=== PATIENT | female | born 1965 | race Caucasian/White ===

== ENCOUNTER 2016-05-28 03:04 | Observation (INO) | payer MEDICARE, MEDICAID ==
[2016-05-28 03:26] LABS: ABSOLUTE BASOPHILS # (AUTO) 0.1 10^3/uL (0.0-0.2); ABSOLUTE EOSINOPHILS # (AUTO) 0.1 10^3/uL (0.0-0.6); ABSOLUTE LYMPHOCYTES (AUTO) 2.6 10^3/uL (0.5-4.7); ABSOLUTE MONOCYTES (AUTO) 0.5 10^3/uL (0.1-1.4); ABSOLUTE NEUT (AUTO) 3.2 10^3/uL (1.7-8.2); BASOPHILS % (AUTO) 1.1 % (0-2); HEMATOCRIT 42.3 % (36.0-47.0); HEMOGLOBIN 13.5 g/dL (12.0-15.5); HGB HCT DIFFERENCE -1.8; LYMPHOCYTES % (AUTO) 39.6 % (13-45); MEAN CORPUSCULAR HEMOGLOBIN 31.6 pg (27.0-33.4); MEAN CORPUSCULAR HGB CONC 31.9 g/dL (32.0-36.0); MEAN CORPUSCULAR VOLUME 99 fl (80-97); MONOCYTES % (AUTO) 7.8 % (3-13); RED BLOOD COUNT 4.27 10^6/uL (3.72-5.28); RED CELL DISTRIBUTION WIDTH 13.5 % (11.5-14.0); SEGMENTED NEUTROPHILS % (AUTO) 49.5 % (42-78); WHITE BLOOD COUNT 6.5 10^3/uL (4.0-10.5)
[2016-05-28 03:32] LABS: PROTHROMBIN TIME 12.2 SEC (11.4-15.4)
[2016-05-28 03:46] LABS: ALANINE AMINOTRANSFERASE 24 U/L (9-52); ALBUMIN 4.1 g/dL (3.5-5.0); ALKALINE PHOSPHATASE 79 U/L (38-126); ANION GAP 12 (5-19); ASPARTATE AMINO TRANSFERASE 26 U/L (14-36); BILIRUBIN,TOTAL 0.5 mg/dL (0.2-1.3); BLOOD UREA NITROGEN 26 mg/dL (7-20); CALCIUM 9.5 mg/dL (8.4-10.2); CARBON DIOXIDE 25 mmol/L (22-30); CHLORIDE 105 mmol/L (98-107); CREATININE RESULT 1.25 mg/dL (0.52-1.25); GLUCOSE 110 mg/dL (75-110); POTASSIUM 4.2 mmol/L (3.6-5.0); SODIUM 142.2 mmol/L (137-145)
--- NOTE | 2016-05-28 03:47 | ER Document Report ---
ED General - General Time seen by provider: 03:10 Mode of Arrival: Medic Information source: Parent, Relative, Emergency Med Personnel TRAVEL OUTSIDE OF THE [place] IN LAST 30 DAYS: No - HPI Onset: Just prior to arrival <ALVARADO CARLTON - Last Filed: 05/28/16 05:08> <CALLIECHADWICK ANN - Last Filed: 05/28/16 05:59> - General Chief Complaint: Altered Mental Status Stated Complaint: POSSIBLE STROKE Notes: Patient is a 50-year-old Down syndrome female presenting to the emergency department with a seizure. Patient was with her mother when she called her mother who saw her seizing. Mother describes patient was discharged about and then she fell and was unresponsive. Patient then continued to seize and continued to seize until she was given Versed by EMS. Patient only has a history of seizures occur when she has a CVA. 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 Patient takes aspirin 325 mg daily along with and Claritin. Patient recently had a MRI on 05/01 that showed an old right MCA stroke. Patient was admitted on 05/02. Patient had an incontinent episode during her seizure today. Patient is moving all 4 extremities with intent at time of exam and is responsive. Patient is allergic to aripiprazole. (ALVARADO CARLTON) - Related Data Allergies/Adverse Reactions: aripiprazole [From [facility]] Allergy (Verified 04/30/16 22:22) Past Medical History - General Information source: Parent, Relative, [facility] Records - Social History Smoking Status: Never Smoker Cigarette use (# per day): No Chew tobacco use (# tins/day): No Frequency of alcohol use: None Drug Abuse: None Family History: None Patient has suicidal ideation: No Patient has homicidal ideation: No - Past Medical History Cardiac Medical History: Reports: Hx Hypercholesterolemia Pulmonary Medical History: Reports: Hx Pneumonia Neurological Medical History: Reports: Hx Cerebrovascular Accident - x2, Hx Seizures - (only with CVA, not treated with Rx) Endocrine Medical History: Reports: Hx Hypothyroidism Renal/ Medical History: Reports: Hx Renal Insufficiency GI Medical History: Reports: Hx Gastroesophageal Reflux Disease Musculoskeltal Medical History: Reports Hx Arthritis Psychiatric Medical History: Reports: Hx Depression Past Surgical History: Reports: Hx Cardiac Surgery - Immunizations Hx Diphtheria, Pertussis, Tetanus Vaccination: Yes Hx Pneumococcal Vaccination: 01/07/15 <ALVARADO CARLTON - Last Filed: 05/28/16 05:08> <CHADWICK LEDESMA - Last Filed: 05/28/16 05:59> - Medical History Notes: Patient has Down's Syndrome. (ALVARADO CARLTON) Review of Systems - Review of Systems Constitutional: No symptoms reported EENT: No symptoms reported Cardiovascular: No symptoms reported Respiratory: No symptoms reported Gastrointestinal: No symptoms reported Genitourinary: No symptoms reported Female Genitourinary: No symptoms reported Musculoskeletal: No symptoms reported Skin: No symptoms reported Hematologic/Lymphatic: No symptoms reported Neurological/Psychological: See HPI, Seizure -: Yes All other systems reviewed and negative <ALVARADO CARLTON - Last Filed: 05/28/16 05:08> Physical Exam - Vital signs Interpretation: Normal - General General appearance: Alert, Other - Down's syndrome and moving all extremities, patient is reaching/moving her extremities with intention In distress: Mild - HEENT Head: Normocephalic, Atraumatic Eyes: Normal Extraocular movements intact: Yes Pupils: PERRL Mouth/Lips: Other - poor dentition Mucous membranes: Normal - Respiratory Respiratory status: No respiratory distress Chest status: Nontender Breath sounds: Normal Chest palpation: Normal - Cardiovascular Rhythm: Regular Heart sounds: Normal auscultation Murmur: No - Abdominal Inspection: Normal Distension: No distension Bowel sounds: Normal Tenderness: Nontender Organomegaly: No organomegaly - Back Back: Normal, Nontender - Extremities General upper extremity: Normal inspection, Normal ROM, Normal strength General lower extremity: Normal inspection, Normal ROM, Normal strength - Neurological Neuro grossly intact: Yes Cognition: Normal - for down's syndrome baseline Orientation: AAOx4 [place] Coma Scale Eye Opening: Spontaneous Kush Coma Scale Verbal: Confused Kush Coma Scale Motor: Localizes to Pain Kush Coma Scale Total: 13 - Psychological Associated symptoms: Normal affect, Normal mood - Skin Skin Temperature: Warm Skin Moisture: Dry <ALVARADO CARLTON - Last Filed: 05/28/16 05:08> <CHADWICK LEDESMA - Last Filed: 05/28/16 05:59> - Vital signs Vitals: Resp BP Pulse Ox 18 114/86 H 100 05/28/16 03:06 05/28/16 03:06 05/28/16 03:06 (ALVARADO CARLTON) (CHADWICK LEDESMA) - Genitourinary Notes: Patient had an incontinence episode. (ALVARADO CARLTON) Course - Laboratory Result Diagrams: 05/28/16 03:05 05/28/16 03:05 - Consults Dr. Rich Time consulted: 04:47 <ALVARADO CARLTON - Last Filed: 05/28/16 05:08> - Laboratory Result Diagrams: 05/28/16 03:05 05/28/16 03:05 <CHADWICK LEDESMA - Last Filed: 05/28/16 05:59> - Re-evaluation Re-evalutation: 05/28/16 05:57 Patient is a 50-year-old female who comes in after an apparent seizure at home. Family states that the patient does not have a seizure disorder but has CTs in the past with stroke an infection. This is verified old records. Patient has not had a cough or fever recently and her chest x-ray is likely atelectasis. No evidence for urinary tract infection. Blood work is within normal limits with the exception of an elevated TSH. CT is not showing any acute findings although it is possible the patient has a history of stroke. Patient was discussed with hospitalist service. Antibiotics will be held at this time due to atypical presentation of pneumonia. We have discussed possible antiseizure medication for this patient which would be newly initiated. Patient has been started on levothyroxin. Family agrees with this plan. (CHADWICK LEDESMA) - Vital Signs Vital signs: Temp Pulse Resp BP Pulse Ox 98.5 F 16 105/74 99 05/28/16 03:14 05/28/16 05:04 05/28/16 05:04 05/28/16 05:04 (ALVARADO CARLTON) (CHADWICK LEDESMA) - Laboratory Laboratory results interpreted by oh: 05/28/16 05/28/16 05/28/16 03:05 03:05 03:05 MCV 99 H MCHC 31.9 L BUN 26 H Est GFR ( Amer) 55 L Est GFR (Non-Af Amer) 45 L TSH 20.80 H (ALVARADO CARLTON) (CHADWICK LEDESMA) - Consults Dr. Rich Reason for consultation: 05/28/16 04:47 Consult for possible recommendations for patient, Dr. Rich is not the patient's PCP as listed in paperwork; patient's PCP is Dr. Alberts with [facility]. (ALVARADO CARLTON) Dr. Peters Reason for consultation: 05/28/16 05:[address] Peters, patient will be admitted. (ALVARADO CARLTON) Critical Care Note - Critical Care Note Total time excluding time spent on procedures (mins): 45 - evaluation and management of seizure activity, altered mental status, discussion with family coordination of admission <CHADWICK LEDESMA - Last Filed: 05/28/16 05:59> Discharge <ALVARADO CARLTON - Last Filed: 05/28/16 05:08> - Discharge Admitting Provider: Cathy Unit Admitted: Telemetry <CHADWICK LEDESMA - Last Filed: 05/28/16 05:59> - Discharge Clinical Impression: Seizure Altered mental status Qualifiers: Altered mental status type: transient alteration of awareness Qualified Code(s) : R40.4 - Transient alteration of awareness Condition: Stable Disposition: ADMITTED INPATIENT Referrals: SAIGE RICH MD [Primary Care Provider] - Follow up as needed Scribe Attestation: 05/28/16 05:59 I personally performed the services described in the documentation, reviewed and edited the documentation which was dictated to the scribe in my presence, and it accurately records my words and actions. (CHADWICK LEDESMA) Scribe Documentation - Scribe Written by Scribe:: Alvarado Carlton 05/28/16 03:55 acting as scribe for :: Callie <ALVARADO CARLTON - Last Filed: 05/28/16 05:08>
[2016-05-28] MEDS ORDERED: NORMAL SALINE 1000 ML 1,000 ML IV ONE (04:00)
[2016-05-28 04:18] LABS: APPEARANCE,URINE CLEAR; BILIRUBIN,URINE NEGATIVE (NEGATIVE); GLUCOSE, URINE NEGATIVE (NEGATIVE); KETONES,URINE NEGATIVE (NEGATIVE); LEUKOCYTE ESTERASE,URINE NEGATIVE (NEGATIVE); NITRITE,URINE NEGATIVE (NEGATIVE); PROTEIN,URINE NEGATIVE (NEGATIVE); URINE SPECIFIC GRAVITY 1.018; UROBILINOGEN,URINE NEGATIVE mg/dL (<2.0)
[2016-05-28 04:20] LABS: VENOUS BLOOD BASE EXCESS 1.2 mmol/L; VENOUS BLOOD HCO3 26.5 mmol/L (20-32); VENOUS BLOOD PCO2 44.1 mmHg (35-63); VENOUS BLOOD PH 7.4 (7.30-7.42)
[2016-05-28 04:42] LABS: CREATINE KINASE MB 0.91 ng/mL (<4.55); TROPONIN I 0.026 ng/mL
[2016-05-28] MEDS ORDERED: ACETAMINOPHEN 325 MG TABLET PO ONE (05:06)
[2016-05-28] MEDS ORDERED: LEVOTHYROXINE SODIUM INJ/PF 0.1 MG SDV IV ONE (05:08)
[2016-05-28] MEDS ORDERED: PHENYTOIN SODIUM INJ/PF 250 MG/5 ML SDV IV ONE (05:09)
[2016-05-28] MEDS ORDERED: IPRATROPIUM/ALBUTEROL 0.5-2.5 MG/3 ML AMPUL NEB PRN (05:10)
[2016-05-28 05:45] LABS: FREE T3 3.23 pg/mL (2.77-5.27)
[2016-05-28] MEDS ORDERED: ONDANSETRON HCL INJ/PF 4 MG/2 ML SDV IV PRN (06:52)
--- NOTE | 2016-05-28 07:23 | PDOC H&P ---
History of Present Illness Admission Date/PCP: 05/28/16 05:29 SAIGE RICH, Patient complains of: Seizure History of Present Illness: GLENN GARCIA is a 50 year old female with history of Down syndrome, CVA and hypothyroidism. Who had 2 witnessed tonic seizures with urinary incontinence by family members. Patient received Versed by EMS and return to baseline with out significant postictal state. Patient's mother at bedside denies recent abnormal behavior or complaints nor recent change in medications. In the emergency room she has an unremarkable workup and is interactive and smiling at baseline Past Medical History Cardiac Medical History: Reports: Hyperlipidema Pulmonary Medical History: Reports: Pneumonia Neurological Medical History: Reports: Seizures - (only with CVA, not treated with Rx), Other - Down's syndrome Endocrine Medical History: Reports: Hypothyroidism GI Medical History: Reports: Gastroesophageal Reflux Disease Musculoskeltal Medical History: Reports: Arthritis Psychiatric Medical History: Reports: Depression Social History Information Source: Parent, Relative Lives with: Family Smoking Status: Never Smoker Frequency of Alcohol Use: None Hx Recreational Drug Use: No Drugs: None Hx Prescription Drug Abuse: No - Advance Directive Resuscitation Status: Full Code Family History Family History: None Parental Family History Reviewed: Yes Children Family History Reviewed: Yes Sibling(s) Family History Reviewed.: Yes Medication/Allergy Home Medications: Levothyroxine Sodium 1 tab PO DAILY 07/08/15 Loratadine 1 tab PO DAILY 07/08/15 Omeprazole 20 mg PO DAILY 07/08/15 Ranitidine HCl 1 tab PO BID 07/08/15 Sertraline HCl 1 tab PO DAILY 07/08/15 Erythromycin Base [E-Mycin 0.5% Oph Ointment 3.5 gm] 1 applic OS BID #1 tube 04/23 Acetaminophen [Tylenol 325 mg Tablet] 650 mg PO Q6HP PRN tablet 04/20/16 Aspirin [Ecotrin 81 mg EC Tablet] 1 tab PO DAILY 04/30/16 Clopidogrel Bisulfate [Plavix 75 mg Tablet] 75 mg PO QAM 04/30/16 Docusate Sodium [Colace 100 mg Capsule] 1 tab PO BID 04/30/16 Ipratropium/Albuterol Sulfate [Duoneb 3 ml Ampul] 1 vial NEB [id number] PRN Magnesium Hydroxide [Milk of Magnesia 30 ml Udcup] 1 pkg PO HSP PRN 04/30/16 Simvastatin 1 tab PO QHS 04/30/16 Allergies/Adverse Reactions: aripiprazole [From [facility]] Allergy (Verified 04/30/16 22:22) Review of Systems Constitutional: ABSENT: chills, fever(s), headache(s), weight gain, weight loss Eyes: ABSENT: visual disturbances Ears: ABSENT: hearing changes Cardiovascular: ABSENT: chest pain, dyspnea on exertion, edema, orthropnea, palpitations Respiratory: ABSENT: cough, hemoptysis Gastrointestinal: ABSENT: abdominal pain, constipation, diarrhea, hematemesis, hematochezia, nausea, vomiting Genitourinary: ABSENT: dysuria, hematuria Musculoskeletal: ABSENT: joint swelling Integumentary: ABSENT: rash, wounds Neurological: ABSENT: abnormal gait, abnormal speech, confusion, dizziness, focal weakness, syncope Psychiatric: ABSENT: anxiety, depression, homidical ideation, suicidal ideation Endocrine: ABSENT: cold intolerance, heat intolerance, polydipsia, polyuria Hematologic/Lymphatic: ABSENT: easy bleeding, easy bruising Physical Exam Vital Signs: Temp Pulse Resp BP Pulse Ox 98.5 F 16 104/76 100 05/28/16 03:14 05/28/16 06:01 05/28/16 06:01 05/28/16 06:01 General appearance: PRESENT: no acute distress, well-developed, well-nourished Head exam: PRESENT: atraumatic, normocephalic Eye exam: PRESENT: conjunctiva pink, EOMI, PERRLA. ABSENT: scleral icterus Ear exam: PRESENT: normal external ear exam Mouth exam: PRESENT: moist, tongue midline Neck exam: ABSENT: carotid bruit, JVD, lymphadenopathy, thyromegaly Respiratory exam: PRESENT: clear to auscultation amarjit. ABSENT: rales, rhonchi, wheezes Cardiovascular exam: PRESENT: RRR. ABSENT: diastolic murmur, rubs, systolic murmur Pulses: PRESENT: normal dorsalis pedis pul Vascular exam: PRESENT: normal capillary refill GI/Abdominal exam: PRESENT: normal bowel sounds, soft. ABSENT: distended, guarding, mass, organolmegaly, rebound, tenderness Rectal exam: PRESENT: deferred Extremities exam: PRESENT: full ROM. ABSENT: calf tenderness, clubbing, pedal edema Neurological exam: PRESENT: alert, awake, oriented to person, oriented to place , oriented to time, oriented to situation, CN II-XII grossly intact. ABSENT: motor sensory deficit Psychiatric exam: PRESENT: appropriate affect, normal mood. ABSENT: homicidal ideation, suicidal ideation Skin exam: PRESENT: dry, intact, warm. ABSENT: cyanosis, rash Results Impressions: Cervical Spine CT 05/28/16 03:14 IMPRESSION: No CT evidence for acute fracture at the cervical spine. Degenerative changes. Chest X-Ray 05/28/16 03:14 IMPRESSION: Vascular congestion. Bibasilar airspace opacities, may represent atelectasis or pneumonia. Head CT 05/28/16 03:14 IMPRESSION: No acute intracranial hemorrhage or depressed calvarial fracture. Remote infarcts in the right frontal and right frontoparietal regions. Assessment & Plan - Diagnosis (1) Seizure Is this a current diagnosis for this admission?: YesPlan: Most likely secondary to age-related decline with Down syndrome, initiated Dilantin, will likely require daily anticonvulsant given lack of reversible cause. (2) Down syndrome Is this a current diagnosis for this admission?: YesPlan: Supportive measures (3) Hypothyroidism Qualifiers: Hypothyroidism type: unspecified Qualified Code(s): E03.9 - Hypothyroidism, unspecified Is this a current diagnosis for this admission?: YesPlan: Elevated TSH likely secondary to seizure free T4 and T3 within normal range unremarkable vital signs and mentation at baseline, continue outpatient thyroid replacement regiment - Time Time Spent: 50 to 70 Minutes
[2016-05-28] MEDS ORDERED: PHENYTOIN SODIUM EXTENDED 100 MG CAPSULE PO ONE (08:00)
--- NOTE | 2016-05-28 08:13 | EKG REPORT ---
SEVERITY:- ABNORMAL ECG - SINUS RHYTHM LEFT ANTERIOR FASCICULAR BLOCK CONSIDER RIGHT VENTRICULAR HYPERTROPHY PROBABLE LEFT VENTRICULAR HYPERTROPHY NONSPECIFIC T ABNORMALITIES, INFERIOR LEADS : Confirmed by: Franco Valladares MD 28-May-2016 08:12:27
[2016-05-28] MEDS: CLOPIDOGREL BISULFATE 75 MG TABLET PO SCH (08:45)
[2016-05-28] MEDS: DOCUSATE SODIUM 100 MG CAPSULE PO SCH ×2 (09:53→21:22)
[2016-05-28] MEDS: ASPIRIN 81 MG TABLET, ENT COATED PO SCH (09:54)
[2016-05-28] MEDS ORDERED: LEVOTHYROXINE SODIUM 0.088 MG TABLET PO SCH (10:00)
[2016-05-28] MEDS ORDERED: LEVETIRACETAM 500 MG TABLET PO ONE (12:30)
[2016-05-28] MEDS: HEPARIN SOD (PORCINE) 5,000 UNIT/ML 1 ML SYRINGE SUBCUT SCH ×2 (15:03→21:26)
--- NOTE | 2016-05-28 17:12 | PDOC PROGRESS REPORT ---
Subjective Progress Note for:: 05/28/16 Subjective:: Patient was a little lethargic this am , but has been awake , and had no further seizure activity Physical Exam Vital Signs: Temp Pulse Resp BP Pulse Ox 97.9 F 85 18 112/58 L 96 05/28/16 14:01 05/28/16 16:00 05/28/16 16:00 05/28/16 14:01 05/28/16 16:00 General appearance: PRESENT: no acute distress, well-developed, well-nourished Head exam: PRESENT: atraumatic, normocephalic Eye exam: PRESENT: conjunctiva pink, EOMI, PERRLA. ABSENT: scleral icterus Ear exam: PRESENT: normal external ear exam Mouth exam: PRESENT: moist, tongue midline Neck exam: ABSENT: carotid bruit, JVD, lymphadenopathy, thyromegaly Respiratory exam: PRESENT: clear to auscultation amarjit. ABSENT: rales, rhonchi, wheezes Cardiovascular exam: PRESENT: RRR. ABSENT: diastolic murmur, rubs, systolic murmur Pulses: PRESENT: normal dorsalis pedis pul Vascular exam: PRESENT: normal capillary refill GI/Abdominal exam: PRESENT: normal bowel sounds, soft. ABSENT: distended, guarding, mass, organolmegaly, rebound, tenderness Rectal exam: PRESENT: deferred Extremities exam: PRESENT: full ROM. ABSENT: calf tenderness, clubbing, pedal edema Neurological exam: PRESENT: alert, awake, oriented to person, CN II-XII grossly intact. ABSENT: motor sensory deficit Psychiatric exam: PRESENT: appropriate affect, normal mood. ABSENT: homicidal ideation, suicidal ideation Skin exam: PRESENT: dry, intact, warm. ABSENT: cyanosis, rash Results Laboratory Results: Labs- All tests 24 hr 05/28/16 05/28/16 05/28/16 03:05 03:05 03:05 WBC 6.5 RBC 4.27 Hgb 13.5 Hct 42.3 MCV 99 H MCH 31.6 MCHC 31.9 L RDW 13.5 Plt Count 187 Seg Neutrophils % 49.5 Lymphocytes % 39.6 Monocytes % 7.8 Eosinophils % 2.0 Basophils % 1.1 Absolute Neutrophils 3.2 Absolute Lymphocytes 2.6 Absolute Monocytes 0.5 Absolute Eosinophils 0.1 Absolute Basophils 0.1 PT 12.2 INR 0.88 VBG pH VBG pCO2 VBG HCO3 VBG Base Excess Sodium 142.2 Potassium 4.2 Chloride 105 Carbon Dioxide 25 Anion Gap 12 BUN 26 H Creatinine 1.25 Est GFR ( Amer) 55 L Est GFR (Non-Af Amer) 45 L Glucose 110 POC Glucose Lactic Acid Calcium 9.5 Total Bilirubin 0.5 Direct Bilirubin 0.0 AST 26 ALT 24 Alkaline Phosphatase 79 Creatine Kinase CK-MB (CK-2) Troponin I Total Protein 7.0 Albumin 4.1 TSH Free T4 Free T3 pg/mL Urine Color Urine Appearance Urine pH Ur Specific [place] Urine Protein Urine Glucose (UA) Urine Ketones Urine Blood Urine Nitrite Urine Bilirubin Urine Urobilinogen Ur Leukocyte Esterase Urine WBC (Auto) Urine RBC (Auto) Urine Mucus (Auto) Urine Ascorbic Acid 05/28/16 05/28/16 05/28/16 03:05 03:05 03:05 WBC RBC Hgb Hct MCV MCH MCHC RDW Plt Count Seg Neutrophils % Lymphocytes % Monocytes % Eosinophils % Basophils % Absolute Neutrophils Absolute Lymphocytes Absolute Monocytes Absolute Eosinophils Absolute Basophils PT INR VBG pH VBG pCO2 VBG HCO3 VBG Base Excess Sodium Potassium Chloride Carbon Dioxide Anion Gap BUN Creatinine Est GFR ( Amer) Est GFR (Non-Af Amer) Glucose POC Glucose Lactic Acid 1.5 Calcium Total Bilirubin Direct Bilirubin AST ALT Alkaline Phosphatase Creatine Kinase 37 CK-MB (CK-2) Troponin I Total Protein Albumin TSH 20.80 H Free T4 Free T3 pg/mL Urine Color Urine Appearance Urine pH Ur Specific [place] Urine Protein Urine Glucose (UA) Urine Ketones Urine Blood Urine Nitrite Urine Bilirubin Urine Urobilinogen Ur Leukocyte Esterase Urine WBC (Auto) Urine RBC (Auto) Urine Mucus (Auto) Urine Ascorbic Acid 05/28/16 05/28/16 05/28/16 03:05 03:05 03:52 WBC RBC Hgb Hct MCV MCH MCHC RDW Plt Count Seg Neutrophils % Lymphocytes % Monocytes % Eosinophils % Basophils % Absolute Neutrophils Absolute Lymphocytes Absolute Monocytes Absolute Eosinophils Absolute Basophils PT INR VBG pH VBG pCO2 VBG HCO3 VBG Base Excess Sodium Potassium Chloride Carbon Dioxide Anion Gap BUN Creatinine Est GFR ( Amer) Est GFR (Non-Af Amer) Glucose POC Glucose 93 Lactic Acid Calcium Total Bilirubin Direct Bilirubin AST ALT Alkaline Phosphatase Creatine Kinase CK-MB (CK-2) 0.91 Troponin I 0.026 Total Protein Albumin TSH Free T4 1.03 Free T3 pg/mL 3.23 Urine Color Urine Appearance Urine pH Ur Specific [place] Urine Protein Urine Glucose (UA) Urine Ketones Urine Blood Urine Nitrite Urine Bilirubin Urine Urobilinogen Ur Leukocyte Esterase Urine WBC (Auto) Urine RBC (Auto) Urine Mucus (Auto) Urine Ascorbic Acid 05/28/16 05/28/16 03:53 03:55 WBC RBC Hgb Hct MCV MCH MCHC RDW Plt Count Seg Neutrophils % Lymphocytes % Monocytes % Eosinophils % Basophils % Absolute Neutrophils Absolute Lymphocytes Absolute Monocytes Absolute Eosinophils Absolute Basophils PT INR VBG pH 7.40 VBG pCO2 44.1 VBG HCO3 26.5 VBG Base Excess 1.2 Sodium Potassium Chloride Carbon Dioxide Anion Gap BUN Creatinine Est GFR ( Amer) Est GFR (Non-Af Amer) Glucose POC Glucose Lactic Acid Calcium Total Bilirubin Direct Bilirubin AST ALT Alkaline Phosphatase Creatine Kinase CK-MB (CK-2) Troponin I Total Protein Albumin TSH Free T4 Free T3 pg/mL Urine Color YELLOW Urine Appearance CLEAR Urine pH 5.0 Ur Specific [place] 1.018 Urine Protein NEGATIVE Urine Glucose (UA) NEGATIVE Urine Ketones NEGATIVE Urine Blood NEGATIVE Urine Nitrite NEGATIVE Urine Bilirubin NEGATIVE Urine Urobilinogen NEGATIVE Ur Leukocyte Esterase NEGATIVE Urine WBC (Auto) 0 Urine RBC (Auto) 0 Urine Mucus (Auto) RARE Urine Ascorbic Acid NEGATIVE Impressions: Head MRI 05/28/16 00:00 IMPRESSION: Excessive motion lowers sensitivity. No evidence of acute infarct. Cervical Spine CT 05/28/16 03:14 IMPRESSION: No CT evidence for acute fracture at the cervical spine. Degenerative changes. Chest X-Ray 05/28/16 03:14 IMPRESSION: Vascular congestion. Bibasilar airspace opacities, may represent atelectasis or pneumonia. Head CT 05/28/16 03:14 IMPRESSION: No acute intracranial hemorrhage or depressed calvarial fracture. Remote infarcts in the right frontal and right frontoparietal regions. Carotid Doppler Study 05/28/16 10:00 IMPRESSION: NO HEMODYNAMICALLY SIGNIFICANT STENOSIS. Assessment & Plan - Diagnosis (1) Seizure disorder as sequela of cerebrovascular accident Is this a current diagnosis for this admission?: YesPlan: second episode of seizure will initiate therapy with keppra 500 mg bid (2) Down syndrome Is this a current diagnosis for this admission?: Yes (3) History of ischemic right MCA stroke Is this a current diagnosis for this admission?: YesPlan: no reccurence of ischemic stroke but evidence on MRI of microvascular ischemic changes throughout white matter Patient likely had a lacunar TIA (4) Hypothyroidism Qualifiers: Hypothyroidism type: unspecified Qualified Code(s): E03.9 - Hypothyroidism, unspecified Is this a current diagnosis for this admission?: YesPlan: TSH elevated will increase synthroid replacement (5) TIA (transient ischemic attack) Is this a current diagnosis for this admission?: YesPlan: no reccurence of ischemic stroke but evidence on MRI of microvascular ischemic changes throughout white matter Patient likely had a lacunar TIA carotid US : no stenosis to continue plavix Echo pending - Time Time Spent with patient: 35 or more minutes
--- NOTE | 2016-05-28 18:07 | XCELERA REPORT ---
[address] [address] Transthoracic Echocardiogram Report Name: GLENN GARCIA Age: 50 yrs Gender: Female : 1965 Patient Status: Inpatient Patient Location: \S\10\S\A Study Date: 05/28/2016 01:29 PM Height: 66 in Weight: 144 lb BSA: 1.7 m2 Procedure: A two-dimensional transthoracic echocardiogram with color flow and Doppler was performed. The study was technically difficult with many images being suboptimal in quality. Reason For Study: SEIZURE / LOC / HISTORY OF CVA History: SEIZURE / LOC / HISTORY OF CVA. Ordering Physician: YUKI BAHENA Performed By: Mary Vela Interpretation Summary Recommend SBE prophylaxis prior to GI, , or Dental procedures / surgries. The left ventricle is normal in size. There is normal left ventricular wall thickness. LV EF is > than 60% Left ventricular systolic function is normal. Doppler measurements suggest impaired left ventricular relaxation, which is associated with grade I/IV or mild diastolic dysfunction The left ventricular wall motion is normal. There is no thrombus. The left atrial size is normal. The interatrial septum is intact with no evidence for an atrial septal defect. Mitral valve prolapse cannot be excluded. There is no vegetation seen on the mitral valve. There is no mitral valve stenosis. There is a severe amount of mitral regurgitation There is no aortic valve stenosis There is no LVOT obstruction. There is a trace amount of aortic regurgitation There is no tricuspid stenosis. There is a trace amount of tricuspid regurgitation Right ventricular systolic pressure is normal. RVSP is 22 mm of Hg , with RA mean of 5. Recommend SBE prophylaxis prior to GI, , or Dental procedures / surgries. MMode/2D Measurements \T\ Calculations RVDd: 1.7 cm LVIDd: 4.3 cm FS: 38.5 % Ao root diam: 2.9 cm IVSd: 0.87 cm LVIDs: 2.7 cm EDV(Teich): 85.1 ml LVPWd: 0.89 cm ESV(Teich): 26.4 ml Ao root area: 6.5 cm2 EF(Teich): 69.0 % LA dimension: 3.4 cm Doppler Measurements \T\ Calculations MV E max ciarra: MV P1/2t max ciarra: Ao V2 max: LV V1 max P.1 cm/sec 71.1 cm/sec 131.5 cm/sec 6.0 mmHg MV A max ciarra: MV P1/2t: 63.3 msec Ao max PG: LV V1 max: 92.3 cm/sec 6.9 mmHg 122.9 cm/sec MV E/A: 0.77 MVA(P1/2t): 3.5 cm2 MV dec slope: 328.6 cm/sec2 MV dec time: 0.21 sec PA V2 max: TR max ciarra: 77.5 cm/sec 206.3 cm/sec PA max PG: TR max P.0 mmHg 2.4 mmHg Left Ventricle The left ventricle is normal in size. There is normal left ventricular wall thickness. LV EF is > than 60%. Left ventricular systolic function is normal. Doppler measurements suggest impaired left ventricular relaxation, which is associated with grade I/IV or mild diastolic dysfunction. The left ventricular wall motion is normal. Septal motion is consistent with post- operative state. There is no thrombus. There is no ventricular septal defect visualized. Right Ventricle The right ventricular cavity is small. Atria The right atrium is normal. The left atrial size is normal. The interatrial septum is intact with no evidence for an atrial septal defect. Mitral Valve Mitral valve prolapse cannot be excluded. There is no vegetation seen on the mitral valve. There is no mitral valve stenosis. There is a severe amount of mitral regurgitation. Aortic Valve The aortic valve is trileaflet. The aortic valve opens well. There is no aortic valvular vegetation. There is no aortic valve stenosis. There is no LVOT obstruction. There is a trace amount of aortic regurgitation. Tricuspid Valve There is no tricuspid stenosis. There is a trace amount of tricuspid regurgitation. Right ventricular systolic pressure is normal. RVSP is 22 mm of Hg , with RA mean of 5. Pulmonic Valve There is no pulmonic valvular stenosis. There is no pulmonic valvular regurgitation. Great Vessels The aortic root is normal size. Effusions There is no pericardial effusion. : YUKI BAHENA > Trisha Peterson
[2016-05-28] MEDS: ACETAMINOPHEN 325 MG TABLET PO PRN (21:21)
[2016-05-28] MEDS: LEVETIRACETAM 500 MG TABLET PO SCH (21:35)
[2016-05-29] MEDS: NORMAL SALINE 1000 ML 1,000 ML IV SCH ×2 (01:45→06:30)
[2016-05-29 05:41] LABS: ABSOLUTE BASOPHILS # (AUTO) 0.1 10^3/uL (0.0-0.2); ABSOLUTE EOSINOPHILS # (AUTO) 0.2 10^3/uL (0.0-0.6); ABSOLUTE LYMPHOCYTES (AUTO) 1.8 10^3/uL (0.5-4.7); ABSOLUTE MONOCYTES (AUTO) 0.4 10^3/uL (0.1-1.4); ABSOLUTE NEUT (AUTO) 2.2 10^3/uL (1.7-8.2); BASOPHILS % (AUTO) 1.3 % (0-2); EOSINOPHILS % (AUTO) 3.2 % (0-6); HEMATOCRIT 40.6 % (36.0-47.0); HGB HCT DIFFERENCE -1.6; LYMPHOCYTES % (AUTO) 38.7 % (13-45); MEAN CORPUSCULAR HEMOGLOBIN 31.7 pg (27.0-33.4); MEAN CORPUSCULAR HGB CONC 32.1 g/dL (32.0-36.0); MEAN CORPUSCULAR VOLUME 99 fl (80-97); MONOCYTES % (AUTO) 9.1 % (3-13); RED CELL DISTRIBUTION WIDTH 13.6 % (11.5-14.0); SEGMENTED NEUTROPHILS % (AUTO) 47.7 % (42-78); WHITE BLOOD COUNT 4.7 10^3/uL (4.0-10.5)
[2016-05-29 06:05] LABS: ANION GAP 11 (5-19); BLOOD UREA NITROGEN 24 mg/dL (7-20); CALCIUM 8.9 mg/dL (8.4-10.2); CARBON DIOXIDE 23 mmol/L (22-30); CHLORIDE 109 mmol/L (98-107); CREATININE RESULT 1.02 mg/dL (0.52-1.25); GLUCOSE 79 mg/dL (75-110)
[2016-05-29] MEDS: HEPARIN SOD (PORCINE) 5,000 UNIT/ML 1 ML SYRINGE SUBCUT SCH ×2 (06:24→14:27)
[2016-05-29] MEDS: ACETAMINOPHEN 325 MG TABLET PO PRN (06:50)
[2016-05-29] MEDS ORDERED: LEVOTHYROXINE SODIUM 0.025 MG TABLET PO SCH (08:00)
[2016-05-29] MEDS ORDERED: LEVOTHYROXINE SODIUM 0.1 MG TABLET PO SCH (08:00)
[2016-05-29] MEDS: CLOPIDOGREL BISULFATE 75 MG TABLET PO SCH (09:00)
[2016-05-29] MEDS ORDERED: NORMAL SALINE 500 ML IV ONE (10:45)
[2016-05-29] MEDS: DOCUSATE SODIUM 100 MG CAPSULE PO SCH (11:45)
[2016-05-29] MEDS: LEVETIRACETAM 500 MG TABLET PO SCH (11:46)
[2016-05-29] MEDS: ASPIRIN 81 MG TABLET, ENT COATED PO SCH (11:46)
[2016-05-29 15:24] VITALS: BP 83/49
--- NOTE | 2016-05-31 07:25 | PDOC DISCHARGE SUMMARY ---
General - Admit/Disc Date/PCP Admission Date/Primary Care Provider: 05/28/16 05:29 Mejia Alberts Discharge Date: 05/29/16 - Discharge Diagnosis (1) Seizure disorder as sequela of cerebrovascular accident Is this a current diagnosis for this admission?: YesSummary: patient had seizure prior to admission witnessed by mother Keppra was initiated CT head was negative Patient was referred at discharge to Dr Martinez 24 hour EEG monitoring may be indicated (2) Down syndrome Is this a current diagnosis for this admission?: Yes (3) History of ischemic right MCA stroke Is this a current diagnosis for this admission?: YesSummary: Patient was admitted after seizure MRI brain suggested microvascular ischemic changes Carotid US and Echocardiogram were unremarkable A TIA like episode likely was cause of seizure Patient was continued on ecotrin and plavix She was referred to Neurology at discharge (4) Hypothyroidism Is this a current diagnosis for this admission?: YesSummary: levothyroxin was increased (5) TIA (transient ischemic attack) Is this a current diagnosis for this admission?: Yes - Additional Information Resuscitation Status: Full Code Discharge Diet: As Tolerated Discharge Activity: Activity As Tolerated Home Medications: Acetaminophen [Tylenol Extra Strength 500 mg Tablet] 1 tab PO Q8HP PRN 05/28/16 Aspirin [Aspirin 81 mg Chewable Tablet] 81 mg PO DAILY 05/28/16 Clopidogrel Bisulfate [Plavix 75 mg Tablet] 75 mg PO DAILY 05/28/16 Docusate Sodium [Colace 100 mg Capsule] 100 mg PO BID 05/28/16 Erythromycin Base [Erythromycin] 3.5 gm OS BID 05/28/16 Ipratropium/Albuterol Sulfate [Duoneb 3 ml Ampul] 3 ml NEB RTQ8HP PRN 05/28/16 Loratadine [Claritin 10 mg Tablet] 10 mg PO DAILY 05/28/16 Omeprazole 20 mg PO DAILY 05/28/16 Ranitidine HCl [Zantac 150 mg Tablet] 150 mg PO BID 05/28/16 Sertraline HCl [Zoloft] 100 mg PO DAILY 05/28/16 Atorvastatin Calcium [Lipitor 20 mg Tablet] 20 mg PO QHS #30 tablet 05/29/16 Levetiracetam [Keppra 500 mg Tablet] 500 mg PO Q12 #60 tablet 05/29/16 Levothyroxine Sodium 112 mcg PO DAILY #30 tablet 05/29/16 History of Present Illness Patient complains of: seizure History of Present Illness: GLENN GARCIA is a 50 year old female with history of Down syndrome, CVA and hypothyroidism. Who had 2 witnessed tonic seizures with urinary incontinence by family members. Patient received Versed by EMS and return to baseline with out significant postictal state. Patient's mother at bedside denies recent abnormal behavior or complaints nor recent change in medications. In the emergency room she has an unremarkable workup and is interactive and smiling at baseline Physical Exam Vital Signs: Temp Pulse Resp BP Pulse Ox 97.3 F 86 18 83/49 L 96 05/29/16 15:14 05/29/16 15:14 05/29/16 15:14 05/29/16 15:14 05/29/16 15:14 Intake & Output 05/30/16 05/31/16 06/01/16 00:59 00:59 00:59 Intake Total 1200 Balance 1200 Weight 68.4 kg General appearance: PRESENT: no acute distress, well-developed, well-nourished Head exam: PRESENT: atraumatic, normocephalic Eye exam: PRESENT: conjunctiva pink, EOMI, PERRLA. ABSENT: scleral icterus Ear exam: PRESENT: normal external ear exam Mouth exam: PRESENT: moist, tongue midline Neck exam: ABSENT: carotid bruit, JVD, lymphadenopathy, thyromegaly Respiratory exam: PRESENT: clear to auscultation amarjit. ABSENT: rales, rhonchi, wheezes Cardiovascular exam: PRESENT: RRR. ABSENT: diastolic murmur, rubs, systolic murmur Pulses: PRESENT: normal dorsalis pedis pul Vascular exam: PRESENT: normal capillary refill GI/Abdominal exam: PRESENT: normal bowel sounds, soft. ABSENT: distended, guarding, mass, organolmegaly, rebound, tenderness Rectal exam: PRESENT: deferred Extremities exam: PRESENT: full ROM. ABSENT: calf tenderness, clubbing, pedal edema Neurological exam: PRESENT: alert, awake, CN II-XII grossly intact. ABSENT: motor sensory deficit Psychiatric exam: PRESENT: appropriate affect, normal mood. ABSENT: homicidal ideation, suicidal ideation Skin exam: PRESENT: dry, intact, warm. ABSENT: cyanosis, rash Results Laboratory Results: 05/29/16 04:18 05/29/16 04:18 Laboratory WBC 4.7 10^3/uL (4.0-10.5) 05/29/16 04:18 RBC 4.10 10^6/uL (3.72-5.28) 05/29/16 04:18 Hgb 13.0 g/dL (12.0-15.5) 05/29/16 04:18 Hct 40.6 % (36.0-47.0) 05/29/16 04:18 MCV 99 fl (80-97) H 05/29/16 04:18 MCH 31.7 pg (27.0-33.4) 05/29/16 04:18 MCHC 32.1 g/dL (32.0-36.0) 05/29/16 04:18 RDW 13.6 % (11.5-14.0) 05/29/16 04:18 Plt Count 154 10^3/uL (150-450) 05/29/16 04:18 Seg Neutrophils % 47.7 % (42-78) 05/29/16 04:18 Lymphocytes % 38.7 % (13-45) 05/29/16 04:18 Monocytes % 9.1 % (3-13) 05/29/16 04:18 Eosinophils % 3.2 % (0-6) 05/29/16 04:18 Basophils % 1.3 % (0-2) 05/29/16 04:18 Absolute Neutrophils 2.2 10^3/uL (1.7-8.2) 05/29/16 04:18 Absolute Lymphocytes 1.8 10^3/uL (0.5-4.7) 05/29/16 04:18 Absolute Monocytes 0.4 10^3/uL (0.1-1.4) 05/29/16 04:18 Absolute Eosinophils 0.2 10^3/uL (0.0-0.6) 05/29/16 04:18 Absolute Basophils 0.1 10^3/uL (0.0-0.2) 05/29/16 04:18 Sodium 143.0 mmol/L (137-145) 05/29/16 04:18 Potassium 4.0 mmol/L (3.6-5.0) 05/29/16 04:18 Chloride 109 mmol/L (98-107) H 05/29/16 04:18 Carbon Dioxide 23 mmol/L (22-30) 05/29/16 04:18 Anion Gap 11 (5-19) 05/29/16 04:18 BUN 24 mg/dL (7-20) H 05/29/16 04:18 Creatinine 1.02 mg/dL (0.52-1.25) 05/29/16 04:18 Est GFR ( Amer) > 60 (>60) 05/29/16 04:18 Est GFR (Non-Af Amer) 57 (>60) L 05/29/16 04:18 Glucose 79 mg/dL (75-110) 05/29/16 04:18 POC Glucose 93 mg/dL (70-110) 05/28/16 03:52 Lactic Acid 1.5 mmol/L (0.7-2.1) 05/28/16 03:05 Calcium 8.9 mg/dL (8.4-10.2) 05/29/16 04:18 Total Bilirubin 0.5 mg/dL (0.2-1.3) 05/28/16 03:05 Direct Bilirubin 0.0 mg/dL (0.0-0.3) 05/28/16 03:05 AST 26 U/L (14-36) 05/28/16 03:05 ALT 24 U/L (9-52) 05/28/16 03:05 Alkaline Phosphatase 79 U/L (38-126) 05/28/16 03:05 Creatine Kinase 37 U/L (30-135) 05/28/16 03:05 CK-MB (CK-2) 0.91 ng/mL (<4.55) 05/28/16 03:05 Troponin I 0.026 ng/mL 05/28/16 03:05 Total Protein 7.0 g/dL (6.3-8.2) 05/28/16 03:05 Albumin 4.1 g/dL (3.5-5.0) 05/28/16 03:05 TSH 20.80 uIU/mL (0.47-4.68) H 05/28/16 03:05 Free T4 1.03 ng/dL (0.78-2.19) 05/28/16 03:05 Free T3 pg/mL 3.23 pg/mL (2.77-5.27) 05/28/16 03:05 Urine Color YELLOW 05/28/16 03:55 Urine Appearance CLEAR 05/28/16 03:55 Urine pH 5.0 (5.0-9.0) 05/28/16 03:55 Ur Specific [place] 1.018 05/28/16 03:55 Urine Protein NEGATIVE mg/dL (NEGATIVE) 05/28/16 03:55 Urine Glucose (UA) NEGATIVE mg/dL (NEGATIVE) 05/28/16 03:55 Urine Ketones NEGATIVE mg/dL (NEGATIVE) 05/28/16 03:55 Urine Blood NEGATIVE (NEGATIVE) 05/28/16 03:55 Urine Nitrite NEGATIVE (NEGATIVE) 05/28/16 03:55 Urine Bilirubin NEGATIVE (NEGATIVE) 05/28/16 03:55 Urine Urobilinogen NEGATIVE mg/dL (<2.0) 05/28/16 03:55 Ur Leukocyte Esterase NEGATIVE (NEGATIVE) 05/28/16 03:55 Urine WBC (Auto) 0 /HPF 05/28/16 03:55 Urine RBC (Auto) 0 /HPF 05/28/16 03:55 Urine Mucus (Auto) RARE /LPF 05/28/16 03:55 Urine Ascorbic Acid NEGATIVE (NEGATIVE) 05/28/16 03:55 Impressions: Head MRI 05/28/16 00:00 IMPRESSION: Excessive motion lowers sensitivity. No evidence of acute infarct. Cervical Spine CT 05/28/16 03:14 IMPRESSION: No CT evidence for acute fracture at the cervical spine. Degenerative changes. Chest X-Ray 05/28/16 03:14 IMPRESSION: Vascular congestion. Bibasilar airspace opacities, may represent atelectasis or pneumonia. Head CT 05/28/16 03:14 IMPRESSION: No acute intracranial hemorrhage or depressed calvarial fracture. Remote infarcts in the right frontal and right frontoparietal regions. Carotid Doppler Study 05/28/16 10:00 IMPRESSION: NO HEMODYNAMICALLY SIGNIFICANT STENOSIS. Plan Discharge Plan: discharged home with mother follow up with Neurology and Cardiology for event monitor Time Spent: Greater than 30 Minutes
== END 2016-05-29 16:15 | disposition home health service (06) ==
LOC: ER 03:04 → EH 05:29 → INTOOBSV 05:29 → 4N 16:04
PROVIDERS: ADMIT Internal Medicine; ATTEND Internal Medicine
DX: I69.398 Other sequelae of cerebral infarction (principal); R56.9 Unspecified convulsions; Q90.9 Down syndrome, unspecified; E03.9 Hypothyroidism, unspecified; G45.9 Transient cerebral ischemic attack, unspecified; E78.5 Hyperlipidemia, unspecified; K21.9 Gastro-esophageal reflux disease without esophagitis; M19.90 Unspecified osteoarthritis, unspecified site; F32.9 Major depressive disorder, single episode, unspecified
CPT/HCPCS: 93005; 99291; 96360; 36415 ×2; 87040; 87086; 84439; 82553; 82962; 82550; 84443; 85025 ×2; 85610; 80048; 80053; 81001; 84484; 84481; 82803; 83605; 93306; 93880; 70551; 71010; 70450; 72125; 93010; G0378 ×3; A9270 ×14; J1644 ×2; J7030 ×2; J7040

== ENCOUNTER → 2016-06-15 | Outpatient (CLI) | payer MEDICARE, MEDICAID | LOC: OD 15:40 | PROVIDERS: ATTEND Internal Medicine Cardiovascular Disease | DX: I34.0 Nonrheumatic mitral (valve) insufficiency (principal); Q21.2 Atrioventricular septal defect; Q90.9 Down syndrome, unspecified; Z98.890 Other specified postprocedural states; Z87.74 Personal history of (corrected) congenital malformations of heart and circulatory system | CPT/HCPCS: 71020 ==

== ENCOUNTER 2016-12-22 14:04 | Emergency (ER) | payer MEDICARE, MEDICAID ==
--- NOTE | 2016-12-22 14:26 | ER Document Report ---
ED Medical Screen (RME) - General Chief Complaint: Low Blood Pressure Stated Complaint: BLOOD PRESSURE PROBLEMS Time Seen by Provider: 12/22/16 14:21 Mode of Arrival: Wheelchair Information source: Parent TRAVEL OUTSIDE OF THE [place] IN LAST 30 DAYS: No - HPI Patient complains to provider of: Low blood pressure, body aches, right-sided weakness Onset: Other - 3 days Onset/Duration: Gradual, Persistent Notes: 12/22/16 14:26 Patient is a 50-year-old female with a history of Down syndrome, previous CVA/ TIA, and hypothyroidism, who was brought to the emergency room by family for complaints of decreased energy with right-sided weakness, difficulty ambulating and a blood pressure measured at 80/60 by home health 12/22/16 14:27 - Related Data Allergies/Adverse Reactions: aripiprazole [From Abilify] Allergy (Verified 12/22/16 14:20) Past Medical History - Social History Chew tobacco use (# tins/day): No Frequency of alcohol use: None Drug Abuse: None - Past Medical History Cardiac Medical History: Reports: Hx Hypercholesterolemia Pulmonary Medical History: Reports: Hx Pneumonia Neurological Medical History: Reports: Hx Cerebrovascular Accident - x2, Hx Seizures - (only with CVA, not treated with Rx) Endocrine Medical History: Reports: Hx Hypothyroidism Renal/ Medical History: Reports: Hx Renal Insufficiency. Denies: Hx Peritoneal Dialysis GI Medical History: Reports: Hx Gastroesophageal Reflux Disease Musculoskeltal Medical History: Reports Hx Arthritis Psychiatric Medical History: Reports: Hx Depression Past Surgical History: Reports: Hx Cardiac Surgery - Immunizations Hx Diphtheria, Pertussis, Tetanus Vaccination: Yes Physical Exam - Vital signs Vitals: Temp Pulse Resp BP Pulse Ox 97.6 F 80 18 97/75 L 96 12/22/16 14:18 12/22/16 14:18 12/22/16 14:18 12/22/16 14:18 12/22/16 14:18 Course - Vital Signs Vital signs: Temp Pulse Resp BP Pulse Ox 97.6 F 80 18 97/75 L 96 12/22/16 14:18 12/22/16 14:18 12/22/16 14:18 12/22/16 14:18 12/22/16 14:18
[2016-12-22] MEDS: NORMAL SALINE 1000 ML 1,000 ML IV PRN ×2 (14:53→16:15)
[2016-12-22 15:09] LABS: ABSOLUTE BASOPHILS # (AUTO) 0.1 10^3/uL (0.0-0.2); ABSOLUTE EOSINOPHILS # (AUTO) 0.1 10^3/uL (0.0-0.6); ABSOLUTE LYMPHOCYTES (AUTO) 1.3 10^3/uL (0.5-4.7); ABSOLUTE MONOCYTES (AUTO) 0.5 10^3/uL (0.1-1.4); ABSOLUTE NEUT (AUTO) 5.9 10^3/uL (1.7-8.2); BASOPHILS % (AUTO) 0.8 % (0-2); EOSINOPHILS % (AUTO) 1.1 % (0-6); HEMATOCRIT 41.6 % (36.0-47.0); HEMOGLOBIN 14.2 g/dL (12.0-15.5); LYMPHOCYTES % (AUTO) 16.7 % (13-45); MEAN CORPUSCULAR HEMOGLOBIN 33.7 pg (27.0-33.4); MEAN CORPUSCULAR HGB CONC 34.1 g/dL (32.0-36.0); MEAN CORPUSCULAR VOLUME 99 fl (80-97); MONOCYTES % (AUTO) 6.2 % (3-13); RED BLOOD COUNT 4.22 10^6/uL (3.72-5.28); RED CELL DISTRIBUTION WIDTH 13.8 % (11.5-14.0); SEGMENTED NEUTROPHILS % (AUTO) 75.2 % (42-78); WHITE BLOOD COUNT 7.8 10^3/uL (4.0-10.5)
[2016-12-22 15:18] LABS: VENOUS BLOOD BASE EXCESS 0.9 mmol/L; VENOUS BLOOD HCO3 27.3 mmol/L (20-32); VENOUS BLOOD PCO2 48.9 mmHg (35-63); VENOUS BLOOD PH 7.36 (7.30-7.42)
[2016-12-22 15:37] LABS: ALANINE AMINOTRANSFERASE 60 U/L (9-52); ALKALINE PHOSPHATASE 158 U/L (38-126); ANION GAP 9 (5-19); ASPARTATE AMINO TRANSFERASE 70 U/L (14-36); BILIRUBIN,DIRECT 0.5 mg/dL (0.0-0.4); BILIRUBIN,TOTAL 0.7 mg/dL (0.2-1.3); BLOOD UREA NITROGEN 25 mg/dL (7-20); CALCIUM 9.3 mg/dL (8.4-10.2); CARBON DIOXIDE 29 mmol/L (22-30); CHLORIDE 104 mmol/L (98-107); CREATINE KINASE 501 U/L (30-135); CREATININE RESULT 1.39 mg/dL (0.52-1.25); GLUCOSE 112 mg/dL (75-110); POTASSIUM 4.5 mmol/L (3.6-5.0); SODIUM 141.5 mmol/L (137-145); TOTAL PROTEIN 7.7 g/dL (6.3-8.2)
[2016-12-22 15:45] LABS: CREATINE KINASE MB 2.63 ng/mL (<4.55); TROPONIN I 0.013 ng/mL
[2016-12-22] MEDS ORDERED: NORMAL SALINE 1000 ML 1,000 ML IV ONE (16:16)
--- NOTE | 2016-12-22 17:57 | ER Document Report ---
ED Blood Pressure Problem - General Chief Complaint: Low Blood Pressure Stated Complaint: BLOOD PRESSURE PROBLEMS Time Seen by Provider: 12/22/16 14:21 Mode of Arrival: Wheelchair Notes: The patient is a 50-year-old female, past medical history Down syndrome, prior TIAs, presents from home after she was found to have a BP 80/60. According to the sister and caregiver at bedside, patient only drinks coffee and does not drink any water. 3 days ago, she was complaining of mild right arm weakness, but this quickly resolves. Patient denies chest pain, shortness of breath, focal weakness, numbness, blurry vision, headache, dysuria, fevers, flank pain, rash or ataxia. TRAVEL OUTSIDE OF THE [place] IN LAST 30 DAYS: No - Related Data Allergies/Adverse Reactions: aripiprazole [From Apica] Allergy (Verified 12/22/16 14:20) Past Medical History - General Information source: Parent - Social History Smoking Status: Never Smoker Chew tobacco use (# tins/day): No Frequency of alcohol use: None Drug Abuse: None Family History: None - Past Medical History Cardiac Medical History: Reports: Hx Hypercholesterolemia Pulmonary Medical History: Reports: Hx Pneumonia Neurological Medical History: Reports: Hx Cerebrovascular Accident - x2, Hx Seizures - (only with CVA, not treated with Rx) Endocrine Medical History: Reports: Hx Hypothyroidism Renal/ Medical History: Reports: Hx Renal Insufficiency. Denies: Hx Peritoneal Dialysis GI Medical History: Reports: Hx Gastroesophageal Reflux Disease Musculoskeltal Medical History: Reports Hx Arthritis Psychiatric Medical History: Reports: Hx Depression Past Surgical History: Reports: Hx Cardiac Surgery - Immunizations Hx Diphtheria, Pertussis, Tetanus Vaccination: Yes Hx Pneumococcal Vaccination: 01/07/15 Review of Systems - Review of Systems Notes: REVIEW OF SYSTEMS: CONSTITUTIONAL: -fevers, -chills EENT: -eye pain, -difficulty swallowing, -nasal congestion CARDIOVASCULAR:-chest pain, -syncope. RESPIRATORY: -cough, -SOB GASTROINTESTINAL: -abdominal pain, - nausea, -vomiting, -diarrhea GENITOURINARY: -dysuria, -hematuria MUSCULOSKELETAL: -back pain, -neck pain SKIN: -rash or skin lesions. HEMATOLOGIC: -easy bruising or bleeding. LYMPHATIC: -swollen, enlarged glands. NEUROLOGICAL: -altered mental status or loss of consciousness, -headache PSYCHIATRIC: -anxiety, -depression. ALL OTHER SYSTEMS REVIEWED AND NEGATIVE. Physical Exam - Vital signs Vitals: Temp Pulse Resp BP Pulse Ox 97.6 F 80 18 97/75 L 96 12/22/16 14:18 12/22/16 14:18 12/22/16 14:18 12/22/16 14:18 12/22/16 14:18 - Notes Notes: PHYSICAL EXAMINATION: GENERAL: Well-appearing, well-nourished and in no acute distress. HEAD: Atraumatic, normocephalic. EYES: Pupils equal round and reactive to light, extraocular movements intact, sclera anicteric, conjunctiva are normal. ENT: nares patent, oropharynx clear without exudates. Moist mucous membranes. NECK: Normal range of motion, supple without lymphadenopathy LUNGS: Breath sounds clear to auscultation bilaterally and equal. No wheezes rales or rhonchi. HEART: Regular rate and rhythm without murmurs ABDOMEN: Soft, nontender, normoactive bowel sounds. No guarding, no rebound. No masses appreciated. EXTREMITIES: Normal range of motion, no pitting or edema. No cyanosis. NEUROLOGICAL: Cranial nerves grossly intact. Normal sensory and motor exams. PSYCH: Normal mood, normal affect. SKIN: Warm, Dry, normal turgor, no rashes or lesions noted. Course - Re-evaluation Re-evalutation: Looking through prior records, patient's blood pressure is frequently 90s/50s, and this is what her sister said is normal for her. Patient is eating and drinking in the emergency room. Her blood pressure improved with IV fluids. Her labs are unremarkable for signs of dehydration, including elevated BUN and creatinine. She may have a mild UTI, although it may be a contaminated sample. Will begin Macrobid. The patient experienced a brief episode of right arm weakness 3 days ago. Her head CT does not show any acute abnormalities. Her ABCD2 score is 2. No current neuro sympytoms. Offered patient admission for further IV fluids and further evaluation, but using shared decision making, the sister, caregiver and patient would like to be discharged to follow-up with Dr. Rich this week. Patient given strict return precautions and she understands. - Vital Signs Vital signs: Temp Pulse Resp BP Pulse Ox 97.6 F 80 18 122/92 H 96 12/22/16 14:18 12/22/16 14:18 12/22/16 14:18 12/22/16 19:20 12/22/16 14:18 - Laboratory Result Diagrams: 12/22/16 14:40 12/22/16 14:40 Laboratory results interpreted by me: 12/22/16 12/22/16 12/22/16 14:40 14:40 18:24 MCV 99 H MCH 33.7 H BUN 25 H Creatinine 1.39 H Est GFR ( Amer) 48 L Est GFR (Non-Af Amer) 40 L Glucose 112 H Direct Bilirubin 0.5 H AST 70 H ALT 60 H Alkaline Phosphatase 158 H Creatine Kinase 501 H Urine Ketones TRACE H Urine Blood SMALL H Ur Leukocyte Esterase LARGE H - Diagnostic Test Radiology reviewed: Image reviewed, Reports reviewed Radiology results interpreted by me: Head CT: NAD Discharge - Discharge Clinical Impression: Dehydration TIA (transient ischemic attack) Qualifiers: Transient cerebral ischemia type: unspecified Qualified Code(s): G45.9 - Transient cerebral ischemic attack, unspecified UTI (urinary tract infection) Qualifiers: Urinary tract infection type: site unspecified Hematuria presence: without hematuria Qualified Code(s): N39.0 - Urinary tract infection, site not specified Condition: Stable Disposition: HOME, SELF-CARE Additional Instructions: Dehydration Dehydration can result from vomiting or diarrhea, fever, or decreased intake of fluids. If severe, hospitalization and intravenous fluids may be required. Most cases are treated at home with fluids by mouth. For the next 24 hours, drink lots of clear fluids. In mild cases, this can be soda pop or sports drinks. For more severe dehydration, the doctor may recommend special fluids such as Pedialyte or Lytren. Try to get three liters ( 3 quarts) of fluid per day. If vomiting occurs, continue to drink the fluids frequently (every 15 to 20 minutes), but in small amounts (one or two ounces). Depending on the type of dehydration, the doctor may prescribe antinausea medicine or potassium replacements. Call the doctor or return for re-examination if you become progressively weak, vomit repeatedly, or have other new symptoms. Transient Ischemic Attack You have been diagnosed as having a transient ischemic attack (TIA). This is caused when an artery to the brain has been temporarily blocked. It can result in visual changes, difficulty with speech, and weakness or numbness -- usually limited to one side of the body. TIA symptoms usually resolve within an hour, but a TIA is serious, as it may be a warning sign of an impending stroke. To prevent further episodes, you may be placed on medication to reduce the possibility that your platelets will aggregate and form blood clots in the arteries that supply the brain. Usually, this includes aspirin and sometimes other platelet inhibitors. Further evaluation is often necessary to make an exact diagnosis as to where these blood clots are originating, and if anything else needs to be done to correct the problem. Call the physician or go to the emergency room if episodes occur with increasing frequency. If symptoms occur that don't go away within a few minutes , call 911. URINARY TRACT INFECTION: Your evaluation indicates that you have a urinary tract infection. This is due to germs growing in the bladder. This is a common problem. This infection usually responds quickly to antibiotics. Your antibiotic should be taken exactly as prescribed. Drink plenty of fluids -- three to four quarts a day. Occasionally, a bladder anesthetic will be prescribed to help stop the feeling of urgency until the antibiotic has a chance to clear the infection. This may cause your urine to be dark orange. Certain urine infections require a culture. If the doctor obtained a culture, the results will be back in two days. You should call to see if a change in treatment is needed. A repeat urinalysis after you finish treatment is often recommended. The physician will let you know if further testing is required. Call the doctor if you develop fever, chills, flank pain, inability to urinate, or blood in the urine. ANTIBIOTIC THERAPY: You have been given an antibiotic prescription. It's important that you take all the medication, unless instructed otherwise by your physician. Failure to complete the entire course can result in relapse of your condition. Common side effects of antibiotics include nausea, intestinal cramping, or diarrhea. Women may develop vaginal yeast infections, and babies can get yeast (thrush) in the mouth following the use of antibiotics. Contact your physician if you develop significant side effects from this medication. Allergy to this antibiotic can result in hives, wheezing, faintness, or itching. If symptoms of allergy occur, stop the medication and call the doctor. NITROFURANTOIN (MACRODANTIN, MACROBID): You have received a prescription for nitrofurantoin (Macrodantin). This antibiotic is used for urinary tract infections. Women who are or nursing should notify the physician before taking this medicine. If you have ever had a problem caused by this medication in the past, be sure the physician is aware of it. Common side effects of this medicine include nausea, vomiting, or decreased appetite. Notify your physician if these side effects become severe. Immediately stop this medicine and call the physician if you develop cough , shortness of breath, chest pain, weakness, jaundice (yellow color of the skin and whites of the eyes), or a skin rash. FOLLOW-UP CARE: If you have been referred to a physician for follow-up care, call the physician s office for an appointment as you were instructed or within the next two days. If you experience worsening or a significant change in your symptoms, notify the physician immediately or return to the Emergency Department at any time for re-evaluation. Prescriptions: Nitrofurantoin/Nitrofuran Mac [Macrobid 100 mg Capsule] 1 tab PO BID #10 capsule Referrals: SAIGE RICH MD [ACTIVE STAFF] - Follow up as needed (Follow up in 1-2 days)
[2016-12-22 18:47] LABS: APPEARANCE,URINE CLOUDY; BILIRUBIN,URINE NEGATIVE (NEGATIVE); GLUCOSE, URINE NEGATIVE (NEGATIVE); KETONES,URINE TRACE mg/dL (NEGATIVE); LEUKOCYTE ESTERASE,URINE LARGE (NEGATIVE); NITRITE,URINE NEGATIVE (NEGATIVE); PROTEIN,URINE NEGATIVE (NEGATIVE); URINE SPECIFIC GRAVITY 1.015; UROBILINOGEN,URINE NEGATIVE mg/dL (<2.0)
[2016-12-22] MEDS ORDERED: NITROFURANTOIN MONOHYD/M-CRYST 100 MG CAPSULE PO ONE (19:39)
[2016-12-22 20:15] VITALS: BP 92/51
--- NOTE | 2016-12-28 00:19 | RADIOLOGY REPORT (SQ) ---
EXAM DESCRIPTION: CT HEAD WITHOUT COMPLETED DATE/TIME: 12/22/2016 3:39 pm REASON FOR STUDY: Injury, pain COMPARISON: MRI brain 05/28/2016 CT brain 05/28/2016, 04/30/2016, 04/25/2015, 09/02/2009 TECHNIQUE: Non contrasted CT brain was performed, reviewed at bone and brain and subdural windows. RADIATION DOSE: 64.6 mGy LIMITATIONS: Motion artifact throughout the study FINDINGS: There is motion artifact throughout the study. No gross depressed calvarial fracture. Paranasal sinuses, mastoid air cells clear. On the brain and subdural images without motion, there is no acute intracranial hemorrhage, large ter ritory acute ischemic change, mass effect, or midline shift. Old right anterior and posterior frontal cortical and subcortical white matter infarcts. Old right p osterior cerebellar hemisphere infarct. IMPRESSION: Limited study, no acute changes. Old right frontal and right cerebellar infarcts. TECHNICAL DOCUMENTATION: Job ID: [id number]
== END 2016-12-22 20:53 | disposition home or self-care (01) ==
LOC: ER 14:04
DX: E86.0 Dehydration (principal); G45.9 Transient cerebral ischemic attack, unspecified; N39.0 Urinary tract infection, site not specified; Q90.9 Down syndrome, unspecified
CPT/HCPCS: 99285; 96360; 96361; 36415; 87086; 82553; 82550; 85025; 87088; 80053; 81001; 84484; 87186; 82803; 83605; 70450; J7030; A9270; J8499

== ENCOUNTER 2017-01-05 11:47 | Inpatient (IN) | payer MEDICARE, MEDICAID ==
[2017-01-05] MEDS ORDERED: NORMAL SALINE 1000 ML 1,000 ML IV ONE ×2 (12:29→16:08)
[2017-01-05 12:33] LABS: ABSOLUTE BASOPHILS # (AUTO) 0.1 10^3/uL (0.0-0.2); ABSOLUTE MONOCYTES (AUTO) 0.5 10^3/uL (0.1-1.4); ABSOLUTE NEUT (AUTO) 5.3 10^3/uL (1.7-8.2); BASOPHILS % (AUTO) 0.9 % (0-2); EOSINOPHILS % (AUTO) 0.5 % (0-6); HEMATOCRIT 38.6 % (36.0-47.0); HEMOGLOBIN 12.9 g/dL (12.0-15.5); HGB HCT DIFFERENCE 0.1; LYMPHOCYTES % (AUTO) 15.1 % (13-45); MEAN CORPUSCULAR HEMOGLOBIN 33.5 pg (27.0-33.4); MEAN CORPUSCULAR HGB CONC 33.5 g/dL (32.0-36.0); MEAN CORPUSCULAR VOLUME 100 fl (80-97); MONOCYTES % (AUTO) 7.5 % (3-13); RED BLOOD COUNT 3.86 10^6/uL (3.72-5.28); RED CELL DISTRIBUTION WIDTH 13.7 % (11.5-14.0); WHITE BLOOD COUNT 6.9 10^3/uL (4.0-10.5)
[2017-01-05 13:07] LABS: ALANINE AMINOTRANSFERASE 26 U/L (9-52); ALBUMIN 3.9 g/dL (3.5-5.0); ALKALINE PHOSPHATASE 85 U/L (38-126); ANION GAP 11 (5-19); ASPARTATE AMINO TRANSFERASE 36 U/L (14-36); BILIRUBIN,DIRECT 0.5 mg/dL (0.0-0.4); BILIRUBIN,TOTAL 0.7 mg/dL (0.2-1.3); BLOOD UREA NITROGEN 16 mg/dL (7-20); CALCIUM 9.3 mg/dL (8.4-10.2); CARBON DIOXIDE 26 mmol/L (22-30); CHLORIDE 103 mmol/L (98-107); CREATINE KINASE 172 U/L (30-135); CREATININE RESULT 0.95 mg/dL (0.52-1.25); GLUCOSE 106 mg/dL (75-110); POTASSIUM 4.2 mmol/L (3.6-5.0); SODIUM 139.8 mmol/L (137-145); TOTAL PROTEIN 6.9 g/dL (6.3-8.2)
[2017-01-05 13:10] LABS: CREATINE KINASE MB 2.45 ng/mL (<4.55)
[2017-01-05 13:13] LABS: FREE T3 3.59 pg/mL (2.77-5.27)
[2017-01-05 13:17] LABS: TROPONIN I < 0.012 ng/mL
--- NOTE | 2017-01-05 14:15 | RADIOLOGY REPORT (SQ) ---
EXAM DESCRIPTION: CT HEAD WITHOUT COMPLETED DATE/TIME: 01/05/2017 1:36 pm REASON FOR STUDY: ams COMPARISON: 12/22/2016 TECHNIQUE: Axial images acquired through the brain without intravenous contrast. Images reviewed wi th bone, brain and subdural windows. Images stored on PACS. All CT scanners at this facility use dose modulation, iterative reconstruction, and/or weight based d osing when appropriate to reduce radiation dose to as low as reasonably achievable (ALARA). [facility]: Dose Right [facility]: CareDose [facility]: Dose Right [facility]: Teradose 4D [facility]: [employer] RADIATION DOSE: Up-to-date CT equipment and radiation dose reduction techniques were employed. CTDIv ol: 64.6 mGy. DLP: 2068 mGy-cm. mGy. LIMITATIONS: There is some motion artifact. FINDINGS: VENTRICLES: Prominent. CEREBRUM: No masses or hemorrhage seen. There is no midline shift. Old infarcts are seen on the rig ht in the frontal and parietal area. No acute infarct is seen. CEREBELLUM: Old right cerebellar infarct. No hemorrhage or acute abnormality appreciated, but there is some motion artifact in the posterior fossa. EXTRAAXIAL SPACES: No fluid collections. No masses. ORBITS AND GLOBE: No intra- or extraconal masses. Normal contour of globe without masses. CALVARIUM: No fracture. PARANASAL SINUSES: No fluid or mucosal thickening. SOFT TISSUES: No mass or hematoma. OTHER: No other significant finding. IMPRESSION: The study is slightly limited by motion artifact. There are old right-sided infarcts as described. There is no acute intracranial pathology. COMMENT: Quality ID # [id number]: Final reports with documentation of one or more dose reduction techniques (e.g., Automated exposure control, adjustment of the mA and/or kV according to patient size, use of iterative reconstruction technique) TECHNICAL DOCUMENTATION: JOB ID: [id number] [employer]- All Rights Reserved
[2017-01-05 15:02] LABS: APPEARANCE,URINE CLEAR; BILIRUBIN,URINE NEGATIVE (NEGATIVE); GLUCOSE, URINE NEGATIVE (NEGATIVE); KETONES,URINE NEGATIVE (NEGATIVE); LEUKOCYTE ESTERASE,URINE NEGATIVE (NEGATIVE); NITRITE,URINE NEGATIVE (NEGATIVE); PROTEIN,URINE NEGATIVE (NEGATIVE); URINE SPECIFIC GRAVITY 1.003; UROBILINOGEN,URINE NEGATIVE mg/dL (<2.0)
--- NOTE | 2017-01-05 15:33 | ER Document Report ---
ED Dizziness/Weakness - General Chief Complaint: General Weakness Stated Complaint: WEAKNESS Time Seen by Provider: 01/05/17 12:24 Mode of Arrival: Medic Information source: Parent Notes: patient is a 51-year-old female with Down syndrome, history of seizure disorder who presents to the ER today via EMS for generalized weakness over the past week with jerking of her extremities that began 3 days ago.Patient usually walks with a walker at home and mother states she has been needing maximum assistance up and down and can't walk because of weakness to her legs. Mom states last night she was trying to feed herself with a spoon, but didn't actually have the spoon in her hand. Mom states that today pt has been more tired and arousable but asleep most of the day.She states pt does not usually twitch or jerk. She denies that she's had any fever, chills, cough, vomiting, diarrhea, or recent seizure. Pt takes keppra 500mg twice daily for seizures. She has actually only ever had one seizure per mom and it was in May of this year and was associated with a stroke. She sees Dr. Martinez for neurology. TRAVEL OUTSIDE OF THE [place] IN LAST 30 DAYS: No - Related Data Allergies/Adverse Reactions: aripiprazole [From [employer]] Allergy (Verified 12/22/16 14:20) Home Medications: Current Home Medications Levothyroxine Sodium 125 mcg PO DAILY 01/05/17 [History] Past Medical History - General Information source: Parent - Social History Smoking Status: Never Smoker Chew tobacco use (# tins/day): No Frequency of alcohol use: None Drug Abuse: None Family History: None - Past Medical History Cardiac Medical History: Reports: Hx Hypercholesterolemia Pulmonary Medical History: Reports: Hx Pneumonia Neurological Medical History: Reports: Hx Cerebrovascular Accident - x2, Hx Seizures - (only with CVA, not treated with Rx) Endocrine Medical History: Reports: Hx Hypothyroidism Renal/ Medical History: Reports: Hx Renal Insufficiency. Denies: Hx Peritoneal Dialysis GI Medical History: Reports: Hx Gastroesophageal Reflux Disease Musculoskeltal Medical History: Reports Hx Arthritis Psychiatric Medical History: Reports: Hx Depression Past Surgical History: Reports: Hx Cardiac Surgery - Immunizations Hx Diphtheria, Pertussis, Tetanus Vaccination: Yes Hx Pneumococcal Vaccination: 01/07/15 Review of Systems - Review of Systems Constitutional: No symptoms reported EENT: No symptoms reported Cardiovascular: No symptoms reported Respiratory: No symptoms reported Gastrointestinal: No symptoms reported Genitourinary: No symptoms reported Female Genitourinary: No symptoms reported Musculoskeletal: No symptoms reported Skin: No symptoms reported Hematologic/Lymphatic: No symptoms reported Neurological/Psychological: See HPI Physical Exam - Vital signs Vitals: Pulse Ox 94 01/05/17 11:55 - Notes Notes: PHYSICAL EXAMINATION: GENERAL: pt with Down's, generalized mild jerking of extremities, sleeping but arousable easily by voice, in no acute distress. HEAD: Atraumatic, normocephalic. EYES: Pupils equal round and reactive to light, extraocular movements intact, sclera anicteric, conjunctiva are normal. ENT: ear canals without erythema or foreign body, TMs pearly hung with good bony landmarks, nares patent, oropharynx clear without exudates. Moist mucous membranes. airway patent NECK: Normal range of motion, supple without lymphadenopathy LUNGS: CTAB and equal. No wheezes rales or rhonchi. HEART: Regular rate and rhythm without murmurs ABDOMEN: Soft, no tenderness. No guarding, no rebound BACK: no vertebral tenderness, normal ROM GI/: erythematous rash with satellite lesions to groin, no CVA tenderness EXTREMITIES: Normal range of motion, no pitting edema. No cyanosis. NEUROLOGICAL: Cranial nerves grossly intact. weakened motor function throughout , normal sensory function PSYCH: mental retardation SKIN: Warm, Dry, normal turgor, see Course - Re-evaluation Re-evalutation: 01/05/17 18:38 Lab work is unremarkable today including a normal white blood cell count, completely normal urinalysis, CT of the head, chest x-ray that are without acute pathology. Patient had a generalized seizure while she was in the emergency department, foaming at the mouth, generalized shaking, hypoxia, pt was placed on oxygen and seizure lasted aproximately 3 minutes, pt was given ativan 1mg and loaded with Keppra. Pt's heart rate did go up to 138bpm during and immediately after seizure. Herve Adame was called so that I could consult with neurology, Dr. Mcdowell, neurologist there advises admission to medicine here with IV fluids and observation. He does not advise any further workup at this time. I did actually learn that her neurologist is Dr. Martinez, here in [place] and called him who also advises admission here with IV fluids and oxygen, observation. Patient is still postictal but did open her eyes and look at me whenever I mention food. Her heart rate is come down to 115 bpm and at one time even came down to normal. Patient has a low blood pressure usually and she has been between 80/50 and 115/90 here in the emergency department. Mother states that this is normal for her. Patient admitted to [facility] hospitalist for observation. My attending, Dr. Mcclendon agrees with plan and evaluated pt with me. - Vital Signs Vital signs: Temp Pulse Resp BP Pulse Ox 100.5 F H 25 H 141/94 H 95 01/05/17 16:47 01/05/17 16:02 01/05/17 15:41 01/05/17 16:02 - Laboratory Result Diagrams: 01/05/17 12:05 01/05/17 12:05 Laboratory results interpreted by me: 01/05/17 01/05/17 12:05 12:05 MCV 100 H MCH 33.5 H Direct Bilirubin 0.5 H Creatine Kinase 172 H Discharge - Discharge Clinical Impression: Weakness, Shaking Condition: Stable Disposition: ADMITTED OBSERVATION Admitting Provider: Hospitalist Unit Admitted: Telemetry Additional Instructions: Return immediately for any new or worsening symptoms. Follow up with primary care provider, call tomorrow to make followup appointment. Referrals: SLIME DOZIER MD [Primary Care Provider] - Follow up as needed
[2017-01-05] MEDS ORDERED: LEVETIRACETAM 500 MG/NACL-ISO 500 MG/100 ML RTUPB IV ONE (15:39)
[2017-01-05] MEDS ORDERED: LORAZEPAM INJ 2 MG/1 ML VIAL IV ONE ×2 (15:48→18:25)
[2017-01-05] MEDS ORDERED: LORAZEPAM INJ 2 MG/1 ML VIAL ONE (15:53)
--- NOTE | 2017-01-05 17:33 | RADIOLOGY REPORT (SQ) ---
EXAM DESCRIPTION: CHEST SINGLE VIEW COMPLETED DATE/TIME: 01/05/2017 5:14 pm REASON FOR STUDY: ams COMPARISON: 06/15/2016 EXAM PARAMETERS: NUMBER OF VIEWS: One view. TECHNIQUE: Single frontal radiographic view of the chest acquired. RADIATION DOSE: NA LIMITATIONS: Partial expiratory lung volumes. FINDINGS: LUNGS AND PLEURA: No consolidation or pneumothorax. No pleural effusion. MEDIASTINUM AND HILAR STRUCTURES: Stable for technique. HEART AND VASCULAR STRUCTURES: Stable for technique. BONES: No acute findings. HARDWARE: Sternotomy. OTHER: No other significant finding. IMPRESSION: No consolidation or significant effusion. Partial expiratory lung volumes. TECHNICAL DOCUMENTATION: JOB ID: [id number]
--- NOTE | 2017-01-05 19:05 | PDOC H&P ---
History of Present Illness Admission Date/PCP: SLIME DOZIER MD Neurologist: Dr. Martinez Patient complains of: Weakness History of Present Illness: GLENN GARCIA is a 51 year old female with Down syndrome who presented to the emergency room with weakness and twitching spells. Her mother reports a 2 week history of worsening weakness. Usually the patient is quite independent with her ADLs and is able to fix her breakfast and lunch independently. She can dress herself and take care of all of her hygiene needs. Over the past 2 weeks she has become increasingly weak and has eventually gotten to the point where she is unable to ambulate for the past 2 days. During this time. She began to have increasing twitching spells that have been increasing in frequency and severity. She was treated for a urinary tract infection 2 weeks ago. She was initially started on Macrobid however her culture was positive for greater than 100,000 colonies of Enterobacter as well as E. coli. There was some resistance to these organisms. A call was placed in her her antibiotic therapy was then changed to Cipro for which she has completed a course of therapy. In spite of appropriate treatment of her urinary tract infection her weakness progressed and she was brought to the emergency room for further evaluation and treatment. She had unremarkable laboratory studies, urinalysis and chest x-ray. During her ER stay she suffered a seizure. She was given 1 mg of IV Ativan by the ER attending. Since that time she has been somewhat post ictal but is been having increasing twitching spells and is somewhat combative at times. Past Medical History Cardiac Medical History: Reports: Hyperlipidema Pulmonary Medical History: Reports: Pneumonia, Other - Pleural effusion requiring chest tube placement EENT Medical History: Reports: None Neurological Medical History: Reports: Ischemic CVA, Seizures - (only with CVA, not treated with Rx), Other - She is status post CVA 2 Endocrine Medical History: Reports: Hypothyroidism Renal/ Medical History: Reports: None Malignancy Medical History: Reports: None GI Medical History: Reports: Gastroesophageal Reflux Disease Musculoskeltal Medical History: Reports: Arthritis Skin Medical History: Reports: Other - She recently has had an itchy rash in her groin area Psychiatric Medical History: Reports: Depression, Other - Down syndrome Traumatic Medical History: Reports: None Hematology: Reports: None Infectious Medical History: Reports: Other Past Surgical History Past Surgical History: Reports: Other - ASD repair Social History Information Source: Relative, Legal Guardian Lives with: Parents Smoking Status: Never Smoker Frequency of Alcohol Use: None Hx Recreational Drug Use: No Drugs: None Hx Prescription Drug Abuse: No - Advance Directive Resuscitation Status: Full Code Family History Family History: DM, Hyperlipidemia Parental Family History Reviewed: Yes Children Family History Reviewed: NA Sibling(s) Family History Reviewed.: Yes Medication/Allergy Home Medications: Acetaminophen [Tylenol Extra Strength 500 mg Tablet] 2 tab PO Q12H PRN 05/28/16 Aspirin [Aspirin 81 mg Chewable Tablet] 81 mg PO DAILY 05/28/16 Clopidogrel Bisulfate [Plavix 75 mg Tablet] 75 mg PO DAILY 05/28/16 Docusate Sodium [Colace 100 mg Capsule] 100 mg PO BID 05/28/16 Erythromycin Base [Erythromycin] 3.5 gm OS BID 05/28/16 Ipratropium/Albuterol Sulfate [Duoneb 3 ml Ampul] 3 ml NEB [id number] PRN 05/28/16 Loratadine [Claritin 10 mg Tablet] 10 mg PO DAILY 05/28/16 Omeprazole 20 mg PO DAILY 05/28/16 Ranitidine HCl [Zantac 150 mg Tablet] 150 mg PO BID 05/28/16 Sertraline HCl [Zoloft] 100 mg PO DAILY 05/28/16 Atorvastatin Calcium [Lipitor 20 mg Tablet] 20 mg PO QHS #30 tablet 05/29/16 Levetiracetam [Keppra 500 mg Tablet] 500 mg PO Q12 #60 tablet 05/29/16 Nitrofurantoin/Nitrofuran Mac [Macrobid 100 mg Capsule] 1 tab PO BID #10 capsule 12/22/16 Levothyroxine Sodium 125 mcg PO DAILY 01/05/17 Allergies/Adverse Reactions: aripiprazole [From [employer]] Allergy (Verified 12/22/16 14:20) Review of Systems ROS unobtainable: Due to mental status Physical Exam Vital Signs: Temp Pulse Resp BP Pulse Ox 100.5 F H 25 H 141/94 H 95 01/05/17 16:47 01/05/17 16:02 01/05/17 15:41 01/05/17 16:02 Intake & Output 01/04/17 01/05/17 01/06/17 06:59 06:59 06:59 Weight 67.132 kg General appearance: PRESENT: disheveled, other - The patient is significantly agitated, somewhat combative and twitching Head exam: PRESENT: atraumatic, normocephalic Eye exam: PRESENT: conjunctiva pink, PERRLA Ear exam: PRESENT: normal external ear exam Mouth exam: PRESENT: laceration - The patient bit her tongue and has a small laceration which is bleeding somewhat., moist Teeth exam: PRESENT: poor dentation Neck exam: ABSENT: carotid bruit, JVD, lymphadenopathy, thyromegaly Respiratory exam: PRESENT: clear to auscultation amarjit, tachypnea, other - Exam is limited as the patient will not cooperate. ABSENT: accessory muscle use Cardiovascular exam: PRESENT: RRR, +S1, +S2, tachycardia. ABSENT: diastolic murmur, gallop, rubs, systolic murmur Pulses: PRESENT: normal dorsalis pedis pul GI/Abdominal exam: PRESENT: normal bowel sounds, soft. ABSENT: tenderness Rectal exam: PRESENT: deferred Gentrourinary exam: PRESENT: other - Patient has rash consistent with Andra in her groin folds and on mons pubis Extremities exam: ABSENT: calf tenderness, clubbing, pedal edema Neurological exam: PRESENT: altered. ABSENT: alert, oriented to person, oriented to time, oriented to situation Psychiatric exam: PRESENT: agitated Focused psych exam: PRESENT: psychomotor agitation, restlessness Results Laboratory Results: 01/05/17 12:05 01/05/17 12:05 01/05/17 01/05/17 01/05/17 12:05 12:05 12:05 WBC 6.9 RBC 3.86 Hgb 12.9 Hct 38.6 MCV 100 H MCH 33.5 H MCHC 33.5 RDW 13.7 Plt Count 201 Seg Neutrophils % 76.0 Lymphocytes % 15.1 Monocytes % 7.5 Eosinophils % 0.5 Basophils % 0.9 Absolute Neutrophils 5.3 Absolute Lymphocytes 1.0 Absolute Monocytes 0.5 Absolute Eosinophils 0.0 Absolute Basophils 0.1 Sodium 139.8 Potassium 4.2 Chloride 103 Carbon Dioxide 26 Anion Gap 11 BUN 16 Creatinine 0.95 Est GFR ( Amer) > 60 Est GFR (Non-Af Amer) > 60 Glucose 106 Calcium 9.3 Total Bilirubin 0.7 AST 36 ALT 26 Alkaline Phosphatase 85 Total Protein 6.9 Albumin 3.9 TSH Free T4 1.03 Free T3 pg/mL 3.59 Urine Color Urine Appearance Urine pH Ur Specific [place] Urine Protein Urine Glucose (UA) Urine Ketones Urine Blood Urine Nitrite Ur Leukocyte Esterase Urine WBC (Auto) 01/05/17 01/05/17 12:05 14:40 WBC RBC Hgb Hct MCV MCH MCHC RDW Plt Count Seg Neutrophils % Lymphocytes % Monocytes % Eosinophils % Basophils % Absolute Neutrophils Absolute Lymphocytes Absolute Monocytes Absolute Eosinophils Absolute Basophils Sodium Potassium Chloride Carbon Dioxide Anion Gap BUN Creatinine Est GFR ( Amer) Est GFR (Non-Af Amer) Glucose Calcium Total Bilirubin AST ALT Alkaline Phosphatase Total Protein Albumin TSH 4.67 Free T4 Free T3 pg/mL Urine Color STRAW Urine Appearance CLEAR Urine pH 6.0 Ur Specific Mil[place] 1.003 Urine Protein NEGATIVE Urine Glucose (UA) NEGATIVE Urine Ketones NEGATIVE Urine Blood NEGATIVE Urine Nitrite NEGATIVE Ur Leukocyte Esterase NEGATIVE Urine WBC (Auto) 0 01/05/17 01/05/17 12:05 12:05 Creatine Kinase 172 H CK-MB (CK-2) 2.45 Troponin I < 0.012 Impressions: Head CT 01/05/17 13:22 IMPRESSION: The study is slightly limited by motion artifact. There are old right-sided infarcts as described. There is no acute intracranial pathology. Chest X-Ray 01/05/17 16:53 IMPRESSION: No consolidation or significant effusion. Partial expiratory lung volumes. Assessment & Plan - Diagnosis (1) Seizure Is this a current diagnosis for this admission?: Yes Plan: The ER attending contacted Dr. Martinez who has agreed to come see the patient in the hospital. We certainly appreciate his assistance. At his recommendation her Keppra is going to be increased to 750 mg twice daily. I am going to give her an additional 1 mg of IV Ativan at this time. She has had seizures in the past associated with acute CVAs. I will defer to neurology since he is going to see her to drive the workup. At this point she could simply be postictal. She will be placed in observation overnight in the hospital and we will reevaluate tomorrow. (2) Post-ictal confusion Is this a current diagnosis for this admission?: Yes Plan: She will be given an additional dose of IV Ativan at this time. She will have this available overnight. We will await further recommendations from neurology. (3) SIRS (systemic inflammatory response syndrome) Is this a current diagnosis for this admission?: Yes Plan: At this point the patient has fever, tachypnea and tachycardia. She did have a recent urinary tract infection but urine obtained today looks unremarkable. We will repeat labs in the morning. At this point I believe this is all reactive to her acute seizure. I will obtain blood cultures to make sure she has a urine culture pending. (4) Down syndrome Is this a current diagnosis for this admission?: Yes Plan: The patient is usually quite independent with her ADLs. She has become so weak over the past couple of weeks that she has been unable to ambulate. According to the family she told everybody last night that she was hurting all over. She does have issues with arthritis and it is difficult to get a good idea about what is going on with her. Certainly she has been having increasing twitching spells over the past 2 weeks as well. (5) UTI (urinary tract infection) Plan: The patient was recently treated within the past 2 weeks for an Enterobacter and E. coli urinary tract infection. She completed a course of p.o. Cipro. Cipro can cause some neurologic issues and lower the seizure threshold. This could be the cause of her recent twitching spells and seizure. (6) Hypothyroidism Plan: She will be started on her usual Synthroid. I will get a TSH and free T4 on the patient. (7) Rash Plan: She has a rash on her groin that reportedly is quite itchy. This is consistent with a Andra infection due to her recent antibiotic therapy. We will place her on some nystatin cream. - Time Time Spent: 50 to 70 Minutes - Inpatient Certification Medical Necessity: Other - At this point the patient will be placed in observation in the hospital. This will be her first midnight. She could simply be postictal and once we adjust her medications she should could potentially be discharged tomorrow.
[2017-01-05] MEDS ORDERED: ACETAMINOPHEN 325 MG TABLET PO PRN (19:14)
[2017-01-05] MEDS ORDERED: ACETAMINOPHEN 650 MG SUPP.RECT PR PRN (19:14)
[2017-01-05] MEDS ORDERED: LORAZEPAM INJ 2 MG/1 ML VIAL IV PRN (19:26)
[2017-01-05] MEDS ORDERED: NYSTATIN CREAM 15 GM TP ONE (20:45)
[2017-01-05] MEDS ORDERED: LEVETIRACETAM 750 MG in NORMAL SALINE 100 ML IV ONE (21:00)
[2017-01-05] MEDS: NORMAL SALINE 1000 ML 1,000 ML IV PRN (21:09)
[2017-01-05] MEDS: ATORVASTATIN CALCIUM 20 MG TABLET PO SCH (22:59)
--- NOTE | 2017-01-05 23:52 | EKG REPORT ---
SEVERITY:- ABNORMAL ECG - SINUS RHYTHM PROBABLE LEFT ATRIAL ABNORMALITY LEFT ANTERIOR FASCICULAR BLOCK CONSIDER RIGHT VENTRICULAR HYPERTROPHY LVH WITH SECONDARY REPOLARIZATION ABNORMALITY : Confirmed by: Lonny Aguilar 05-Jan-2017 23:50:45
[2017-01-06 05:50] LABS: HEMATOCRIT 34.1 % (36.0-47.0); HEMOGLOBIN 11.7 g/dL (12.0-15.5); MEAN CORPUSCULAR HEMOGLOBIN 33.9 pg (27.0-33.4); MEAN CORPUSCULAR HGB CONC 34.3 g/dL (32.0-36.0); MEAN CORPUSCULAR VOLUME 99 fl (80-97); RED BLOOD COUNT 3.44 10^6/uL (3.72-5.28); RED CELL DISTRIBUTION WIDTH 13.8 % (11.5-14.0); WHITE BLOOD COUNT 5.1 10^3/uL (4.0-10.5)
[2017-01-06 06:05] LABS: ANION GAP 10 (5-19); BLOOD UREA NITROGEN 9 mg/dL (7-20); CALCIUM 8.5 mg/dL (8.4-10.2); CARBON DIOXIDE 21 mmol/L (22-30); CHLORIDE 112 mmol/L (98-107); CREATININE RESULT 0.85 mg/dL (0.52-1.25); GLUCOSE 80 mg/dL (75-110); MAGNESIUM 1.9 mg/dL (1.6-2.3); PHOSPHORUS 2.9 mg/dL (2.5-4.5); POTASSIUM 3.7 mmol/L (3.6-5.0); SODIUM 143.1 mmol/L (137-145)
[2017-01-06 06:30] LABS: THYROID STIMULATING HORMONE 5.63 uIU/mL (0.47-4.68)
[2017-01-06] MEDS: LEVOTHYROXINE SODIUM 0.1 MG TABLET PO SCH (08:49)
[2017-01-06] MEDS: LEVOTHYROXINE SODIUM 0.025 MG TABLET PO SCH (08:49)
[2017-01-06] MEDS: NORMAL SALINE 1000 ML 1,000 ML IV PRN ×2 (08:58→20:46)
[2017-01-06] MEDS: ENOXAPARIN SODIUM INJ 40 MG/0.4 ML DISP.SYRIN SUBCUT SCH (10:35)
[2017-01-06] MEDS: LEVETIRACETAM 750 MG in NORMAL SALINE 100 ML IV SCH ×2 (10:35→21:29)
[2017-01-06] MEDS: ASPIRIN 81 MG TABLET, CHEWABLE PO SCH (10:43)
[2017-01-06] MEDS: CLOPIDOGREL BISULFATE 75 MG TABLET PO SCH (10:44)
[2017-01-06] MEDS: SERTRALINE HCL 50 MG TABLET PO SCH (10:44)
[2017-01-06] MEDS: DOCUSATE SODIUM 100 MG CAPSULE PO SCH ×2 (10:44→17:31)
[2017-01-06] MEDS: LORATADINE 10 MG TABLET PO SCH (10:44)
[2017-01-06] MEDS: ERYTHROMYCIN 0.5% OPH OINTMENT 3.5 GM TUBE OS SCH ×2 (11:34→17:32)
--- NOTE | 2017-01-06 13:39 | PDOC PROGRESS REPORT ---
Subjective Progress Note for:: 01/06/17 - HD#1 Subjective:: GLENN GARCIA is a 51 year old female with Downs syndrome who presented to the emergency room January 05, 2017 with weakness and twitching spells. Her mother reported a 2 week history of worsening weakness. Usually the patient is quite independent with her ADLs and is able to fix her breakfast and lunch independently. She can dress herself and take care of all of her hygiene needs. Over the past 2 weeks prior to admission, she has become increasingly weak and has eventually gotten to the point where she was unable to ambulate beginning 2 days prior to admission. During this time, she began to have twitching spells that have been increasing in frequency and severity. She was treated for a urinary tract infection 2 weeks to admission. She was initially started on Macrobid. However, her culture was positive for greater than 100,000 colonies of Enterobacter as well as E. coli. There was some resistance to these organisms. Her antibiotic therapy was then changed to Cipro for which she has completed a course of therapy. In spite of appropriate treatment of her urinary tract infection her weakness progressed and she was brought to the emergency room for further evaluation and treatment. She had unremarkable laboratory studies, urinalysis and chest x-ray. During her ER stay she suffered a seizure. She was given 1 mg of IV Ativan by the ER attending. Since that time she has been somewhat post ictal but still having twitching spells. At times she was combative. Today, she is somnolent, but arousable. Physical Exam Vital Signs: Temp Pulse Resp BP Pulse Ox 98.4 F 102 H 16 99/75 L 93 01/06/17 11:57 01/06/17 11:57 01/06/17 11:57 01/06/17 11:57 01/06/17 11:57 Intake & Output 01/05/17 01/06/17 01/07/17 06:59 06:59 06:59 Intake Total 240 Balance 240 Weight 67.1 kg General appearance: PRESENT: no acute distress, cooperative, obese Head exam: PRESENT: atraumatic, normocephalic Eye exam: PRESENT: conjunctiva pink, EOMI, PERRLA. ABSENT: scleral icterus Mouth exam: PRESENT: moist Neck exam: PRESENT: full ROM Respiratory exam: PRESENT: clear to auscultation amarjit. ABSENT: rales, rhonchi, wheezes Cardiovascular exam: PRESENT: RRR. ABSENT: diastolic murmur, rubs, systolic murmur GI/Abdominal exam: PRESENT: normal bowel sounds, soft. ABSENT: distended, guarding, mass, organolmegaly, rebound, tenderness Extremities exam: PRESENT: full ROM. ABSENT: calf tenderness, clubbing, pedal edema Neurological exam: PRESENT: altered - But arousable Skin exam: PRESENT: erythema - Groin Results Laboratory Results: 01/06/17 04:31 01/06/17 04:31 01/06/17 01/06/17 01/06/17 04:31 04:31 04:31 WBC 5.1 RBC 3.44 L Hgb 11.7 L Hct 34.1 L MCV 99 H MCH 33.9 H MCHC 34.3 RDW 13.8 Plt Count 158 Sodium 143.1 Potassium 3.7 Chloride 112 H Carbon Dioxide 21 L Anion Gap 10 BUN 9 Creatinine 0.85 Est GFR ( Amer) > 60 Est GFR (Non-Af Amer) > 60 Glucose 80 Calcium 8.5 Phosphorus 2.9 Magnesium 1.9 TSH 5.63 H Free T4 1.03 Impressions: Head CT 01/05/17 13:22 IMPRESSION: The study is slightly limited by motion artifact. There are old right-sided infarcts as described. There is no acute intracranial pathology. Chest X-Ray 01/05/17 16:53 IMPRESSION: No consolidation or significant effusion. Partial expiratory lung volumes. Assessment & Plan - Diagnosis (1) Encephalopathy acute Is this a current diagnosis for this admission?: Yes Plan: This could be due to subclinical seizures versus postictal state versus effects of lorazepam that she was given yesterday. She is now on a higher dose of Keppra for seizures. We will not give more Lorazepam and allow her to "wake" up. Neurology consult pending. (2) Seizure disorder as sequela of cerebrovascular accident Is this a current diagnosis for this admission?: Yes Plan: The ER attending contacted Dr. Martinez who has agreed to come see the patient in the hospital. We certainly appreciate his assistance. At his recommendation her Keppra is going to be increased to 750 mg twice daily. (3) Down syndrome Is this a current diagnosis for this admission?: Yes Plan: The patient is usually quite independent with her ADLs. She has become so weak over the past couple of weeks that she has been unable to ambulate. According to the family she told the family that she was hurting all over. She does have issues with arthritis. Unfortunately, due to her mental status, it is difficult to get a good idea about what is going on with her, i.e. where her pain is. CPK was 172. So, I doubt the rhabdomyolysis (muscle spasms) is playing a major role. Need to reassess when she is more alert. (4) Hypothyroidism Qualifiers: Hypothyroidism type: acquired Qualified Code(s): E03.9 - Hypothyroidism, unspecified Is this a current diagnosis for this admission?: Yes Plan: TSH was within normal limits. Continue current dose of levothyroxine. (5) Rash Plan: Yeast/fungal dermatitis. Continue nystatin cream. (6) Hypothyroidism Qualifiers: Hypothyroidism type: unspecified Qualified Code(s): E03.9 - Hypothyroidism , unspecified (7) Post-ictal confusion Is this a current diagnosis for this admission?: Yes Plan: Versus subclinical seizures versus medication effects from lorazepam. Appreciate neurology input. - Time Time Spent with patient: 25-34 minutes Anticipated discharge: Home Within: within 48 hours, within 36 hours - Inpatient Certification Based on my medical assessment, after consideration of the patient's comorbidities, presenting symptoms, or acuity I expect that the services needed warrant INPATIENT care.: Yes I certify that my determination is in accordance with my understanding of Medicare's requirements for reasonable and necessary INPATIENT services [42 CFR 412.3e].: Yes Medical Necessity: Need Close Monitoring Due to Risk of Patient Decompensation, Other - Mental status is altered
--- NOTE | 2017-01-06 15:39 | EKG REPORT ---
SEVERITY:- ABNORMAL ECG - SINUS TACHYCARDIA LEFT ANTERIOR FASCICULAR BLOCK CONSIDER RIGHT VENTRICULAR HYPERTROPHY PROBABLE LVH WITH SECONDARY REPOL ABNRM : Confirmed by: Lonny Aguilar 06-Jan-2017 15:38:54
[2017-01-06] MEDS: ATORVASTATIN CALCIUM 20 MG TABLET PO SCH (21:29)
[2017-01-06] MEDS: CLOTRIMAZOLE 1% CREAM 15 GM TP SCH (21:32)
[2017-01-07] MEDS ORDERED: ACETAMINOPHEN 650 MG SUPP.RECT PR PRN (06:30)
[2017-01-07] MEDS: NORMAL SALINE 1000 ML 1,000 ML IV PRN (07:37)
[2017-01-07] MEDS: LEVOTHYROXINE SODIUM 0.1 MG TABLET PO SCH (08:06)
[2017-01-07] MEDS: LEVOTHYROXINE SODIUM 0.025 MG TABLET PO SCH (08:06)
[2017-01-07] MEDS: ENOXAPARIN SODIUM INJ 40 MG/0.4 ML DISP.SYRIN SUBCUT SCH (09:52)
[2017-01-07] MEDS: CLOPIDOGREL BISULFATE 75 MG TABLET PO SCH (09:53)
[2017-01-07] MEDS: ASPIRIN 81 MG TABLET, CHEWABLE PO SCH (09:53)
[2017-01-07] MEDS: ERYTHROMYCIN 0.5% OPH OINTMENT 3.5 GM TUBE OS SCH ×2 (09:53→18:02)
[2017-01-07] MEDS: SERTRALINE HCL 50 MG TABLET PO SCH (09:53)
[2017-01-07] MEDS: DOCUSATE SODIUM 100 MG CAPSULE PO SCH ×2 (09:53→18:02)
[2017-01-07] MEDS: CLOTRIMAZOLE 1% CREAM 15 GM TP SCH ×2 (09:53→23:38)
[2017-01-07] MEDS: LORATADINE 10 MG TABLET PO SCH (09:53)
[2017-01-07] MEDS: LEVETIRACETAM 750 MG in NORMAL SALINE 100 ML IV SCH (09:54)
--- NOTE | 2017-01-07 12:02 | PDOC PROGRESS REPORT ---
Subjective Progress Note for:: 01/07/17 Subjective:: The patient is a 51-year-old female who has a history of Down syndrome. Normally, she is independent with most activities of daily living. She can dress herself, bathe herself and make meals which are not complicated. She has had a 2 week history of increasing weakness and lethargy. She was recently treated for a urinary tract infection and did receive ciprofloxacin. In the emergency department she had a witnessed seizure. Her dose of Keppra has been increased. A neurology consult has been placed. Physical Exam Vital Signs: Temp Pulse Resp BP Pulse Ox 98.2 F 87 16 114/72 96 01/07/17 08:26 01/07/17 08:26 01/07/17 08:26 01/07/17 08:26 01/07/17 08:26 Intake & Output 01/06/17 01/07/17 01/08/17 06:59 06:59 06:59 Intake Total 240 1200 Balance 240 1200 Weight 67.1 kg 61.7 kg General appearance: PRESENT: no acute distress Eye exam: PRESENT: EOMI Mouth exam: PRESENT: moist, neck supple Respiratory exam: PRESENT: clear to auscultation amarjit Cardiovascular exam: PRESENT: RRR GI/Abdominal exam: PRESENT: normal bowel sounds, soft Musculoskeletal exam: PRESENT: full ROM Neurological exam: PRESENT: other - Patient appeared to be sleeping when I entered the room. She does wake up with tactile stimuli and verbal stimuli but immediately falls back to sleep. She will follow simple commands such as open your eyes. However, she is somnolent and lethargic. Results Laboratory Results: 01/06/17 04:31 01/06/17 04:31 Impressions: Head CT 01/05/17 13:22 IMPRESSION: The study is slightly limited by motion artifact. There are old right-sided infarcts as described. There is no acute intracranial pathology. Chest X-Ray 01/05/17 16:53 IMPRESSION: No consolidation or significant effusion. Partial expiratory lung volumes. Assessment & Plan - Diagnosis (1) Down syndrome Is this a current diagnosis for this admission?: Yes Plan: Patient has a history of Down's syndrome but is functional and independent of ADLs at home. (2) Generalized weakness Plan: This is likely related to the patient's altered sensorium. Treated for a urinary tract infection. At this time we do not have evidence of infection but we need to follow closely for infection, inflammatory and medication effects that could be contributing to this presentation. (3) Hypothyroidism Qualifiers: Hypothyroidism type: acquired Qualified Code(s): E03.9 - Hypothyroidism, unspecified Is this a current diagnosis for this admission?: Yes Plan: TSH is only minimally elevated. We will continue current dose of levothyroxine. (4) Post-ictal confusion Is this a current diagnosis for this admission?: Yes Plan: I would expect any degree of post ictal state to be resolved by now. (5) Rash Plan: Likely Andra. Continue topical therapy. (6) Encephalopathy acute Is this a current diagnosis for this admission?: Yes Plan: Again, we need to presume that there is an underlying cause to include infectious, inflammatory conditions and metabolic conditions as well as medication effect. Neurology consult is pending. Patient could also be having intermittent seizure activity. (7) Seizure Is this a current diagnosis for this admission?: Yes Plan: Dose of Keppra has recently been increased. - Time Time Spent with patient: 25-34 minutes - Inpatient Certification Based on my medical assessment, after consideration of the patient's comorbidities, presenting symptoms, or acuity I expect that the services needed warrant INPATIENT care.: Yes I certify that my determination is in accordance with my understanding of Medicare's requirements for reasonable and necessary INPATIENT services [42 CFR 412.3e].: Yes Medical Necessity: Need Close Monitoring Due to Risk of Patient Decompensation
[2017-01-07 15:20] LABS: ANION GAP 12 (5-19); BLOOD UREA NITROGEN 7 mg/dL (7-20); CALCIUM 8.4 mg/dL (8.4-10.2); CARBON DIOXIDE 20 mmol/L (22-30); CHLORIDE 111 mmol/L (98-107); GLUCOSE 126 mg/dL (75-110); POTASSIUM 3.6 mmol/L (3.6-5.0); SODIUM 142.7 mmol/L (137-145)
[2017-01-07] MEDS: ACETAMINOPHEN 325 MG TABLET PO PRN (23:34)
[2017-01-07] MEDS: ATORVASTATIN CALCIUM 20 MG TABLET PO SCH (23:38)
[2017-01-08] MEDS ORDERED: LEVETIRACETAM INJ/PF 500 MG/5 ML SDV IV ONE (00:53)
[2017-01-08] MEDS: LEVETIRACETAM 750 MG in NORMAL SALINE 100 ML IV SCH ×3 (01:26→21:57)
[2017-01-08 05:29] LABS: ANION GAP 10 (5-19); BLOOD UREA NITROGEN 9 mg/dL (7-20); CALCIUM 8.6 mg/dL (8.4-10.2); CARBON DIOXIDE 22 mmol/L (22-30); CHLORIDE 110 mmol/L (98-107); CREATININE RESULT 0.82 mg/dL (0.52-1.25); GLUCOSE 88 mg/dL (75-110); MAGNESIUM 1.7 mg/dL (1.6-2.3); POTASSIUM 3.3 mmol/L (3.6-5.0); SODIUM 142.1 mmol/L (137-145)
[2017-01-08] MEDS: LEVOTHYROXINE SODIUM 0.025 MG TABLET PO SCH (08:30)
[2017-01-08] MEDS: LEVOTHYROXINE SODIUM 0.1 MG TABLET PO SCH (08:30)
[2017-01-08] MEDS: DOCUSATE SODIUM 100 MG CAPSULE PO SCH ×2 (09:37→17:14)
[2017-01-08] MEDS: CLOPIDOGREL BISULFATE 75 MG TABLET PO SCH (09:37)
[2017-01-08] MEDS: SERTRALINE HCL 50 MG TABLET PO SCH (09:37)
[2017-01-08] MEDS: ENOXAPARIN SODIUM INJ 40 MG/0.4 ML DISP.SYRIN SUBCUT SCH (09:37)
[2017-01-08] MEDS: LORATADINE 10 MG TABLET PO SCH (09:37)
[2017-01-08] MEDS: ASPIRIN 81 MG TABLET, CHEWABLE PO SCH (09:37)
[2017-01-08] MEDS: ERYTHROMYCIN 0.5% OPH OINTMENT 3.5 GM TUBE OS SCH ×2 (09:38→17:14)
[2017-01-08] MEDS: CLOTRIMAZOLE 1% CREAM 15 GM TP SCH ×2 (09:38→21:57)
[2017-01-08] MEDS: MAGNESIUM OXIDE 400 MG TABLET PO SCH (09:44)
[2017-01-08] MEDS ORDERED: POTASSIUM CHLORIDE 10 MEQ TABLET.SA PO ONE (10:00)
--- NOTE | 2017-01-08 11:41 | PDOC PROGRESS REPORT ---
Subjective Progress Note for:: 01/08/17 Subjective:: The patient is a 51-year-old female who has a history of Down syndrome. Normally, she is independent with most activities of daily living. She can dress herself, bathe herself and make meals which are not complicated. She has had a 2 week history of increasing weakness and lethargy. She was recently treated for a urinary tract infection and did receive ciprofloxacin. In the emergency department she had a witnessed seizure. Her dose of Keppra has been increased. A neurology consult has been placed. Yesterday, we called the neurologists office. Unfortunately, the neurologist will not be able to provide consultation this hospitalization. Also yesterday I came to check on the patient at noon and she was awake but still sleepy. She was able to eat some lunch. By yesterday afternoon she was awake and answered most questions appropriately and followed commands appropriately. However, while the patient could tell us her mother's name when her mother came to have at her bedside she was very agitated and stated that that was not her mother. Therefore, she continues to be inappropriate. Today, the patient's sister was at the bedside. The patient's sister told me that Ashwini has been going downhill over the last several years. She also told me that she has difficulty walking secondary to bilateral hip pain. She was evaluated for a hip replacement but declined hip replacement. The sister called the mother while I was in the room and the mother is concerned about a sacral ulcer. Physical Exam Vital Signs: Temp Pulse Resp BP Pulse Ox 97.5 F 68 20 110/56 L 97 01/08/17 08:09 01/08/17 08:09 01/08/17 08:09 01/08/17 08:09 01/08/17 08:09 Intake & Output 01/07/17 01/08/17 01/09/17 06:59 06:59 06:59 Weight 61.7 kg Head exam: PRESENT: atraumatic Eye exam: PRESENT: EOMI Teeth exam: PRESENT: dental caries Respiratory exam: PRESENT: clear to auscultation amarjit, unlabored Cardiovascular exam: PRESENT: RRR GI/Abdominal exam: PRESENT: normal bowel sounds, soft Extremities exam: PRESENT: full ROM Neurological exam: PRESENT: alert, awake Skin exam: PRESENT: dry, intact Results Laboratory Results: 01/08/17 04:00 01/07/17 01/08/17 14:29 04:00 Sodium 142.7 142.1 Potassium 3.6 3.3 L Chloride 111 H 110 H Carbon Dioxide 20 L 22 Anion Gap 12 10 BUN 7 9 Creatinine 0.80 0.82 Est GFR ( Amer) > 60 > 60 Est GFR (Non-Af Amer) > 60 > 60 Glucose 126 H 88 Calcium 8.4 8.6 Magnesium 1.7 Impressions: Head CT 01/05/17 13:22 IMPRESSION: The study is slightly limited by motion artifact. There are old right-sided infarcts as described. There is no acute intracranial pathology. Chest X-Ray 01/05/17 16:53 IMPRESSION: No consolidation or significant effusion. Partial expiratory lung volumes. Assessment & Plan - Diagnosis (1) Down syndrome Is this a current diagnosis for this admission?: Yes Plan: Patient has a history of Down's syndrome: yesterday I was told she is functional and independent of ADLs at home. Today, her sister reports that she has been going downhill for many years. (2) Generalized weakness Plan: This is likely related to the patient's altered sensorium. Treated for a urinary tract infection. At this time we do not have evidence of infection but we need to follow closely for infection, inflammatory and medication effects that could be contributing to this presentation.Continue physical therapy.Today , I also found out that the patient has osteoarthritis of her hips and this is likely a contributing factor. (3) Hypothyroidism Qualifiers: Hypothyroidism type: acquired Qualified Code(s): E03.9 - Hypothyroidism, unspecified Is this a current diagnosis for this admission?: Yes Plan: TSH is only minimally elevated. We will continue current dose of levothyroxine. (4) Post-ictal confusion Is this a current diagnosis for this admission?: Yes Plan: I would expect any degree of post ictal state to be resolved by now. The patient is intermittently sleepy, however, when she wakes up she does follow commands. Right now her presentation does not appear to be consistent with a post ictal state. I also think that the patient has a component of sleep-wake malfunction. She did not get much sleep last night and she was sleeping later this morning. The nurses will try to keep her awake during the day to allow her to get a more normal night's sleep tonight to try to receiving her sleep- wake cycle. (5) Rash Plan: Likely Andra. Continue topical therapy. Rash is improved. (6) Encephalopathy acute Is this a current diagnosis for this admission?: Yes Plan: Again, we need to presume that there is an underlying cause to include infectious, inflammatory conditions and metabolic conditions as well as medication effect. Neurology consult will not be able to be obtained. Yesterday, the patient woke up significantly. She is following commands. She does not have a fever. She does not have an elevated white blood cell count. I do not find any evidence of acute infection. At this time I am concerned that she could have some residual effects from her recent course of ciprofloxacin. (7) Seizure Is this a current diagnosis for this admission?: Yes Plan: Dose of Keppra has recently been increased per conversation with neurology from the ED. The patient did have a witnessed seizure in the emergency department. (8) CVA (cerebral vascular accident) Qualifiers: CVA mechanism: unspecified Qualified Code(s): I63.9 - Cerebral infarction, unspecified Plan: Patient has had previous strokes and TIAs. She likely has some residual deficits. Again, perhaps her recent course of ciprofloxacin led to some of her mental status changes. In addition, the patient's sister tells me that she has been going downhill slowly over the last several years. The patient is currently on dual antiplatelet therapy as well as atorvastatin. Therefore, she is on maximal therapy for secondary prevention. Her exam does not suggest a new stroke. I do not see an indication to send her for an MRI of the brain. - Time Time Spent with patient: 25-34 minutes - Inpatient Certification Medical Necessity: Significant Comorbidiites Make Outpatient Treatment Too Risky , Need Close Monitoring Due to Risk of Patient Decompensation, Risk of Complication if Not Cared For in Hospital
[2017-01-08] MEDS: ATORVASTATIN CALCIUM 20 MG TABLET PO SCH (21:57)
[2017-01-08] MEDS: ACETAMINOPHEN 325 MG TABLET PO PRN (21:58)
[2017-01-09] MEDS: LEVOTHYROXINE SODIUM 0.025 MG TABLET PO SCH (07:50)
[2017-01-09] MEDS: LEVOTHYROXINE SODIUM 0.1 MG TABLET PO SCH (07:50)
[2017-01-09 08:47] LABS: ANION GAP 12 (5-19); BLOOD UREA NITROGEN 8 mg/dL (7-20); CARBON DIOXIDE 24 mmol/L (22-30); CHLORIDE 106 mmol/L (98-107); CREATININE RESULT 0.81 mg/dL (0.52-1.25); GLUCOSE 103 mg/dL (75-110); POTASSIUM 3.5 mmol/L (3.6-5.0); SODIUM 142.1 mmol/L (137-145)
[2017-01-09] MEDS: ENOXAPARIN SODIUM INJ 40 MG/0.4 ML DISP.SYRIN SUBCUT SCH (09:53)
[2017-01-09] MEDS: ASPIRIN 81 MG TABLET, CHEWABLE PO SCH (09:54)
[2017-01-09] MEDS: MAGNESIUM OXIDE 400 MG TABLET PO SCH (09:54)
[2017-01-09] MEDS: DOCUSATE SODIUM 100 MG CAPSULE PO SCH ×2 (09:54→17:06)
[2017-01-09] MEDS: CLOPIDOGREL BISULFATE 75 MG TABLET PO SCH (09:54)
[2017-01-09] MEDS: SERTRALINE HCL 50 MG TABLET PO SCH (09:54)
[2017-01-09] MEDS: LORATADINE 10 MG TABLET PO SCH (09:54)
[2017-01-09] MEDS: ERYTHROMYCIN 0.5% OPH OINTMENT 3.5 GM TUBE OS SCH ×2 (09:55→17:06)
[2017-01-09] MEDS: CLOTRIMAZOLE 1% CREAM 15 GM TP SCH ×2 (09:55→21:41)
[2017-01-09] MEDS: LEVETIRACETAM 750 MG in NORMAL SALINE 100 ML IV SCH ×2 (10:02→21:41)
--- NOTE | 2017-01-09 11:34 | PDOC PROGRESS REPORT ---
Subjective Progress Note for:: 01/09/17 Subjective:: The patient is a 51-year-old female who has a history of Down syndrome. Normally, she is independent with most activities of daily living. She can dress herself, bathe herself and make meals which are not complicated. She has had a 2 week history of increasing weakness and lethargy. She was recently treated for a urinary tract infection and did receive ciprofloxacin. In the emergency department she had a witnessed seizure. Her dose of Keppra has been increased. A neurology consult has been placed. Note that the neurology consult was called in the emergency department. Unfortunately, that consultation has not been completed and will not be completed over the long weekend. We did check on this on 07 January. The patient has had some unusual behavior, but, overall she is much more awake and appropriate. Please see my note from yesterday regarding her behavior over the last 2 days. Today, she was upset and asking for her mother but again she was awake and she was able to follow simple commands. Physical Exam Vital Signs: Temp Pulse Resp BP Pulse Ox 98.1 F 80 16 113/73 91 L 01/09/17 07:42 01/09/17 07:42 01/09/17 07:42 01/09/17 07:42 01/09/17 07:42 Intake & Output 01/08/17 01/09/17 01/10/17 06:59 06:59 06:59 Intake Total 650 Balance 650 Weight 61.7 kg Eye exam: PRESENT: EOMI Mouth exam: PRESENT: moist Teeth exam: PRESENT: poor dentation Neck exam: PRESENT: full ROM Respiratory exam: PRESENT: clear to auscultation amarjit, unlabored Cardiovascular exam: PRESENT: RRR GI/Abdominal exam: PRESENT: normal bowel sounds, soft Rectal exam: PRESENT: deferred Musculoskeletal exam: PRESENT: full ROM Neurological exam: PRESENT: awake Psychiatric exam: PRESENT: agitated Skin exam: PRESENT: intact Results Laboratory Results: 01/09/17 08:10 01/09/17 08:10 Sodium 142.1 Potassium 3.5 L Chloride 106 Carbon Dioxide 24 Anion Gap 12 BUN 8 Creatinine 0.81 Est GFR ( Amer) > 60 Est GFR (Non-Af Amer) > 60 Glucose 103 Calcium 9.0 Impressions: Head CT 01/05/17 13:22 IMPRESSION: The study is slightly limited by motion artifact. There are old right-sided infarcts as described. There is no acute intracranial pathology. Chest X-Ray 01/05/17 16:53 IMPRESSION: No consolidation or significant effusion. Partial expiratory lung volumes. Assessment & Plan - Diagnosis (1) Down syndrome Is this a current diagnosis for this admission?: Yes Plan: Patient has a history of Down's syndrome: yesterday I was told she is functional and independent of ADLs at home. However, her sister reports that she has been going downhill for many years. (2) Generalized weakness Plan: This is likely related to the patient's altered sensorium. Treated for a urinary tract infection. At this time we do not have evidence of infection but we need to follow closely for infection, inflammatory and medication effects that could be contributing to this presentation.Continue physical therapy.Today , I also found out that the patient has osteoarthritis of her hips and this is likely a contributing factor. (3) Hypothyroidism Qualifiers: Hypothyroidism type: acquired Qualified Code(s): E03.9 - Hypothyroidism, unspecified Is this a current diagnosis for this admission?: Yes Plan: TSH is only minimally elevated. We will continue current dose of levothyroxine. (4) Post-ictal confusion Is this a current diagnosis for this admission?: Yes Plan: I would expect any degree of post ictal state to be resolved by now. The patient is intermittently sleepy, however, when she wakes up she does follow commands. Right now her presentation does not appear to be consistent with a post ictal state. I also think that the patient has a component of sleep-wake malfunction. She did not get much sleep last night and she was sleeping later this morning. The nurses will try to keep her awake during the day to allow her to get a more normal night's sleep tonight to try to receiving her sleep- wake cycle. (5) Rash Plan: Likely Andra. Continue topical therapy. Rash is improved. Mother was concerned about a sacral decubital ulcer. Nurses report that there is no sacral decubitus. (6) Encephalopathy acute Is this a current diagnosis for this admission?: Yes Plan: Again, we need to presume that there is an underlying cause to include infectious, inflammatory conditions and metabolic conditions as well as medication effect. Neurology consult will not be able to be obtained. The patient has woken up significantly. She is following commands. She does not have a fever. She does not have an elevated white blood cell count. I do not find any evidence of acute infection. At this time I am concerned that she could have some residual effects from her recent course of ciprofloxacin. (7) Seizure Is this a current diagnosis for this admission?: Yes Plan: Dose of Keppra has recently been increased per conversation with neurology attenrezab (consultation was called from the ED). The patient did have a witnessed seizure in the emergency department. (8) CVA (cerebral vascular accident) Qualifiers: CVA mechanism: unspecified Qualified Code(s): I63.9 - Cerebral infarction, unspecified Plan: Patient has had previous strokes and TIAs. She likely has some residual deficits. Again, perhaps her recent course of ciprofloxacin led to some of her mental status changes. In addition, the patient's sister tells me that she has been going downhill slowly over the last several years. The patient is currently on dual antiplatelet therapy as well as atorvastatin. Therefore, she is on maximal therapy for secondary prevention. Her exam does not suggest a new stroke. I do not see an indication to send her for an MRI of the brain. - Time Time Spent with patient: 25-34 minutes - Inpatient Certification Medical Necessity: Need for Neurological Checks - Patient is receiving intravenous anti-seizure medication.
[2017-01-09] MEDS ORDERED: POTASSIUM CHLORIDE 10 MEQ TABLET.SA PO ONE (12:00)
[2017-01-09] MEDS: ACETAMINOPHEN 325 MG TABLET PO PRN (21:41)
[2017-01-09] MEDS: ATORVASTATIN CALCIUM 20 MG TABLET PO SCH (21:41)
[2017-01-10 04:55] LABS: ANION GAP 11 (5-19); BLOOD UREA NITROGEN 15 mg/dL (7-20); CALCIUM 8.9 mg/dL (8.4-10.2); CARBON DIOXIDE 25 mmol/L (22-30); CHLORIDE 105 mmol/L (98-107); CREATININE RESULT 0.91 mg/dL (0.52-1.25); GLUCOSE 93 mg/dL (75-110); POTASSIUM 3.7 mmol/L (3.6-5.0); SODIUM 141.1 mmol/L (137-145)
[2017-01-10] MEDS: LEVOTHYROXINE SODIUM 0.1 MG TABLET PO SCH (08:24)
[2017-01-10] MEDS: LEVOTHYROXINE SODIUM 0.025 MG TABLET PO SCH (08:25)
[2017-01-10] MEDS: CLOPIDOGREL BISULFATE 75 MG TABLET PO SCH (09:59)
[2017-01-10] MEDS: ASPIRIN 81 MG TABLET, CHEWABLE PO SCH (09:59)
[2017-01-10] MEDS: SERTRALINE HCL 50 MG TABLET PO SCH (09:59)
[2017-01-10] MEDS: ENOXAPARIN SODIUM INJ 40 MG/0.4 ML DISP.SYRIN SUBCUT SCH (09:59)
[2017-01-10] MEDS: MAGNESIUM OXIDE 400 MG TABLET PO SCH (09:59)
[2017-01-10] MEDS: LORATADINE 10 MG TABLET PO SCH (09:59)
[2017-01-10] MEDS: ERYTHROMYCIN 0.5% OPH OINTMENT 3.5 GM TUBE OS SCH ×2 (10:01→17:30)
[2017-01-10] MEDS: CLOTRIMAZOLE 1% CREAM 15 GM TP SCH ×2 (10:01→22:38)
[2017-01-10] MEDS: DOCUSATE SODIUM 100 MG CAPSULE PO SCH ×2 (10:02→17:30)
[2017-01-10] MEDS: LEVETIRACETAM 750 MG in NORMAL SALINE 100 ML IV SCH (10:02)
--- NOTE | 2017-01-10 12:07 | PDOC PROGRESS REPORT ---
Subjective Progress Note for:: 01/10/17 Subjective:: The patient is a 51-year-old female who has a history of Down syndrome. Normally, she is independent with most activities of daily living. She can dress herself, bathe herself and make meals which are not complicated. She has had a 2 week history of increasing weakness and lethargy. She was recently treated for a urinary tract infection and did receive ciprofloxacin. In the emergency department she had a witnessed seizure. Her dose of Keppra has been increased. A neurology consult has been placed. Note that the neurology consult was called in the emergency department. Unfortunately, that consultation has not been completed and will not be completed over the long weekend. We did check on this on 07 January. The patient has had some unusual behavior, but, overall she is much more awake and appropriate. At this time discharge appears to be precluded because the patient is unable to stand. Physical therapy evaluation is pending at this time. Physical Exam Vital Signs: Temp Pulse Resp BP Pulse Ox 97.6 F 77 16 105/67 98 01/10/17 07:52 01/10/17 07:52 01/10/17 07:52 01/10/17 07:52 01/10/17 07:52 Intake & Output 01/09/17 01/10/17 01/11/17 06:59 06:59 06:59 Intake Total 650 1170 Balance 650 1170 Weight 59.6 kg General appearance: PRESENT: no acute distress Head exam: PRESENT: atraumatic Eye exam: PRESENT: EOMI Mouth exam: PRESENT: neck supple Respiratory exam: PRESENT: clear to auscultation amarjit, unlabored Cardiovascular exam: PRESENT: RRR GI/Abdominal exam: PRESENT: normal bowel sounds, soft Rectal exam: PRESENT: deferred Neurological exam: PRESENT: alert, awake Skin exam: PRESENT: intact Results Laboratory Results: 01/10/17 04:09 01/10/17 04:09 Sodium 141.1 Potassium 3.7 Chloride 105 Carbon Dioxide 25 Anion Gap 11 BUN 15 Creatinine 0.91 Est GFR ( Amer) > 60 Est GFR (Non-Af Amer) > 60 Glucose 93 Calcium 8.9 Impressions: Head CT 01/05/17 13:22 IMPRESSION: The study is slightly limited by motion artifact. There are old right-sided infarcts as described. There is no acute intracranial pathology. Chest X-Ray 01/05/17 16:53 IMPRESSION: No consolidation or significant effusion. Partial expiratory lung volumes. Assessment & Plan - Diagnosis (1) Down syndrome Is this a current diagnosis for this admission?: Yes Plan: Patient has a history of Down's syndrome: I was told she is functional and independent of ADLs at home. However, her sister reports that she has been going downhill for many years. Yesterday, I had a long discussion with the patient's mother. Apparently, the patient's weakness is not new. The patient is having trouble bearing her weight. Ashwini is currently being evaluated by an orthopedic surgeon [place] (this is now [facility]). She had an injection in the left hip about 2 weeks ago. The patient's mother is trying to get additional assistance at home because Ashwini is a minimal two-person assist. The mother feels that she needs a hospital bed and a Viktor lift. She is also trying to get the insurance to agree with providing additional aid in the evening from 7-9 so somebody is there to help her put Ashwini to bed. (2) Generalized weakness Plan: I have gathered more information on this and it appears that this has been more of a chronic issue. See discussion above. Physical therapy has been consulted. (3) Hypothyroidism Qualifiers: Hypothyroidism type: acquired Qualified Code(s): E03.9 - Hypothyroidism, unspecified Is this a current diagnosis for this admission?: Yes Plan: TSH is only minimally elevated. We will continue current dose of levothyroxine. (4) Post-ictal confusion Is this a current diagnosis for this admission?: Yes Plan: Resolved. (5) Rash Plan: Likely Andra. Continue topical therapy. Rash is improved. Mother was concerned about a sacral decubital ulcer. Nurses report that there is no sacral decubitus. (6) Encephalopathy acute Is this a current diagnosis for this admission?: Yes Plan: Again, we need to presume that there is an underlying cause to include infectious, inflammatory conditions and metabolic conditions as well as medication effect. Neurology consult will not be able to be obtained. The patient has woken up significantly. She is following commands. She does not have a fever. She does not have an elevated white blood cell count. I do not find any evidence of acute infection. At this time I am concerned that she could have some residual effects from her recent course of ciprofloxacin. In any event, the patient is improving and appears to be nearing her baseline. (7) Seizure Is this a current diagnosis for this admission?: Yes Plan: Dose of Keppra has recently been increased per conversation with neurology attending (consultation was called from the ED). The patient did have a witnessed seizure in the emergency department. Keppra has been changed to oral today (8) CVA (cerebral vascular accident) Qualifiers: CVA mechanism: unspecified Qualified Code(s): I63.9 - Cerebral infarction, unspecified Plan: Patient has had previous strokes and TIAs. She likely has some residual deficits. Again, perhaps her recent course of ciprofloxacin led to some of her mental status changes. In addition, the patient's sister tells me that she has been going downhill slowly over the last several years. The patient is currently on dual antiplatelet therapy as well as atorvastatin. Therefore, she is on maximal therapy for secondary prevention. Her exam does not suggest a new stroke. I do not see an indication to send her for an MRI of the brain. - Time Time Spent with patient: 15-24 minutes - Inpatient Certification Medical Necessity: Significant Comorbidiites Make Outpatient Treatment Too Risky
[2017-01-10] MEDS: ATORVASTATIN CALCIUM 20 MG TABLET PO SCH (22:38)
[2017-01-10] MEDS: LEVETIRACETAM 500 MG TABLET PO SCH (22:38)
[2017-01-11] MEDS: LEVOTHYROXINE SODIUM 0.1 MG TABLET PO SCH (08:22)
[2017-01-11] MEDS: LEVOTHYROXINE SODIUM 0.025 MG TABLET PO SCH (08:22)
[2017-01-11 08:45] LABS: ANION GAP 9 (5-19); BLOOD UREA NITROGEN 16 mg/dL (7-20); CALCIUM 8.9 mg/dL (8.4-10.2); CARBON DIOXIDE 26 mmol/L (22-30); CHLORIDE 106 mmol/L (98-107); CREATININE RESULT 0.82 mg/dL (0.52-1.25); GLUCOSE 91 mg/dL (75-110); MAGNESIUM 1.9 mg/dL (1.6-2.3); POTASSIUM 3.9 mmol/L (3.6-5.0); SODIUM 140.6 mmol/L (137-145)
[2017-01-11] MEDS: ENOXAPARIN SODIUM INJ 40 MG/0.4 ML DISP.SYRIN SUBCUT SCH (10:52)
[2017-01-11] MEDS: ERYTHROMYCIN 0.5% OPH OINTMENT 3.5 GM TUBE OS SCH ×2 (10:52→17:56)
[2017-01-11] MEDS: MAGNESIUM OXIDE 400 MG TABLET PO SCH (10:54)
[2017-01-11] MEDS: LORATADINE 10 MG TABLET PO SCH (10:55)
[2017-01-11] MEDS: SERTRALINE HCL 50 MG TABLET PO SCH (10:55)
[2017-01-11] MEDS: CLOPIDOGREL BISULFATE 75 MG TABLET PO SCH (10:55)
[2017-01-11] MEDS: LEVETIRACETAM 500 MG TABLET PO SCH ×2 (10:55→22:57)
[2017-01-11] MEDS: DOCUSATE SODIUM 100 MG CAPSULE PO SCH ×2 (10:55→17:55)
[2017-01-11] MEDS: CLOTRIMAZOLE 1% CREAM 15 GM TP SCH ×2 (10:57→22:58)
[2017-01-11] MEDS ORDERED: LORAZEPAM INJ 2 MG/1 ML VIAL IV PRN (11:00)
--- NOTE | 2017-01-11 19:54 | PDOC PROGRESS REPORT ---
Subjective Progress Note for:: 01/11/17 Subjective:: Patient is sitting up in bed in no acute distress. Patient states she feels fine. Still waiting for arrangements to be made for [place]ip[place] lift at the house. Patient does have some crusting and drainage of the left eye she denies any pain. Physical Exam Vital Signs: Temp Pulse Resp BP Pulse Ox 97.2 F 78 16 92/63 L 92 01/11/17 15:52 01/11/17 15:52 01/11/17 15:52 01/11/17 15:52 01/11/17 15:52 Intake & Output 01/10/17 01/11/17 01/12/17 06:59 06:59 06:59 Intake Total 1170 1140 0 Balance 1170 1140 0 Weight 59.6 kg 60.1 kg General appearance: PRESENT: no acute distress Head exam: PRESENT: atraumatic Eye exam: PRESENT: other - Left eye with mild erythema and crusting and drainage. Respiratory exam: PRESENT: clear to auscultation amarjit, decreased breath sounds Cardiovascular exam: PRESENT: RRR GI/Abdominal exam: PRESENT: normal bowel sounds, soft. ABSENT: tenderness Rectal exam: PRESENT: deferred Extremities exam: ABSENT: pedal edema Neurological exam: PRESENT: alert, awake, CN II-XII grossly intact, other - Patient does not speak much Psychiatric exam: PRESENT: flat affect Skin exam: PRESENT: warm Results Laboratory Results: 01/11/17 08:11 01/11/17 08:11 Sodium 140.6 Potassium 3.9 Chloride 106 Carbon Dioxide 26 Anion Gap 9 BUN 16 Creatinine 0.82 Est GFR ( Amer) > 60 Est GFR (Non-Af Amer) > 60 Glucose 91 Calcium 8.9 Magnesium 1.9 Impressions: Head CT 01/05/17 13:22 IMPRESSION: The study is slightly limited by motion artifact. There are old right-sided infarcts as described. There is no acute intracranial pathology. Chest X-Ray 01/05/17 16:53 IMPRESSION: No consolidation or significant effusion. Partial expiratory lung volumes. Assessment & Plan - Diagnosis (1) Down syndrome Is this a current diagnosis for this admission?: Yes Plan: Continue with supportive care. Patient is having progressive weakness resulting in trouble with weightbearing. Patient evaluated by his orthopedic surgeon in [place] and has received injections in her left hip 2 weeks ago. Mother is attempting to have more assistance at home. She is requesting a hospital bed and Viktor lift. She is working with insurance to agree on providing additional care. (2) Generalized weakness Is this a current diagnosis for this admission?: Yes Plan: Is chronic in nature. PT and OT has been consulted and is working with the patient. (3) Hypothyroidism Qualifiers: Hypothyroidism type: acquired Qualified Code(s): E03.9 - Hypothyroidism, unspecified Is this a current diagnosis for this admission?: Yes Plan: Can you levothyroxine (4) Post-ictal confusion Is this a current diagnosis for this admission?: Yes Plan: Resolved (5) Rash Plan: Most likely ayah. Rash improved with topical therapy. (6) CVA (cerebral vascular accident) Qualifiers: CVA mechanism: unspecified Qualified Code(s): I63.9 - Cerebral infarction, unspecified Plan: Patient has had history of strokes and TIAs in the past. Patient acute metabolic encephalopathy most likely due to ciprofloxacin which has been discontinued. Patient is currently on dual antiplatelet therapy and atorvastatin. Patient has show significant improvement and further evaluation was not obtained as patient change in medical mental status could have been the result of her seizure and/or medication. (7) Encephalopathy acute Is this a current diagnosis for this admission?: Yes Plan: Patient had acute metabolic encephalopathy most likely due to ciprofloxacin. She has show significant improvement. (8) Seizure Is this a current diagnosis for this admission?: Yes Plan: Patient dose of Keppra was increased. Patient has not been evaluated by neurology. Patient has not had any further seizure activity. (9) Viral conjunctivitis of left eye Plan: . Patient has crusting and tearing of the left eye. Will order some refresh to be used twice daily. There is mild erythema of the eye however significant tearing of the left eye. - Time Time Spent with patient: Less than 15 minutes Anticipated discharge: Home Within: within 48 hours - Patient will be discharged possibly with home health and physical therapy. Attempts are being made to have a hospital bed and Viktor lift provided to the family.
[2017-01-11] MEDS: ATORVASTATIN CALCIUM 20 MG TABLET PO SCH (22:57)
[2017-01-12] MEDS: LEVOTHYROXINE SODIUM 0.025 MG TABLET PO SCH (09:56)
[2017-01-12] MEDS: SERTRALINE HCL 50 MG TABLET PO SCH (09:57)
[2017-01-12] MEDS: MAGNESIUM OXIDE 400 MG TABLET PO SCH (09:57)
[2017-01-12] MEDS: ASPIRIN 81 MG TABLET, CHEWABLE PO SCH (09:57)
[2017-01-12] MEDS: DOCUSATE SODIUM 100 MG CAPSULE PO SCH ×2 (09:58→18:25)
[2017-01-12] MEDS: LEVETIRACETAM 500 MG TABLET PO SCH ×2 (09:59→21:38)
[2017-01-12] MEDS: LORATADINE 10 MG TABLET PO SCH (09:59)
[2017-01-12] MEDS: CLOPIDOGREL BISULFATE 75 MG TABLET PO SCH (10:01)
[2017-01-12] MEDS: ENOXAPARIN SODIUM INJ 40 MG/0.4 ML DISP.SYRIN SUBCUT SCH (10:02)
[2017-01-12] MEDS: LEVOTHYROXINE SODIUM 0.1 MG TABLET PO SCH (10:17)
[2017-01-12] MEDS: CLOTRIMAZOLE 1% CREAM 15 GM TP SCH ×2 (10:18→21:37)
[2017-01-12] MEDS: ERYTHROMYCIN 0.5% OPH OINTMENT 3.5 GM TUBE OS SCH ×2 (10:20→18:26)
[2017-01-12] MEDS: CARBOXYMETHYLCELLULOSE SOD 0.5% 0.4 ML DROPERETTE OS SCH ×2 (10:21→18:26)
--- NOTE | 2017-01-12 14:14 | PDOC PROGRESS REPORT ---
Subjective Progress Note for:: 01/12/17 Subjective:: Patient is lying in bed. Patient slept into the late morning. Per the nurse patient has her days and nights mixed up. Patient is calm and lying in bed in no acute distress. Patient has no complaints at this time. Physical Exam Vital Signs: Temp Pulse Resp BP Pulse Ox 98.3 F 83 17 94/76 L 93 01/12/17 11:17 01/12/17 11:17 01/12/17 11:17 01/12/17 11:17 01/12/17 11:17 Intake & Output 01/11/17 01/12/17 01/13/17 06:59 06:59 06:59 Intake Total 1140 445 Output Total 225 Balance 1140 220 Weight 60.1 kg 60.5 kg General appearance: PRESENT: no acute distress Head exam: PRESENT: normocephalic Eye exam: PRESENT: EOMI, other - Left scleral injection and drainage no longer present Respiratory exam: PRESENT: clear to auscultation amarjit, unlabored Cardiovascular exam: PRESENT: RRR GI/Abdominal exam: PRESENT: normal bowel sounds, soft. ABSENT: tenderness Rectal exam: PRESENT: deferred Neurological exam: PRESENT: alert, awake, oriented to person Psychiatric exam: PRESENT: other - not very interactive Results Laboratory Results: 01/11/17 08:11 Impressions: Head CT 01/05/17 13:22 IMPRESSION: The study is slightly limited by motion artifact. There are old right-sided infarcts as described. There is no acute intracranial pathology. Chest X-Ray 01/05/17 16:53 IMPRESSION: No consolidation or significant effusion. Partial expiratory lung volumes. Assessment & Plan - Diagnosis (1) Down syndrome Is this a current diagnosis for this admission?: Yes Plan: Continue with supportive care. Patient is having progressive weakness resulting in trouble with weightbearing. Patient evaluated by his orthopedic surgeon in [place] and has received injections in her left hip 2 weeks ago. Mother is attempting to have more assistance at home. She is requesting a hospital bed and Viktor lift. She is working with insurance to agree on providing additional care. (2) Generalized weakness Is this a current diagnosis for this admission?: Yes Plan: Chronic in nature. PT and OT has been consulted and is working with the patient. (3) Hypothyroidism Qualifiers: Hypothyroidism type: acquired Qualified Code(s): E03.9 - Hypothyroidism, unspecified Is this a current diagnosis for this admission?: Yes Plan: Continue levothyroxine (4) Post-ictal confusion Is this a current diagnosis for this admission?: Yes Plan: Resolved (5) Rash Plan: Most likely ayah. Rash improved with topical therapy. (6) CVA (cerebral vascular accident) Qualifiers: CVA mechanism: unspecified Qualified Code(s): I63.9 - Cerebral infarction, unspecified Plan: Patient has had history of strokes and TIAs in the past. Patient acute metabolic encephalopathy most likely due to ciprofloxacin which has been discontinued. Patient is currently on dual antiplatelet therapy and atorvastatin. Patient has show significant improvement and further evaluation was not obtained as patient change in medical mental status could have been the result of her seizure and/or medication. (7) Encephalopathy acute Is this a current diagnosis for this admission?: Yes Plan: Patient had acute metabolic encephalopathy most likely due to ciprofloxacin. Antibiotics can also lower seizure threshold. She has show significant improvement. (8) Seizure Is this a current diagnosis for this admission?: Yes Plan: Patient dose of Keppra was increased. Patient has not been evaluated by neurology. Patient has not had any further seizure activity. (9) Viral conjunctivitis of left eye Plan: Irritation of left eye and drainage improve. Continue artificial tears. - Time Time Spent with patient: Less than 15 minutes Anticipated discharge: Home with Homehealth - Awaiting home equiptment hospital bed and viktor lift to be arranged prior to discharge home.
[2017-01-12] MEDS: ACETAMINOPHEN 325 MG TABLET PO PRN (18:46)
[2017-01-12] MEDS: ATORVASTATIN CALCIUM 20 MG TABLET PO SCH (21:38)
[2017-01-13] MEDS ORDERED: NORMAL SALINE 1000 ML 500 ML IV ONE (00:34)
[2017-01-13] MEDS: LEVOTHYROXINE SODIUM 0.1 MG TABLET PO SCH (08:43)
[2017-01-13] MEDS: LEVOTHYROXINE SODIUM 0.025 MG TABLET PO SCH (08:43)
[2017-01-13] MEDS: LEVETIRACETAM 500 MG TABLET PO SCH ×2 (09:46→22:23)
[2017-01-13] MEDS: CLOPIDOGREL BISULFATE 75 MG TABLET PO SCH (09:46)
[2017-01-13] MEDS: ASPIRIN 81 MG TABLET, CHEWABLE PO SCH (09:48)
[2017-01-13] MEDS: LORATADINE 10 MG TABLET PO SCH (09:48)
[2017-01-13] MEDS: MAGNESIUM OXIDE 400 MG TABLET PO SCH (09:48)
[2017-01-13] MEDS: DOCUSATE SODIUM 100 MG CAPSULE PO SCH ×2 (09:48→17:45)
[2017-01-13] MEDS: CLOTRIMAZOLE 1% CREAM 15 GM TP SCH (09:49)
[2017-01-13] MEDS: ENOXAPARIN SODIUM INJ 40 MG/0.4 ML DISP.SYRIN SUBCUT SCH (09:51)
[2017-01-13] MEDS: CARBOXYMETHYLCELLULOSE SOD 0.5% 0.4 ML DROPERETTE OS SCH ×2 (09:54→17:43)
[2017-01-13] MEDS: SERTRALINE HCL 50 MG TABLET PO SCH (10:36)
[2017-01-13] MEDS: ACETAMINOPHEN 325 MG TABLET PO PRN (16:38)
[2017-01-13] MEDS: ATORVASTATIN CALCIUM 20 MG TABLET PO SCH (22:23)
--- NOTE | 2017-01-13 22:56 | PDOC PROGRESS REPORT ---
Subjective Progress Note for:: 01/13/17 Subjective:: Patient is doing much better today. Patient mother was present today per nurse and asked when she would be coming home. Informed mother that case management attempted to call her. Physical Exam Vital Signs: Temp Pulse Resp BP Pulse Ox 98.0 F 72 14 93/63 L 95 01/13/17 20:00 01/13/17 20:00 01/13/17 20:00 01/13/17 20:00 01/13/17 20:00 Intake & Output 01/12/17 01/13/17 01/14/17 06:59 06:59 06:59 Intake Total 445 1140 1290 Output Total 225 Balance 220 1140 1290 Weight 60.5 kg 61.2 kg General appearance: PRESENT: no acute distress, cooperative Head exam: PRESENT: normocephalic Eye exam: PRESENT: EOMI, other - glasses Respiratory exam: PRESENT: clear to auscultation amarjit, unlabored Cardiovascular exam: PRESENT: RRR GI/Abdominal exam: PRESENT: normal bowel sounds, soft. ABSENT: tenderness Rectal exam: PRESENT: deferred Extremities exam: ABSENT: pedal edema Neurological exam: PRESENT: alert, awake, oriented to person, oriented to place , oriented to time Results Laboratory Results: 01/11/17 08:11 Impressions: Head CT 01/05/17 13:22 IMPRESSION: The study is slightly limited by motion artifact. There are old right-sided infarcts as described. There is no acute intracranial pathology. Chest X-Ray 01/05/17 16:53 IMPRESSION: No consolidation or significant effusion. Partial expiratory lung volumes. Assessment & Plan - Diagnosis (1) Down syndrome Is this a current diagnosis for this admission?: Yes Plan: Continue with supportive care. (2) Generalized weakness Is this a current diagnosis for this admission?: Yes Plan: Patient is having progressive weakness resulting in trouble with weightbearing which is chronic in nature. Patient evaluated by his orthopedic surgeon in [place] and has received injections in her left hip over 2 weeks ago. She is requesting a hospital bed and Viktor lift. She is working with insurance to agree on providing additional care at home. Mother does not want SNF placement. PT and OT has been consulted and is working with the patient; however patient is not always cooperative. (3) Hypothyroidism Qualifiers: Hypothyroidism type: acquired Qualified Code(s): E03.9 - Hypothyroidism, unspecified Is this a current diagnosis for this admission?: Yes Plan: Continue levothyroxine (4) Post-ictal confusion Is this a current diagnosis for this admission?: Yes Plan: Resolved (6) CVA (cerebral vascular accident) Qualifiers: CVA mechanism: unspecified Qualified Code(s): I63.9 - Cerebral infarction, unspecified Plan: Patient has had history of strokes and TIAs in the past. Patient is currently on dual antiplatelet therapy and atorvastatin. (7) Encephalopathy acute Is this a current diagnosis for this admission?: Yes Plan: Patient had acute metabolic encephalopathy most likely due to ciprofloxacin and or her seizure. Antibiotics can also lower seizure threshold. She has show significant improvement; therefore, no further work up was completed. (8) Seizure Is this a current diagnosis for this admission?: Yes Plan: Patient dose of Keppra was increased to 750mg po bid. She is tolerating that current dose. Patient has not had any further seizure activity. (9) Viral conjunctivitis of left eye Plan: Irritation of left eye and drainage improve. Continue artificial tears. - Time Time Spent with patient: Less than 15 minutes Anticipated discharge: Home with Homehealth - Informed mother that case management attempted to contact her. In his home with home health with additional equipment ie Viktor lift for medical bed. Patient is currently medically stable for discharge.
[2017-01-14] MEDS: LEVOTHYROXINE SODIUM 0.1 MG TABLET PO SCH (08:29)
[2017-01-14] MEDS: LEVOTHYROXINE SODIUM 0.025 MG TABLET PO SCH (08:29)
[2017-01-14] MEDS: LORATADINE 10 MG TABLET PO SCH (09:26)
[2017-01-14] MEDS: CLOPIDOGREL BISULFATE 75 MG TABLET PO SCH (09:26)
[2017-01-14] MEDS: MAGNESIUM OXIDE 400 MG TABLET PO SCH (09:26)
[2017-01-14] MEDS: LEVETIRACETAM 500 MG TABLET PO SCH ×2 (09:26→22:19)
[2017-01-14] MEDS: ASPIRIN 81 MG TABLET, CHEWABLE PO SCH (09:26)
[2017-01-14] MEDS: ENOXAPARIN SODIUM INJ 40 MG/0.4 ML DISP.SYRIN SUBCUT SCH (09:27)
[2017-01-14] MEDS: SERTRALINE HCL 50 MG TABLET PO SCH (09:27)
[2017-01-14] MEDS: CARBOXYMETHYLCELLULOSE SOD 0.5% 0.4 ML DROPERETTE OS SCH ×2 (09:27→18:50)
[2017-01-14] MEDS: DOCUSATE SODIUM 100 MG CAPSULE PO SCH ×2 (09:27→18:50)
--- NOTE | 2017-01-14 20:39 | PDOC PROGRESS REPORT ---
Subjective Progress Note for:: 01/14/17 Subjective:: This is a follow-up visit for seizures. The patient was seen this morning at the bedside her mother was not present at that time. Patient denied any chest pain or shortness of breath. No acute events overnight. Physical Exam Vital Signs: Temp Pulse Resp BP Pulse Ox 97.5 F 89 16 90/51 L 96 01/14/17 16:00 01/14/17 16:00 01/14/17 16:00 01/14/17 16:00 01/14/17 16:00 Intake & Output 01/13/17 01/14/17 01/15/17 06:59 06:59 06:59 Intake Total 1140 1610 1170 Balance 1140 1610 1170 Weight 61.2 kg 59.7 kg GENERAL: This is a well-developed well-nourished appearing white female resting in bed currently in no acute distress. HEENT: The patient exhibits typical facial characteristics of Down syndrome HEART: [Regular rate and rhythm. 1/6 o murmurs. No rubs or gallops.] LUNGS: [Clear to auscultation bilaterally with equal rise and fall of the chest. ] ABDOMEN: [Soft, nontender, nondistended with normoactive bowel sounds] EXTREMETIES: [No clubbing, cyanosis or edema. 2+ peripheral pulses bilaterally. ] NEURO: [Initially sleep but able to be awakened. The patient does not cooperate fully with an exam nor does she participate much in the interview.] Results Laboratory Results: 01/11/17 08:11 Impressions: Head CT 01/05/17 13:22 IMPRESSION: The study is slightly limited by motion artifact. There are old right-sided infarcts as described. There is no acute intracranial pathology. Chest X-Ray 01/05/17 16:53 IMPRESSION: No consolidation or significant effusion. Partial expiratory lung volumes. Assessment & Plan - Diagnosis (1) Seizure Is this a current diagnosis for this admission?: Yes Plan: The patient's Keppra was increased and she seems to be doing well with this adjustment. No further seizure activity. She will need to follow-up as an outpatient. (2) Down syndrome Is this a current diagnosis for this admission?: Yes Plan: Patient was quite functional at home but is noted by the physical therapy team that her function has greatly decreased since the last time they saw her. Patient can usually prepares simple meals and ambulate on her own usually lives alone. Plan will be for her to return home with her mother, a hospital bed and Viktor lift. It is been recommended that they pursue [facility] placement; however, her mother has refused. (3) Hypothyroidism Qualifiers: Hypothyroidism type: acquired Qualified Code(s): E03.9 - Hypothyroidism, unspecified Is this a current diagnosis for this admission?: Yes Plan: Continue Synthroid. (4) Generalized weakness Is this a current diagnosis for this admission?: Yes Plan: Plan is for the patient to be taken home with her mother along with Viktor lift and hospital bed. (5) Post-ictal confusion Is this a current diagnosis for this admission?: Yes (6) Viral conjunctivitis of left eye Plan: Looks clear today. Continue saline (7) CVA (cerebral vascular accident) Qualifiers: CVA mechanism: unspecified Qualified Code(s): I63.9 - Cerebral infarction, unspecified Plan: Patient continues on dual antiplatelet therapy for history of stroke. (8) Encephalopathy acute Is this a current diagnosis for this admission?: Yes Plan: Resolved and likely secondary to postictal state. - Time Time Spent with patient: 15-24 minutes Within: Other - Inpatient Certification Medical Necessity: Need Close Monitoring Due to Risk of Patient Decompensation - Plan Summary Plan Summary: The patient will be discharged home once her hospital bed and Viktor lift had been delivered to her home. This is not expected to be till Tuesday. For the sake of patient safety we will need to wait until this happens before discharge.
[2017-01-14] MEDS: ATORVASTATIN CALCIUM 20 MG TABLET PO SCH (22:19)
[2017-01-15] MEDS: LEVOTHYROXINE SODIUM 0.1 MG TABLET PO SCH (07:36)
[2017-01-15] MEDS: LEVOTHYROXINE SODIUM 0.025 MG TABLET PO SCH (07:36)
[2017-01-15] MEDS: LEVETIRACETAM 500 MG TABLET PO SCH ×2 (10:34→22:48)
[2017-01-15] MEDS: ASPIRIN 81 MG TABLET, CHEWABLE PO SCH (10:39)
[2017-01-15] MEDS: CLOPIDOGREL BISULFATE 75 MG TABLET PO SCH (10:39)
[2017-01-15] MEDS: SERTRALINE HCL 50 MG TABLET PO SCH (10:40)
[2017-01-15] MEDS: DOCUSATE SODIUM 100 MG CAPSULE PO SCH ×2 (10:41→19:38)
[2017-01-15] MEDS: LORATADINE 10 MG TABLET PO SCH (10:50)
[2017-01-15] MEDS: MAGNESIUM OXIDE 400 MG TABLET PO SCH (10:50)
[2017-01-15] MEDS: CARBOXYMETHYLCELLULOSE SOD 0.5% 0.4 ML DROPERETTE OS SCH ×2 (10:51→19:38)
[2017-01-15] MEDS: ENOXAPARIN SODIUM INJ 40 MG/0.4 ML DISP.SYRIN SUBCUT SCH (10:51)
--- NOTE | 2017-01-15 17:20 | PDOC PROGRESS REPORT ---
Subjective Progress Note for:: 01/15/17 Subjective:: This is a follow-up visit for seizures. The patient was seen this morning at the bedside her mother was not present at that time. Patient denied any chest pain or shortness of breath. No acute events overnight. Physical Exam Vital Signs: Temp Pulse Resp BP Pulse Ox 97.8 F 78 16 113/71 99 01/15/17 08:20 01/15/17 08:20 01/15/17 08:20 01/15/17 08:20 01/15/17 08:20 Intake & Output 01/14/17 01/15/17 01/16/17 06:59 06:59 06:59 Intake Total 1610 1570 Balance 1610 1570 Weight 59.7 kg 60 kg GENERAL: This is a well-developed well-nourished appearing white female resting in bed currently in no acute distress. HEENT: The patient exhibits typical facial characteristics of Down syndrome HEART: Regular rate and rhythm. 1/6 o murmurs. No rubs or gallops. LUNGS: Clear to auscultation bilaterally with equal rise and fall of the chest. ABDOMEN: Soft, nontender, nondistended with normoactive bowel sounds EXTREMETIES: No clubbing, cyanosis or edema. 2+ peripheral pulses bilaterally. NEURO: Initially sleep but able to be awakened. The patient does not cooperate fully with an exam nor does she participate much in the interview. Results Laboratory Results: 01/11/17 08:11 Impressions: Head CT 01/05/17 13:22 IMPRESSION: The study is slightly limited by motion artifact. There are old right-sided infarcts as described. There is no acute intracranial pathology. Chest X-Ray 01/05/17 16:53 IMPRESSION: No consolidation or significant effusion. Partial expiratory lung volumes. Assessment & Plan - Diagnosis (1) Seizure Is this a current diagnosis for this admission?: Yes Plan: The patient's Keppra was increased and she seems to be doing well with this adjustment. No further seizure activity. She will need to follow-up as an outpatient. (2) Down syndrome Is this a current diagnosis for this admission?: Yes Plan: Patient was quite functional at home but is noted by the physical therapy team that her function has greatly decreased since the last time they saw her. Patient can usually prepares simple meals and ambulate on her own usually lives alone. Plan will be for her to return home with her mother, a hospital bed and Viktor lift. It is been recommended that they pursue correction placement; however, her mother has refused. (3) Hypothyroidism Qualifiers: Hypothyroidism type: acquired Qualified Code(s): E03.9 - Hypothyroidism, unspecified Is this a current diagnosis for this admission?: Yes Plan: Continue Synthroid. (4) Generalized weakness Is this a current diagnosis for this admission?: Yes (5) Post-ictal confusion Is this a current diagnosis for this admission?: Yes (7) CVA (cerebral vascular accident) Qualifiers: CVA mechanism: unspecified Qualified Code(s): I63.9 - Cerebral infarction, unspecified (8) Encephalopathy acute Is this a current diagnosis for this admission?: Yes - Time Time Spent with patient: Less than 15 minutes - Inpatient Certification Medical Necessity: Significant Comorbidiites Make Outpatient Treatment Too Risky
[2017-01-15] MEDS: ACETAMINOPHEN 325 MG TABLET PO PRN (19:41)
[2017-01-15] MEDS: ATORVASTATIN CALCIUM 20 MG TABLET PO SCH (22:47)
[2017-01-16] MEDS ORDERED: NORMAL SALINE 1000 ML 500 ML IV ONE (00:30)
[2017-01-16] MEDS: LEVOTHYROXINE SODIUM 0.025 MG TABLET PO SCH (08:29)
[2017-01-16] MEDS: LEVOTHYROXINE SODIUM 0.1 MG TABLET PO SCH (08:29)
[2017-01-16] MEDS: ENOXAPARIN SODIUM INJ 40 MG/0.4 ML DISP.SYRIN SUBCUT SCH (11:47)
[2017-01-16] MEDS: ASPIRIN 81 MG TABLET, CHEWABLE PO SCH (11:49)
[2017-01-16] MEDS: DOCUSATE SODIUM 100 MG CAPSULE PO SCH ×2 (11:49→18:51)
[2017-01-16] MEDS: SERTRALINE HCL 50 MG TABLET PO SCH (11:49)
[2017-01-16] MEDS: LORATADINE 10 MG TABLET PO SCH (11:49)
[2017-01-16] MEDS: CARBOXYMETHYLCELLULOSE SOD 0.5% 0.4 ML DROPERETTE OS SCH ×2 (11:50→16:09)
[2017-01-16] MEDS: LEVETIRACETAM 500 MG TABLET PO SCH ×2 (11:50→21:39)
[2017-01-16] MEDS: MAGNESIUM OXIDE 400 MG TABLET PO SCH (11:50)
[2017-01-16] MEDS: CLOPIDOGREL BISULFATE 75 MG TABLET PO SCH (11:50)
--- NOTE | 2017-01-16 14:16 | PDOC PROGRESS REPORT ---
Subjective Progress Note for:: 01/16/17 Subjective:: This is a follow-up visit for seizures. The patient was seen this morning at the bedside her mother was not present at that time. Patient denied any chest pain or shortness of breath. No acute events overnight. She said that she was hungry. She has lots of food in front of her left over from breakfast and has barely touched anything. The nursing staff has ordered her lunch. Physical Exam Vital Signs: Temp Pulse Resp BP Pulse Ox 97.9 F 67 20 97/55 L 95 01/16/17 12:02 01/16/17 12:02 01/16/17 12:02 01/16/17 12:02 01/16/17 12:02 Intake & Output 01/15/17 01/16/17 01/17/17 06:59 06:59 06:59 Intake Total 1570 1377 Balance 1570 1377 Weight 60 kg 60.4 kg GENERAL: This is a well-developed well-nourished appearing white female resting in bed currently in no acute distress. HEENT: The patient exhibits typical facial characteristics of Down syndrome. No ocular purulence. HEART: Regular rate and rhythm. 1/6 o murmurs. No rubs or gallops. LUNGS: Clear to auscultation bilaterally with equal rise and fall of the chest. ABDOMEN: Nondistended EXTREMETIES: No clubbing, cyanosis or edema. 2+ peripheral pulses bilaterally. NEURO: Awake and alert today. She attempts to tell me what she wants in terms of food and wanting to color. However, the patient's speech is mostly garbled. It is difficult to make out exactly what she is saying. Results Laboratory Results: 01/11/17 08:11 Impressions: Head CT 01/05/17 13:22 IMPRESSION: The study is slightly limited by motion artifact. There are old right-sided infarcts as described. There is no acute intracranial pathology. Chest X-Ray 01/05/17 16:53 IMPRESSION: No consolidation or significant effusion. Partial expiratory lung volumes. Assessment & Plan - Diagnosis (1) Seizure Is this a current diagnosis for this admission?: Yes Plan: The patient's Keppra was increased and she seems to be doing well with this adjustment. No further seizure activity. She will need to follow-up as an outpatient. (2) Down syndrome Is this a current diagnosis for this admission?: Yes Plan: Patient was quite functional at home but is noted by the physical therapy team that her function has greatly decreased since the last time they saw her. Patient can usually prepares simple meals and ambulate on her own usually lives alone. Plan will be for her to return home with her mother, a hospital bed and Viktor lift. It is been recommended that they pursue retirement placement; however, her mother has refused. (3) Hypothyroidism Qualifiers: Hypothyroidism type: acquired Qualified Code(s): E03.9 - Hypothyroidism, unspecified Is this a current diagnosis for this admission?: Yes Plan: Continue Synthroid. (4) Generalized weakness Is this a current diagnosis for this admission?: Yes Plan: Plan is for the patient to be taken home with her mother along with Viktor lift and hospital bed. (5) Post-ictal confusion Is this a current diagnosis for this admission?: Yes Plan: Resolved. (6) Viral conjunctivitis of left eye Plan: Looks clear today. Continue saline (7) CVA (cerebral vascular accident) Qualifiers: CVA mechanism: unspecified Qualified Code(s): I63.9 - Cerebral infarction, unspecified Plan: Patient continues on dual antiplatelet therapy for history of stroke. (8) Encephalopathy acute Is this a current diagnosis for this admission?: Yes Plan: Resolved and likely secondary to postictal state. - Time Time Spent with patient: Less than 15 minutes - Inpatient Certification Medical Necessity: Significant Comorbidiites Make Outpatient Treatment Too Risky
[2017-01-16] MEDS: ATORVASTATIN CALCIUM 20 MG TABLET PO SCH (21:40)
[2017-01-17] MEDS: LEVETIRACETAM 500 MG TABLET PO SCH (09:47)
[2017-01-17] MEDS: ASPIRIN 81 MG TABLET, CHEWABLE PO SCH (09:48)
[2017-01-17] MEDS: SERTRALINE HCL 50 MG TABLET PO SCH (09:48)
[2017-01-17] MEDS: MAGNESIUM OXIDE 400 MG TABLET PO SCH (09:48)
[2017-01-17] MEDS: LEVOTHYROXINE SODIUM 0.1 MG TABLET PO SCH (09:49)
[2017-01-17] MEDS: DOCUSATE SODIUM 100 MG CAPSULE PO SCH (09:49)
[2017-01-17] MEDS: LEVOTHYROXINE SODIUM 0.025 MG TABLET PO SCH (09:49)
[2017-01-17] MEDS: LORATADINE 10 MG TABLET PO SCH (09:49)
[2017-01-17] MEDS: CLOPIDOGREL BISULFATE 75 MG TABLET PO SCH (09:49)
[2017-01-17] MEDS: ENOXAPARIN SODIUM INJ 40 MG/0.4 ML DISP.SYRIN SUBCUT SCH (09:49)
[2017-01-17 12:33] VITALS: BP 111/60
--- NOTE | 2017-01-17 15:39 | PDOC DISCHARGE SUMMARY ---
General - Admit/Disc Date/PCP Admission Date/Primary Care Provider: 01/07/17 13:22 SLIME DOZIER MD Discharge Date: 01/17/17 - Discharge Diagnosis (1) Seizure Is this a current diagnosis for this admission?: Yes Summary: Continue Keppra at current doses. (2) Down syndrome Is this a current diagnosis for this admission?: Yes (3) Hypothyroidism Is this a current diagnosis for this admission?: Yes Summary: Continue Synthroid. (4) Generalized weakness Is this a current diagnosis for this admission?: Yes Summary: The patient is generalized weakness is continued. Is difficult to fully assess her as the patient is not cooperative during exams ordered with working with physical therapy. Patient was ordered a hospital bed by her primary care physician. Unfortunately, assessing the patient for a Viktor lift is difficult. She does not cooperate and stiffens up during exams and attempts to get her out of bed. She will need to follow with her primary care physician for a prescription for this if it is felt it is needed in the future. (5) Post-ictal confusion Is this a current diagnosis for this admission?: Yes Summary: Resolved. (6) Viral conjunctivitis of left eye Summary: Resolved. (7) CVA (cerebral vascular accident) Summary: Patient has a history of CVA. Continue medications. (8) Encephalopathy acute Is this a current diagnosis for this admission?: Yes Summary: Resolved patient is at baseline. - Additional Information Resuscitation Status: Full Code Home Medications: Acetaminophen [Tylenol Extra Strength 500 mg Tablet] 1,000 mg PO Q12H PRN Aspirin [Aspirin 81 mg Chewable Tablet] 81 mg PO DAILY 05/28/16 Clopidogrel Bisulfate [Plavix 75 mg Tablet] 75 mg PO DAILY 05/28/16 Docusate Sodium [Colace 100 mg Capsule] 100 mg PO Q12 05/28/16 Ipratropium/Albuterol Sulfate [Duoneb 3 ml Ampul] 3 ml NEB [id number] PRN 05/28/16 Loratadine [Claritin 10 mg Tablet] 10 mg PO DAILY 05/28/16 Omeprazole 20 mg PO DAILY 05/28/16 Ranitidine HCl [Zantac 150 mg Tablet] 150 mg PO Q12 05/28/16 Sertraline HCl [Zoloft] 100 mg PO DAILY 05/28/16 Atorvastatin Calcium [Lipitor 20 mg Tablet] 20 mg PO QHS #30 tablet 05/29/16 Levothyroxine Sodium 125 mcg PO DAILY 01/05/17 Levetiracetam [Keppra 500 mg Tablet] 750 mg PO Q12 #60 tablet 01/17/17 Magnesium Oxide [Mag-Ox 400 mg Tablet] 400 mg PO DAILY #14 tablet 01/17/17 History of Present Illness History of Present Illness: There is a 51-year-old white female with Down syndrome who was admitted to the service for generalized weakness and noted to have a seizure down in the emergency department. Please see details of HPI as per admitting provider's note: History of Present Illness Admission Date/PCP: SLIME DOZIER MD Neurologist: Dr. Martinez Patient complains of: Weakness History of Present Illness: GLENN GARCIA is a 51 year old female with Down syndrome who presented to the emergency room with weakness and twitching spells. Her mother reports a 2 week history of worsening weakness. Usually the patient is quite independent with her ADLs and is able to fix her breakfast and lunch independently. She can dress herself and take care of all of her hygiene needs. Over the past 2 weeks she has become increasingly weak and has eventually gotten to the point where she is unable to ambulate for the past 2 days. During this time. She began to have increasing twitching spells that have been increasing in frequency and severity. She was treated for a urinary tract infection 2 weeks ago. She was initially started on Macrobid however her culture was positive for greater than 100,000 colonies of Enterobacter as well as E. coli. There was some resistance to these organisms. A call was placed in her her antibiotic therapy was then changed to Cipro for which she has completed a course of therapy. In spite of appropriate treatment of her urinary tract infection her weakness progressed and she was brought to the emergency room for further evaluation and treatment. She had unremarkable laboratory studies, urinalysis and chest x-ray. During her ER stay she suffered a seizure. She was given 1 mg of IV Ativan by the ER attending. Since that time she has been somewhat post ictal but is been having increasing twitching spells and is somewhat combative at times. Hospital Course Hospital Course: The patient is a 51-year-old white female with a past medical history significant for Down syndrome who presented to the service with a two-week history of increasing weakness and lethargy. Apparently, the patient had been fairly independent with most of her activities of daily living. She does dress herself and bathe herself and make simple meals. The patient was treated for urinary tract infection prior to coming into the hospital. She was on ciprofloxacin at that time. She had a witnessed seizure in the emergency room here. Her dose of Keppra was increased during this hospitalization and a neurology consult was placed. The patient was noted to have difficulty standing and physical therapy was consulted. They recommended home with home health PT, hospital bed and Viktor lift. Unfortunately, the patient did not qualify for [facility] according to Medicare/Medicaid criteria, as the patient is able to stand and at least sidestep and absence of a Viktor lift will not render the patient bedbound. Physical Exam Vital Signs: Temp Pulse Resp BP Pulse Ox 97.7 F 82 17 111/60 98 01/17/17 11:52 01/17/17 14:00 01/17/17 11:52 01/17/17 11:52 01/17/17 11:52 Intake & Output 01/16/17 01/17/17 01/18/17 06:59 06:59 06:59 Intake Total 1377 760 Balance 1377 760 Weight 60.4 kg 60.8 kg GENERAL: This is a well-developed well-nourished appearing white female resting in bed currently in no acute distress. HEENT: The patient exhibits typical facial characteristics of Down syndrome. No ocular purulence. HEART: Regular rate and rhythm. 1/6 o murmurs. No rubs or gallops. LUNGS: Clear to auscultation bilaterally with equal rise and fall of the chest. ABDOMEN: Nondistended EXTREMETIES: No clubbing, cyanosis or edema. 2+ peripheral pulses bilaterally. NEURO: Awake and alert today. Not talkative Results Laboratory Results: 01/11/17 08:11 Impressions: Head CT 01/05/17 13:22 IMPRESSION: The study is slightly limited by motion artifact. There are old right-sided infarcts as described. There is no acute intracranial pathology. Chest X-Ray 01/05/17 16:53 IMPRESSION: No consolidation or significant effusion. Partial expiratory lung volumes. Qualifiers PATEINT BEING DISCHARGED WITH ANY OF THE FOLLOWING DIAGNOSIS?: No Plan Time Spent: Greater than 30 Minutes
== END 2017-01-17 16:59 | disposition home health service (06) | DRG 100 ==
LOC: ER 11:47 → EH 19:14 → UNDOADMOB 19:23 → EH 19:23 → 4N 21:45 → OBSVTOIN 01-07 13:22
PROVIDERS: ADMIT Internal Medicine; ATTEND Internal Medicine
DX: G40.89 Other seizures (principal); G93.40 Encephalopathy, unspecified; F05 Delirium due to known physiological condition; B37.2 Candidiasis of skin and nail; Q90.9 Down syndrome, unspecified; E03.9 Hypothyroidism, unspecified; B30.9 Viral conjunctivitis, unspecified; E78.5 Hyperlipidemia, unspecified; K21.9 Gastro-esophageal reflux disease without esophagitis; M19.90 Unspecified osteoarthritis, unspecified site; F32.9 Major depressive disorder, single episode, unspecified; Z79.82 Long term (current) use of aspirin; Z79.899 Other long term (current) drug therapy; Z86.73 Personal history of transient ischemic attack (TIA), and cerebral infarction without residual deficits; Z88.8 Allergy status to other drugs, medicaments and biological substances
CPT/HCPCS: 36415; 51701; 70450; 71010; 80048; 80053; 80177; 81001; 82550; 82553; 83735; 84100; 84439; 84443; 84481; 84484; 85025; 85027; 93005; 93010; 96361; 96374; 96375; 96376; 99285; G0378; G8978-GP; G8979-GP; J1650; J1953; J2060; J3490; J7030

== ENCOUNTER 2017-03-22 11:17 | Emergency (ER) | payer MEDICARE, MEDICAID ==
[2017-03-22] MEDS ORDERED: RINGERS SOLUTION,LACTATED 1,000 ML IV ONE (12:37)
[2017-03-22 13:10] LABS: APPEARANCE,URINE SLIGHTLY-CLOUDY; BILIRUBIN,URINE NEGATIVE (NEGATIVE); GLUCOSE, URINE NEGATIVE (NEGATIVE); KETONES,URINE NEGATIVE (NEGATIVE); LEUKOCYTE ESTERASE,URINE NEGATIVE (NEGATIVE); NITRITE,URINE NEGATIVE (NEGATIVE); PROTEIN,URINE NEGATIVE (NEGATIVE); URINE SPECIFIC GRAVITY 1.034; UROBILINOGEN,URINE NEGATIVE mg/dL (<2.0)
--- NOTE | 2017-03-22 13:15 | RADIOLOGY REPORT (SQ) ---
EXAM DESCRIPTION: CHEST SINGLE VIEW COMPLETED DATE/TIME: 03/22/2017 1:05 pm REASON FOR STUDY: Low blood pressure COMPARISON: 01/05/2017 EXAM PARAMETERS: NUMBER OF VIEWS: One view. TECHNIQUE: Single frontal radiographic view of the chest acquired. RADIATION DOSE: NA LIMITATIONS: None. FINDINGS: LUNGS AND PLEURA: Mild pulmonary vascular prominence. MEDIASTINUM AND HILAR STRUCTURES: No masses. Contour normal. HEART AND VASCULAR STRUCTURES: Heart normal in size. Normal vasculature. BONES: No acute findings. HARDWARE: Sternotomy wires. OTHER: No other significant finding. IMPRESSION: Mild pulmonary vascular prominence with no acute cardiopulmonary disease. TECHNICAL DOCUMENTATION: JOB ID: [id number] [employer]- All Rights Reserved
[2017-03-22 13:51] LABS: ABSOLUTE BASOPHILS # (AUTO) 0.1 10^3/uL (0.0-0.2); ABSOLUTE EOSINOPHILS # (AUTO) 0.2 10^3/uL (0.0-0.6); ABSOLUTE LYMPHOCYTES (AUTO) 1.6 10^3/uL (0.5-4.7); ABSOLUTE MONOCYTES (AUTO) 0.5 10^3/uL (0.1-1.4); BASOPHILS % (AUTO) 1.4 % (0-2); EOSINOPHILS % (AUTO) 3.2 % (0-6); HEMATOCRIT 38.1 % (36.0-47.0); HEMOGLOBIN 12.9 g/dL (12.0-15.5); HGB HCT DIFFERENCE 0.6; LYMPHOCYTES % (AUTO) 29.7 % (13-45); MEAN CORPUSCULAR HEMOGLOBIN 33.1 pg (27.0-33.4); MEAN CORPUSCULAR VOLUME 98 fl (80-97); MONOCYTES % (AUTO) 9.4 % (3-13); RED CELL DISTRIBUTION WIDTH 13.9 % (11.5-14.0); SEGMENTED NEUTROPHILS % (AUTO) 56.3 % (42-78); WHITE BLOOD COUNT 5.4 10^3/uL (4.0-10.5)
[2017-03-22 14:18] LABS: ALANINE AMINOTRANSFERASE 72 U/L (9-52); ALBUMIN 3.2 g/dL (3.5-5.0); ALKALINE PHOSPHATASE 113 U/L (38-126); ANION GAP 11 (5-19); ASPARTATE AMINO TRANSFERASE 37 U/L (14-36); BILIRUBIN,DIRECT 0.4 mg/dL (0.0-0.4); BILIRUBIN,TOTAL 0.4 mg/dL (0.2-1.3); BLOOD UREA NITROGEN 24 mg/dL (7-20); CALCIUM 8.8 mg/dL (8.4-10.2); CARBON DIOXIDE 28 mmol/L (22-30); CHLORIDE 109 mmol/L (98-107); CREATININE RESULT 1.28 mg/dL (0.52-1.25); GLUCOSE 96 mg/dL (75-110); SODIUM 148.1 mmol/L (137-145); TOTAL PROTEIN 6.1 g/dL (6.3-8.2)
[2017-03-22 14:36] LABS: CREATINE KINASE MB 1.11 ng/mL (<4.55)
[2017-03-22 14:37] LABS: TROPONIN I < 0.012 ng/mL
[2017-03-22] MEDS ORDERED: DEXTROSE 5%-LACTATED RINGERS 1,000 ML IV ONE (14:48)
[2017-03-22 15:21] LABS: THYROID STIMULATING HORMONE 0.86 uIU/mL (0.47-4.68)
--- NOTE | 2017-03-22 15:22 | RADIOLOGY REPORT (SQ) ---
EXAM DESCRIPTION: CT ABD/PELVIS NO ORAL OR IV COMPLETED DATE/TIME: 03/22/2017 3:09 pm REASON FOR STUDY: Abdominal pain. Lower portion COMPARISON: 08/22/2014 TECHNIQUE: CT scan of the abdomen and pelvis performed without intravenous or oral contrast. Images reviewed with lung, soft tissue, and bone windows. Reconstructed coronal and sagittal MPR images revi ewed. All images stored on PACS. All CT scanners at this facility use dose modulation, iterative reconstruction, and/or weight based d osing when appropriate to reduce radiation dose to as low as reasonably achievable (ALARA). [facility]: Dose Right [facility]: CareDose [facility]: Dose Right [facility]: Teradose 4D [facility]: [employer] RADIATION DOSE: Up-to-date CT equipment and radiation dose reduction techniques were employed. CTDIv ol: 7.9 mGy. DLP: 429 mGy-cm.mGy. LIMITATIONS: None. FINDINGS: LOWER CHEST: No significant findings. No nodules or infiltrates. NON-CONTRASTED LIVER, SPLEEN, ADRENALS: Evaluation limited by lack of IV contrast. No identified sign ificant masses. PANCREAS: No masses. No peripancreatic inflammatory changes. GALLBLADDER: No identified stones by CT criteria. No inflammatory changes to suggest cholecystitis. RIGHT KIDNEY AND URETER: No suspicious masses. Assessment limited by lack of IV contrast. No signif icant calcifications. No hydronephrosis or hydroureter. LEFT KIDNEY AND URETER: No suspicious masses. Assessment limited by lack of IV contrast. No signifi cant calcifications. No hydronephrosis or hydroureter. AORTA AND RETROPERITONEUM: No aneurysm. No retroperitoneal masses or adenopathy. BOWEL AND PERITONEAL CAVITY: Occasional sigmoid diverticula are present. There are no acute inflamma tory changes. No obvious masses. APPENDIX: Not identified. PELVIS, BLADDER, AND ABDOMINAL WALL:Catheter is present in the bladder. The bladder is not evaluated . No mass is present. There is no free fluid. BONES: No significant findings. OTHER: No other significant finding. IMPRESSION: Diverticulosis coli. There are no findings that explain the patient's pain. COMMENT: Quality ID # [id number]: Final reports with documentation of one or more dose reduction techniques (e.g., Automated exposure control, adjustment of the mA and/or kV according to patient size, use of iterative reconstruction technique) TECHNICAL DOCUMENTATION: JOB ID: [id number]- All Rights Reserved
--- NOTE | 2017-03-22 15:34 | EKG REPORT ---
SEVERITY:- ABNORMAL ECG - SINUS RHYTHM LEFT ANTERIOR FASCICULAR BLOCK CONSIDER RIGHT VENTRICULAR HYPERTROPHY LEFT VENTRICULAR HYPERTROPHY ABNORMAL T, CONSIDER ISCHEMIA, DIFFUSE LEADS BORDERLINE PROLONGED QT INTERVAL : Confirmed by: Lonny Aguilar 22-Mar-2017 15:33:44
[2017-03-22] MEDS ORDERED: ACETAMINOPHEN 325 MG TABLET ONE (16:29)
--- NOTE | 2017-03-22 17:45 | ER Document Report ---
ED GI/ - General Chief Complaint: Urinary Problem Stated Complaint: PAINFUL URINATION Time Seen by Provider: 03/22/17 12:07 Notes: Patient is here because of pain "in her privates" into her mother. Patient is a Down's syndrome patient who is been having these symptoms for over a week. She was seen by her primary care provider and they found blood in the patient's urine. Mother was told that patient might have kidney stones, but they did not prescribe any medications for the patient. Mother says that she continues to complain of pain with urinating. Patient has been treated with several courses of antibiotics over the past month and just finished taking the last of these medications a few days ago. Mother says that she has had fever a couple of days ago, although not having any now. Mother denies any nausea or vomiting or diarrhea. Patient has had 3 strokes. Also has had seizures, the most recent being in January. History of high cholesterol, GERD, hypothyroid, seizures. History of surgery on her heart for a whole and valve problem as a child. TRAVEL OUTSIDE OF THE [place] IN LAST 30 DAYS: No - Related Data Allergies/Adverse Reactions: aripiprazole [From [employer]] Allergy (Verified 03/22/17 11:30) ciprofloxacin Adverse Reaction (Verified 03/22/17 11:30) Seizure Past Medical History - Social History Smoking Status: Never Smoker Chew tobacco use (# tins/day): No Family History: Reviewed & Not Pertinent, DM, Hyperlipidemia Patient has suicidal ideation: No Patient has homicidal ideation: No - Past Medical History Cardiac Medical History: Reports: Hx Hypercholesterolemia Pulmonary Medical History: Reports: Hx Pneumonia Neurological Medical History: Reports: Hx Cerebrovascular Accident - x2, Hx Seizures - (only with CVA, not treated with Rx) Endocrine Medical History: Reports: Hx Hypothyroidism. Denies: Hx Diabetes Mellitus Type 1, Hx Diabetes Mellitus Type 2 Renal/ Medical History: Reports: Hx Renal Insufficiency GI Medical History: Reports: Hx Gastroesophageal Reflux Disease Musculoskeltal Medical History: Reports Hx Arthritis Psychiatric Medical History: Reports: Hx Depression Past Surgical History: Reports: Hx Cardiac Surgery, Other - ASD repair - Immunizations Hx Diphtheria, Pertussis, Tetanus Vaccination: Yes Hx Pneumococcal Vaccination: 01/07/15 Review of Systems - Review of Systems Notes: REVIEW OF SYSTEMS: CONSTITUTIONAL : Denies fever currently although she had some fever a couple of days ago. EENT: Denies eye, ear, nose or mouth or throat pain or other symptoms. CARDIOVASCULAR: Denies chest pain. RESPIRATORY: Denies cough, chest congestion, or shortness of breath. GASTROINTESTINAL: Pain in the suprapubic region of the abdomen, but otherwise no abdominal pain or nausea, vomiting, or diarrhea. GENITOURINARY: See HPI. MUSCULOSKELETAL: Denies back or neck pain. Denies joint pain or swelling. SKIN: Denies rash or skin lesions. NEUROLOGICAL: Denies LOC or altered mental status. Denies headache. Denies sensory loss or motor deficits. ALL OTHER SYSTEMS REVIEWED AND NEGATIVE. Physical Exam - Vital signs Vitals: Pulse Ox 99 03/22/17 11:33 Interpretation: Hypotensive - Intermittently, but I believe this is physiologic for this patient.. No: Hypoxic, Febrile - Notes Notes: PHYSICAL EXAMINATION: GENERAL: Well-appearing, in no acute distress. Typical Down's facies. HEAD: Atraumatic, normocephalic. NECK: Normal range of motion, supple. LUNGS: Breath sounds clear and equal bilaterally. HEART: Regular rate and rhythm. ABDOMEN: Soft, nontender except minimally in the suprapubic region. No masses felt. No guarding or rebound. No bruits heard. BACK: No tenderness throughout entire back. EXTREMITIES: Normal range of motion without pain. NEUROLOGICAL: Neurologically stable for her, according to the family. Moves all 4 extremities. Awake, alert, cannot assess orientation. SKIN: Warm, dry, no rashes. Course - Re-evaluation Re-evalutation: 03/22/17 19:20 Patient was transported to the emergency department by EMS. They gave her 30 mg of Toradol for pain. Blood pressure by EMS was 101/55. 03/22/17 19:24 patient had a blood pressure that fluctuated around a systolic of about 100, down into the 90s and up into the 100 and small numbers. Family says she always run somewhat low blood pressure. I do not think she is in shock. No compensatory tachycardia. Not anemic or otherwise. Patient received a couple of liters of IV fluids while here in the department and blood pressure continued to stay about the same level. I feel she is safe to go home , however. Workup was completely normal. Reassured the mother that there does not appear to be a serious condition present and no evidence of any infection that needs to be treated. - Vital Signs Vital signs: Temp Pulse Resp BP Pulse Ox 97.8 F 88 20 99/52 L 98 03/22/17 19:14 03/22/17 19:14 03/22/17 19:14 03/22/17 19:14 03/22/17 19:14 - Laboratory Result Diagrams: 03/22/17 13:38 03/22/17 13:38 Laboratory results interpreted by me: 03/22/17 03/22/17 13:38 13:38 MCV 98 H Sodium 148.1 H Chloride 109 H BUN 24 H Creatinine 1.28 H Est GFR ( Amer) 53 L Est GFR (Non-Af Amer) 44 L AST 37 H ALT 72 H Total Protein 6.1 L Albumin 3.2 L 03/22/17 19:20 Mild renal insufficiency noted. - Diagnostic Test Radiology reviewed: Image reviewed, Reports reviewed - CT of the abdomen and pelvis without any contrast is essentially normal. A few small diverticula are noted in the large bowel but no evidence of infection. Radiology results interpreted by me: 03/22/17 19:21 Chest x-ray shows no evidence of any acute processes. Essentially normal. - EKG Interpretation by Me EKG shows normal: Sinus rhythm Rate: Normal Rhythm: NSR - At 68 Additional EKG results interpreted by me: 03/22/17 19:22 EKG shows some nonspecific ST changes and T-wave changes, LVH, but no acute changes. Discharge - Discharge Clinical Impression: Abdominal pain, Dysuria Condition: Stable Disposition: HOME, SELF-CARE Additional Instructions: ABDOMINAL PAIN: There are many causes of abdominal pain. Pain can mean a serious problem requiring surgery (such as appendicitis). It can also be an innocent problem that goes away on its own (such as a viral infection). Often, time must pass to determine the cause of pain. The physician does not feel that hospitalization is necessary, at present. Things may change within the next 24 hours. Call the doctor or come back for re- examination if any problems occur, such as: (1) Pain that becomes more severe, steady, or becomes concentrated in one specific area. Also, pain that is more severe with movement or coughing. (2) Vomiting that persists or becomes more frequent. (3) Blood in the vomitus, urine, or bowel movements. Blood in the stool may have a tarry or black appearance. (4) Shaking chills or fever greater than 100 degrees F. (5) The abdomen becomes more distended or swollen. (6) Bowel movements cease. (7) Failure to improve as expected. Hypotension Your blood pressure is low. Low blood pressure can make you feel weak, lightheaded, and even make you pass out. Low blood pressure can be caused by dehydration or blood loss. Problems with the heart, kidneys, or blood vessels can cause hypotension. Certain medications can make your blood pressure abnormally low. Infection can lower blood pressure. In many cases, the person is totally healthy, but for unknown reasons, the blood pressure falls when they stand up. This is called benign orthostatic hypotension. The treatment of low blood pressure depends on the severity of the symptoms , and on the underlying cause. Sometimes it's not possible to identify a cause. At this time, it doesn't appear that the problem is serious enough to require hospitalization. Medicines that could be contributing to the problem can be withheld or reduced in dosage if your doctor approves. Get plenty of fluids. Eat a healthy diet. Be careful to stand up slowly. If you feel suddenly lightheaded or if your vision goes jade, sit or lie down at once. Don't drive or operate machinery until the symptoms are under control. Return or call the doctor if you develop fainting or severe dizziness, severe weakness, problems with vision, chest pain, shortness of breath, fever, or confusion. NORMAL EXAM AND WORKUP: At this time, your examination and workup show no significant abnormality. No significant abnormal physical findings are noted. All laboratory, EKG, and imaging (x-ray, CT scans, ultrasound) studies that were ordered show no significant abnormality. Although your examination and all studies that were ordered showed no significant abnormal finding, there are no examinations and no studies that are 100% accurate. There is always the possibility that some abnormality could exist and not be detected with physical examination or within the limits and capabilities of laboratory and other studies. You should return or follow up as you were instructed on your visit today for further evaluation if your symptoms do not resolve. TORADOL INJECTION: You have been given an injection of ketorolac tromethamine (Toradol). This is an excellent, safe drug for pain control. It also has potent antiinflammatory action. You should have significant pain relief within about one hour. Toradol is not addicting and is non-sedating. It does not interfere with driving or work. Call or return if you develop itching, hives, shortness of breath, or rash. ANTINAUSEA MEDICATION: You have been given a medication to suppress nausea and vomiting. This type of medication can be given as a shot, pill, or suppository. It will usually last for many hours. Pills and shots usually last six to eight hours, suppositories last about 12 hours. For the typical illness, only one or two doses of the medication may be necessary. Mild lightheadedness may occur. This type of medicine can cause drowsiness. Do not drive or operate dangerous machinery while under its influence. Do not mix with alcohol. See your doctor at once if you have muscle spasms or tightness, or uncontrollable motions (particularly of the neck, mouth, or jaw). Persistent vomiting or severe lightheadedness should also be evaluated by the physician. FOLLOW-UP CARE: If you have been referred to a physician for follow-up care, call the physician s office for an appointment as you were instructed or within the next two days. If you experience worsening or a significant change in your symptoms, notify the physician immediately or return to the Emergency Department at any time for re-evaluation. If you develop new or worsening symptoms such as fever, etc., return at any time for us to reevaluate your condition. Referrals: MEDINA GOLDSMITH NP [Primary Care Provider] - Follow up as needed
[2017-03-22 19:14] VITALS: BP 99/52
== END 2017-03-22 19:14 | disposition home or self-care (01) ==
LOC: ER 11:17
DX: R30.0 Dysuria (principal); K57.30 Diverticulosis of large intestine without perforation or abscess without bleeding; Q90.9 Down syndrome, unspecified; R10.30 Lower abdominal pain, unspecified; I95.9 Hypotension, unspecified; Z86.73 Personal history of transient ischemic attack (TIA), and cerebral infarction without residual deficits; Z88.8 Allergy status to other drugs, medicaments and biological substances
CPT/HCPCS: 93005; 99284; 96361; 51702; 96365; 96366; 36415; 87040; 87086; 84439; 82553; 83735; 84443; 85025; 87077; 80053; 81001; 84484; 71010; 74176; 93010; A9270; J7120

== ENCOUNTER 2017-05-10 14:39 | Inpatient (IN) | payer MEDICARE, MEDICAID ==
[2017-05-10] MEDS ORDERED: VANCOMYCIN HCL INJ 1000 MG VIAL IV ONE (15:10)
--- NOTE | 2017-05-10 15:13 | ER Document Report ---
ED General - General Stated Complaint: WEAKNESS Time Seen by Provider: 05/10/17 15:05 Notes: 51-year-old female with Down syndrome and history of urosepsis presents with fever for 2 days, sleeping all day, worsening, associated with foul-smelling urine. She is also been more lethargic. Mom denies cough. Patient was at home is cared for by mom. TRAVEL OUTSIDE OF THE [place] IN LAST 30 DAYS: No - Related Data Allergies/Adverse Reactions: aripiprazole [From [employer]] Allergy (Verified 03/22/17 11:30) ciprofloxacin Adverse Reaction (Verified 03/22/17 11:30) Seizure Past Medical History - Social History Smoking Status: Never Smoker Family History: Reviewed & Not Pertinent, DM, Hyperlipidemia - Past Medical History Cardiac Medical History: Reports: Hx Hypercholesterolemia Pulmonary Medical History: Reports: Hx Pneumonia Neurological Medical History: Reports: Hx Cerebrovascular Accident - x2, Hx Seizures - (only with CVA, not treated with Rx) Endocrine Medical History: Reports: Hx Hypothyroidism. Denies: Hx Diabetes Mellitus Type 1, Hx Diabetes Mellitus Type 2 Renal/ Medical History: Reports: Hx Renal Insufficiency. Denies: Hx Peritoneal Dialysis GI Medical History: Reports: Hx Gastroesophageal Reflux Disease Musculoskeltal Medical History: Reports Hx Arthritis Psychiatric Medical History: Reports: Hx Depression Past Surgical History: Reports: Hx Cardiac Surgery, Other - ASD repair - Immunizations Hx Diphtheria, Pertussis, Tetanus Vaccination: Yes Hx Pneumococcal Vaccination: 01/07/15 Review of Systems - Review of Systems Notes: REVIEW OF SYSTEMS GEN sleepiness and fever ENT: Denies sore throat, nasal discharge, ear pain EYES: Denies blurry vision, eye pain, discharge CV: Denies chest pain, palpitations, edema RESP: Denies cough, shortness of breath, wheezing GI: Denies abdominal pain, nausea, vomiting, diarrhea MSK: Denies joint pain/swelling, edema, SKIN: Denies rash, skin lesions LYMPH: Denies swollen glands/lymph nodes NEURO: Denies headache, focal weakness or numbness, dizziness PSYCH: Denies depression, suicidal or homicidal ideation PHYSICAL EXAMINATION General: No acute distress, well-nourished. Smells of foul-smelling urine. Head: Atraumatic, normocephalic ENT: Mouth normal, oropharynx very dry, no exudates or tonsillar enlargement Eyes: Conjunctiva normal, pupils equal, lids normal Neck: No JVD, supple, no guarding CVS: Normal rate, regular rhythm, no murmurs Resp: No resp distress, equal and normal breath sounds bilaterally GI: Nondistended, soft, no tenderness to palpation, no rebound or guarding Ext: No deformities, no edema, normal range of motion in upper and lower ext Back: No CVA or midline TTP Skin: No rash, warm Lymphatic: No lymphadeopathy noted Neuro: Awake, alert. Face symmetric. Physical Exam - Vital signs Vitals: Temp Pulse Resp BP Pulse Ox 101.7 F H 80 20 103/68 97 05/10/17 16:05 05/10/17 16:05 05/10/17 16:05 05/10/17 16:05 05/10/17 16:05 Course - Re-evaluation Re-evalutation: 05/10/17 15:12 51-year-old Down syndrome patient with history of UTI presents with fever tachycardia tachypnea and foul-smelling urine. Concerning for urosepsis. On evaluation spoke with the charge nurse to initiate a septic workup on this patient. She was given cefepime and vancomycin. I reviewed her past sensitivities, she tends to be resistant to penicillins and Bactrim. She will receive a full set sepsis fluid bolus blood cultures urine cultures and lactic. She will be admitted. 05/10/17 17:02 Patient reassessed. Heart rate is come down, she looks better after fluids. Her urine is clean her chest x-ray is negative. At this point I am going to treat her empirically for the flu with Tamiflu send a flu swab and admit her. Spoke with Dr. Watkins who admitted, full admission to telemetry. - Vital Signs Vital signs: Temp Pulse Resp BP Pulse Ox 101.7 F H 80 20 103/68 97 05/10/17 16:05 05/10/17 16:05 05/10/17 16:05 05/10/17 16:05 05/10/17 16:05 - Laboratory Result Diagrams: 05/10/17 15:30 05/10/17 15:30 Laboratory results interpreted by me: 05/10/17 05/10/17 05/10/17 15:30 15:30 16:00 WBC 13.7 H MCV 98 H Absolute Neutrophils 9.8 H Absolute Monocytes 1.5 H Sodium 149.3 H Chloride 113 H BUN 30 H Est GFR ( Amer) 54 L Est GFR (Non-Af Amer) 45 L Glucose 166 H Urine Protein 100 H Urine Blood SMALL H Urine Bilirubin SMALL H Critical Care Note - Critical Care Note Total time excluding time spent on procedures (mins): 35 Comments: The above patient is critically ill. Not including procedures, but including direct re-evaluations, speaking with patient and/or consultants, interpreting results, and documenting, I spent the total amount of minute listed listed above on critical care time Discharge - Discharge Clinical Impression: Sepsis Qualifiers: Sepsis type: sepsis due to unspecified organism Qualified Code(s): A41.9 - Sepsis, unspecified organism Condition: Fair Disposition: ADMITTED INPATIENT Admitting Provider: Hospitalist Unit Admitted: Telemetry Referrals: MEDINA GOLDSMITH NP [Primary Care Provider] - Follow up as needed
[2017-05-10 15:48] LABS: ABSOLUTE BASOPHILS # (AUTO) 0.2 10^3/uL (0.0-0.2); ABSOLUTE LYMPHOCYTES (AUTO) 2.3 10^3/uL (0.5-4.7); ABSOLUTE MONOCYTES (AUTO) 1.5 10^3/uL (0.1-1.4); ABSOLUTE NEUT (AUTO) 9.8 10^3/uL (1.7-8.2); BASOPHILS % (AUTO) 1.2 % (0-2); HEMATOCRIT 44.4 % (36.0-47.0); HEMOGLOBIN 14.8 g/dL (12.0-15.5); LYMPHOCYTES % (AUTO) 16.5 % (13-45); MEAN CORPUSCULAR HEMOGLOBIN 32.5 pg (27.0-33.4); MEAN CORPUSCULAR HGB CONC 33.3 g/dL (32.0-36.0); MEAN CORPUSCULAR VOLUME 98 fl (80-97); MONOCYTES % (AUTO) 10.6 % (3-13); PLATELET COUNT 384 10^3/uL (150-450); RED BLOOD COUNT 4.54 10^6/uL (3.72-5.28); RED CELL DISTRIBUTION WIDTH 13.4 % (11.5-14.0); SEGMENTED NEUTROPHILS % (AUTO) 71.7 % (42-78); TOTAL CELLS COUNTED % (AUTO) 100 %; WHITE BLOOD COUNT 13.7 10^3/uL (4.0-10.5)
--- NOTE | 2017-05-10 15:51 | RADIOLOGY REPORT (SQ) ---
EXAM DESCRIPTION: CHEST SINGLE VIEW COMPLETED DATE/TIME: 05/10/2017 3:38 pm REASON FOR STUDY: sepsis COMPARISON: 03/22/2017. EXAM PARAMETERS: NUMBER OF VIEWS: One view. TECHNIQUE: Single frontal radiographic view of the chest acquired. RADIATION DOSE: NA LIMITATIONS: None. FINDINGS: LUNGS AND PLEURA: No opacities, masses or pneumothorax. No pleural effusion. MEDIASTINUM AND HILAR STRUCTURES: No masses. Contour normal. HEART AND VASCULAR STRUCTURES: Heart normal in size. Normal vasculature. BONES: No acute findings. HARDWARE: Sternotomy wires. OTHER: No other significant finding. IMPRESSION: NO ACUTE RADIOGRAPHIC FINDING IN THE CHEST. TECHNICAL DOCUMENTATION: JOB ID: [id number] [email or web address]- All Rights Reserved
[2017-05-10 16:15] LABS: ANION GAP 14 (5-19); BLOOD UREA NITROGEN 30 mg/dL (7-20); CALCIUM 9.6 mg/dL (8.4-10.2); CARBON DIOXIDE 22 mmol/L (22-30); CHLORIDE 113 mmol/L (98-107); GLUCOSE 166 mg/dL (75-110); POTASSIUM 3.6 mmol/L (3.6-5.0); SODIUM 149.3 mmol/L (137-145)
[2017-05-10 16:27] LABS: APPEARANCE,URINE SLIGHTLY-CLOUDY; BILIRUBIN,URINE SMALL (NEGATIVE); COLOR,URINE AMBER; GLUCOSE, URINE NEGATIVE (NEGATIVE); KETONES,URINE NEGATIVE (NEGATIVE); LEUKOCYTE ESTERASE,URINE NEGATIVE (NEGATIVE); NITRITE,URINE NEGATIVE (NEGATIVE); PROTEIN,URINE 100 mg/dL (NEGATIVE); UROBILINOGEN,URINE NEGATIVE mg/dL (<2.0)
[2017-05-10] MEDS: NORMAL SALINE 1000 ML 1,000 ML IV PRN ×3 (16:28→16:31)
[2017-05-10] MEDS: CEFEPIME 1 GM/D5W RTU 1 GM/50 ML RTUPB IV SCH ×2 (16:29→16:31)
[2017-05-10] MEDS ORDERED: OSELTAMIVIR PHOSPHATE 75 MG CAPSULE PO ONE (17:01)
[2017-05-10] MEDS ORDERED: IPRATROPIUM/ALBUTEROL 0.5-2.5 MG/3 ML AMPUL NEB PRN (18:38)
[2017-05-10] MEDS ORDERED: ONDANSETRON 4 MG TAB.RAPDIS PO PRN (18:38)
[2017-05-10] MEDS ORDERED: ONDANSETRON HCL INJ/PF 4 MG/2 ML SDV IV PRN (18:38)
[2017-05-10] MEDS ORDERED: DEXTROSE 5%-1/2 NORMAL SALINE 1,000 ML IV PRN (18:52)
--- NOTE | 2017-05-10 18:52 | PDOC H&P ---
History of Present Illness Admission Date/PCP: 05/10/17 17:14 MEDINA GOLDSMITH NP History of Present Illness: GLENN GARCIA is a 51 year old female with Down's syndrome who is taken care of at home by her mother. She was recommended for admission by the home visiting nurse who felt that she looked dehydrated and possibly had a UTI. Ot was soaked in urine in the ER. Was started on IV fluids and Rocephin. She is non verbal at baseline. Her mother reports that she has been sleeping more than usual, and not eating as much as usual. But that is the limit of the history she can provide. Past Medical History Cardiac Medical History: Reports: Hyperlipidema Pulmonary Medical History: Reports: Pneumonia Neurological Medical History: Reports: Seizures - (only with CVA, not treated with Rx) Endocrine Medical History: Reports: Hypothyroidism Denies: Diabetes Mellitus Type 1, Diabetes Mellitus Type 2 GI Medical History: Reports: Gastroesophageal Reflux Disease Musculoskeltal Medical History: Reports: Arthritis Psychiatric Medical History: Reports: Depression Past Surgical History Past Surgical History: Reports: Other - ASD repair Social History Smoking Status: Never Smoker Frequency of Alcohol Use: None Hx Recreational Drug Use: No Drugs: None Hx Prescription Drug Abuse: No - Advance Directive Resuscitation Status: Full Code Family History Family History: DM, Hyperlipidemia Parental Family History Reviewed: Yes Children Family History Reviewed: Yes Sibling(s) Family History Reviewed.: Yes Medication/Allergy Allergies/Adverse Reactions: aripiprazole [From [employer]] Allergy (Verified 03/22/17 11:30) ciprofloxacin Adverse Reaction (Verified 03/22/17 11:30) Seizure Review of Systems ROS unobtainable: Due to mental status Physical Exam Vital Signs: Temp Pulse Resp BP Pulse Ox 101.7 F H 80 20 103/68 97 05/10/17 16:05 05/10/17 16:05 05/10/17 16:05 05/10/17 16:05 05/10/17 16:05 Additional comments: Middle-aged, frail female with Down syndrome and lying in bed not in acute distress She has multiple missing teeth dry oropharyngeal mucosa, pupils equal and reactive to light Lungs: Scattered rhonchi no wheezing or crackles normal respiratory effort Cardiac: S1-S2 regular no peripheral edema no calf tenderness no cyanosis no thrills palpable Abdomen: Soft, no focal tenderness normal bowel sounds Skin: Warm and dry Results Impressions: Chest X-Ray 05/10/17 15:07 IMPRESSION: NO ACUTE RADIOGRAPHIC FINDING IN THE CHEST. Status: Imported from PACS Assessment & Plan - Diagnosis (1) Dehydration Is this a current diagnosis for this admission?: Yes Plan: IV fluids. Continue to monitor renal function and urine output. (3) Altered mental status Qualifiers: Altered mental status type: unspecified Qualified Code(s): R41.82 - Altered mental status, unspecified Is this a current diagnosis for this admission?: Yes Plan: Likely due to SIRS. And dehydration. IV fluids and antibiotics. (4) Down syndrome Is this a current diagnosis for this admission?: Yes (5) SIRS (systemic inflammatory response syndrome) Is this a current diagnosis for this admission?: Yes Plan: Source unknown at this time. Continue empiric antibiotics, Follow-up on rapid flu test. Will get a repeat chest x-ray once she is better hydrated. Follow-up on urine and blood cultures. - Time Time Spent: 50 to 70 Minutes - Inpatient Certification Medical Necessity: Need For IV Fluids, Need for IV Antibiotics, Risk of Complication if Not Cared For in Hospital
[2017-05-10 19:01] LABS: A TYPE INFLUENZA AG NEGATIVE (NEGATIVE); B INFLUENZA AG NEGATIVE (NEGATIVE)
[2017-05-11] MEDS: LANSOPRAZOLE 15 MG TAB.RAP.DR PO SCH (05:53)
[2017-05-11 06:50] LABS: ABSOLUTE BASOPHILS # (AUTO) 0.1 10^3/uL (0.0-0.2); ABSOLUTE EOSINOPHILS # (AUTO) 0.1 10^3/uL (0.0-0.6); ABSOLUTE LYMPHOCYTES (AUTO) 1.4 10^3/uL (0.5-4.7); ABSOLUTE MONOCYTES (AUTO) 0.8 10^3/uL (0.1-1.4); ABSOLUTE NEUT (AUTO) 7.4 10^3/uL (1.7-8.2); BASOPHILS % (AUTO) 0.8 % (0-2); EOSINOPHILS % (AUTO) 0.7 % (0-6); HEMATOCRIT 34.2 % (36.0-47.0); LYMPHOCYTES % (AUTO) 14.8 % (13-45); MEAN CORPUSCULAR HEMOGLOBIN 32.7 pg (27.0-33.4); MEAN CORPUSCULAR HGB CONC 33.5 g/dL (32.0-36.0); MEAN CORPUSCULAR VOLUME 98 fl (80-97); PLATELET COUNT 252 10^3/uL (150-450); RED BLOOD COUNT 3.51 10^6/uL (3.72-5.28); RED CELL DISTRIBUTION WIDTH 13.1 % (11.5-14.0); SEGMENTED NEUTROPHILS % (AUTO) 75.7 % (42-78); TOTAL CELLS COUNTED % (AUTO) 100 %; WHITE BLOOD COUNT 9.8 10^3/uL (4.0-10.5)
[2017-05-11 07:08] LABS: ALANINE AMINOTRANSFERASE 36 U/L (9-52); ALBUMIN 2.8 g/dL (3.5-5.0); ALKALINE PHOSPHATASE 64 U/L (38-126); ANION GAP 11 (5-19); ASPARTATE AMINO TRANSFERASE 33 U/L (14-36); BILIRUBIN,DIRECT 0.2 mg/dL (0.0-0.4); BILIRUBIN,TOTAL 0.5 mg/dL (0.2-1.3); BLOOD UREA NITROGEN 18 mg/dL (7-20); CALCIUM 8.4 mg/dL (8.4-10.2); CARBON DIOXIDE 21 mmol/L (22-30); CHLORIDE 115 mmol/L (98-107); GLUCOSE 117 mg/dL (75-110); MAGNESIUM 2.1 mg/dL (1.6-2.3); PHOSPHORUS 2.4 mg/dL (2.5-4.5); POTASSIUM 3.5 mmol/L (3.6-5.0); SODIUM 146.6 mmol/L (137-145); TOTAL PROTEIN 5.4 g/dL (6.3-8.2)
[2017-05-11 07:17] LABS: HEMOGLOBIN 11.5 g/dL (12.0-15.5)
[2017-05-11] MEDS ORDERED: PIPERACILLIN/TAZOBACTAM 3.375 GM VIAL IV SCH (12:00)
[2017-05-11] MEDS ORDERED: POTASSIUM CHLORIDE 20 MEQ/15 ML UDCUP PO ONE (12:45)
[2017-05-11] MEDS ORDERED: LACTOBACILLUS ACIDOPHILUS 250 MG TAB PO ONE (13:00)
[2017-05-11 13:46] LABS: ANION GAP 9 (5-19); BLOOD UREA NITROGEN 14 mg/dL (7-20); CALCIUM 8.5 mg/dL (8.4-10.2); CARBON DIOXIDE 22 mmol/L (22-30); CHLORIDE 112 mmol/L (98-107); GLUCOSE 125 mg/dL (75-110); MAGNESIUM 2.1 mg/dL (1.6-2.3); PHOSPHORUS 2.3 mg/dL (2.5-4.5); POTASSIUM 3.4 mmol/L (3.6-5.0); SODIUM 142.6 mmol/L (137-145)
[2017-05-11] MEDS: PIPERACILLIN SODIUM/TAZOBACTAM 3.375 GM in NORMAL SALINE 100 ML IV SCH ×2 (14:58→21:10)
--- NOTE | 2017-05-11 17:31 | PDOC PROGRESS REPORT ---
Subjective Progress Note for:: 05/11/17 Subjective:: 51 year old female with Down syndrome who lives at home and is taken care of by her mother. She presented to the hospital with foul-smelling urine and sepsis. Urine culture growing gram-negative rods and gram-positive [place] chains. When I asked her how she is doing she says good. She denies any pain. Reason For Visit: SEPSIS Physical Exam Vital Signs: Temp Pulse Resp BP Pulse Ox 98.4 F 80 16 115/99 H 97 05/11/17 12:12 05/11/17 14:00 05/11/17 12:12 05/11/17 12:12 05/11/17 12:12 Intake & Output 05/10/17 05/11/17 05/12/17 06:59 06:59 06:59 Intake Total 1250 Balance 1250 Weight 52.1 kg 52.1 kg Additional comments: Middle-aged female with Down syndrome lying in bed not in acute distress She has multiple missing teeth, moist and pink oropharyngeal mucosa, pupils equal and reactive to light Lungs: normal respiratory effort, clear to auscultation bilaterally Cardiac: S1-S2 regular no peripheral edema no calf tenderness no cyanosis no thrills palpable Abdomen: Soft, no focal tenderness normal bowel sounds Skin: Warm and dry Results Laboratory Results: 05/11/17 06:18 05/11/17 12:56 05/11/17 05/11/17 05/11/17 06:18 06:18 06:18 WBC 9.8 RBC 3.51 L Hgb 11.5 L D Hct 34.2 L MCV 98 H MCH 32.7 MCHC 33.5 RDW 13.1 Plt Count 252 Seg Neutrophils % 75.7 Lymphocytes % 14.8 Monocytes % 8.0 Eosinophils % 0.7 Basophils % 0.8 Absolute Neutrophils 7.4 Absolute Lymphocytes 1.4 Absolute Monocytes 0.8 Absolute Eosinophils 0.1 Absolute Basophils 0.1 Sodium 146.6 H Potassium 3.5 L Chloride 115 H Carbon Dioxide 21 L Anion Gap 11 BUN 18 Creatinine 0.80 Est GFR ( Amer) > 60 Est GFR (Non-Af Amer) > 60 Glucose 117 H Calcium 8.4 Phosphorus 2.4 L Magnesium 2.1 Total Bilirubin 0.5 AST 33 ALT 36 Alkaline Phosphatase 64 Total Protein 5.4 L Albumin 2.8 L Lipase 75.0 TSH 0.61 05/11/17 12:56 WBC RBC Hgb Hct MCV MCH MCHC RDW Plt Count Seg Neutrophils % Lymphocytes % Monocytes % Eosinophils % Basophils % Absolute Neutrophils Absolute Lymphocytes Absolute Monocytes Absolute Eosinophils Absolute Basophils Sodium 142.6 Potassium 3.4 L Chloride 112 H Carbon Dioxide 22 Anion Gap 9 BUN 14 Creatinine 0.73 Est GFR ( Amer) > 60 Est GFR (Non-Af Amer) > 60 Glucose 125 H Calcium 8.5 Phosphorus 2.3 L Magnesium 2.1 Total Bilirubin AST ALT Alkaline Phosphatase Total Protein Albumin Lipase TSH Impressions: Chest X-Ray 05/10/17 15:07 IMPRESSION: NO ACUTE RADIOGRAPHIC FINDING IN THE CHEST. Assessment & Plan - Diagnosis (1) Dehydration Is this a current diagnosis for this admission?: Yes (3) Altered mental status Qualifiers: Altered mental status type: unspecified Qualified Code(s): R41.82 - Altered mental status, unspecified Is this a current diagnosis for this admission?: Yes (4) Down syndrome Is this a current diagnosis for this admission?: Yes (5) SIRS (systemic inflammatory response syndrome) Is this a current diagnosis for this admission?: Yes - Time Time Spent with patient: 25-34 minutes - Plan Summary Plan Summary: Day 2 of antibiotics Hypernatremia was likely secondary to dehydration. This is improving. Continue IV fluids per
[2017-05-11] MEDS: LACTOBACILLUS ACIDOPHILUS 250 MG TAB PO SCH (17:38)
[2017-05-11] MEDS ORDERED: HALOPERIDOL LACTATE INJ 5 MG/1 ML VIAL IV PRN (21:09)
[2017-05-11] MEDS ORDERED: LEVETIRACETAM 500 MG/NACL-ISO 500 MG/100 ML RTUPB IV SCH ×2 (22:00)
[2017-05-11] MEDS: HALOPERIDOL LACTATE INJ 5 MG/1 ML VIAL IV PRN (23:08)
[2017-05-11] MEDS: NORMAL SALINE 1000 ML 1,000 ML IV PRN (23:09)
[2017-05-12] MEDS: PIPERACILLIN SODIUM/TAZOBACTAM 3.375 GM in NORMAL SALINE 100 ML IV SCH ×4 (03:00→21:11)
[2017-05-12] MEDS: LANSOPRAZOLE 15 MG TAB.RAP.DR PO SCH (05:47)
[2017-05-12] MEDS: LACTOBACILLUS ACIDOPHILUS 250 MG TAB PO SCH ×2 (10:35→17:30)
[2017-05-12] MEDS: NORMAL SALINE 1000 ML 1,000 ML IV PRN (12:57)
[2017-05-12 12:58] LABS: ANION GAP 10 (5-19); BLOOD UREA NITROGEN 7 mg/dL (7-20); CALCIUM 8.6 mg/dL (8.4-10.2); CARBON DIOXIDE 23 mmol/L (22-30); CHLORIDE 109 mmol/L (98-107); GLUCOSE 119 mg/dL (75-110); MAGNESIUM 1.9 mg/dL (1.6-2.3); PHOSPHORUS 2.1 mg/dL (2.5-4.5); POTASSIUM 3.4 mmol/L (3.6-5.0)
[2017-05-12] MEDS ORDERED: NORMAL SALINE 1000 ML 500 ML IV ONE (13:57)
--- NOTE | 2017-05-12 17:24 | PDOC PROGRESS REPORT ---
Subjective Progress Note for:: 05/12/17 Subjective:: 51 year old female with Down syndrome who lives at home and is taken care of by her mother. She presented to the hospital with foul-smelling urine and sepsis. Urine culture growing E. coli and E faecalis. Antibiotics adjusted for better coverage. Reason For Visit: SEPSIS Physical Exam Vital Signs: Temp Pulse Resp BP Pulse Ox 98.4 F 72 16 89/50 L 98 05/12/17 12:34 05/12/17 16:00 05/12/17 16:00 05/12/17 12:34 05/12/17 16:00 Intake & Output 05/11/17 05/12/17 05/13/17 06:59 06:59 06:59 Intake Total 1250 3426 Balance 1250 3426 Weight 52.1 kg 51.3 kg Additional comments: Elderly -Martiniquais male lying in bed, appears comfortable Lungs: clear to auscultation bilaterally, no use of accessory muscles of respiration Cardiac: S1-S2 regular, no cyanosis and no calf tenderness no thrills palpable Abdomen: Soft, no focal tenderness normal bowel sounds Skin: Warm and dry Results Laboratory Results: 05/11/17 06:18 05/12/17 12:00 05/12/17 12:00 Sodium 142.0 Potassium 3.4 L Chloride 109 H Carbon Dioxide 23 Anion Gap 10 BUN 7 Creatinine 0.68 Est GFR ( Amer) > 60 Est GFR (Non-Af Amer) > 60 Glucose 119 H Calcium 8.6 Phosphorus 2.1 L Magnesium 1.9 Impressions: Chest X-Ray 05/10/17 15:07 IMPRESSION: NO ACUTE RADIOGRAPHIC FINDING IN THE CHEST. Assessment & Plan - Diagnosis (1) UTI (urinary tract infection) Is this a current diagnosis for this admission?: Yes Plan: Continue antibiotics. (2) Dehydration Is this a current diagnosis for this admission?: Yes Plan: IV fluids. Continue to monitor renal function and urine output. (3) Hypernatremia Is this a current diagnosis for this admission?: Yes Plan: Resolved. (4) Altered mental status Qualifiers: Altered mental status type: unspecified Qualified Code(s): R41.82 - Altered mental status, unspecified Is this a current diagnosis for this admission?: Yes Plan: Is back to baseline. (5) Down syndrome Is this a current diagnosis for this admission?: Yes - Time Time Spent with patient: 25-34 minutes
[2017-05-12] MEDS: ERYTHROMYCIN 0.5% OPH OINTMENT 3.5 GM TUBE OS SCH (17:32)
[2017-05-12] MEDS: ACETAMINOPHEN 325 MG TABLET PO SCH (21:18)
[2017-05-12] MEDS: TRAZODONE HCL 50 MG TABLET PO SCH (21:19)
[2017-05-12] MEDS: FAMOTIDINE 20 MG TABLET PO SCH (21:19)
[2017-05-12] MEDS: ATORVASTATIN CALCIUM 40 MG TABLET PO SCH (21:19)
[2017-05-12] MEDS: LEVETIRACETAM ORAL SOLN 500 MG/5 ML UDCUP PO SCH (21:19)
[2017-05-12] MEDS ORDERED: (PENDING PHARMACY ID) (Ranitidine Hcl [Zantac 150 Mg Tablet] 150 MG) PO SCH (22:00)
[2017-05-12] MEDS ORDERED: LEVETIRACETAM INJ/PF 500 MG/5 ML SDV IV SCH (22:00)
[2017-05-12] MEDS ORDERED: (PENDING PHARMACY ID) (Levetiracetam [Keppra] 750 MG) PO SCH (22:00)
[2017-05-12] MEDS ORDERED: (PENDING PHARMACY ID) (Acetaminophen [Tylenol Extra Strength 500 Mg Tablet] 1,000 MG) PO SCH (22:00)
[2017-05-13] MEDS: PIPERACILLIN SODIUM/TAZOBACTAM 3.375 GM in NORMAL SALINE 100 ML IV SCH ×4 (02:32→21:24)
[2017-05-13] MEDS: NORMAL SALINE 1000 ML 1,000 ML IV PRN ×2 (02:32→22:51)
[2017-05-13] MEDS: LANSOPRAZOLE 30 MG TAB.RAP.DR PO SCH (05:14)
[2017-05-13] MEDS: LEVOTHYROXINE SODIUM 0.025 MG TABLET PO SCH (05:14)
[2017-05-13] MEDS: LEVOTHYROXINE SODIUM 0.1 MG TABLET PO SCH (05:14)
[2017-05-13] MEDS ORDERED: LEVOTHYROXINE SODIUM 0.05 MG TABLET PO SCH (10:00)
[2017-05-13] MEDS ORDERED: (PENDING PHARMACY ID) (Levothyroxine Sodium [Synthroid] 125 MCG) PO SCH (10:00)
[2017-05-13] MEDS: LACTOBACILLUS ACIDOPHILUS 250 MG TAB PO SCH ×2 (11:29→17:56)
[2017-05-13] MEDS: ASPIRIN 81 MG TABLET, CHEWABLE PO SCH (11:30)
[2017-05-13] MEDS: SERTRALINE HCL 50 MG TABLET PO SCH (11:30)
[2017-05-13] MEDS: ACETAMINOPHEN 325 MG TABLET PO SCH ×2 (11:31→21:17)
[2017-05-13] MEDS: FAMOTIDINE 20 MG TABLET PO SCH ×2 (11:32→21:18)
[2017-05-13] MEDS: MAGNESIUM OXIDE 400 MG TABLET PO SCH (11:32)
[2017-05-13] MEDS: LORATADINE 10 MG TABLET PO SCH (11:33)
[2017-05-13] MEDS: LEVETIRACETAM ORAL SOLN 500 MG/5 ML UDCUP PO SCH ×2 (11:34→21:18)
[2017-05-13] MEDS: ERYTHROMYCIN 0.5% OPH OINTMENT 3.5 GM TUBE OS SCH ×2 (11:35→17:56)
[2017-05-13 14:41] LABS: ANION GAP 12 (5-19); BLOOD UREA NITROGEN 4 mg/dL (7-20); CALCIUM 8.7 mg/dL (8.4-10.2); CARBON DIOXIDE 21 mmol/L (22-30); CHLORIDE 114 mmol/L (98-107); GLUCOSE 109 mg/dL (75-110); MAGNESIUM 1.9 mg/dL (1.6-2.3); PHOSPHORUS 2.7 mg/dL (2.5-4.5); POTASSIUM 3.6 mmol/L (3.6-5.0); SODIUM 146.9 mmol/L (137-145)
--- NOTE | 2017-05-13 15:53 | PDOC PROGRESS REPORT ---
Subjective Progress Note for:: 05/13/17 Subjective:: 51 year old female with Down syndrome who lives at home and is taken care of by her mother. She presented to the hospital with foul-smelling urine and sepsis. Urine culture growing E. coli and E faecalis. Day 2 of Zosyn. She is at her baseline mentation and has no complaints Reason For Visit: SEPSIS Physical Exam Vital Signs: Temp Pulse Resp BP Pulse Ox 97.8 F 85 20 93/73 L 100 05/13/17 12:41 05/13/17 14:00 05/13/17 12:41 05/13/17 12:41 05/13/17 12:41 Intake & Output 05/12/17 05/13/17 05/14/17 06:59 06:59 06:59 Intake Total 3426 2914 342 Balance 3426 2914 342 Weight 51.3 kg Additional comments: Middle aged female with Down's syndrome lying in bed, not in distress Lungs: Clear to auscultation bilaterally, no use of accessory muscles of respiration Cardiac: S1-S2 regular, no cyanosis and no calf tenderness Abdomen: Soft, no focal tenderness normal bowel sounds Skin: Warm and dry Results Laboratory Results: 05/11/17 06:18 05/13/17 14:00 05/13/17 14:00 Sodium 146.9 H Potassium 3.6 Chloride 114 H Carbon Dioxide 21 L Anion Gap 12 BUN 4 L Creatinine 0.64 Est GFR ( Amer) > 60 Est GFR (Non-Af Amer) > 60 Glucose 109 Calcium 8.7 Phosphorus 2.7 Magnesium 1.9 Impressions: Chest X-Ray 05/10/17 15:07 IMPRESSION: NO ACUTE RADIOGRAPHIC FINDING IN THE CHEST. Assessment & Plan - Diagnosis (1) UTI (urinary tract infection) Is this a current diagnosis for this admission?: Yes Plan: Continue antibiotics. Day 2 of Zosyn (2) Dehydration Is this a current diagnosis for this admission?: Yes Plan: Continue IV fluids. Continue to monitor renal function and urine output. (3) Hypernatremia Is this a current diagnosis for this admission?: Yes Plan: Resolved. (4) Altered mental status Qualifiers: Altered mental status type: unspecified Qualified Code(s): R41.82 - Altered mental status, unspecified Is this a current diagnosis for this admission?: Yes Plan: Is back to baseline. (5) Down syndrome Is this a current diagnosis for this admission?: Yes - Time Time Spent with patient: 25-34 minutes
[2017-05-13] MEDS: TRAZODONE HCL 50 MG TABLET PO SCH (21:18)
[2017-05-13] MEDS: ATORVASTATIN CALCIUM 40 MG TABLET PO SCH (21:18)
[2017-05-13] MEDS: OLOPATADINE HCL 0.1% OPH SOLN 5 ML OS SCH (21:23)
[2017-05-14] MEDS: PIPERACILLIN SODIUM/TAZOBACTAM 3.375 GM in NORMAL SALINE 100 ML IV SCH ×4 (02:28→21:13)
[2017-05-14] MEDS: LEVOTHYROXINE SODIUM 0.1 MG TABLET PO SCH (05:54)
[2017-05-14] MEDS: LANSOPRAZOLE 30 MG TAB.RAP.DR PO SCH (05:54)
[2017-05-14] MEDS: LEVOTHYROXINE SODIUM 0.025 MG TABLET PO SCH (05:55)
[2017-05-14] MEDS: ACETAMINOPHEN 325 MG TABLET PO SCH ×2 (11:13→21:13)
[2017-05-14] MEDS: LACTOBACILLUS ACIDOPHILUS 250 MG TAB PO SCH ×2 (11:13→17:46)
[2017-05-14] MEDS: ASPIRIN 81 MG TABLET, CHEWABLE PO SCH (11:13)
[2017-05-14] MEDS: LORATADINE 10 MG TABLET PO SCH (11:15)
[2017-05-14] MEDS: ERYTHROMYCIN 0.5% OPH OINTMENT 3.5 GM TUBE OS SCH ×2 (11:15→17:46)
[2017-05-14] MEDS: FAMOTIDINE 20 MG TABLET PO SCH ×2 (11:15→21:13)
[2017-05-14] MEDS: MAGNESIUM OXIDE 400 MG TABLET PO SCH (11:15)
[2017-05-14] MEDS: LEVETIRACETAM ORAL SOLN 500 MG/5 ML UDCUP PO SCH (11:16)
[2017-05-14] MEDS: OLOPATADINE HCL 0.1% OPH SOLN 5 ML OS SCH ×2 (11:16→21:18)
[2017-05-14] MEDS: SERTRALINE HCL 50 MG TABLET PO SCH (11:19)
[2017-05-14] MEDS: NORMAL SALINE 1000 ML 1,000 ML IV PRN (17:47)
[2017-05-14] MEDS ORDERED: LEVETIRACETAM INJ/PF 500 MG/5 ML SDV IV PRN (18:31)
[2017-05-14] MEDS ORDERED: LEVETIRACETAM 750 MG in NORMAL SALINE 100 ML IV ONE (19:00)
[2017-05-14] MEDS ORDERED: LEVETIRACETAM INJ/PF 500 MG/5 ML SDV IV ONE (21:09)
[2017-05-14] MEDS: TRAZODONE HCL 50 MG TABLET PO SCH (21:13)
[2017-05-14] MEDS: ATORVASTATIN CALCIUM 40 MG TABLET PO SCH (21:13)
[2017-05-14] MEDS: LEVETIRACETAM 750 MG in NORMAL SALINE 100 ML IV SCH (22:02)
[2017-05-15] MEDS: HALOPERIDOL LACTATE INJ 5 MG/1 ML VIAL IV PRN (00:51)
[2017-05-15] MEDS: NORMAL SALINE 1000 ML 1,000 ML IV PRN (02:56)
[2017-05-15] MEDS: PIPERACILLIN SODIUM/TAZOBACTAM 3.375 GM in NORMAL SALINE 100 ML IV SCH ×4 (03:04→20:34)
[2017-05-15] MEDS: LEVOTHYROXINE SODIUM 0.1 MG TABLET PO SCH (05:49)
[2017-05-15] MEDS: LEVOTHYROXINE SODIUM 0.025 MG TABLET PO SCH (05:50)
[2017-05-15] MEDS: LANSOPRAZOLE 30 MG TAB.RAP.DR PO SCH (05:50)
[2017-05-15] MEDS: ASPIRIN 81 MG TABLET, CHEWABLE PO SCH (09:20)
[2017-05-15] MEDS: ACETAMINOPHEN 325 MG TABLET PO SCH ×2 (09:20→22:04)
[2017-05-15] MEDS: FAMOTIDINE 20 MG TABLET PO SCH ×2 (09:21→22:04)
[2017-05-15] MEDS: LACTOBACILLUS ACIDOPHILUS 250 MG TAB PO SCH ×2 (09:21→18:03)
[2017-05-15] MEDS: OLOPATADINE HCL 0.1% OPH SOLN 5 ML OS SCH ×2 (09:22→22:06)
[2017-05-15] MEDS: MAGNESIUM OXIDE 400 MG TABLET PO SCH (09:22)
[2017-05-15] MEDS: LORATADINE 10 MG TABLET PO SCH (09:22)
[2017-05-15] MEDS: SERTRALINE HCL 50 MG TABLET PO SCH (09:22)
[2017-05-15] MEDS: ERYTHROMYCIN 0.5% OPH OINTMENT 3.5 GM TUBE OS SCH ×2 (09:23→18:03)
[2017-05-15] MEDS: LEVETIRACETAM 750 MG in NORMAL SALINE 100 ML IV SCH ×2 (10:30→22:07)
--- NOTE | 2017-05-15 20:29 | PROGRESS NOTE E ---
Progress Note NAME: GLENN GARCIA : 1965 AGE: 51Y DATE: 05/15/2017 ROOM: 333 SUBJECTIVE: The patient is a 51-year-old female with Down syndrome and a history of recurrent urinary tract infections who presented to the hospital with sepsis encephalopathy due to UTI. She is not very interactive at baseline but is currently at her baseline mental status and is not in acute distress. OBJECTIVE: VITAL SIGNS: Were stable. LUNGS: Clear to auscultation bilaterally. Normal respiratory effort. CARDIAC: S1,S2 regular, no murmurs heard. EXTREMITIES: No peripheral edema. No calf tenderness. ABDOMEN: Soft, nontender and nondistended. Bowel sounds heard. SKIN: Warm and dry. ASSESSMENT AND PLAN: SEPSIS DUE TO UTI. Has improved. Continue antibiotics. IV fluids have been stopped. Continue Keppra for history of seizures. TIME SPENT: Twenty minutes. DICTATING PHYSICIAN: RAFITA SANTOS M.D. [id number] PHY#: [id number] ID: [id number] JOB#: [id number] ACCT: [id number] cc: >
[2017-05-15] MEDS: ATORVASTATIN CALCIUM 40 MG TABLET PO SCH (22:03)
[2017-05-15] MEDS: TRAZODONE HCL 50 MG TABLET PO SCH (22:04)
[2017-05-16] MEDS: PIPERACILLIN SODIUM/TAZOBACTAM 3.375 GM in NORMAL SALINE 100 ML IV SCH ×4 (03:17→20:52)
[2017-05-16] MEDS: LANSOPRAZOLE 30 MG TAB.RAP.DR PO SCH (05:55)
[2017-05-16] MEDS: LEVOTHYROXINE SODIUM 0.1 MG TABLET PO SCH (05:56)
[2017-05-16] MEDS: LEVOTHYROXINE SODIUM 0.025 MG TABLET PO SCH (05:56)
[2017-05-16 06:55] LABS: ANION GAP 8 (5-19); BLOOD UREA NITROGEN 3 mg/dL (7-20); CALCIUM 8.6 mg/dL (8.4-10.2); CARBON DIOXIDE 26 mmol/L (22-30); CHLORIDE 111 mmol/L (98-107); GLUCOSE 86 mg/dL (75-110); MAGNESIUM 1.7 mg/dL (1.6-2.3); POTASSIUM 3.3 mmol/L (3.6-5.0); SODIUM 144.7 mmol/L (137-145)
[2017-05-16] MEDS: ACETAMINOPHEN 325 MG TABLET PO SCH ×2 (11:11→21:51)
[2017-05-16] MEDS: MAGNESIUM OXIDE 400 MG TABLET PO SCH (11:24)
[2017-05-16] MEDS: FAMOTIDINE 20 MG TABLET PO SCH ×2 (11:25→21:51)
[2017-05-16] MEDS: LACTOBACILLUS ACIDOPHILUS 250 MG TAB PO SCH ×2 (11:25→18:02)
[2017-05-16] MEDS: SERTRALINE HCL 50 MG TABLET PO SCH (11:25)
[2017-05-16] MEDS: ERYTHROMYCIN 0.5% OPH OINTMENT 3.5 GM TUBE OS SCH ×2 (11:26→18:05)
[2017-05-16] MEDS: OLOPATADINE HCL 0.1% OPH SOLN 5 ML OS SCH ×2 (11:26→21:53)
[2017-05-16] MEDS: LORATADINE 10 MG TABLET PO SCH (11:26)
[2017-05-16] MEDS: LEVETIRACETAM 750 MG in NORMAL SALINE 100 ML IV SCH ×2 (11:26→21:53)
[2017-05-16] MEDS: ASPIRIN 81 MG TABLET, CHEWABLE PO SCH (11:26)
--- NOTE | 2017-05-16 16:30 | PDOC PROGRESS REPORT ---
Subjective Progress Note for:: 05/14/17 Subjective:: 51 year old female with Down syndrome who lives at home and is taken care of by her mother. She presented to the hospital with foul-smelling urine, metabolic encephalopathy and sepsis. Urine culture growing E. coli and E faecalis. Day 3 of Zosyn. She is at her baseline mentation and has no complaints. Reason For Visit: SEPSIS Physical Exam Vital Signs: Temp Pulse Resp BP Pulse Ox 97.4 F 107 H 16 118/46 L 97 05/16/17 07:45 05/16/17 07:45 05/16/17 07:45 05/16/17 07:45 05/16/17 07:45 Intake & Output 05/15/17 05/16/17 05/17/17 06:59 06:59 06:59 Intake Total 3640 320 Balance 3640 320 Weight 58.1 kg 58.6 kg General appearance: PRESENT: no acute distress Eye exam: PRESENT: EOMI Mouth exam: PRESENT: moist Respiratory exam: PRESENT: clear to auscultation amarjit, unlabored. ABSENT: chest wall tenderness Cardiovascular exam: PRESENT: RRR GI/Abdominal exam: PRESENT: normal bowel sounds, soft. ABSENT: tenderness Rectal exam: PRESENT: deferred Results Laboratory Results: 05/11/17 06:18 05/16/17 06:06 05/16/17 06:06 Sodium 144.7 Potassium 3.3 L Chloride 111 H Carbon Dioxide 26 Anion Gap 8 BUN 3 L Creatinine 0.64 Est GFR ( Amer) > 60 Est GFR (Non-Af Amer) > 60 Glucose 86 Calcium 8.6 Magnesium 1.7 Impressions: Chest X-Ray 05/10/17 15:07 IMPRESSION: NO ACUTE RADIOGRAPHIC FINDING IN THE CHEST. Assessment & Plan - Diagnosis (1) UTI (urinary tract infection) Is this a current diagnosis for this admission?: Yes Plan: Continue antibiotics. Day 3 of Zosyn (2) Dehydration Is this a current diagnosis for this admission?: Yes Plan: Resolved. Continue to monitor renal function and urine output. (3) Hypernatremia Is this a current diagnosis for this admission?: Yes Plan: Resolved with IV hydration (4) Down syndrome Is this a current diagnosis for this admission?: Yes (5) Metabolic encephalopathy Is this a current diagnosis for this admission?: Yes Plan: due to UTI and sepsis- resolved - Time Time Spent with patient: 25-34 minutes
--- NOTE | 2017-05-16 16:32 | PDOC PROGRESS REPORT ---
Subjective Progress Note for:: 05/16/17 Subjective:: 51 year old female with Down syndrome who lives at home and is taken care of by her mother. She presented to the hospital with foul-smelling urine, metabolic encephalopathy and sepsis. Urine culture growing E. coli and E faecalis. Day 5 of 7 of Zosyn. She is doing better and is at her baseline mental status which is minimally verbal. Reason For Visit: SEPSIS Physical Exam Vital Signs: Temp Pulse Resp BP Pulse Ox 97.4 F 107 H 16 118/46 L 97 05/16/17 07:45 05/16/17 07:45 05/16/17 07:45 05/16/17 07:45 05/16/17 07:45 Intake & Output 05/15/17 05/16/17 05/17/17 06:59 06:59 06:59 Intake Total 3640 320 Balance 3640 320 Weight 58.1 kg 58.6 kg Results Laboratory Results: 05/11/17 06:18 05/16/17 06:06 05/16/17 06:06 Sodium 144.7 Potassium 3.3 L Chloride 111 H Carbon Dioxide 26 Anion Gap 8 BUN 3 L Creatinine 0.64 Est GFR ( Amer) > 60 Est GFR (Non-Af Amer) > 60 Glucose 86 Calcium 8.6 Magnesium 1.7 Impressions: Chest X-Ray 05/10/17 15:07 IMPRESSION: NO ACUTE RADIOGRAPHIC FINDING IN THE CHEST. Assessment & Plan - Diagnosis (1) UTI (urinary tract infection) Is this a current diagnosis for this admission?: Yes Plan: Continue antibiotics. Day 5 of 7 of Zosyn (2) Dehydration Is this a current diagnosis for this admission?: Yes Plan: Resolved. Continue to monitor renal function and urine output. (3) Hypernatremia Is this a current diagnosis for this admission?: Yes Plan: Resolved with IV hydration (4) Down syndrome Is this a current diagnosis for this admission?: Yes (5) Metabolic encephalopathy Is this a current diagnosis for this admission?: Yes Plan: due to UTI and sepsis- resolved - Time Time Spent with patient: 25-34 minutes
[2017-05-16] MEDS: TRAZODONE HCL 50 MG TABLET PO SCH (21:51)
[2017-05-16] MEDS: ATORVASTATIN CALCIUM 40 MG TABLET PO SCH (21:51)
[2017-05-17] MEDS: PIPERACILLIN SODIUM/TAZOBACTAM 3.375 GM in NORMAL SALINE 100 ML IV SCH ×4 (04:43→20:40)
[2017-05-17] MEDS: LEVOTHYROXINE SODIUM 0.1 MG TABLET PO SCH (05:32)
[2017-05-17] MEDS: LEVOTHYROXINE SODIUM 0.025 MG TABLET PO SCH (05:32)
[2017-05-17] MEDS: LANSOPRAZOLE 30 MG TAB.RAP.DR PO SCH (05:33)
[2017-05-17] MEDS: LORATADINE 10 MG TABLET PO SCH (11:06)
[2017-05-17] MEDS: MAGNESIUM OXIDE 400 MG TABLET PO SCH (11:06)
[2017-05-17] MEDS: ASPIRIN 81 MG TABLET, CHEWABLE PO SCH (11:07)
[2017-05-17] MEDS: LACTOBACILLUS ACIDOPHILUS 250 MG TAB PO SCH ×2 (11:07→17:20)
[2017-05-17] MEDS: ACETAMINOPHEN 325 MG TABLET PO SCH ×2 (11:07→21:21)
[2017-05-17] MEDS: SERTRALINE HCL 50 MG TABLET PO SCH (11:08)
[2017-05-17] MEDS: FAMOTIDINE 20 MG TABLET PO SCH ×2 (11:08→21:22)
[2017-05-17] MEDS: OLOPATADINE HCL 0.1% OPH SOLN 5 ML OS SCH ×2 (11:19→21:22)
[2017-05-17] MEDS: ERYTHROMYCIN 0.5% OPH OINTMENT 3.5 GM TUBE OS SCH ×2 (11:20→17:20)
[2017-05-17] MEDS: LEVETIRACETAM 750 MG in NORMAL SALINE 100 ML IV SCH ×2 (11:23→21:26)
--- NOTE | 2017-05-17 19:22 | PDOC PROGRESS REPORT ---
Subjective Progress Note for:: 05/17/17 Subjective:: No new issues. Reason For Visit: SEPSIS Physical Exam Vital Signs: Temp Pulse Resp BP Pulse Ox 98.2 F 92 17 128/79 H 98 05/17/17 15:17 05/17/17 15:17 05/17/17 15:17 05/17/17 15:17 05/17/17 15:17 Intake & Output 05/16/17 05/17/17 05/18/17 06:59 06:59 06:59 Intake Total 320 2674 437 Balance 320 2674 437 Weight 58.6 kg 56.8 kg General appearance: PRESENT: no acute distress, well-developed, well-nourished Head exam: PRESENT: atraumatic, normocephalic Eye exam: PRESENT: conjunctiva pink, EOMI. ABSENT: scleral icterus Ear exam: PRESENT: normal external ear exam Mouth exam: PRESENT: moist, tongue midline Neck exam: ABSENT: carotid bruit, JVD, lymphadenopathy, thyromegaly Respiratory exam: PRESENT: clear to auscultation amarjit. ABSENT: rales, rhonchi, wheezes Cardiovascular exam: PRESENT: RRR. ABSENT: diastolic murmur, rubs, systolic murmur Pulses: PRESENT: normal dorsalis pedis pul Vascular exam: PRESENT: normal capillary refill GI/Abdominal exam: PRESENT: normal bowel sounds, soft. ABSENT: distended, guarding, mass, organolmegaly, rebound, tenderness Rectal exam: PRESENT: deferred Extremities exam: PRESENT: full ROM. ABSENT: calf tenderness, clubbing, pedal edema Neurological exam: PRESENT: alert, awake, oriented to person, oriented to place. ABSENT: motor sensory deficit Psychiatric exam: PRESENT: appropriate affect, normal mood. ABSENT: homicidal ideation, suicidal ideation Skin exam: PRESENT: dry, intact, warm. ABSENT: cyanosis, rash Results Laboratory Results: 05/11/17 06:18 05/16/17 06:06 Impressions: Chest X-Ray 05/10/17 15:07 IMPRESSION: NO ACUTE RADIOGRAPHIC FINDING IN THE CHEST. Assessment & Plan - Diagnosis (1) Dehydration Is this a current diagnosis for this admission?: Yes Plan: Resolved. (2) Hypernatremia Is this a current diagnosis for this admission?: Yes Plan: Resolved with IV hydration. (3) Metabolic encephalopathy Is this a current diagnosis for this admission?: Yes Plan: Resolved. (4) UTI (urinary tract infection) Is this a current diagnosis for this admission?: Yes Plan: Escherichia Coli and Enterococcus Faecalis Group D: Yoan. (5) Down syndrome Is this a current diagnosis for this admission?: Yes Plan: Supportive care. - Time Time Spent with patient: 15-24 minutes Anticipated discharge: Home
[2017-05-17] MEDS ORDERED: POTASSIUM CHLORIDE 10 MEQ TABLET.SA PO ONE (19:45)
[2017-05-17] MEDS: TRAZODONE HCL 50 MG TABLET PO SCH (21:22)
[2017-05-17] MEDS: ATORVASTATIN CALCIUM 40 MG TABLET PO SCH (21:22)
[2017-05-18] MEDS: PIPERACILLIN SODIUM/TAZOBACTAM 3.375 GM in NORMAL SALINE 100 ML IV SCH ×2 (02:49→10:46)
[2017-05-18 06:16] LABS: ABSOLUTE BASOPHILS # (AUTO) 0.1 10^3/uL (0.0-0.2); ABSOLUTE EOSINOPHILS # (AUTO) 0.3 10^3/uL (0.0-0.6); ABSOLUTE LYMPHOCYTES (AUTO) 1.6 10^3/uL (0.5-4.7); ABSOLUTE MONOCYTES (AUTO) 0.4 10^3/uL (0.1-1.4); ABSOLUTE NEUT (AUTO) 2.9 10^3/uL (1.7-8.2); BASOPHILS % (AUTO) 1.4 % (0-2); EOSINOPHILS % (AUTO) 6.3 % (0-6); HEMATOCRIT 35.3 % (36.0-47.0); LYMPHOCYTES % (AUTO) 30.1 % (13-45); MEAN CORPUSCULAR VOLUME 97 fl (80-97); MONOCYTES % (AUTO) 8.2 % (3-13); PLATELET COUNT 338 10^3/uL (150-450); RED BLOOD COUNT 3.63 10^6/uL (3.72-5.28); RED CELL DISTRIBUTION WIDTH 13.5 % (11.5-14.0); TOTAL CELLS COUNTED % (AUTO) 100 %; WHITE BLOOD COUNT 5.3 10^3/uL (4.0-10.5)
[2017-05-18 06:35] LABS: ANION GAP 7 (5-19); BLOOD UREA NITROGEN 4 mg/dL (7-20); CALCIUM 8.8 mg/dL (8.4-10.2); CARBON DIOXIDE 27 mmol/L (22-30); CHLORIDE 113 mmol/L (98-107); GLUCOSE 91 mg/dL (75-110); POTASSIUM 3.9 mmol/L (3.6-5.0); SODIUM 147.1 mmol/L (137-145)
[2017-05-18] MEDS: LEVOTHYROXINE SODIUM 0.1 MG TABLET PO SCH (06:36)
[2017-05-18] MEDS: LANSOPRAZOLE 30 MG TAB.RAP.DR PO SCH (06:36)
[2017-05-18] MEDS: LEVOTHYROXINE SODIUM 0.025 MG TABLET PO SCH (06:36)
[2017-05-18] MEDS: LEVETIRACETAM 750 MG in NORMAL SALINE 100 ML IV SCH ×2 (10:46→22:07)
[2017-05-18] MEDS: ACETAMINOPHEN 325 MG TABLET PO SCH ×2 (12:12→22:12)
[2017-05-18] MEDS: LORATADINE 10 MG TABLET PO SCH (12:12)
[2017-05-18] MEDS: ASPIRIN 81 MG TABLET, CHEWABLE PO SCH (12:13)
[2017-05-18] MEDS: LACTOBACILLUS ACIDOPHILUS 250 MG TAB PO SCH ×2 (12:13→17:44)
[2017-05-18] MEDS: MAGNESIUM OXIDE 400 MG TABLET PO SCH (12:13)
[2017-05-18] MEDS: SERTRALINE HCL 50 MG TABLET PO SCH (12:14)
[2017-05-18] MEDS: FAMOTIDINE 20 MG TABLET PO SCH ×2 (12:14→22:12)
[2017-05-18] MEDS: OLOPATADINE HCL 0.1% OPH SOLN 5 ML OS SCH ×2 (12:15→22:12)
[2017-05-18] MEDS: ERYTHROMYCIN 0.5% OPH OINTMENT 3.5 GM TUBE OS SCH ×2 (12:15→17:50)
[2017-05-18] MEDS ORDERED: PIPERACILLIN SODIUM/TAZOBACTAM 3.375 GM in NORMAL SALINE 100 ML IV SCH (15:00)
[2017-05-18] MEDS ORDERED: DEXTROSE 5%-WATER 1000 ML 1,000 ML IV ONE (16:48)
--- NOTE | 2017-05-18 16:56 | PDOC PROGRESS REPORT ---
Subjective Progress Note for:: 05/18/17 Subjective:: No new issues. Reason For Visit: SEPSIS Physical Exam Vital Signs: Temp Pulse Resp BP Pulse Ox 98.3 F 95 18 136/89 H 96 05/18/17 11:38 05/18/17 11:38 05/18/17 11:38 05/18/17 11:38 05/18/17 11:38 Intake & Output 05/17/17 05/18/17 05/19/17 06:59 06:59 06:59 Intake Total 2674 837 Balance 2674 837 Weight 56.8 kg 57.6 kg General appearance: PRESENT: no acute distress, well-developed, well-nourished Head exam: PRESENT: atraumatic, normocephalic Eye exam: PRESENT: conjunctiva pink, EOMI. ABSENT: scleral icterus Ear exam: PRESENT: normal external ear exam Mouth exam: PRESENT: moist, tongue midline Neck exam: ABSENT: carotid bruit, JVD, lymphadenopathy, thyromegaly Respiratory exam: PRESENT: clear to auscultation amarjit. ABSENT: rales, rhonchi, wheezes Cardiovascular exam: PRESENT: RRR. ABSENT: diastolic murmur, rubs, systolic murmur Pulses: PRESENT: normal dorsalis pedis pul Vascular exam: PRESENT: normal capillary refill GI/Abdominal exam: PRESENT: normal bowel sounds, soft. ABSENT: distended, guarding, mass, organolmegaly, rebound, tenderness Rectal exam: PRESENT: deferred Extremities exam: PRESENT: full ROM. ABSENT: calf tenderness, clubbing, pedal edema Neurological exam: PRESENT: alert, oriented to person, CN II-XII grossly intact Psychiatric exam: PRESENT: appropriate affect, normal mood. ABSENT: homicidal ideation, suicidal ideation Skin exam: PRESENT: dry, intact, warm. ABSENT: cyanosis, rash Results Laboratory Results: 05/18/17 06:02 05/18/17 06:02 05/18/17 05/18/17 06:02 06:02 WBC 5.3 RBC 3.63 L Hgb 12.0 Hct 35.3 L MCV 97 MCH 33.0 MCHC 34.0 RDW 13.5 Plt Count 338 Seg Neutrophils % 54.0 Lymphocytes % 30.1 Monocytes % 8.2 Eosinophils % 6.3 H Basophils % 1.4 Absolute Neutrophils 2.9 Absolute Lymphocytes 1.6 Absolute Monocytes 0.4 Absolute Eosinophils 0.3 Absolute Basophils 0.1 Sodium 147.1 H Potassium 3.9 Chloride 113 H Carbon Dioxide 27 Anion Gap 7 BUN 4 L Creatinine 0.70 Est GFR ( Amer) > 60 Est GFR (Non-Af Amer) > 60 Glucose 91 Calcium 8.8 Impressions: Chest X-Ray 05/10/17 15:07 IMPRESSION: NO ACUTE RADIOGRAPHIC FINDING IN THE CHEST. Assessment & Plan - Diagnosis (1) Dehydration Is this a current diagnosis for this admission?: Yes Plan: Resolved. (2) Hypernatremia Is this a current diagnosis for this admission?: Yes Plan: Will give D5W 1 liter bolus. Will check BMP in am (3) Metabolic encephalopathy Is this a current diagnosis for this admission?: Yes Plan: Resolved. (4) UTI (urinary tract infection) Is this a current diagnosis for this admission?: Yes Plan: Escherichia Coli and Enterococcus Faecalis Group D: Completed treatment. (5) Down syndrome Is this a current diagnosis for this admission?: Yes Plan: Supportive care. - Time Time Spent with patient: 15-24 minutes Anticipated discharge: Home
[2017-05-18] MEDS: ATORVASTATIN CALCIUM 40 MG TABLET PO SCH (22:12)
[2017-05-18] MEDS: TRAZODONE HCL 50 MG TABLET PO SCH (22:12)
[2017-05-19] MEDS: LEVOTHYROXINE SODIUM 0.025 MG TABLET PO SCH (05:46)
[2017-05-19] MEDS: LEVOTHYROXINE SODIUM 0.1 MG TABLET PO SCH (05:46)
[2017-05-19] MEDS: LANSOPRAZOLE 30 MG TAB.RAP.DR PO SCH (05:46)
[2017-05-19 07:24] LABS: ABSOLUTE BASOPHILS # (AUTO) 0.1 10^3/uL (0.0-0.2); ABSOLUTE EOSINOPHILS # (AUTO) 0.3 10^3/uL (0.0-0.6); ABSOLUTE LYMPHOCYTES (AUTO) 2.2 10^3/uL (0.5-4.7); ABSOLUTE MONOCYTES (AUTO) 0.5 10^3/uL (0.1-1.4); ABSOLUTE NEUT (AUTO) 2.2 10^3/uL (1.7-8.2); BASOPHILS % (AUTO) 1.1 % (0-2); EOSINOPHILS % (AUTO) 5.3 % (0-6); HEMATOCRIT 36.8 % (36.0-47.0); HEMOGLOBIN 12.2 g/dL (12.0-15.5); LYMPHOCYTES % (AUTO) 42.6 % (13-45); MEAN CORPUSCULAR HEMOGLOBIN 32.4 pg (27.0-33.4); MEAN CORPUSCULAR VOLUME 98 fl (80-97); MONOCYTES % (AUTO) 8.7 % (3-13); PLATELET COUNT 343 10^3/uL (150-450); RED BLOOD COUNT 3.75 10^6/uL (3.72-5.28); RED CELL DISTRIBUTION WIDTH 13.6 % (11.5-14.0); SEGMENTED NEUTROPHILS % (AUTO) 42.3 % (42-78); TOTAL CELLS COUNTED % (AUTO) 100 %; WHITE BLOOD COUNT 5.2 10^3/uL (4.0-10.5)
[2017-05-19 07:57] LABS: ALANINE AMINOTRANSFERASE 31 U/L (9-52); ALBUMIN 2.7 g/dL (3.5-5.0); ALKALINE PHOSPHATASE 72 U/L (38-126); ANION GAP 8 (5-19); ASPARTATE AMINO TRANSFERASE 37 U/L (14-36); BILIRUBIN,DIRECT 0.2 mg/dL (0.0-0.4); BILIRUBIN,TOTAL 0.3 mg/dL (0.2-1.3); BLOOD UREA NITROGEN 7 mg/dL (7-20); CALCIUM 8.8 mg/dL (8.4-10.2); CARBON DIOXIDE 27 mmol/L (22-30); CHLORIDE 106 mmol/L (98-107); GLUCOSE 81 mg/dL (75-110); POTASSIUM 3.7 mmol/L (3.6-5.0); SODIUM 140.9 mmol/L (137-145); TOTAL PROTEIN 5.4 g/dL (6.3-8.2)
[2017-05-19] MEDS: LACTOBACILLUS ACIDOPHILUS 250 MG TAB PO SCH ×2 (11:35→17:16)
[2017-05-19] MEDS: LORATADINE 10 MG TABLET PO SCH (11:35)
[2017-05-19] MEDS: OLOPATADINE HCL 0.1% OPH SOLN 5 ML OS SCH ×2 (11:35→22:09)
[2017-05-19] MEDS: SERTRALINE HCL 50 MG TABLET PO SCH (11:35)
[2017-05-19] MEDS: ERYTHROMYCIN 0.5% OPH OINTMENT 3.5 GM TUBE OS SCH (11:35)
[2017-05-19] MEDS: MAGNESIUM OXIDE 400 MG TABLET PO SCH (11:36)
[2017-05-19] MEDS: ASPIRIN 81 MG TABLET, CHEWABLE PO SCH (11:36)
[2017-05-19] MEDS: FAMOTIDINE 20 MG TABLET PO SCH ×2 (11:36→22:09)
[2017-05-19] MEDS: ACETAMINOPHEN 325 MG TABLET PO SCH ×2 (11:37→22:09)
[2017-05-19] MEDS: LEVETIRACETAM 750 MG in NORMAL SALINE 100 ML IV SCH ×2 (11:40→22:14)
--- NOTE | 2017-05-19 19:52 | PDOC PROGRESS REPORT ---
Subjective Progress Note for:: 05/19/17 Subjective:: No new issues. Reason For Visit: SEPSIS Physical Exam Vital Signs: Temp Pulse Resp BP Pulse Ox 98.1 F 85 16 115/74 98 05/19/17 19:04 05/19/17 19:04 05/19/17 19:04 05/19/17 19:04 05/19/17 19:04 Intake & Output 05/18/17 05/19/17 05/20/17 06:59 06:59 06:59 Intake Total 837 795 200 Balance 837 795 200 Weight 57.6 kg 57.1 kg General appearance: PRESENT: no acute distress, well-developed, well-nourished Head exam: PRESENT: atraumatic, normocephalic Eye exam: PRESENT: conjunctiva pink, EOMI. ABSENT: scleral icterus Ear exam: PRESENT: normal external ear exam Mouth exam: PRESENT: moist, tongue midline Neck exam: ABSENT: carotid bruit, JVD, lymphadenopathy, thyromegaly Respiratory exam: PRESENT: clear to auscultation amarjit. ABSENT: rales, rhonchi, wheezes Cardiovascular exam: PRESENT: RRR. ABSENT: diastolic murmur, rubs, systolic murmur Pulses: PRESENT: normal dorsalis pedis pul Vascular exam: PRESENT: normal capillary refill GI/Abdominal exam: PRESENT: normal bowel sounds, soft. ABSENT: distended, guarding, mass, organolmegaly, rebound, tenderness Rectal exam: PRESENT: deferred Extremities exam: PRESENT: full ROM. ABSENT: calf tenderness, clubbing, pedal edema Neurological exam: PRESENT: alert, awake, oriented to person, oriented to place , oriented to time, oriented to situation, CN II-XII grossly intact. ABSENT: motor sensory deficit Psychiatric exam: PRESENT: appropriate affect, normal mood. ABSENT: homicidal ideation, suicidal ideation Skin exam: PRESENT: dry, intact, warm. ABSENT: cyanosis, rash Results Laboratory Results: 05/19/17 06:38 05/19/17 06:38 05/19/17 05/19/17 06:38 06:38 WBC 5.2 RBC 3.75 Hgb 12.2 Hct 36.8 MCV 98 H MCH 32.4 MCHC 33.0 RDW 13.6 Plt Count 343 Seg Neutrophils % 42.3 Lymphocytes % 42.6 Monocytes % 8.7 Eosinophils % 5.3 Basophils % 1.1 Absolute Neutrophils 2.2 Absolute Lymphocytes 2.2 Absolute Monocytes 0.5 Absolute Eosinophils 0.3 Absolute Basophils 0.1 Sodium 140.9 Potassium 3.7 Chloride 106 Carbon Dioxide 27 Anion Gap 8 BUN 7 Creatinine 0.73 Est GFR ( Amer) > 60 Est GFR (Non-Af Amer) > 60 Glucose 81 Calcium 8.8 Total Bilirubin 0.3 AST 37 H ALT 31 Alkaline Phosphatase 72 Total Protein 5.4 L Albumin 2.7 L Impressions: Chest X-Ray 05/10/17 15:07 IMPRESSION: NO ACUTE RADIOGRAPHIC FINDING IN THE CHEST. Assessment & Plan - Diagnosis (1) Dehydration Is this a current diagnosis for this admission?: Yes Plan: Resolved. (2) Hypernatremia Is this a current diagnosis for this admission?: Yes Plan: Resolved. (3) Metabolic encephalopathy Is this a current diagnosis for this admission?: Yes Plan: Resolved. (4) UTI (urinary tract infection) Is this a current diagnosis for this admission?: Yes Plan: Escherichia Coli and Enterococcus Faecalis Group D: Completed treatment. (5) Down syndrome Is this a current diagnosis for this admission?: Yes Plan: Supportive care. - Time Time Spent with patient: 15-24 minutes
[2017-05-19] MEDS: TRAZODONE HCL 50 MG TABLET PO SCH (22:09)
[2017-05-19] MEDS: ATORVASTATIN CALCIUM 40 MG TABLET PO SCH (22:09)
[2017-05-20] MEDS: LANSOPRAZOLE 30 MG TAB.RAP.DR PO SCH (06:32)
[2017-05-20] MEDS: LEVOTHYROXINE SODIUM 0.025 MG TABLET PO SCH (06:32)
[2017-05-20] MEDS: LEVOTHYROXINE SODIUM 0.1 MG TABLET PO SCH (06:32)
[2017-05-20] MEDS: LEVETIRACETAM 750 MG in NORMAL SALINE 100 ML IV SCH (10:06)
[2017-05-20] MEDS: MAGNESIUM OXIDE 400 MG TABLET PO SCH (10:07)
[2017-05-20] MEDS: OLOPATADINE HCL 0.1% OPH SOLN 5 ML OS SCH ×2 (10:07→21:41)
[2017-05-20] MEDS: FAMOTIDINE 20 MG TABLET PO SCH ×2 (10:07→21:30)
[2017-05-20] MEDS: ACETAMINOPHEN 325 MG TABLET PO SCH ×2 (10:07→21:35)
[2017-05-20] MEDS: SERTRALINE HCL 50 MG TABLET PO SCH (10:08)
[2017-05-20] MEDS: LACTOBACILLUS ACIDOPHILUS 250 MG TAB PO SCH ×2 (10:08→17:32)
[2017-05-20] MEDS: LORATADINE 10 MG TABLET PO SCH (10:08)
[2017-05-20] MEDS: ASPIRIN 81 MG TABLET, CHEWABLE PO SCH (10:08)
--- NOTE | 2017-05-20 15:13 | PDOC PROGRESS REPORT ---
Subjective Progress Note for:: 05/20/17 Subjective:: No new issues. Reason For Visit: SEPSIS Physical Exam Vital Signs: Temp Pulse Resp BP Pulse Ox 97.6 F 89 16 119/82 95 05/20/17 11:32 05/20/17 11:32 05/20/17 11:32 05/20/17 11:32 05/20/17 11:32 Intake & Output 05/19/17 05/20/17 05/21/17 06:59 06:59 06:59 Intake Total 795 587 Balance 795 587 Weight 57.1 kg 55.7 kg General appearance: PRESENT: no acute distress, well-developed, well-nourished Head exam: PRESENT: atraumatic, normocephalic Eye exam: PRESENT: conjunctiva pink, EOMI. ABSENT: scleral icterus Ear exam: PRESENT: normal external ear exam Mouth exam: PRESENT: moist, tongue midline Neck exam: ABSENT: carotid bruit, JVD, lymphadenopathy, thyromegaly Respiratory exam: PRESENT: clear to auscultation amarjit. ABSENT: rales, rhonchi, wheezes Cardiovascular exam: PRESENT: RRR. ABSENT: diastolic murmur, rubs, systolic murmur Pulses: PRESENT: normal dorsalis pedis pul Vascular exam: PRESENT: normal capillary refill GI/Abdominal exam: PRESENT: normal bowel sounds, soft. ABSENT: distended, guarding, mass, organolmegaly, rebound, tenderness Rectal exam: PRESENT: deferred Extremities exam: PRESENT: full ROM. ABSENT: calf tenderness, clubbing, pedal edema Neurological exam: PRESENT: alert, awake, oriented to person, oriented to place , oriented to time, oriented to situation, CN II-XII grossly intact. ABSENT: motor sensory deficit Psychiatric exam: PRESENT: appropriate affect, normal mood. ABSENT: homicidal ideation, suicidal ideation Skin exam: PRESENT: dry, intact, warm. ABSENT: cyanosis, rash Results Laboratory Results: 05/19/17 06:38 05/19/17 06:38 Impressions: Chest X-Ray 05/10/17 15:07 IMPRESSION: NO ACUTE RADIOGRAPHIC FINDING IN THE CHEST. Assessment & Plan - Diagnosis (1) Dehydration Is this a current diagnosis for this admission?: Yes Plan: Resolved. (2) Hypernatremia Is this a current diagnosis for this admission?: Yes Plan: Resolved. (3) Metabolic encephalopathy Is this a current diagnosis for this admission?: Yes Plan: Resolved. (4) UTI (urinary tract infection) Is this a current diagnosis for this admission?: Yes Plan: Escherichia Coli and Enterococcus Faecalis Group D: Completed treatment. (5) Down syndrome Is this a current diagnosis for this admission?: Yes Plan: Supportive care. (6) Seizure Is this a current diagnosis for this admission?: Yes Plan: keppra changed for IV to PO. (7) Debility Is this a current diagnosis for this admission?: Yes Plan: Will order PT/OT for evaluation. - Time Time Spent with patient: 15-24 minutes
[2017-05-20] MEDS: ATORVASTATIN CALCIUM 40 MG TABLET PO SCH (21:31)
[2017-05-20] MEDS: TRAZODONE HCL 50 MG TABLET PO SCH (21:31)
[2017-05-20] MEDS ORDERED: LEVETIRACETAM 500 MG TABLET PO SCH (22:00)
[2017-05-21] MEDS: LEVOTHYROXINE SODIUM 0.1 MG TABLET PO SCH (05:50)
[2017-05-21] MEDS: LEVOTHYROXINE SODIUM 0.025 MG TABLET PO SCH (05:50)
[2017-05-21] MEDS: LANSOPRAZOLE 30 MG TAB.RAP.DR PO SCH (05:50)
[2017-05-21] MEDS: ACETAMINOPHEN 325 MG TABLET PO SCH (11:00)
[2017-05-21] MEDS: LORATADINE 10 MG TABLET PO SCH (11:09)
[2017-05-21] MEDS: FAMOTIDINE 20 MG TABLET PO SCH (11:10)
[2017-05-21] MEDS: LACTOBACILLUS ACIDOPHILUS 250 MG TAB PO SCH (11:10)
[2017-05-21] MEDS: SERTRALINE HCL 50 MG TABLET PO SCH (11:11)
[2017-05-21] MEDS: ASPIRIN 81 MG TABLET, CHEWABLE PO SCH (11:11)
[2017-05-21] MEDS: MAGNESIUM OXIDE 400 MG TABLET PO SCH (11:11)
[2017-05-21] MEDS: OLOPATADINE HCL 0.1% OPH SOLN 5 ML OS SCH (11:13)
[2017-05-21] MEDS ORDERED: LEVETIRACETAM ORAL SOLN 500 MG/5 ML UDCUP PO ONE (14:00)
--- NOTE | 2017-05-21 14:09 | PDOC DISCHARGE SUMMARY ---
General - Admit/Disc Date/PCP Admission Date/Primary Care Provider: 05/10/17 17:14 MEDINA GOLDSMITH NP Discharge Date: 05/21/17 - Discharge Diagnosis (1) Sepsis Is this a current diagnosis for this admission?: Yes Summary: Secondary to E. coli and enterococcus faecalis acute cystitis: Patient was placed on and completed 10 days of antibiotics. Was also given IV fluids for volume expansion. (white blood cell count of 13,000, temperature of 101.7, identifiable source infection, and hypotension). (2) Dehydration Is this a current diagnosis for this admission?: Yes Summary: In setting of sepsis: Patient was given IV fluids for volume expansion. (3) Hypernatremia Is this a current diagnosis for this admission?: Yes Summary: Secondary to dehydration in setting of sepsis: Resolved (4) Metabolic encephalopathy Is this a current diagnosis for this admission?: Yes Summary: Resolved (5) UTI (urinary tract infection) Is this a current diagnosis for this admission?: Yes Summary: E. coli and Enterococcus faecalis acute cystitis: Patient completed treatment with Zosyn (6) Down syndrome Is this a current diagnosis for this admission?: Yes Summary: Supportive Care. (7) Seizure Is this a current diagnosis for this admission?: Yes Summary: Continue Keppra (8) Debility Is this a current diagnosis for this admission?: Yes Summary: We will have home health for PT OT and aide for bathing - Additional Information Resuscitation Status: Full Code Discharge Diet: Other (Comments) - Regular diet mechanical soft Discharge Activity: Activity As Tolerated Home Medications: Acetaminophen [Tylenol Extra Strength 500 mg Tablet] 1,000 mg PO Q12 05/10/17 Aspirin [Aspirin 81 mg Chewable Tablet] 81 mg PO DAILY 05/10/17 Atorvastatin Calcium [Lipitor 40 mg Tablet] 40 mg PO QHS 05/10/17 Erythromycin Base [Erythromycin Oph 1 gm Oint Ud] 1 applic OS BID 05/10/17 Levetiracetam [Keppra] 750 mg PO Q12 05/10/17 Levothyroxine Sodium [Synthroid] 125 mcg PO DAILY 05/10/17 Loratadine [Claritin 10 mg Tablet] 10 mg PO DAILY 05/10/17 Magnesium Oxide [Mag-Ox 400 mg Tablet] 400 mg PO DAILY 05/10/17 Olopatadine HCl [Pataday] 1 drop OS DAILY 05/10/17 Omeprazole 40 mg PO DAILY 05/10/17 Ranitidine HCl [Zantac 150 mg Tablet] 150 mg PO Q12 05/10/17 Sertraline HCl [Zoloft 50 mg Tablet] 150 mg PO DAILY 05/10/17 Trazodone HCl [Desyrel 50 mg Tablet] 50 mg PO QHS 05/10/17 History of Present Illness History of Present Illness: GLENN GARCIA is a 51 year old female sent to the hospital after a visiting nurse felt that patient was dehydrated and possibly had a urinary tract infection. Patient was brought to the hospital where she was found to be septic and therefore placed on Zosyn. Patient's urine culture demonstrated E. coli and Enterococcus faecalis. Patient was given IV fluids for volume expansion. Patient was also noted to be hypernatremic and given additional fluids. Pt was placed on Zosyn for 10 days. Pt completed antibiotic treatment here in the hospital. Hospital Course Hospital Course: GLENN GARCIA is a 51 year old female sent to the hospital after a visiting nurse felt that patient was dehydrated and possibly had a urinary tract infection. Patient was brought to the hospital where she was found to be septic and therefore placed on Zosyn. Patient's urine culture demonstrated E. coli and Enterococcus faecalis. Patient was given IV fluids for volume expansion. Patient was also noted to be hypernatremic and given additional fluids. Pt was placed on Zosyn for 10 days. Pt completed antibiotic treatment here in the hospital. Physical Exam Vital Signs: Temp Pulse Resp BP Pulse Ox 97.5 F 105 H 16 90/68 L 97 05/21/17 07:50 05/21/17 12:17 05/21/17 12:17 05/21/17 12:31 05/21/17 12:17 Intake & Output 05/20/17 05/21/17 05/22/17 06:59 06:59 06:59 Intake Total 587 650 Balance 587 650 Weight 55.7 kg 53.9 kg General appearance: PRESENT: no acute distress, well-developed, well-nourished Head exam: PRESENT: atraumatic, normocephalic Eye exam: PRESENT: conjunctiva pink, EOMI. ABSENT: scleral icterus Ear exam: PRESENT: normal external ear exam Mouth exam: PRESENT: moist, tongue midline Neck exam: ABSENT: carotid bruit, JVD, lymphadenopathy, thyromegaly Respiratory exam: PRESENT: clear to auscultation amarjit. ABSENT: rales, rhonchi, wheezes Cardiovascular exam: PRESENT: RRR. ABSENT: diastolic murmur, rubs, systolic murmur Pulses: PRESENT: normal dorsalis pedis pul Vascular exam: PRESENT: normal capillary refill GI/Abdominal exam: PRESENT: normal bowel sounds, soft. ABSENT: distended, guarding, mass, organolmegaly, rebound, tenderness Rectal exam: PRESENT: deferred Extremities exam: PRESENT: full ROM. ABSENT: calf tenderness, clubbing, pedal edema Neurological exam: PRESENT: alert, awake, oriented to person Psychiatric exam: PRESENT: appropriate affect Skin exam: PRESENT: dry, intact, warm. ABSENT: cyanosis, rash Results Laboratory Results: 05/19/17 06:38 05/19/17 06:38 Impressions: Chest X-Ray 05/10/17 15:07 IMPRESSION: NO ACUTE RADIOGRAPHIC FINDING IN THE CHEST. Plan Time Spent: Greater than 30 Minutes - Family declined rehab or/and placement
[2017-05-21] MEDS ORDERED: NORMAL SALINE 1000 ML 1,000 ML IV ONE (14:45)
[2017-05-21 16:31] VITALS: BP 83/55
[2017-05-21] MEDS ORDERED: LEVETIRACETAM ORAL SOLN 500 MG/5 ML UDCUP PO SCH (22:00)
== END 2017-05-21 16:45 | disposition home health service (06) | DRG 871 ==
LOC: ER 14:39 → EH 17:14 → 3S 21:22
PROVIDERS: ADMIT Internal Medicine; ATTEND Internal Medicine
DX: A41.51 Sepsis due to Escherichia coli [E. coli] (principal); G93.41 Metabolic encephalopathy; N30.00 Acute cystitis without hematuria; E87.0 Hyperosmolality and hypernatremia; A41.81 Sepsis due to Enterococcus; E86.0 Dehydration; Q90.9 Down syndrome, unspecified; G40.909 Epilepsy, unspecified, not intractable, without status epilepticus; E78.5 Hyperlipidemia, unspecified; E03.9 Hypothyroidism, unspecified; K21.9 Gastro-esophageal reflux disease without esophagitis; M19.90 Unspecified osteoarthritis, unspecified site; F32.9 Major depressive disorder, single episode, unspecified; Z79.899 Other long term (current) drug therapy; Z79.82 Long term (current) use of aspirin; Z88.8 Allergy status to other drugs, medicaments and biological substances; Z88.1 Allergy status to other antibiotic agents
CPT/HCPCS: 36415; 71045; 80048; 80053; 81001; 83605; 83690; 83735; 84100; 84443; 85025; 87040; 87086; 87088; 87186; 87804; 96360; 99291; G8978-GP; G8979-GP; J0692; J1630; J1953; J2543; J3370; J3490; J7030; J7060

== ENCOUNTER 2017-06-08 12:07 | Emergency (ER) | payer MEDICARE, MEDICAID ==
[2017-06-08] MEDS ORDERED: RINGERS SOLUTION,LACTATED 1,000 ML IV ONE (13:04)
[2017-06-08 13:21] LABS: ABSOLUTE BASOPHILS # (AUTO) 0.1 10^3/uL (0.0-0.2); ABSOLUTE LYMPHOCYTES (AUTO) 1.8 10^3/uL (0.5-4.7); ABSOLUTE MONOCYTES (AUTO) 0.7 10^3/uL (0.1-1.4); ABSOLUTE NEUT (AUTO) 12.6 10^3/uL (1.7-8.2); BASOPHILS % (AUTO) 0.4 % (0-2); EOSINOPHILS % (AUTO) 0.1 % (0-6); HEMATOCRIT 40.3 % (36.0-47.0); HEMOGLOBIN 13.1 g/dL (12.0-15.5); MEAN CORPUSCULAR HEMOGLOBIN 31.8 pg (27.0-33.4); MEAN CORPUSCULAR HGB CONC 32.4 g/dL (32.0-36.0); MEAN CORPUSCULAR VOLUME 98 fl (80-97); MONOCYTES % (AUTO) 4.8 % (3-13); PLATELET COUNT 445 10^3/uL (150-450); RED BLOOD COUNT 4.11 10^6/uL (3.72-5.28); SEGMENTED NEUTROPHILS % (AUTO) 82.7 % (42-78); TOTAL CELLS COUNTED % (AUTO) 100 %; WHITE BLOOD COUNT 15.2 10^3/uL (4.0-10.5)
[2017-06-08 14:09] LABS: ALANINE AMINOTRANSFERASE 91 U/L (9-52); ALBUMIN 3.4 g/dL (3.5-5.0); ALKALINE PHOSPHATASE 131 U/L (38-126); ANION GAP 14 (5-19); ASPARTATE AMINO TRANSFERASE 85 U/L (14-36); BILIRUBIN,DIRECT 0.3 mg/dL (0.0-0.4); BILIRUBIN,TOTAL 0.4 mg/dL (0.2-1.3); BLOOD UREA NITROGEN 31 mg/dL (7-20); CALCIUM 8.9 mg/dL (8.4-10.2); CARBON DIOXIDE 23 mmol/L (22-30); CHLORIDE 106 mmol/L (98-107); GLUCOSE 116 mg/dL (75-110); POTASSIUM 4.2 mmol/L (3.6-5.0); TOTAL PROTEIN 6.7 g/dL (6.3-8.2)
--- NOTE | 2017-06-08 14:11 | RADIOLOGY REPORT (SQ) ---
EXAM DESCRIPTION: CHEST SINGLE VIEW COMPLETED DATE/TIME: 06/08/2017 2:00 pm REASON FOR STUDY: Cough COMPARISON: Chest films 05/10/2017, 03/22/2017, 05/28/2016 EXAM PARAMETERS: NUMBER OF VIEWS: One view. TECHNIQUE: Single frontal radiographic view of the chest acquired. RADIATION DOSE: NA LIMITATIONS: None. FINDINGS: LUNGS AND PLEURA: Patchy airspace disease just above the left hemidiaphragm atelectasis ve rsus pneumonia. Right lung well expanded and clear. No pleural effusions or pneumothorax. MEDIASTINUM AND HILAR STRUCTURES: No masses. Contour normal. HEART AND VASCULAR STRUCTURES: Heart normal in size. Normal vasculature. BONES: Old sternotomy. Partial fusion of the right post row lateral 5th and 6th ribs. Bones osteope antonio HARDWARE: None in the chest. OTHER: No other significant finding. IMPRESSION: Patchy left lower lobe airspace disease worrisome for early or developing pneumonia TECHNICAL DOCUMENTATION: JOB ID: [id number] [employer]- All Rights Reserved
[2017-06-08 14:21] LABS: CREATINE KINASE MB 2.14 ng/mL (<4.55); TROPONIN I 0.018 ng/mL
[2017-06-08 14:36] LABS: A TYPE INFLUENZA AG NEGATIVE (NEGATIVE); B INFLUENZA AG NEGATIVE (NEGATIVE)
[2017-06-08 15:58] LABS: APPEARANCE,URINE SLIGHTLY-CLOUDY; BILIRUBIN,URINE NEGATIVE (NEGATIVE); COLOR,URINE AMBER; GLUCOSE, URINE NEGATIVE (NEGATIVE); KETONES,URINE NEGATIVE (NEGATIVE); LEUKOCYTE ESTERASE,URINE NEGATIVE (NEGATIVE); NITRITE,URINE NEGATIVE (NEGATIVE); PROTEIN,URINE 30 mg/dL (NEGATIVE); URINE SPECIFIC GRAVITY 1.034; UROBILINOGEN,URINE NEGATIVE mg/dL (<2.0)
[2017-06-08] MEDS ORDERED: CEFTRIAXONE INJ 1000 MG VIAL IV ONE (16:07)
--- NOTE | 2017-06-08 17:34 | ER Document Report ---
ED General - General Stated Complaint: WEAKNESS Time Seen by Provider: 06/08/17 12:33 Notes: Patient is here because she is acting similarly to when she was in the hospital a few weeks ago with dehydration and a UTI. She is not holding her head up like she normally should and does. She has not been taking very much fluids. Her mother is the historian and thinks she is hydrated. He says the patient has had night sweats over the past week, but not noted any actual fever. She is making urine. Patient is a Down's syndrome patient who is cared for at home by her mother. Patient was admitted here from May 10 - May 21 and had a follow-up visit at her primary care provider about a week after her discharge. Her mother says that she has been doing well, but her blood pressure tends to run low. She slept for 24 straight hours yesterday. She has had a slight cough. No fever. TRAVEL OUTSIDE OF THE [place] IN LAST 30 DAYS: No - Related Data Allergies/Adverse Reactions: aripiprazole [From [employer]] Allergy (Verified 03/22/17 11:30) ciprofloxacin Adverse Reaction (Verified 03/22/17 11:30) Seizure Past Medical History - Social History Smoking Status: Never Smoker Family History: Reviewed & Not Pertinent, DM, Hyperlipidemia - Past Medical History Cardiac Medical History: Reports: Hx Hypercholesterolemia Pulmonary Medical History: Reports: Hx Pneumonia Neurological Medical History: Reports: Hx Cerebrovascular Accident - x2, Hx Seizures - (only with CVA, not treated with Rx) Endocrine Medical History: Reports: Hx Hypothyroidism Renal/ Medical History: Reports: Hx Renal Insufficiency GI Medical History: Reports: Hx Gastroesophageal Reflux Disease Musculoskeltal Medical History: Reports Hx Arthritis Psychiatric Medical History: Reports: Hx Depression Past Surgical History: Reports: Hx Cardiac Surgery, Other - ASD repair - Immunizations Hx Diphtheria, Pertussis, Tetanus Vaccination: Yes Hx Pneumococcal Vaccination: 01/07/15 Review of Systems - Review of Systems Notes: REVIEW OF SYSTEMS: Provided by mother CONSTITUTIONAL : Denies fever. EENT: Denies eye, ear, nose or mouth or throat pain or other symptoms. CARDIOVASCULAR: Denies chest pain. RESPIRATORY: Has some new cough, but denies chest congestion, or shortness of breath. GASTROINTESTINAL: Denies abdominal pain or nausea, vomiting, or diarrhea. Poor appetite and oral intake. GENITOURINARY: Denies difficulty or painful urinating, urinary frequency, blood in urine. MUSCULOSKELETAL: Denies back or neck pain. Denies joint pain or swelling. SKIN: Denies rash or skin lesions. NEUROLOGICAL: Down's syndrome. Denies LOC or altered mental status from her normal. ALL OTHER SYSTEMS REVIEWED AND NEGATIVE. Physical Exam - Vital signs Vitals: Temp Pulse Resp BP Pulse Ox 98.4 F 84 16 118/74 98 06/08/17 12:21 06/08/17 12:21 06/08/17 12:21 06/08/17 12:21 06/08/17 12:21 - Notes Notes: PHYSICAL EXAMINATION: GENERAL: Anxious. Typical Down's facies HEAD: Atraumatic, normocephalic. ENT: oropharynx clear without exudates. Moist mucous membranes. NECK: Normal range of motion, supple. LUNGS: Breath sounds clear and equal bilaterally. HEART: Regular rate and rhythm without murmurs. Rate about 105 at the bedside by me. ABDOMEN: Soft, nontender. No guarding or rebound. No masses. BACK: No tenderness throughout entire back. EXTREMITIES: Normal range of motion without pain. NEUROLOGICAL: Mentally challenged. Moves all 4 extremities. Grossly intact neurology exam for this patient. PSYCH: Unable SKIN: Warm, dry, no rashes. Course - Vital Signs Vital signs: Temp Pulse Resp BP Pulse Ox 98.4 F 84 16 118/74 98 06/08/17 12:21 06/08/17 12:21 06/08/17 12:21 06/08/17 12:21 06/08/17 12:21 - Laboratory Result Diagrams: 06/08/17 12:20 06/08/17 13:37 Laboratory results interpreted by me: 06/08/17 06/08/17 06/08/17 12:20 13:37 15:02 WBC 15.2 H MCV 98 H RDW 15.0 H Seg Neutrophils % 82.7 H Lymphocytes % 12.0 L Absolute Neutrophils 12.6 H BUN 31 H Est GFR (Non-Af Amer) 52 L Glucose 116 H AST 85 H ALT 91 H Alkaline Phosphatase 131 H Albumin 3.4 L Urine Protein 30 H - Diagnostic Test Radiology results interpreted by me: 06/08/17 19:25 Radiology reads the patient's chest x-ray as left lower airspace disease versus atelectasis. I do not really see anything that looks abnormal to me. Mother points out the patient has had a chest tube in the left chest and I wonder if there is some residual scar tissue or something that is making a slight hazy area there, although I do not think it is pneumonia. Suggest plan with the patient's mother about sending her home after giving her a liter of fluid and a gram of Rocephin. I have cultured her blood cultures or urine. Her urine really does not look like an infection and chest x-ray, see above, does not look to need to be pneumonia. I would like to try to keep her out of the hospital if possible, as she is receiving very good care at home and to keep her from being exposed to other infections, etc. in the hospital. Discharge - Discharge Clinical Impression: Weakness, Dehydration, Leukocytosis Condition: Stable Disposition: HOME, SELF-CARE Additional Instructions: Weakness We did not find a definite cause for your weakness. This may require further medical tests. Weakness can be caused by infection, physical exhaustion , rapid weight loss, dehydration, or medicine side effects. Diseases of the muscles, heart, nerves, and blood vessels can make you weak. Sometimes the problem is simply depression or lack of exercise. You should get plenty of rest. Unless the doctor tells you otherwise, it's usually best to add short periods of regular mild exercise. Eat a nutritious diet with multiple small, low-sugar meals. If symptoms continue, additional medical evaluation will be necessary. Be sure to follow up as instructed. If you become very dizzy, nauseated, or feel like you're going to faint, lie down right away. Wait until the symptoms have passed before you get up again. Stand up slowly. Call the doctor or return if you develop chest pain, abdominal pain, severe headache, irregular heartbeat or very fast pulse, confusion, vision problems, fever, muscular pain, or any other new symptom. Dehydration Dehydration can result from vomiting or diarrhea, fever, or decreased intake of fluids. If severe, hospitalization and intravenous fluids may be required. Most cases are treated at home with fluids by mouth. For the next 24 hours, drink lots of clear fluids. In mild cases, this can be soda pop or sports drinks. For more severe dehydration, the doctor may recommend special fluids such as Pedialyte or Lytren. Try to get three liters ( 3 quarts) of fluid per day. If vomiting occurs, continue to drink the fluids frequently (every 15 to 20 minutes), but in small amounts (one or two ounces). Depending on the type of dehydration, the doctor may prescribe antinausea medicine or potassium replacements. Call the doctor or return for re-examination if you become progressively weak, vomit repeatedly, or have other new symptoms. Leukocytosis Leukocytosis is an elevation or increase in the number of white blood cells. Nearly all leukocytosis is due to one type of white blood cell, the polymorphonuclear leukocyte (PMN). These conditions are more accurately referred to as neutrophilia. The most common and important cause of neutrophilia is infection, and most infections cause neutrophilia. The degree of elevation often indicates the severity of the infection. Tissue damage from other causes raises the white count for similar reasons. Krishna, infarction (cutting off the blood supply to a region of the body so that it dies), crush injuries, inflammatory diseases, poisonings, and severe diseases, like kidney failure and diabetic ketoacidosis, all cause neutrophilia. Counts almost as high occur in leukemoid (leukemia-like) reactions caused by infection and non-infectious inflammation. Drugs can also cause leukocytosis. Cortisone-like drugs prednisone, lithium , and NSAIDs are the most common offenders. Non-specific stresses also cause white blood cells to increase in the blood. Extensive testing of medical students reveals that neutrophilia accompanies every examination. Vigorous exercise and intense excitement also cause elevated white blood cell counts. At this time, most of your labs are acceptable or only minimally abnormal. There is questionable pneumonia on the chest x-ray, although I do not think it is very significant to my interpretation. Urinalysis does not look like an infection. Labs suggest mild dehydration. We have hydrated you with an IV bag and also given you the starting dose of Rocephin which is an antibiotic that is good for 24 hours. If anything significant shows up on either her blood cultures or her urine culture, we will call you to prescribe other antibiotics. FOLLOW-UP CARE: If you have been referred to a physician for follow-up care, call the physician s office for an appointment as you were instructed or within the next two days. If you experience worsening or a significant change in your symptoms, notify the physician immediately or return to the Emergency Department at any time for re-evaluation. Referrals: MEDINA GOLDSMITH NP [Primary Care Provider] - Follow up as needed
--- NOTE | 2017-06-08 18:18 | EKG REPORT ---
SEVERITY:- DEFECTIVE ECG - SINUS RHYTHM LEFT ANTERIOR FASCICULAR BLOCK LEFT VENTRICULAR HYPERTROPHY BORDERLINE PROLONGED QT INTERVAL : Confirmed by: Franco Valladares MD 08-Jun-2017 18:17:51
[2017-06-08 20:00] VITALS: BP 139/70
== END 2017-06-08 20:10 | disposition home or self-care (01) ==
LOC: ER 12:07
DX: R53.1 Weakness (principal); E86.0 Dehydration; D72.829 Elevated white blood cell count, unspecified; R05 Cough; Q90.9 Down syndrome, unspecified
CPT/HCPCS: 93005; 99285; 96361; 51701; 96374; 36415; 87040; 87086; 82553; 85025; 87088; 80053; 81001; 84484; 87186; 87804; 71045; 93010; J0696; J7120

== ENCOUNTER 2017-06-14 16:47 | Emergency (ER) | payer MEDICARE, MEDICAID ==
--- NOTE | 2017-06-14 17:24 | RADIOLOGY REPORT (SQ) ---
EXAM DESCRIPTION: CHEST SINGLE VIEW COMPLETED DATE/TIME: 06/14/2017 5:16 pm REASON FOR STUDY: bed 1 sepsis protocol COMPARISON: 06/08/2017 EXAM PARAMETERS: NUMBER OF VIEWS: One view. TECHNIQUE: Single frontal radiographic view of the chest acquired. RADIATION DOSE: NA LIMITATIONS: None. FINDINGS: LUNGS AND PLEURA: No opacities, masses or pneumothorax. No pleural effusion. MEDIASTINUM AND HILAR STRUCTURES: No masses. Contour normal. HEART AND VASCULAR STRUCTURES: Heart normal in size. Normal vasculature. BONES: No acute findings. HARDWARE: Sternal wires. OTHER: No other significant finding. IMPRESSION: NO ACUTE RADIOGRAPHIC FINDING IN THE CHEST. TECHNICAL DOCUMENTATION: JOB ID: [id number] [employer]- All Rights Reserved
[2017-06-14 17:32] LABS: ABSOLUTE MONOCYTES (AUTO) 1.4 10^3/uL (0.1-1.4); ABSOLUTE NEUT (AUTO) 7.5 10^3/uL (1.7-8.2); BASOPHILS % (AUTO) 0.4 % (0-2); EOSINOPHILS % (AUTO) 0.1 % (0-6); HEMATOCRIT 35.4 % (36.0-47.0); HEMOGLOBIN 11.9 g/dL (12.0-15.5); LYMPHOCYTES % (AUTO) 18.6 % (13-45); MEAN CORPUSCULAR HEMOGLOBIN 31.7 pg (27.0-33.4); MEAN CORPUSCULAR HGB CONC 33.5 g/dL (32.0-36.0); MEAN CORPUSCULAR VOLUME 95 fl (80-97); MONOCYTES % (AUTO) 12.6 % (3-13); PLATELET COUNT 471 10^3/uL (150-450); RED BLOOD COUNT 3.74 10^6/uL (3.72-5.28); RED CELL DISTRIBUTION WIDTH 14.6 % (11.5-14.0); SEGMENTED NEUTROPHILS % (AUTO) 68.3 % (42-78); TOTAL CELLS COUNTED % (AUTO) 100 %; WHITE BLOOD COUNT 10.9 10^3/uL (4.0-10.5)
[2017-06-14 17:37] LABS: VENOUS BLOOD BASE EXCESS 3.2 mmol/L; VENOUS BLOOD HCO3 27.7 mmol/L (20-32); VENOUS BLOOD PCO2 41.6 mmHg (35-63); VENOUS BLOOD PH 7.44 (7.30-7.42)
[2017-06-14 17:38] LABS: INTERNATIONAL RATION (INR) 1.12; PROTHROMBIN TIME 15.2 SEC (11.4-15.4)
[2017-06-14 17:55] LABS: ALANINE AMINOTRANSFERASE 99 U/L (9-52); ALBUMIN 2.8 g/dL (3.5-5.0); ALKALINE PHOSPHATASE 113 U/L (38-126); ANION GAP 8 (5-19); ASPARTATE AMINO TRANSFERASE 148 U/L (14-36); BILIRUBIN,DIRECT 0.3 mg/dL (0.0-0.4); BILIRUBIN,TOTAL 0.3 mg/dL (0.2-1.3); BLOOD UREA NITROGEN 23 mg/dL (7-20); CALCIUM 8.5 mg/dL (8.4-10.2); CARBON DIOXIDE 28 mmol/L (22-30); CHLORIDE 108 mmol/L (98-107); GLUCOSE 114 mg/dL (75-110); POTASSIUM 4.4 mmol/L (3.6-5.0); SODIUM 143.5 mmol/L (137-145); TOTAL PROTEIN 5.9 g/dL (6.3-8.2)
[2017-06-14 18:00] LABS: APPEARANCE,URINE SLIGHTLY-CLOUDY; BILIRUBIN,URINE NEGATIVE (NEGATIVE); COLOR,URINE YELLOW; GLUCOSE, URINE NEGATIVE (NEGATIVE); KETONES,URINE NEGATIVE (NEGATIVE); LEUKOCYTE ESTERASE,URINE NEGATIVE (NEGATIVE); NITRITE,URINE NEGATIVE (NEGATIVE); PROTEIN,URINE 100 mg/dL (NEGATIVE); URINE SPECIFIC GRAVITY 1.029; UROBILINOGEN,URINE NEGATIVE mg/dL (<2.0)
[2017-06-14 18:33] LABS: A TYPE INFLUENZA AG NEGATIVE (NEGATIVE); B INFLUENZA AG NEGATIVE (NEGATIVE)
[2017-06-14] MEDS ORDERED: NORMAL SALINE 1000 ML 1,000 ML IV ONE ×2 (18:46→19:54)
--- NOTE | 2017-06-14 18:49 | ER Document Report ---
ED General - General Chief Complaint: Fever Stated Complaint: FEVER Time Seen by Provider: 06/14/17 17:42 Information source: Patient TRAVEL OUTSIDE OF THE [place] IN LAST 30 DAYS: No - HPI Patient complains to provider of: not feeling well Onset: Last week Onset/Duration: Gradual Notes: pt. noinverbal. Mom states pt. with decreased resaponsiveness and not drinking - Related Data Allergies/Adverse Reactions: aripiprazole [From [employer]] Allergy (Verified 03/22/17 11:30) ciprofloxacin Adverse Reaction (Verified 03/22/17 11:30) Seizure Past Medical History - General Information source: Parent - Social History Smoking Status: Never Smoker Frequency of alcohol use: None Drug Abuse: None Lives with: Family, Parents Family History: Reviewed & Not Pertinent, DM, Hyperlipidemia Patient has suicidal ideation: No Patient has homicidal ideation: No - Past Medical History Cardiac Medical History: Reports: Hx Hypercholesterolemia Pulmonary Medical History: Reports: Hx Pneumonia Neurological Medical History: Reports: Hx Cerebrovascular Accident - x2, Hx Seizures - (only with CVA, not treated with Rx) Endocrine Medical History: Reports: Hx Hypothyroidism. Denies: Hx Diabetes Mellitus Type 1, Hx Diabetes Mellitus Type 2 Renal/ Medical History: Reports: Hx Renal Insufficiency. Denies: Hx Peritoneal Dialysis Malignancy Medical History: Reports: None GI Medical History: Reports: Hx Gastroesophageal Reflux Disease Musculoskeltal Medical History: Reports Hx Arthritis Psychiatric Medical History: Reports: Hx Depression Past Surgical History: Reports: Hx Cardiac Surgery, Other - ASD repair - Immunizations Hx Diphtheria, Pertussis, Tetanus Vaccination: Yes Hx Pneumococcal Vaccination: 01/07/15 Review of Systems - Review of Systems -: Yes ROS unobtainable due to patient's medical condition Physical Exam - Vital signs Vitals: Temp 99.5 F 06/14/17 16:55 - Notes Notes: PHYSICAL EXAMINATION: GENERAL: Frail chronically ill-appearing HEAD: Atraumatic, normocephalic. EYES: Pupils equal round and reactive to light, extraocular movements intact, conjunctiva are normal. ENT: Nares patent. MM dry. NECK: Normal range of motion, supple without lymphadenopathy LUNGS: Breath sounds clear to auscultation bilaterally and equal. No wheezes rales or rhonchi. HEART: Regular rate and rhythm without murmurs ABDOMEN: Soft, nontender, nondistended abdomen. No guarding, no rebound. No masses appreciated. Female : deferred Musculoskeletal: contractures upper and lower extremities NEUROLOGICAL: No gross focal deficits. Nonverbal at baseline PSYCH: Normal mood, normal affect. SKIN: Warm, Dry, normal turgor, no rashes or lesions noted. Course - Re-evaluation Re-evalutation: 06/14/17 19:55 rectal temp 99.5 - Vital Signs Vital signs: Temp Pulse Resp BP Pulse Ox 99.2 F 18 100/62 97 06/14/17 21:18 06/14/17 21:33 06/14/17 21:14 06/14/17 21:33 - Laboratory Result Diagrams: 06/14/17 17:13 06/14/17 17:13 Laboratory results interpreted by me: 06/14/17 06/14/17 06/14/17 17:13 17:13 17:13 WBC 10.9 H Hgb 11.9 L Hct 35.4 L RDW 14.6 H Plt Count 471 H VBG pH 7.44 H Chloride 108 H BUN 23 H Glucose 114 H AST 148 H ALT 99 H Total Protein 5.9 L Albumin 2.8 L Urine Protein Urine Blood 06/14/17 17:43 WBC Hgb Hct RDW Plt Count VBG pH Chloride BUN Glucose AST ALT Total Protein Albumin Urine Protein 100 H Urine Blood SMALL H Discharge - Discharge Clinical Impression: Dehydration Condition: Stable Disposition: HOME, SELF-CARE Instructions: Dehydration ([facility]) Additional Instructions: Follow up with your physician tomorrow for further care or return to the ED IMMEDIATELY if symptoms worsen or new concerns occur. If you cannot afford to follow up with your primary care physician a list of low cost clinics have been provided at the end of your discharge papers as well. Please encourage patient to drink water throughout the day. Referrals: MEDINA GOLDSMITH NP [Primary Care Provider] - Follow up in 3-5 days
[2017-06-14 21:16] VITALS: BP 100/62
--- NOTE | 2017-06-14 22:48 | EKG REPORT ---
SEVERITY:- ABNORMAL ECG - SINUS TACHYCARDIA LEFT ANTERIOR FASCICULAR BLOCK CONSIDER LEFT VENTRICULAR HYPERTROPHY : Confirmed by: Lonny Aguilar 14-Jun-2017 22:48:12
== END 2017-06-14 21:43 | disposition home or self-care (01) ==
LOC: ER 16:47
DX: E86.0 Dehydration (principal); R41.82 Altered mental status, unspecified; Z88.8 Allergy status to other drugs, medicaments and biological substances; Z86.73 Personal history of transient ischemic attack (TIA), and cerebral infarction without residual deficits
CPT/HCPCS: 93005; 99284; 96360; 96361; 36415; 87040; 87086; 85025; 85610; 80053; 81001; 82803; 83605; 87804; 71045; 93010; J7030

== ENCOUNTER 2017-07-11 09:46 | Day surgery (SDC) | payer MEDICARE, MEDICAID ==
[2017-07-06 11:12] LABS: HEMOGLOBIN 13.8 g/dL (12.0-15.5); MEAN CORPUSCULAR HEMOGLOBIN 30.2 pg (27.0-33.4); MEAN CORPUSCULAR HGB CONC 32.8 g/dL (32.0-36.0); MEAN CORPUSCULAR VOLUME 92 fl (80-97); PLATELET COUNT 444 10^3/uL (150-450); RED BLOOD COUNT 4.57 10^6/uL (3.72-5.28); RED CELL DISTRIBUTION WIDTH 16.2 % (11.5-14.0); WHITE BLOOD COUNT 7.7 10^3/uL (4.0-10.5)
--- NOTE | 2017-07-06 12:54 | EKG REPORT ---
SEVERITY:- ABNORMAL ECG - SINUS RHYTHM LEFT ANTERIOR FASCICULAR BLOCK PROBABLE LEFT VENTRICULAR HYPERTROPHY ABNORMAL T, CONSIDER ISCHEMIA, LATERAL LEADS : Confirmed by: Franco Valladares MD 06-Jul-2017 12:53:16
[~2017-07-11 09:46] MED LIST: CEFAZOLIN 1 GM/D5W RTU 1 GM/50 ML RTUPB IV PRN; LACTATED RINGERS 1000 ML IV PRN; LIDOCAINE 0.5% INJ-PF (5 MG/ML) 50 ML SDV SUBCUT PRN
[2017-07-11 12:20] LABS: ANION GAP 10 (5-19); BLOOD UREA NITROGEN 11 mg/dL (7-20); CALCIUM 9.2 mg/dL (8.4-10.2); CARBON DIOXIDE 25 mmol/L (22-30); CHLORIDE 103 mmol/L (98-107); GLUCOSE 108 mg/dL (75-110); POTASSIUM 4.2 mmol/L (3.6-5.0)
[2017-07-11] MEDS ORDERED: FENTANYL CITRATE INJ/PF 100 MCG/2 ML AMPUL ONE ×2 (12:21→13:45)
[2017-07-11] MEDS ORDERED: LIDOCAINE 2% INJ-PF (20 MG/ML) 10 ML AMPUL ONE (12:21)
[2017-07-11] MEDS ORDERED: KETAMINE HCL INJ 500 MG/10 ML VIAL ONE (12:21)
[2017-07-11] MEDS ORDERED: PROPOFOL INJ 200 MG/20 ML VIAL IV ONE (12:22)
[2017-07-11] MEDS ORDERED: MIDAZOLAM 2 MG/2 ML INJ ONE (12:22)
--- NOTE | 2017-07-11 13:30 | Operative Report ---
Operative Report DATE OF SURGERY: 07/11/17 PREOPERATIVE DIAGNOSIS: Weight loss; failure to thrive POSTOPERATIVE DIAGNOSIS: Same OPERATION: 1. Esophagogastroduodenoscopy. 2. Percutaneous endoscopic gastrostomy tube placement SURGEON: JASON SANCHEZ ANESTHESIA: LMAC TISSUE REMOVED OR ALTERED: None COMPLICATIONS: None ESTIMATED BLOOD LOSS: Scant INTRAOPERATIVE FINDINGS: See below PROCEDURE: The patient was taken to the preop holding her to the main operating room where LMAC anesthesia was induced. She was placed in the semi-recumbent, reverse Trendelenburg position. Oral mouthpiece inserted. Appropriate level of anesthesia was achieved. Surgical plan surgical timeout were conducted. The flexible adult upper endoscope was advanced through the patient's hypopharynx, down the esophagus through the stomach into the duodenum. There were no gross pathologic findings. There was no evidence of gastric outlet obstruction or ulceration. A suitable site for placement of the PEG tube was chosen in the left upper quadrant of the abdominal wall. Stomach was insufflated with CO2 and suitable deflection was demonstrated by palpating the abdominal wall, and showing the depression in the lumen of the stomach. Skin was prepped with Betadine and draped and anesthetized 1% lidocaine plain. Tra was made in the skin with 11 blade, the Jelco needle was threaded through the abdominal wall, needle removed leaving the Jelco in the lumen of the stomach. The wire was then placed through the Jelco and snared with the endoscopic snare. The wire snare and scope were brought out through the patient's oropharynx, and a Endo Vie a 4 [place] feeding tube was threaded over the wire and brought up to the anterior abdominal wall. Ulcer and adapters applied. And was at approximately 3-1/2 cm marking. Repeat endoscopy performed uneventfully showed the feeding tube to be in excellent position. Patient tolerated procedure well taken recovery room stable condition.
[2017-07-11] MEDS ORDERED: FENTANYL CITRATE INJ/PF 100 MCG/2 ML AMPUL IV PRN ×3 (13:38)
[2017-07-11] MEDS ORDERED: PROMETHAZINE HCL INJ 25 MG/1 ML VIAL IV PRN (13:38)
[2017-07-11] MEDS ORDERED: OXYCODONE-ACETAMINOPHEN 5-325 MG TABLET PO PRN ×2 (13:38)
[2017-07-11] MEDS ORDERED: MEPERIDINE HCL/PF INJ 25 MG/1 ML DISP.SYRIN IV PRN (13:38)
[2017-07-11] MEDS ORDERED: DIPHENHYDRAMINE HCL 50 MG/ML VIAL IV PRN (13:38)
[2017-07-11] MEDS ORDERED: MORPHINE SULFATE 10 MG/ML INJ IV PRN (13:38)
[2017-07-11] MEDS ORDERED: ONDANSETRON HCL INJ/PF 4 MG/2 ML SDV IV PRN ×2 (13:38→15:25)
[2017-07-11 15:51] VITALS: BP 102/70
--- NOTE | 2017-07-14 10:18 | Discharge Summary ---
Discharge Summary (SDC) - Discharge Final Diagnosis: Inanition; failure to thrive Date of Surgery: 07/11/17 Discharge Date: 07/11/17 Condition: Good Forms: ASU Anesthesia D/C Instruction, Discharge POC-Surgical Service Referrals: JASON SANCHEZ MD [ACTIVE STAFF] - 07/26/17 10:15 am Discharge Diet: Tube Feeding (Comments) Respiratory Treatments at Home: Deep Breathing/Coughing Discharge Activity: Activity As Tolerated, No Driving, Slowly Increase Activity Home Care Assistance: Provided by Family, Home Health Adaptive Devices on Discharge: Wheelchair Report the Following to Your Physician Immediately: Shortness of Breath, Nausea , Vomiting, Increase in Pain, Fever over 101 Degrees, Unusual Bleeding, Redness , Swelling, Warmth, Increased Soreness, Drainage-Yellow, Drainage-Baeza, Drainage -Green, Drainage-Foul Smelling, Large Clots, Numbness, Wheezing, Seizure, IV Site Infection Signs, Urinary Infection Signs
== END 2017-07-11 15:45 | disposition home or self-care (01) ==
LOC: OROUT 09:46
PROVIDERS: ATTEND Surgery
PROC: 0DH63UZ Insertion of Feeding Device into Stomach, Percutaneous Approach (ICD-10-PCS; principal; 2017-07-11 12:00)
DX: R62.7 Adult failure to thrive (principal); R56.9 Unspecified convulsions; M19.90 Unspecified osteoarthritis, unspecified site; E07.9 Disorder of thyroid, unspecified; R63.4 Abnormal weight loss; L98.419 Non-pressure chronic ulcer of buttock with unspecified severity; Z88.8 Allergy status to other drugs, medicaments and biological substances; Q90.9 Down syndrome, unspecified; Z86.73 Personal history of transient ischemic attack (TIA), and cerebral infarction without residual deficits; Z79.899 Other long term (current) drug therapy; Z79.891 Long term (current) use of opiate analgesic; Z68.24 Body mass index [BMI] 24.0-24.9, adult
CPT/HCPCS: 43246; 93005; 36415 ×2; 84703; 85027; 80048; 93010; J2250; J0690; J3010; J3490; J2704; 731

== ENCOUNTER 2017-07-17 17:49 | Inpatient (IN) | payer MEDICARE, MEDICAID ==
[2017-07-17 18:26] LABS: HEMATOCRIT 36.1 % (36.0-47.0); HEMOGLOBIN 11.9 g/dL (12.0-15.5); MEAN CORPUSCULAR HEMOGLOBIN 29.6 pg (27.0-33.4); MEAN CORPUSCULAR HGB CONC 32.9 g/dL (32.0-36.0); MEAN CORPUSCULAR VOLUME 90 fl (80-97); PLATELET COUNT 476 10^3/uL (150-450); RED BLOOD COUNT 4.02 10^6/uL (3.72-5.28); RED CELL DISTRIBUTION WIDTH 17.5 % (11.5-14.0); WHITE BLOOD COUNT 13.3 10^3/uL (4.0-10.5)
[2017-07-17 18:27] LABS: VENOUS BLOOD BASE EXCESS 3.1 mmol/L; VENOUS BLOOD HCO3 26.4 mmol/L (20-32); VENOUS BLOOD PCO2 35.8 mmHg (35-63); VENOUS BLOOD PH 7.49 (7.30-7.42)
--- NOTE | 2017-07-17 18:28 | RADIOLOGY REPORT (SQ) ---
EXAM DESCRIPTION: CHEST SINGLE VIEW COMPLETED DATE/TIME: 07/17/2017 6:09 pm REASON FOR STUDY: bed t1 sepsis protocol COMPARISON: None. NUMBER OF VIEWS: One view. TECHNIQUE: Single frontal radiographic view of the chest acquired. LIMITATIONS: None. FINDINGS: LUNGS AND PLEURA: Left basilar opacity looks progressive compared to priors. Some of this may reflect scar as it was seen back in May. There is lucency along the right hemidiaphragm. T his could be related to free air in the abdomen. Consider further abdominal imaging, CT may be warra nted. MEDIASTINUM AND HILAR STRUCTURES: No masses. Contour normal. HEART AND VASCULAR STRUCTURES: Heart normal in size. Normal vasculature. BONES: No acute findings. HARDWARE: None in the chest. OTHER: No other significant finding. IMPRESSION: 1. Persistent or recurrent abnormal opacity in the left lung base. Some of this has be en present since May. 2. Suspicious for free air in the abdomen. Pertinent findings on the imaging study reported as a CRITICAL RESULT to Dr. Ramos At18:22 on 2017. Category of Critical Result: Pneumoperitoneum TECHNICAL DOCUMENTATION: JOB ID: [id number] [employer] All Rights Reserved Reading location - IP/workstation name: [email or web address]
[2017-07-17 18:29] LABS: APPEARANCE,URINE SLIGHTLY-CLOUDY; BILIRUBIN,URINE NEGATIVE (NEGATIVE); GLUCOSE, URINE NEGATIVE (NEGATIVE); KETONES,URINE NEGATIVE (NEGATIVE); LEUKOCYTE ESTERASE,URINE NEGATIVE (NEGATIVE); NITRITE,URINE NEGATIVE (NEGATIVE); PROTEIN,URINE 100 mg/dL (NEGATIVE); URINE SPECIFIC GRAVITY 1.029
[2017-07-17 18:30] LABS: COLOR,URINE YELLOW
[2017-07-17 18:33] LABS: INTERNATIONAL RATION (INR) 1.16; PROTHROMBIN TIME 15.6 SEC (11.4-15.4)
[2017-07-17] MEDS ORDERED: CEFTRIAXONE 1 GM/D5W RTU 1 GM/50 ML RTUPB IV ONE (18:37)
[2017-07-17 18:38] LABS: ALANINE AMINOTRANSFERASE 104 U/L (9-52); ALBUMIN 2.9 g/dL (3.5-5.0); ALKALINE PHOSPHATASE 113 U/L (38-126); ANION GAP 13 (5-19); ASPARTATE AMINO TRANSFERASE 108 U/L (14-36); BILIRUBIN,DIRECT 0.2 mg/dL (0.0-0.4); BILIRUBIN,TOTAL 0.4 mg/dL (0.2-1.3); BLOOD UREA NITROGEN 35 mg/dL (7-20); CALCIUM 8.3 mg/dL (8.4-10.2); CARBON DIOXIDE 27 mmol/L (22-30); CHLORIDE 105 mmol/L (98-107); GLUCOSE 149 mg/dL (75-110); POTASSIUM 4.8 mmol/L (3.6-5.0); SODIUM 144.7 mmol/L (137-145); TOTAL PROTEIN 5.8 g/dL (6.3-8.2)
--- NOTE | 2017-07-17 18:38 | ER Document Report ---
ED General - General Mode of Arrival: Ambulatory Information source: Patient TRAVEL OUTSIDE OF THE [place] IN LAST 30 DAYS: No <MIGUE SAGASTUME - Last Filed: 07/18/17 00:14> <NICOLE DINH - Last Filed: 07/18/17 00:18> - General Chief Complaint: Fever Stated Complaint: FEVER Time Seen by Provider: 07/17/17 18:22 Notes: Patient is a 51-year-old female with a history of Down syndrome who presents to the emergency department today with complaints of a fever that began this morning. Mom at bedside states the patient had a PEG tube placed on July 11. Mom states that since this morning the patient's fever has risen from 100.0 to 100.9 today. Mom states she called homehealth after she noticed the temperature rising and the patient was found to be tachycardic with a low blood pressure according to mom. Mom states home health advised her to come to the ED. (MIGUE SAGASTUME) - Related Data Allergies/Adverse Reactions: aripiprazole [From Abilify] Allergy (Verified 07/06/17 09:52) "She can't control her eye muscles" ciprofloxacin Adverse Reaction (Verified 07/06/17 09:52) Seizure Past Medical History - General Information source: Parent Cannot obtain history due to: Mentally challenged - Social History Smoking Status: Never Smoker Cigarette use (# per day): No Frequency of alcohol use: None Drug Abuse: None Lives with: Family Family History: Reviewed & Not Pertinent, DM, Hyperlipidemia - Past Medical History Cardiac Medical History: Reports: Hx Hypercholesterolemia, Hx Hypertension - HIGH AND LOW BP, NORMALLY RUNS LOW Pulmonary Medical History: Reports: Hx Pneumonia - ASPIRATION PNEUMONIA Neurological Medical History: Reports: Hx Seizures Endocrine Medical History: Reports: Hx Hypothyroidism Renal/ Medical History: Reports: Hx Renal Insufficiency GI Medical History: Reports: Hx Gastroesophageal Reflux Disease Musculoskeltal Medical History: Reports Hx Arthritis - Bilateral hips and knees and possible hands Psychiatric Medical History: Reports: Hx Depression Past Surgical History: Reports: Hx Cardiac Surgery, Other - ASD repair - Immunizations Hx Diphtheria, Pertussis, Tetanus Vaccination: Yes Hx Pneumococcal Vaccination: 01/07/15 <MIGUE SAGASTUME - Last Filed: 07/18/17 00:14> Neurological Medical History: Reports: Other - Down syndrome <NICOLE DINH - Last Filed: 07/18/17 00:18> Review of Systems - Review of Systems -: Yes ROS unobtainable due to patient's medical condition <MIGUE SAGASTUME - Last Filed: 07/18/17 00:14> Physical Exam <MIGUE SAGASTUME - Last Filed: 07/18/17 00:14> <NICOLE DINH - Last Filed: 07/18/17 00:18> - Vital signs Vitals: Pulse Ox 91 L 07/17/17 17:55 - Notes Notes: PHYSICAL EXAM GENERAL: Awake, does not make eye contact, reflexively squeezes finger, interacts at baseline according to mom at bedside. HEAD: Normocephalic, atraumatic. EYES: Pupils equal, round, and reactive to light. Extraocular movements intact. ENT: Dry mucous membranes, cracked lips at the angle of the lips on the left, tongue midline. NECK: Full range of motion. Supple. Trachea midline. LUNGS: Clear to auscultation bilaterally, no wheezes, rales, or rhonchi. No respiratory distress. HEART: Regular rate and rhythm. No murmurs, gallops, or rubs. ABDOMEN: PEG tube in place with minimal surrounding erythema, small amount of green discharge around PEG tube. Epigastric and left upper abdominal tenderness with palpation. Non-distended. Bowel sounds present in all 4 quadrants. No guarding, rigidity, or rebound. EXTREMITIES: Moves all 4 extremities spontaneously, spontaneous spasm in all four extremities. No edema, radial and dorsalis pedis pulses 2/4 bilaterally. No cyanosis. SKIN: Warm, dry, normal turgor. Sacral decubitus ulcer just superior to the coccyx which is stage II. (MIGUE SAGASTUME) Course - Laboratory Result Diagrams: 07/17/17 17:23 07/17/17 17:23 <MIGUE SAGASTUME - Last Filed: 07/18/17 00:14> - Laboratory Result Diagrams: 07/17/17 17:23 07/17/17 17:23 <NICOLE DINH - Last Filed: 07/18/17 00:18> - Re-evaluation Re-evalutation: 07/17/17 23:12 On arrival patient was hypotensive, tachycardic and hypoxic, hypoxia resolved with 3 L via nasal cannula, chest x-ray to look for pneumonia did infection pneumonia but it also showed free air under the right hemidiaphragm. Dr. Lofton was consulted regarding this finding. He stated that he just put a PEG tube into this patient less than a week ago and this could be normal postoperative finding but he agrees given her vital signs at that the patient should have a CT scan checked to rule out intra-abdominal catastrophe. He recommended giving oral contrast via the PEG tube. Patient initially given empiric Rocephin to cover for the pneumonia, later azithromycin was added, CBC shows leukocytosis of 13.3, mild anemia with a hemoglobin of 11.9, platelets elevated at 476, coags are slightly prolonged, venous pH is actually alkalotic with a pH of 7.49, chemistries show elevated BUN at 35, glucose elevated 149, lactic acid normal at 1.3, AST and ALT moderately elevated at 108 and 104 respectively, urinalysis shows 100 protein and 2 of urobilinogen but no signs of infection, CT scan of the abdomen and pelvis shows patchy airspace disease in the right middle lobe in the left lower lobe, there is still free air however there is no evidence of a large contrast leak or drainable collection. A subtle leak of the gastrostomy tube site is possible. Close follow-up is advised. Dr. Lofton was notified of these findings, agrees to continue to consult as an inpatient, discussed with hospitalist Dr. George who agrees to admit the patient to her service. At present patient is a fullcode. (NICOLE DINH) - Vital Signs Vital signs: Temp Pulse Resp BP Pulse Ox 101.6 F H 24 H 72/50 L 100 07/17/17 21:00 07/17/17 23:00 07/17/17 21:19 07/17/17 23:00 - Laboratory Laboratory results interpreted by ga: 07/17/17 07/17/17 07/17/17 17:23 17:23 17:23 WBC 13.3 H Hgb 11.9 L RDW 17.5 H Plt Count 476 H Band Neutrophils % 1 L Monocytes % (Manual) 18 H Abs Monocytes (Manual) 2.4 H PT 15.6 H VBG pH BUN 35 H Glucose 149 H Calcium 8.3 L AST 108 H ALT 104 H Total Protein 5.8 L Albumin 2.9 L Urine Protein Urine Urobilinogen Urine Ascorbic Acid 07/17/17 07/17/17 18:01 18:07 WBC Hgb RDW Plt Count Band Neutrophils % Monocytes % (Manual) Abs Monocytes (Manual) PT VBG pH 7.49 H BUN Glucose Calcium AST ALT Total Protein Albumin Urine Protein 100 H Urine Urobilinogen 2.0 H Urine Ascorbic Acid 40 H - EKG Interpretation by Me Additional EKG results interpreted by me: 07/17/17 23:13 EKG shows sinus tachycardia at a rate of 101, left anterior hemiblock, normal intervals, no ST segment elevations or depressions, there are possibly T-wave inversions in V2 through V5 but this is difficult to tell given the baseline artifact per my interpretation. (NICOLE DINH) Critical Care Note - Critical Care Note Total time excluding time spent on procedures (mins): 35 <NICOLE DINH - Last Filed: 07/18/17 00:18> Discharge <MIGUE SAGASTUME - Last Filed: 07/18/17 00:14> - Discharge Admitting Provider: Hospitalist - [facility] Unit Admitted: [facility] <NICOLE DINH - Last Filed: 07/18/17 00:18> - Discharge Clinical Impression: Intra-abdominal free air of unknown etiology, Down syndrome Bilateral pneumonia Qualifiers: Pneumonia type: due to unspecified organism Lung location: lower lobe of lung Qualified Code(s): J18.1 - Lobar pneumonia, unspecified organism Sepsis Qualifiers: Sepsis type: sepsis due to unspecified organism Qualified Code(s): A41.9 - Sepsis, unspecified organism Condition: Serious Disposition: ADMITTED INPATIENT Scribe Attestation: 07/18/17 00:18 I personally performed the services described in the documentation, reviewed and edited the documentation which was dictated to the scribe in my presence, and it accurately records my words and actions. (NICOLE DINH) Scribe Documentation - Scribe Written by Ab:: Ab Angeles, 07/18/2017 0005 acting as scribe for :: Madalyn <MIGUE SAGASTUME - Last Filed: 07/18/17 00:14>
[2017-07-17 18:43] LABS: ABSOLUTE LYMPHOCYTES# (MANUAL) 2.9 10^3/uL (0.5-4.7); ABSOLUTE MONOCYTES # (MANUAL) 2.4 10^3/uL (0.1-1.4); ABSOLUTE NEUTROPHILS# (MANUAL) 7.8 10^3/uL (1.7-8.2); BAND NEUTROPHILS % (MANUAL) 1 % (3-5); BASOPHILS % (MANUAL) 1 % (0-2); EOSINOPHILS % (MANUAL) 0 % (0-6); LYMPHOCYTES % (MANUAL) 22 % (13-45); MONOCYTES % (MANUAL) 18 % (3-13); SEGMENTED NEUTROPHILS % (MAN) 58 % (42-78); TOTAL CELLS COUNTED 100
[2017-07-17 18:44] LABS: ANISOCYTOSIS 1+; HYPOCHROMASIA SLIGHT; PLATELET CLUMPS PRESENT; PLATELET COMMENT ADEQUATE; POLYCHROMASIA SLIGHT
[2017-07-17] MEDS ORDERED: IBUPROFEN 800 MG TABLET PO ONE (19:29)
[2017-07-17] MEDS ORDERED: CEFTRIAXONE INJ 1000 MG VIAL ONE (19:34)
[2017-07-17] MEDS ORDERED: HYDROMORPHONE HCL INJ/PF 2 MG/ML AMPULE IV ONE (20:56)
[2017-07-17] MEDS ORDERED: RINGERS SOLUTION,LACTATED 1,000 ML IV ONE ×2 (21:29→23:15)
--- NOTE | 2017-07-17 21:38 | CONSULTATION REPORT E ---
Consultation Report NAME: GLENN GARCIA : 1965 AGE: 51Y DATE: 07/17/2017 TO: JASON LOFTON M.D. FROM: Sagar THOMAS, Requesting Physician Patient seen at the request of Dr. April Harper CHIEF COMPLAINT: Subdiaphragmatic free air. REPORT OF CONSULTATION: Patient is a 51-year-old white female, well-known to me, 1 week status post percutaneous endoscopic gastrostomy tube placement by Dr. Lofton, Ambulatory Surgery, discharged from hospital at that time uneventfully, taking continuous tube feeds according to her mother. Patient has had bowel movements, originally formed now runny. Over the last 24-48 hours, patient has more shortness of breath, tachypnea, and increased drainage from around her PEG tube site. She was brought by ground rescue [facility] Department where she had a chest x-ray which showed left lower lung field opacification and free air in the right hemidiaphragm. Surgery was consulted. PAST MEDICAL AND PAST SURGICAL HISTORY: Can be found in the history and physical document. REVIEW OF SYSTEMS: Cannot be obtained as patient cannot communicate. Patient has had progressive failure to thrive, generalized deteriorating clinical course. PHYSICAL EXAMINATION: GENERAL: Patient examined in the emergency department. VITAL SIGNS: Temperature 102.7, respirations 28, heart rate 102. GENERAL: The patient is in obvious respiratory distress. Accessory muscles of respiration utilized. Tidal volumes are very shallow. Patient does seem to recognize voices and turns her head. She is accompanied by her mother. There are upper respiratory rhonchi bilaterally. ABDOMEN: Soft, not distended. Some seropurulent discharged around the PEG. I did loosen the bolster by about a centimeter. There is no obvious skin necrosis. The remainder of the exam is significant for cachexia, chronic flexion of the lower extremities. LABORATORY PROFILE: White blood cell count of 13,300; hemoglobin of 11.9. Electrolytes show BUN 35. AST, ALT slightly elevated at 108 and 104. Total bilirubin normal. Chest x-ray as stated above. IMPRESSION: SEPSIS LIKELY OF PULMONARY ETIOLOGY; SUSPECT RIGHT-SIDED SUBDIAPHRAGMATIC FREE AIR RELATED TO RECENT PERCUTANEOUS ENDOSCOPIC GASTROSTOMY TUBE PLACEMENT. RECOMMENDATIONS: 1. Agree with obtaining CT scan of the abdomen and pelvis to confirm appropriate positioning of the feeding tube, rule out intraabdominal fluid, phlegmon, or other occult pathology. 2. Agree with IV fluids and antibiotics. 3. I did speak to the patient's mother who is the healthcare power of real estate attorney about patient's code status and she reaffirmed that patient is a FULL CODE. Will await results of CT scan. Total time 22 minutes. DICTATING PHYSICIAN: JASON LOFTON M.D. [id number] PHY#: [id number] 2007 ID: [id number] JOB#: [id number] ACCT: [id number] cc:JASON LOFTON M.D. > MTDD
--- NOTE | 2017-07-17 21:55 | EKG REPORT ---
SEVERITY:- ABNORMAL ECG - SINUS TACHYCARDIA LEFT ANTERIOR FASCICULAR BLOCK LEFT VENTRICULAR HYPERTROPHY T WAVE INVERSION LATERAL CHEST LEADS, CONSIDER ISCHEMIA : Confirmed by: Lonny Aguilar 17-Jul-2017 21:55:18
--- NOTE | 2017-07-17 22:22 | RADIOLOGY REPORT (SQ) ---
EXAM DESCRIPTION: CT ABD/PELVIS WITH IV ORAL COMPLETED DATE/TIME: 07/17/2017 9:59 pm REASON FOR STUDY: free air, s/p g-tube 07/11, contrast via GT, fever COMPARISON: 03/22/2017. Radiographs from earlier. TECHNIQUE: CT scan of the abdomen and pelvis performed with intravenous and oral contrast using giovanni michelle scanning technique with dynamic intravenous contrast injection. Images reviewed with lung, soft t issue, and bone windows. Reconstructed coronal and sagittal MPR images reviewed. Delayed images for e valuation of the urinary system also acquired. All images stored on PACS. All CT scanners at this facility use dose modulation, iterative reconstruction, and/or weight based d osing when appropriate to reduce radiation dose to as low as reasonably achievable (ALARA). [facility]: Dose Right [facility]: CareDose [facility]: Dose Right [facility]: Teradose 4D [facility]: ResoServ CONTRAST TYPE AND DOSE: contrast/concentration: Isovue 370.00 mg/ml; Total Contrast Delivered: 53.0 ml; Total Saline Delivered: 65.0 ml RENAL FUNCTION: GFR > 60. RADIATION DOSE: CT Rad equipment meets quality standard of care and radiation dose reduction techniq ues were employed. CTDIvol: 5.2 - 6.7 mGy. DLP: 632 mGy-cm.. LIMITATIONS: None. FINDINGS: LOWER CHEST: Patchy airspace disease in the right middle lobe and left lower lobe. LIVER: Normal size. No masses. No dilated ducts. SPLEEN: Normal size. No focal lesions. PANCREAS: No masses. No significant calcifications. No adjacent inflammation or peripancreatic fluid collections. Pancreatic duct not dilated. GALLBLADDER: No identified stones by CT criteria. No inflammatory changes to suggest cholecystitis. ADRENAL GLANDS: No significant masses or asymmetry. RIGHT KIDNEY AND URETER: No solid masses. No significant calcification. No hydronephrosis or hydroure ter. LEFT KIDNEY AND URETER: No solid masses. No significant calcification. No hydronephrosis or hydrouret er. AORTA AND VESSELS: No aneurysm. No dissection. Renal arteries, SMA, celiac without stenosis. RETROPERITONEUM: No retroperitoneal adenopathy, hemorrhage or masses. BOWEL AND PERITONEAL CAVITY: G tube in the stomach, reportedly placed approximately 6 days ago. No d ilated small bowel loops. Moderate stool throughout the colon. No extravasated enteric contrast, ho wever there is free air in the abdomen. No drainable fluid collections. APPENDIX: Not visualized. PELVIS: No significant free fluid. Redundant [place] catheter well into the bladder. Bladder decompre ssed. ABDOMINAL WALL: No abdominal wall mass or hernia evident. BONES: No significant or acute findings. OTHER: No other significant finding. IMPRESSION: 1. Free air in the abdomen. The patient has a recently placed gastrostomy tube (6 days ago per history). If this was a surgically placed tube, the gas could be persistent postoperative p neumoperitoneum. At nearly 1 week after placement, such pneumoperitoneum is usually resolved. A sub tle leak at the gastrostomy tube site is possible, however I see no extravasating contrast or drainab le collections currently. Close follow-up is advised. Other viscera look intact without perforation elsewhere in the GI tract evident. TECHNICAL DOCUMENTATION: JOB ID: [id number] Quality ID # [id number]: Final reports with documentation of one or more dose reduction techniques (e.g., Au tomated exposure control, adjustment of the mA and/or kV according to patient size, use of iterative reconstruction technique) 2010 [employer]- All Rights Reserved Reading location - IP/workstation name: [email or web address]
[2017-07-17] MEDS ORDERED: AZITHROMYCIN INJ 500 MG VIAL IV ONE (22:45)
[2017-07-17] MEDS ORDERED: AZITHROMYCIN 500 MG in DEXTROSE 5%-WATER 250 ML IV SCH (23:00)
[2017-07-17] MEDS ORDERED: LEVETIRACETAM ORAL SOLN 500 MG/5 ML UDCUP PO ONE (23:20)
[2017-07-17] MEDS ORDERED: GLUCAGON,HUMAN RECOMB 1 MG INJ SUBCUT PRN (23:55)
[2017-07-17] MEDS ORDERED: DEXTROSE 40% GEL 15 GM TUBE PO PRN ×2 (23:55)
[2017-07-17] MEDS ORDERED: DEXTROSE 50%-WATER 25 GM/50 ML DISP.SYRIN IV PRN ×2 (23:55)
[2017-07-17] MEDS ORDERED: ALBUTEROL SULFATE 0.083% NEB 2.5 MG/3 ML AMPUL NEB PRN (23:55)
[2017-07-17] MEDS ORDERED: PROMETHAZINE HCL INJ 25 MG/1 ML VIAL IV PRN (23:55)
[2017-07-18] MEDS ORDERED: VANCOMYCIN HCL 0 MG in DEXTROSE 5%-WATER 250 ML IV NR (00:15)
[2017-07-18] MEDS ORDERED: VANCOMYCIN HCL INJ 1000 MG VIAL IV PRN (00:19)
[2017-07-18] MEDS ORDERED: VANCOMYCIN HCL 750 MG in DEXTROSE 5%-WATER 250 ML IV ONE (01:00)
[2017-07-18] MEDS: NORMAL SALINE 1000 ML 1,000 ML IV PRN ×2 (01:51→22:29)
[2017-07-18] MEDS ORDERED: PIPERACILLIN/TAZOBACTAM 3.375 GM VIAL IV ONE (04:39)
--- NOTE | 2017-07-18 05:19 | PDOC H&P ---
History of Present Illness Admission Date/PCP: 07/17/17 23:42 MEDINA GOLDSMITH NP Patient complains of: Fever and worsening shortness of breath for 1 day per her stepmother. History of Present Illness: GLENN GARCIA is a 51 year old female nonverbal with history of Down syndrome and seizure disorder was admitted with above-mentioned complaints. The history was obtained from the ED physician/notes and her stepmother at bedside. The patient had multiple hospitalizations and she apparently has been clinically declining. And for the last 6 months or so her appetite has been poor so she had a PEG tube placed on 07/11/2017. She has been having some diarrhea since then and she reportedly had a fever today (up to 100.9 per ED note) so her stepmother called the home health nurse who advised her to bring her to the hospital for further management and treatment. There was no report of any foul- smelling urine but the patient does have a sacral ulcer and some erythema/ leakage around the PEG tube. In the ED, her temperature was 101.2, heart rate 103, respiratory rate 35, blood pressure of 124/97 (labile) with oxygen saturation of 91% on room air. Her WBC was 13.3 and her hemoglobin was 11.9. Lactic acid level was 1.3 and initial troponin was negative. A chest x-ray was done which showed persistent/ recurrent opacity left lower lobe and possible free air in the abdomen. An abdominal CAT scan was done which showed RML and LLL infiltrates in addition to free air but no extravasation of contrast or drainable collections. She received 1 g Rocephin x1 and 500 mg IV Zithromax x1 and 2 L of normal saline. Past Medical History Medical History: Other - According to the patient's stepmother and per previous history. Cardiac Medical History: Reports: Hyperlipidema, Hypertension - HIGH AND LOW BP , NORMALLY RUNS LOW Denies: Coronary Artery Disease, Myocardial Infarction Pulmonary Medical History: Reports: Pneumonia - ASPIRATION PNEUMONIA Denies: Asthma, Bronchitis, Chronic Obstructive Pulmonary Disease (COPD) Neurological Medical History: Reports: Seizures Endocrine Medical History: Reports: Hypothyroidism Denies: Diabetes Mellitus Type 1, Diabetes Mellitus Type 2 GI Medical History: Reports: Gastroesophageal Reflux Disease Musculoskeltal Medical History: Reports: Arthritis - Bilateral hips and knees and possible hands Psychiatric Medical History: Reports: Depression Hematology: Denies: Anemia Past Surgical History Past Surgical History: Reports: Tonsillectomy, Other - ASD repair; Social History Smoking Status: Never Smoker Frequency of Alcohol Use: None Hx Recreational Drug Use: No Drugs: None Hx Prescription Drug Abuse: No - Advance Directive Resuscitation Status: Full Code Family History Family History: Reviewed & Not Pertinent, DM, Hyperlipidemia Parental Family History Reviewed: Yes - Father: CAD. Children Family History Reviewed: No Sibling(s) Family History Reviewed.: Yes Medication/Allergy Home Medications: Acetaminophen [Tylenol Extra Strength 500 mg Tablet] 1,000 mg PO Q12 PRN Aspirin [Aspirin 81 mg Chewable Tablet] 81 mg PO DAILY 05/10/17 Levetiracetam [Keppra] 750 mg PO Q12 05/10/17 Levothyroxine Sodium [Synthroid] 125 mcg PO DAILY 05/10/17 Magnesium Oxide [Mag-Ox 400 mg Tablet] 400 mg PO DAILY 05/10/17 Trazodone HCl [Desyrel 50 mg Tablet] 50 mg PO QHS 05/10/17 Nystatin 1 each PO DAILY 07/06/17 Olopatadine HCl 2.5 ml OP DAILY 07/06/17 Tramadol HCl [Ultram] 50 mg PO BID 07/06/17 Allergies/Adverse Reactions: aripiprazole [From Abiliy] Allergy (Verified 07/06/17 09:52) "She can't control her eye muscles" ciprofloxacin Adverse Reaction (Verified 07/06/17 09:52) Seizure Review of Systems ROS unobtainable: Other - unable to obtain an accurate history since patient is nonverbal. Physical Exam Vital Signs: Temp Pulse Resp BP Pulse Ox 101.6 F H 24 H 72/50 L 100 07/17/17 21:00 07/17/17 23:00 07/17/17 21:19 07/17/17 23:00 General appearance: PRESENT: mild distress Head exam: PRESENT: atraumatic Eye exam: PRESENT: conjunctiva pink, PERRLA Respiratory exam: PRESENT: decreased breath sounds, rhonchi. ABSENT: rales, wheezes Cardiovascular exam: PRESENT: +S1, +S2, tachycardia Pulses: PRESENT: normal dorsalis pedis pul GI/Abdominal exam: PRESENT: normal bowel sounds, soft. ABSENT: distended, tenderness Rectal exam: PRESENT: deferred Extremities exam: PRESENT: other - contracted legs. Neurological exam: PRESENT: awake, other - limited. Skin exam: PRESENT: other - sacral decubitus stage 2, 4x4 cm, with erythema, fout smelling drainge. Results Laboratory Results: CBC: T: WBC 13.3, hemoglobin 11.9, hematocrit 36.1, MCV 90, RDW 17.5, platelets 476. INR 50.6/1.16. VBG: PH 7.49, PCO2 35.8, bicarb 26.4. CMP: Sodium 144.7, potassium 4.8, chloride 105, bicarb 27, anion gap 13, BUN 35 , creatinine 0.8, glucose 146, lactic acid 1.3, liver enzymes slightly elevated. Troponin 1 negative. UA negative. EKG Comments: 12-lead EKG sinus rhythm, ventricular rate 100, axis -75, T-wave inversion in leads V3 through V6 with poor R-wave propagation. Noted previous 12-lead EKG done on 07/06/2017. Impressions: Abdomen/Pelvis CT 07/17/17 00:00 IMPRESSION: 1. Free air in the abdomen. The patient has a recently placed gastrostomy tube (6 days ago per history). If this was a surgically placed tube , the gas could be persistent postoperative pneumoperitoneum. At nearly 1 week after placement, such pneumoperitoneum is usually resolved. A subtle leak at the gastrostomy tube site is possible, however I see no extravasating contrast or drainable collections currently. Close follow-up is advised. Other viscera look intact without perforation elsewhere in the GI tract evident. Chest X-Ray 07/17/17 17:53 IMPRESSION: 1. Persistent or recurrent abnormal opacity in the left lung base. Some of this has been present since May. 2. Suspicious for free air in the abdomen. Pertinent findings on the imaging study reported as a CRITICAL RESULT to Dr. Ramos At18:22 on 07/17/2017. Category of Critical Result: Pneumoperitoneum Assessment & Plan - Diagnosis (1) Severe sepsis Is this a current diagnosis for this admission?: Yes Plan: unknown organism. Given fever, tachycardia and leukocytosis with hypotensive episodes probably due to aspiration pneumonia and/or sacral decubitus. Chest x- ray, UA abdominal CAT scan reviewed. Will start broad coverage antibiotics and follow-up blood cultures. (2) Intra-abdominal free air of unknown etiology Is this a current diagnosis for this admission?: Yes Plan: Post recent PEG tube placed on 07/11/2017. The CAT scan findings were discussed between the ED physician and surgery who thought that was not unusual finding. There was no report of any extravasated contrast or any drainable fluid collections. (3) Bilateral pneumonia Qualifiers: Pneumonia type: due to unspecified organism Lung location: unspecified part of lung Qualified Code(s): J18.9 - Pneumonia, unspecified organism Is this a current diagnosis for this admission?: Yes Plan: Of the right middle lobe and left lower lobe on CAT scan abdomen. We will continue broad coverage antibiotics and follow-up blood cultures. (4) Borderline low blood pressure determined by examination Is this a current diagnosis for this admission?: Yes Plan: According to the patient's stepmother, the patient has low blood pressures at baseline. Will continue IVF and start pressors if indicated. (5) Seizure disorder Is this a current diagnosis for this admission?: No Plan: She is on Keppra 750 mg twice daily. Will switch to IV at the same dose. I had a long discussion with the patient's stepmother regarding CODE STATUS. She remains full code at this time - Time Time Spent: Greater than 70 Minutes - Inpatient Certification Based on my medical assessment, after consideration of the patient's comorbidities, presenting symptoms, or acuity I expect that the services needed warrant INPATIENT care.: Yes I certify that my determination is in accordance with my understanding of Medicare's requirements for reasonable and necessary INPATIENT services [42 CFR 412.3e].: Yes
[2017-07-18] MEDS ORDERED: PIPERACILLIN SODIUM/TAZOBACTAM 3.375 GM in NORMAL SALINE 100 ML IV SCH ×2 (06:00→15:00)
[2017-07-18 06:32] LABS: HEMATOCRIT 28.5 % (36.0-47.0); MEAN CORPUSCULAR HEMOGLOBIN 29.5 pg (27.0-33.4); MEAN CORPUSCULAR HGB CONC 32.8 g/dL (32.0-36.0); MEAN CORPUSCULAR VOLUME 90 fl (80-97); PLATELET COUNT 346 10^3/uL (150-450); RED BLOOD COUNT 3.18 10^6/uL (3.72-5.28); RED CELL DISTRIBUTION WIDTH 17.6 % (11.5-14.0); WHITE BLOOD COUNT 12.1 10^3/uL (4.0-10.5)
[2017-07-18 06:33] LABS: HEMOGLOBIN 9.4 g/dL (12.0-15.5)
[2017-07-18 06:43] LABS: ALANINE AMINOTRANSFERASE 72 U/L (9-52); ALBUMIN 2.3 g/dL (3.5-5.0); ALKALINE PHOSPHATASE 88 U/L (38-126); ANION GAP 9 (5-19); ASPARTATE AMINO TRANSFERASE 48 U/L (14-36); BILIRUBIN,DIRECT 0.1 mg/dL (0.0-0.4); BILIRUBIN,TOTAL 0.3 mg/dL (0.2-1.3); BLOOD UREA NITROGEN 28 mg/dL (7-20); CALCIUM 7.7 mg/dL (8.4-10.2); CARBON DIOXIDE 27 mmol/L (22-30); CHLORIDE 103 mmol/L (98-107); GLUCOSE 103 mg/dL (75-110); POTASSIUM 4.1 mmol/L (3.6-5.0); TOTAL PROTEIN 4.7 g/dL (6.3-8.2)
[2017-07-18] MEDS: HEPARIN SOD (PORCINE) 5,000 UNIT/ML 1 ML SYRINGE SUBCUT SCH ×3 (06:53→21:17)
--- NOTE | 2017-07-18 08:26 | RADIOLOGY REPORT (SQ) ---
EXAM DESCRIPTION: CHEST SINGLE VIEW COMPLETED DATE/TIME: 07/18/2017 8:11 am REASON FOR STUDY: Resp. Distress COMPARISON: 07/17/2017. EXAM PARAMETERS: NUMBER OF VIEWS: One view. TECHNIQUE: Single frontal radiographic view of the chest acquired. RADIATION DOSE: NA LIMITATIONS: None. FINDINGS: LUNGS AND PLEURA: Patchy basilar airspace disease. No large pleural effusion. No pneumot horax MEDIASTINUM AND HILAR STRUCTURES: No masses. Contour normal. HEART AND VASCULAR STRUCTURES: Heart normal in size. Normal vasculature. BONES: No acute findings. HARDWARE: Sternotomy wires. Gastrostomy tube. OTHER: Free air under the diaphragm has decreased. IMPRESSION: 1. FREE AIR UNDER THE DIAPHRAGM HAS DECREASED. 2. PATCHY BASILAR AIRSPACE DISEASE PROBABLY A COMBINATION OF ATELECTASIS AND SCARRING. DEVELOPING PN EUMONIA CANNOT BE EXCLUDED. TECHNICAL DOCUMENTATION: JOB ID: [id number] [employer]- All Rights Reserved Reading location - IP/workstation name: [email or web address]
[2017-07-18 08:39] LABS: ARTERIAL BLOOD BASE EXCESS 1.6 mmol/L; ARTERIAL BLOOD H2CO3 0.98 mmol/L (1.05-1.35); ARTERIAL BLOOD HCO3 24.5 mmol/L (20-26); ARTERIAL BLOOD O2 SATURATION 99.3 % (94-98); ARTERIAL BLOOD PCO2 32.6 mmHg (35-45); ARTERIAL BLOOD PH 7.49 (7.35-7.45); ARTERIAL BLOOD PO2 174.3 mmHg (80-100); ARTERIAL BLOOD TOTAL CO2 25.5 mmol/L (21-25)
[2017-07-18 08:40] LABS: ARTERIAL BLOOD FIO2 65%
[2017-07-18] MEDS ORDERED: PROMETHAZINE HCL INJ 25 MG/1 ML VIAL IV PRN (09:00)
[2017-07-18] MEDS: PANTOPRAZOLE SODIUM 40 MG VIAL IV SCH (12:30)
[2017-07-18] MEDS: LEVETIRACETAM 500 MG/NACL-ISO 500 MG/100 ML RTUPB IV SCH ×2 (12:30→21:12)
--- NOTE | 2017-07-18 14:08 | PDOC PROGRESS REPORT ---
Subjective Progress Note for:: 07/18/17 Subjective:: He should not is a 51-year-old female with a history of Down syndrome. She was admitted last night with evidence of severe sepsis and pneumonia. Urine culture does show evidence of gram-positive cocci (this may be due to colonization). It does appear that the patient has had failure to thrive over several months. Secondary to poor p.o. intake a PEG tube was placed on 2017. Radiographs demonstrate free air which is being attributed to the recent PEG tube placement. The patient does not have a surgical abdomen at this time. Presumably, the patient likely aspirated. Patient is a full code. Reason For Visit: SEVERE SEPSIS, MULTIFOCAL PNEUMONIA Physical Exam Vital Signs: Temp Pulse Resp BP Pulse Ox 98.2 F 78 23 H 74/57 L 100 07/18/17 12:00 07/18/17 12:00 07/18/17 12:00 07/18/17 12:00 07/18/17 12:00 Intake & Output 07/17/17 07/18/17 07/19/17 06:59 06:59 06:59 Output Total 290 155 Balance -290 -155 Weight 48.7 kg Additional comments: The patient appears to be. This morning, when I examined the patient BiPAP was being initiated and she was slightly anxious. The exam was difficult because the patient was making noise and was unable to follow commands. Her facial appearance demonstrates changes consistent with Down syndrome but is otherwise unremarkable. It was difficult to determine if the patient had rails but they appear to be absent. She appear to be trying to speak through the BiPAP mask. It was difficult for me to rule out wheezing but I do not think wheezing was present either. Her cardiac exam demonstrates a regular rate and rhythm without murmurs, gallops or rubs. The abdomen is obese but soft. She does not have guarding or rebound noted and there are no hernias or masses present. The lower extremities were warm to touch. The skin is warm dry and intact. She does have a sacral decubitus ulcer which is currently covered. Results Laboratory Results: 07/18/17 06:00 07/18/17 06:00 07/18/17 07/18/17 07/18/17 06:00 06:00 06:00 WBC 12.1 H RBC 3.18 L Hgb 9.4 L D Hct 28.5 L MCV 90 MCH 29.5 MCHC 32.8 RDW 17.6 H Plt Count 346 Carbonic Acid HCO3/H2CO3 Ratio ABG pH ABG pCO2 ABG pO2 ABG HCO3 ABG O2 Saturation ABG Base Excess FiO2 Sodium 139.0 Potassium 4.1 Chloride 103 Carbon Dioxide 27 Anion Gap 9 BUN 28 H Creatinine 0.59 Est GFR ( Amer) > 60 Est GFR (Non-Af Amer) > 60 Glucose 103 Calcium 7.7 L Total Bilirubin 0.3 AST 48 H ALT 72 H Alkaline Phosphatase 88 Total Protein 4.7 L Albumin 2.3 L Lipase 88.0 07/18/17 08:15 WBC RBC Hgb Hct MCV MCH MCHC RDW Plt Count Carbonic Acid 0.98 L HCO3/H2CO3 Ratio 25:1 ABG pH 7.49 H ABG pCO2 32.6 L ABG pO2 174.3 H ABG HCO3 24.5 ABG O2 Saturation 99.3 H ABG Base Excess 1.6 FiO2 65% Sodium Potassium Chloride Carbon Dioxide Anion Gap BUN Creatinine Est GFR ( Amer) Est GFR (Non-Af Amer) Glucose Calcium Total Bilirubin AST ALT Alkaline Phosphatase Total Protein Albumin Lipase 07/18/17 07/18/17 07/18/17 00:15 06:00 06:00 Troponin I 0.065 0.039 NT-Pro-B Natriuret Pep 841 07/18/17 12:35 Troponin I 0.028 NT-Pro-B Natriuret Pep Impressions: Abdomen/Pelvis CT 07/17/17 00:00 IMPRESSION: 1. Free air in the abdomen. The patient has a recently placed gastrostomy tube (6 days ago per history). If this was a surgically placed tube , the gas could be persistent postoperative pneumoperitoneum. At nearly 1 week after placement, such pneumoperitoneum is usually resolved. A subtle leak at the gastrostomy tube site is possible, however I see no extravasating contrast or drainable collections currently. Close follow-up is advised. Other viscera look intact without perforation elsewhere in the GI tract evident. Chest X-Ray 07/18/17 07:56 IMPRESSION: 1. FREE AIR UNDER THE DIAPHRAGM HAS DECREASED. 2. PATCHY BASILAR AIRSPACE DISEASE PROBABLY A COMBINATION OF ATELECTASIS AND SCARRING. DEVELOPING PNEUMONIA CANNOT BE EXCLUDED. Assessment & Plan - Diagnosis (1) Severe sepsis Is this a current diagnosis for this admission?: Yes Plan: The patient presents with evidence of severe sepsis secondary to pneumonia, sacral decubitus ulcer and possibly urinary tract infection. Her vital signs indicated a fever of 101.5, systolic blood pressure less than 70 on arrival and she has leukocytosis. Therefore, she does meet criteria for sepsis. Currently , she is on very broad spectrum antibiotic coverage with vancomycin, Zosyn and azithromycin. (2) Bilateral pneumonia Qualifiers: Pneumonia type: due to unspecified organism Lung location: unspecified part of lung Qualified Code(s): J18.9 - Pneumonia, unspecified organism Is this a current diagnosis for this admission?: Yes Plan: Continue current antibiotic therapy as stated above. Await culture results. (3) Intra-abdominal free air of unknown etiology Is this a current diagnosis for this admission?: Yes Plan: Likely due to recent PEG tube. Surgery is aware. The patient does not have a surgical abdomen at this time. (4) Seizure disorder Is this a current diagnosis for this admission?: Yes Plan: Patient normally takes Keppra. This has been switched to intravenous dosing. (5) Sacral decubitus ulcer, stage II Is this a current diagnosis for this admission?: Yes Plan: Continue wound care. If needed, will consult general surgery. - Time Time Spent with patient: 25-34 minutes - Inpatient Certification Medical Necessity: Significant Comorbidiites Make Outpatient Treatment Too Risky , Need Close Monitoring Due to Risk of Patient Decompensation, Need For IV Fluids, Need for IV Antibiotics, Risk of Complication if Not Cared For in Hospital, Risk of Diagnosis Which Will Require Inpatient Eval/Care/Monitoring
[2017-07-18] MEDS: PIPERACILLIN SODIUM/TAZOBACTAM 3.375 GM in NORMAL SALINE 100 ML IV SCH ×3 (14:11→23:36)
[2017-07-18] MEDS: VANCOMYCIN HCL 750 MG in DEXTROSE 5%-WATER 250 ML IV SCH (14:37)
[2017-07-18] MEDS ORDERED: AZITHROMYCIN 500 MG in DEXTROSE 5%-WATER 250 ML IV SCH (22:00)
[2017-07-19] MEDS: VANCOMYCIN HCL 750 MG in DEXTROSE 5%-WATER 250 ML IV SCH (01:08)
[2017-07-19 04:45] LABS: ABSOLUTE BASOPHILS # (AUTO) 0.1 10^3/uL (0.0-0.2); ABSOLUTE EOSINOPHILS # (AUTO) 0.6 10^3/uL (0.0-0.6); ABSOLUTE LYMPHOCYTES (AUTO) 1.7 10^3/uL (0.5-4.7); ABSOLUTE MONOCYTES (AUTO) 0.4 10^3/uL (0.1-1.4); ABSOLUTE NEUT (AUTO) 8.2 10^3/uL (1.7-8.2); BASOPHILS % (AUTO) 0.6 % (0-2); EOSINOPHILS % (AUTO) 5.8 % (0-6); HEMATOCRIT 33.3 % (36.0-47.0); HEMOGLOBIN 10.5 g/dL (12.0-15.5); LYMPHOCYTES % (AUTO) 15.7 % (13-45); MEAN CORPUSCULAR HEMOGLOBIN 28.7 pg (27.0-33.4); MEAN CORPUSCULAR HGB CONC 31.7 g/dL (32.0-36.0); MEAN CORPUSCULAR VOLUME 91 fl (80-97); MONOCYTES % (AUTO) 3.7 % (3-13); PLATELET COUNT 445 10^3/uL (150-450); RED BLOOD COUNT 3.67 10^6/uL (3.72-5.28); RED CELL DISTRIBUTION WIDTH 17.6 % (11.5-14.0); SEGMENTED NEUTROPHILS % (AUTO) 74.2 % (42-78); TOTAL CELLS COUNTED % (AUTO) 100 %
[2017-07-19 04:46] LABS: ANION GAP 11 (5-19); BLOOD UREA NITROGEN 16 mg/dL (7-20); CALCIUM 8.5 mg/dL (8.4-10.2); CARBON DIOXIDE 26 mmol/L (22-30); CHLORIDE 107 mmol/L (98-107); GLUCOSE 92 mg/dL (75-110); PHOSPHORUS 3.6 mg/dL (2.5-4.5); POTASSIUM 4.3 mmol/L (3.6-5.0)
[2017-07-19] MEDS: HEPARIN SOD (PORCINE) 5,000 UNIT/ML 1 ML SYRINGE SUBCUT SCH ×2 (05:03→15:05)
[2017-07-19] MEDS: PIPERACILLIN SODIUM/TAZOBACTAM 3.375 GM in NORMAL SALINE 100 ML IV SCH ×2 (05:03→14:58)
[2017-07-19] MEDS ORDERED: LORAZEPAM INJ 2 MG/1 ML VIAL ONE ×3 (07:16→19:58)
--- NOTE | 2017-07-19 10:24 | RADIOLOGY REPORT (SQ) ---
EXAM DESCRIPTION: KUB/ABDOMEN (SINGLE VIEW) COMPLETED DATE/TIME: 07/19/2017 10:10 am REASON FOR STUDY: abdominal pain COMPARISON: CT dated 07/17/2017. NUMBER OF VIEWS: One view. TECHNIQUE: Supine radiographic image of the abdomen acquired. LIMITATIONS: None. FINDINGS: BOWEL GAS PATTERN: Normal bowel gas pattern. Contrast in the colon. No dilated loops. CALCIFICATIONS: No suspicious calcifications. SOFT TISSUES: No gross mass or suggestion of organomegaly. HARDWARE: Gastrostomy tube. BONES: No acute fracture. No worrisome bone lesions. OTHER: No other significant finding. IMPRESSION: NO RADIOGRAPHIC EVIDENCE FOR ACUTE ABDOMINAL DISEASE. TECHNICAL DOCUMENTATION: JOB ID: [id number] [employer]- All Rights Reserved Reading location - IP/workstation name: [email or web address]
[2017-07-19] MEDS: LEVETIRACETAM 500 MG/NACL-ISO 500 MG/100 ML RTUPB IV SCH (10:36)
[2017-07-19] MEDS: PANTOPRAZOLE SODIUM 40 MG VIAL IV SCH (10:42)
--- NOTE | 2017-07-19 18:26 | PDOC PROGRESS REPORT ---
Subjective Progress Note for:: 07/19/17 Subjective:: Unable to obtain due to mental status Review of systems Unable to obtain due to mental status All laboratories and significant laboratories and had been reviewed Reason For Visit: SEVERE SEPSIS, MULTIFOCAL PNEUMONIA Physical Exam Vital Signs: Temp Pulse Resp BP Pulse Ox 98.8 F 92 20 86/50 L 99 07/19/17 08:00 07/19/17 08:00 07/19/17 08:00 07/19/17 08:00 07/19/17 08:00 Intake & Output 07/18/17 07/19/17 07/20/17 06:59 06:59 06:59 Output Total 290 735 30 Balance -290 -735 -30 Weight 48.7 kg 50.1 kg General appearance: PRESENT: cooperative, obese Head exam: PRESENT: atraumatic, normocephalic Eye exam: PRESENT: conjunctiva pink, EOMI, PERRLA Ear exam: PRESENT: normal external ear exam Mouth exam: PRESENT: moist Neck exam: PRESENT: full ROM. ABSENT: JVD, lymphadenopathy, tenderness Respiratory exam: PRESENT: clear to auscultation amarjit Cardiovascular exam: PRESENT: RRR. ABSENT: diastolic murmur, systolic murmur Vascular exam: PRESENT: normal capillary refill GI/Abdominal exam: PRESENT: normal bowel sounds, soft. ABSENT: tenderness Extremities exam: PRESENT: full ROM. ABSENT: pedal edema Musculoskeletal exam: ABSENT: ambulatory Neurological exam: PRESENT: alert, awake. ABSENT: oriented to person, oriented to place, oriented to time, oriented to situation Psychiatric exam: PRESENT: appropriate affect, normal mood Skin exam: PRESENT: dry, normal color Results Laboratory Results: 07/19/17 04:16 07/19/17 04:16 07/18/17 07/19/17 07/19/17 08:15 04:16 04:16 WBC 11.0 H RBC 3.67 L Hgb 10.5 L Hct 33.3 L MCV 91 MCH 28.7 MCHC 31.7 L RDW 17.6 H Plt Count 445 Seg Neutrophils % 74.2 Lymphocytes % 15.7 Monocytes % 3.7 Eosinophils % 5.8 Basophils % 0.6 Absolute Neutrophils 8.2 Absolute Lymphocytes 1.7 Absolute Monocytes 0.4 Absolute Eosinophils 0.6 Absolute Basophils 0.1 Carbonic Acid 0.98 L HCO3/H2CO3 Ratio 25:1 ABG pH 7.49 H ABG pCO2 32.6 L ABG pO2 174.3 H ABG HCO3 24.5 ABG O2 Saturation 99.3 H ABG Base Excess 1.6 FiO2 65% Sodium 144.0 Potassium 4.3 Chloride 107 Carbon Dioxide 26 Anion Gap 11 BUN 16 Creatinine 0.56 Est GFR ( Amer) > 60 Est GFR (Non-Af Amer) > 60 Glucose 92 Calcium 8.5 Phosphorus 3.6 Magnesium 2.3 07/18/17 07/18/17 07/18/17 00:15 06:00 06:00 Troponin I 0.065 0.039 NT-Pro-B Natriuret Pep 841 07/18/17 12:35 Troponin I 0.028 NT-Pro-B Natriuret Pep Impressions: Abdomen/Pelvis CT 07/17/17 00:00 IMPRESSION: 1. Free air in the abdomen. The patient has a recently placed gastrostomy tube (6 days ago per history). If this was a surgically placed tube , the gas could be persistent postoperative pneumoperitoneum. At nearly 1 week after placement, such pneumoperitoneum is usually resolved. A subtle leak at the gastrostomy tube site is possible, however I see no extravasating contrast or drainable collections currently. Close follow-up is advised. Other viscera look intact without perforation elsewhere in the GI tract evident. Chest X-Ray 07/18/17 07:56 IMPRESSION: 1. FREE AIR UNDER THE DIAPHRAGM HAS DECREASED. 2. PATCHY BASILAR AIRSPACE DISEASE PROBABLY A COMBINATION OF ATELECTASIS AND SCARRING. DEVELOPING PNEUMONIA CANNOT BE EXCLUDED. Assessment & Plan - Diagnosis (1) Bilateral pneumonia Qualifiers: Pneumonia type: due to unspecified organism Lung location: unspecified part of lung Qualified Code(s): J18.9 - Pneumonia, unspecified organism Is this a current diagnosis for this admission?: Yes Plan: Continue present treatment (2) Down syndrome Is this a current diagnosis for this admission?: Yes Plan: Supportive (3) Seizure disorder Is this a current diagnosis for this admission?: Yes Plan: Continue antiseizure medication (4) Severe sepsis Is this a current diagnosis for this admission?: Yes (5) Acute renal failure Qualifiers: Acute renal failure type: with acute renal cortical necrosis Qualified Code (s): N17.1 - Acute kidney failure with acute cortical necrosis Is this a current diagnosis for this admission?: Yes Plan: Resolved - Time Time Spent with patient: 15-24 minutes Medications reviewed and adjusted accordingly: Yes Anticipated discharge: Home with Homehealth Within: within 48 hours - Inpatient Certification Based on my medical assessment, after consideration of the patient's comorbidities, presenting symptoms, or acuity I expect that the services needed warrant INPATIENT care.: Yes I certify that my determination is in accordance with my understanding of Medicare's requirements for reasonable and necessary INPATIENT services [42 CFR 412.3e].: Yes Medical Necessity: Need for IV Antibiotics
[2017-07-19] MEDS ORDERED: LIDOCAINE 0.5% INJ-PF (5 MG/ML) 50 ML SDV ONE (20:06)
[2017-07-19] MEDS ORDERED: LORAZEPAM INJ 2 MG/1 ML VIAL IV PRN (20:15)
--- NOTE | 2017-07-19 21:19 | OPERATIVE REPORT E ---
Operative Report NAME: GLENN GARCIA : 1965 AGE: 51Y DATE OF SURGERY: 07/19/2017 ROOM: 527 PREOPERATIVE DIAGNOSIS: POOR PERIPHERAL VEINS FOR INTRAVENOUS ACCESS. POSTOPERATIVE DIAGNOSIS: POOR PERIPHERAL VEINS FOR INTRAVENOUS ACCESS. PROCEDURE: Placement of a right internal jugular triple-lumen catheter under ultrasound guidance. SURGEON: MENDOZA MAGDALENO M.D. ANESTHESIA: Local. INDICATIONS: A 52-year-old female with Down syndrome who has needed central access for medications and fluids. She has poor veins in the peripheral veins for IV access. DESCRIPTION OF PROCEDURE: The patient was given 2 mg of IV Ativan, since she has a small IV with a small needle. The patient was then placed in Trendelenburg position and left neck extended. The internal jugular vein was identified with ultrasound and marked. Next, the right side of the neck was then prepped and draped in the usual sterile fashion. Local anesthesia infiltrated over the path of the internal jugular vein, and needle passed through the internal jugular vein. A guidewire passed through the needle, towards the area of the superior vena cava and the needle removed. The puncture site was then dilated, and a triple-lumen catheter placed with a guidewire to a distance of about 15 cm. Next, the guidewire was then anchored to the skin with 3-0 silk. Next, all the 3 ports aspirated blood easily and instilled saline easily. A Biopatch placed at the insertion site and transparent dressing placed over the Biopatch and capped there. A chest x-ray will be obtained for placement. The patient tolerated the procedure well. DICTATING PHYSICIAN: MENDOZA MAGDALENO M.D. [id number] PHY#: [id number] ID: [id number] JOB#: [id number] ACCT: [id number] cc:MENDOZA MAGDALENO M.D. > MTDD
--- NOTE | 2017-07-19 22:06 | RADIOLOGY REPORT (SQ) ---
EXAM DESCRIPTION: CHEST SINGLE VIEW COMPLETED DATE/TIME: 07/19/2017 9:17 pm REASON FOR STUDY: check central line placement COMPARISON: CT abdomen pelvis 07/17/2017 Chest film 07/18/2017, 07/19/2017 EXAM PARAMETERS: NUMBER OF VIEWS: One view. TECHNIQUE: Single frontal radiographic view of the chest acquired. RADIATION DOSE: NA LIMITATIONS: None. FINDINGS: There is subdiaphragmatic free air under the right hemidiaphragm. This is similar compare d to CT exam 07/17/2017, compatible with history of recent gastrostomy tube placement. LUNGS AND PLEURA: Pulmonary vascular congestion. Francisca lines at both lung bases. Mild left perihil ar pulmonary edema. These findings are new compared to 07/18/2017. No pneumothorax post right central venous catheter placement. MEDIASTINUM AND HILAR STRUCTURES: No masses. Contour normal. HEART AND VASCULAR STRUCTURES: Heart normal in size. Normal vasculature. BONES: No acute findings. HARDWARE: Right jugular central line with the tip in the right atrium. No pneumothorax. Old sternot rachel. Gastrostomy tube in the left upper quadrant at the bottom edge of the field of view. OTHER: No other significant finding. IMPRESSION: No pneumothorax post right jugular triple lumen catheter placement with the tip in the r ight atrium. Findings worrisome for fluid overload or congestive failure Postoperative persistent right subdiaphragmatic free air similar compared to CT abdomen pelvis 018 TECHNICAL DOCUMENTATION: JOB ID: [id number] [employer] All Rights Reserved Reading location - IP/workstation name: [email or web address]
[2017-07-20] MEDS: HEPARIN SOD (PORCINE) 5,000 UNIT/ML 1 ML SYRINGE SUBCUT SCH
[2017-07-20] MEDS: PIPERACILLIN SODIUM/TAZOBACTAM 3.375 GM in NORMAL SALINE 100 ML IV SCH ×5 (00:28→21:09)
[2017-07-20 06:53] LABS: ABSOLUTE BASOPHILS # (AUTO) 0.1 10^3/uL (0.0-0.2); ABSOLUTE EOSINOPHILS # (AUTO) 0.3 10^3/uL (0.0-0.6); ABSOLUTE LYMPHOCYTES (AUTO) 1.4 10^3/uL (0.5-4.7); ABSOLUTE MONOCYTES (AUTO) 0.3 10^3/uL (0.1-1.4); ABSOLUTE NEUT (AUTO) 6.9 10^3/uL (1.7-8.2); BASOPHILS % (AUTO) 0.7 % (0-2); EOSINOPHILS % (AUTO) 3.6 % (0-6); HEMATOCRIT 26.9 % (36.0-47.0); HEMOGLOBIN 8.6 g/dL (12.0-15.5); LYMPHOCYTES % (AUTO) 15.2 % (13-45); MEAN CORPUSCULAR HEMOGLOBIN 29.2 pg (27.0-33.4); MEAN CORPUSCULAR HGB CONC 31.9 g/dL (32.0-36.0); MEAN CORPUSCULAR VOLUME 92 fl (80-97); MONOCYTES % (AUTO) 3.8 % (3-13); PLATELET COUNT 424 10^3/uL (150-450); RED BLOOD COUNT 2.94 10^6/uL (3.72-5.28); RED CELL DISTRIBUTION WIDTH 17.7 % (11.5-14.0); SEGMENTED NEUTROPHILS % (AUTO) 76.7 % (42-78); TOTAL CELLS COUNTED % (AUTO) 100 %; WHITE BLOOD COUNT 8.9 10^3/uL (4.0-10.5)
[2017-07-20 07:13] LABS: ANION GAP 8 (5-19); BLOOD UREA NITROGEN 12 mg/dL (7-20); CALCIUM 7.9 mg/dL (8.4-10.2); CARBON DIOXIDE 25 mmol/L (22-30); CHLORIDE 111 mmol/L (98-107); GLUCOSE 74 mg/dL (75-110); POTASSIUM 4.1 mmol/L (3.6-5.0); SODIUM 143.6 mmol/L (137-145)
[2017-07-20] MEDS: PANTOPRAZOLE SODIUM 40 MG VIAL IV SCH (10:12)
[2017-07-20] MEDS: LEVETIRACETAM 500 MG/NACL-ISO 500 MG/100 ML RTUPB IV SCH ×3 (10:13→22:25)
[2017-07-20] MEDS ORDERED: LORAZEPAM INJ 2 MG/1 ML VIAL IV ONE (10:30)
--- NOTE | 2017-07-20 12:47 | RADIOLOGY REPORT (SQ) ---
EXAM DESCRIPTION: CTA CHEST COMPLETED DATE/TIME: 07/20/2017 12:28 pm REASON FOR STUDY: dyspnea/neck swelling COMPARISON: Chest x-ray dated 07/18/2017 TECHNIQUE: CT scan of the chest performed using helical scanning technique with dynamic intravenous contrast injection. Images reviewed with lung, soft tissue and bone windows. Reconstructed coronal and sagittal MPR images reviewed. Additional 3 dimensional post-processing performed to develop Maximal Intensity Projection images (AL P). All images stored on PACS. All CT scanners at this facility use dose modulation, iterative reconstruction, and/or weight based d osing when appropriate to reduce radiation dose to as low as reasonably achievable (ALARA). [facility]: Dose Right [facility]: CareDose [facility]: Dose Right [facility]: Teradose 4D [facility]: [employer] CONTRAST TYPE AND DOSE: contrast/concentration: Isovue 370.00 mg/ml; Total Contrast Delivered: 57.0 ml; Total Saline Delivered: 100.1 ml Contrast bolus optimized for the pulmonary arteries. Not diagnostic for the aorta. RENAL FUNCTION: Creatinine 0.59 RADIATION DOSE: CT Rad equipment meets quality standard of care and radiation dose reduction techniq ues were employed. CTDIvol: 6.6 - 18.8 mGy. DLP: 228 mGy-cm. . LIMITATIONS: None. FINDINGS: LUNGS AND PLEURA: A tiny left pleural effusion is identified with some minimal associated airspace consolidation most consistent with atelectatic changes. Minimal linear density is identifie d in the right lung base most consistent with atelectatic changes. Remaining lung carrillo are clear. AORTA AND GREAT VESSELS: No aneurysm. Contrast bolus not optimized for the aorta. HEART: No pericardial effusion. No significant coronary artery calcifications. PULMONARY ARTERIES: No emboli visualized in the main pulmonary arteries or the segmental branches. HILAR AND MEDIASTINAL STRUCTURES: No identified masses or abnormal nodes. HARDWARE: None in the chest. UPPER ABDOMEN: Small amount of residual free air is identified anteriorly in the right upper quadrant . There also appears to be a component of free air at the level of the gallbladder fossa. THYROID AND OTHER SOFT TISSUES: No masses. No adenopathy. BONES: No acute or significant finding. 3D MIPS: Confirm above findings. OTHER: No other significant finding. IMPRESSION: No evidence for pulmonary embolic disease. Tiny left pleural effusion with some minimal associated airspace consolidation most consistent with atelectatic changes. Minimal linear density in the right lung base most consistent with atelectatic changes. There is a small amount residual fr ee air in the right upper quadrant as noted above. Other findings as noted above COMMENT: Quality ID # [id number]: Final reports with documentation of one or more dose reduction techniques (e.g., Automated exposure control, adjustment of the mA and/or kV according to patient size, use of iterative reconstruction technique) TECHNICAL DOCUMENTATION: JOB ID: [id number] [employer]- All Rights Reserved Reading location - IP/workstation name: [email or web address]
[2017-07-20] MEDS ORDERED: LORAZEPAM INJ 2 MG/1 ML VIAL IV PRN (13:09)
--- NOTE | 2017-07-20 13:22 | PDOC PROGRESS REPORT ---
Subjective Progress Note for:: 07/20/17 Subjective:: Unable to obtain due to mental status. Nurse reported that patient was having difficulty breathing throughout the whole night. Mother is at bedside and is concerned of swelling to her throat. Approach mother about DNR and she eventually agreed to proceed to this route of intervention. Review of systems Unable to obtain due to mental status All laboratories and significant laboratories and had been reviewed Reason For Visit: SEVERE SEPSIS, MULTIFOCAL PNEUMONIA Physical Exam Vital Signs: Temp Pulse Resp BP Pulse Ox 97.7 F 92 38 H 113/58 L 97 07/20/17 11:04 07/20/17 11:04 07/20/17 11:04 07/20/17 11:04 07/20/17 11:04 Intake & Output 07/19/17 07/20/17 07/21/17 06:59 06:59 06:59 Output Total 735 460 Balance -735 -460 Weight 50.1 kg 51.5 kg General appearance: PRESENT: other - Moderate distress Head exam: PRESENT: atraumatic, normocephalic Eye exam: PRESENT: conjunctiva pink, EOMI, PERRLA Ear exam: PRESENT: normal external ear exam Mouth exam: PRESENT: moist Neck exam: PRESENT: other - Appears to be mildly swollen. ABSENT: JVD, lymphadenopathy, tenderness Respiratory exam: PRESENT: decreased breath sounds, tachypnea. ABSENT: rhonchi , wheezes Cardiovascular exam: PRESENT: RRR. ABSENT: diastolic murmur, systolic murmur Vascular exam: PRESENT: normal capillary refill GI/Abdominal exam: PRESENT: normal bowel sounds, soft. ABSENT: tenderness Extremities exam: PRESENT: +2 edema - 2+ edema of right upper extremity and right lower extremity. ABSENT: full ROM Musculoskeletal exam: ABSENT: ambulatory Neurological exam: ABSENT: alert, awake, oriented to person, oriented to place, oriented to time, oriented to situation Psychiatric exam: ABSENT: appropriate affect Skin exam: PRESENT: normal color Results Laboratory Results: 07/20/17 05:45 07/20/17 05:45 07/20/17 07/20/17 05:45 05:45 WBC 8.9 RBC 2.94 L Hgb 8.6 L Hct 26.9 L MCV 92 MCH 29.2 MCHC 31.9 L RDW 17.7 H Plt Count 424 Seg Neutrophils % 76.7 Lymphocytes % 15.2 Monocytes % 3.8 Eosinophils % 3.6 Basophils % 0.7 Absolute Neutrophils 6.9 Absolute Lymphocytes 1.4 Absolute Monocytes 0.3 Absolute Eosinophils 0.3 Absolute Basophils 0.1 Sodium 143.6 Potassium 4.1 Chloride 111 H Carbon Dioxide 25 Anion Gap 8 BUN 12 Creatinine 0.59 Est GFR ( Amer) > 60 Est GFR (Non-Af Amer) > 60 Glucose 74 L Calcium 7.9 L Magnesium 2.2 07/18/17 07/18/17 07/18/17 00:15 06:00 06:00 Troponin I 0.065 0.039 NT-Pro-B Natriuret Pep 841 07/18/17 07/20/17 12:35 05:45 Troponin I 0.028 NT-Pro-B Natriuret Pep 1680 H Impressions: Abdomen/Pelvis CT 07/17/17 00:00 IMPRESSION: 1. Free air in the abdomen. The patient has a recently placed gastrostomy tube (6 days ago per history). If this was a surgically placed tube , the gas could be persistent postoperative pneumoperitoneum. At nearly 1 week after placement, such pneumoperitoneum is usually resolved. A subtle leak at the gastrostomy tube site is possible, however I see no extravasating contrast or drainable collections currently. Close follow-up is advised. Other viscera look intact without perforation elsewhere in the GI tract evident. Chest X-Ray 07/19/17 00:00 IMPRESSION: No pneumothorax post right jugular triple lumen catheter placement with the tip in the right atrium. Findings worrisome for fluid overload or congestive failure Postoperative persistent right subdiaphragmatic free air similar compared to CT abdomen pelvis 07/17/2017 KUB X-Ray 07/19/17 00:00 IMPRESSION: NO RADIOGRAPHIC EVIDENCE FOR ACUTE ABDOMINAL DISEASE. Chest/Abdomen CTA 07/20/17 00:00 IMPRESSION: No evidence for pulmonary embolic disease. Tiny left pleural effusion with some minimal associated airspace consolidation most consistent with atelectatic changes. Minimal linear density in the right lung base most consistent with atelectatic changes. There is a small amount residual free air in the right upper quadrant as noted above. Other findings as noted above Assessment & Plan - Diagnosis (1) Bilateral pneumonia Qualifiers: Pneumonia type: due to unspecified organism Lung location: unspecified part of lung Qualified Code(s): J18.9 - Pneumonia, unspecified organism Is this a current diagnosis for this admission?: Yes Plan: Continue present treatment (2) Down syndrome Is this a current diagnosis for this admission?: Yes Plan: Supportive (3) Seizure disorder Is this a current diagnosis for this admission?: Yes Plan: Continue antiseizure medication (4) Severe sepsis Is this a current diagnosis for this admission?: Yes Plan: Improved (5) Acute renal failure Qualifiers: Acute renal failure type: with acute renal cortical necrosis Qualified Code (s): N17.1 - Acute kidney failure with acute cortical necrosis Is this a current diagnosis for this admission?: Yes Plan: Resolved (6) Acute respiratory failure Qualifiers: Respiratory failure complication: unspecified whether with hypoxia or hypercapnia Qualified Code(s): J96.00 - Acute respiratory failure, unspecified whether with hypoxia or hypercapnia Is this a current diagnosis for this admission?: Yes Plan: Continue oxygen supplementation. To order a CT of the chest and neck. Order BNP and start empirically Lasix IV 1 dose.Decrease fluids to KVO. To order Ativan and fentanyl for agitation and pain (7) Anemia Qualifiers: Anemia type: unspecified type Qualified Code(s): D64.9 - Anemia, unspecified Is this a current diagnosis for this admission?: Yes Plan: Order schedule hemoglobin due to sudden drop of hemoglobin - Time Time Spent with patient: 25-34 minutes Medications reviewed and adjusted accordingly: Yes Anticipated discharge: Home with Homehealth Within: within 72 hours - Inpatient Certification Based on my medical assessment, after consideration of the patient's comorbidities, presenting symptoms, or acuity I expect that the services needed warrant INPATIENT care.: Yes I certify that my determination is in accordance with my understanding of Medicare's requirements for reasonable and necessary INPATIENT services [42 CFR 412.3e].: Yes Medical Necessity: Need Close Monitoring Due to Risk of Patient Decompensation, Need For Continuous Telemetry Monitoring, Need for IV Antibiotics
[2017-07-20] MEDS ORDERED: FUROSEMIDE INJ/PF 40 MG/4 ML SDV ONE (13:41)
[2017-07-20] MEDS ORDERED: FENTANYL CITRATE INJ/PF 50 MCG/1 ML 50 ML SDV IV PRN (13:48)
[2017-07-20] MEDS ORDERED: FUROSEMIDE INJ/PF 40 MG/4 ML SDV IV ONE (14:00)
[2017-07-20 14:05] LABS: ABSOLUTE BASOPHILS # (AUTO) 0.1 10^3/uL (0.0-0.2); ABSOLUTE EOSINOPHILS # (AUTO) 0.3 10^3/uL (0.0-0.6); ABSOLUTE MONOCYTES (AUTO) 0.3 10^3/uL (0.1-1.4); ABSOLUTE NEUT (AUTO) 6.6 10^3/uL (1.7-8.2); BASOPHILS % (AUTO) 0.6 % (0-2); EOSINOPHILS % (AUTO) 4.1 % (0-6); HEMATOCRIT 26.6 % (36.0-47.0); HEMOGLOBIN 8.6 g/dL (12.0-15.5); LYMPHOCYTES % (AUTO) 12.3 % (13-45); MEAN CORPUSCULAR HEMOGLOBIN 29.1 pg (27.0-33.4); MEAN CORPUSCULAR HGB CONC 32.2 g/dL (32.0-36.0); MEAN CORPUSCULAR VOLUME 90 fl (80-97); MONOCYTES % (AUTO) 3.9 % (3-13); PLATELET COUNT 456 10^3/uL (150-450); RED BLOOD COUNT 2.94 10^6/uL (3.72-5.28); RED CELL DISTRIBUTION WIDTH 17.9 % (11.5-14.0); SEGMENTED NEUTROPHILS % (AUTO) 79.1 % (42-78); TOTAL CELLS COUNTED % (AUTO) 100 %; WHITE BLOOD COUNT 8.3 10^3/uL (4.0-10.5)
[2017-07-20] MEDS: FENTANYL CITRATE INJ/PF 100 MCG/2 ML AMPUL IV PRN ×2 (14:06→19:38)
--- NOTE | 2017-07-20 14:06 | RADIOLOGY REPORT (SQ) ---
EXAM DESCRIPTION: SOFT TISSUE NECK COMPLETED DATE/TIME: 07/20/2017 1:47 pm REASON FOR STUDY: neck swelling COMPARISON: None. NUMBER OF VIEWS: Two views. TECHNIQUE: AP and lateral radiographic image of the soft tissues of the neck. LIMITATIONS: None. FINDINGS: EPIGLOTTIS: Normal. Contour normal. Aryepiglottic folds normal. PREVERTEBRAL SOFT TISSUES: Normal. No soft tissue swelling. SUBGLOTTIC AREA: Normal. No narrowing. RETROPHARYNGEAL SPACE: Normal. No soft tissue masses. BONES: Degenerative changes are identified in the cervical spine with almost complete loss of the C5- C6 disc space height and associated anterior osteophytic lipping. LUNG APICES: Normal. OTHER: I cannot exclude some anterior soft tissue swelling in the neck. IMPRESSION: I cannot exclude some anterior soft tissue swelling in the neck. No other significant f indings TECHNICAL DOCUMENTATION: JOB ID: [id number] [employer]- All Rights Reserved Reading location - IP/workstation name: [email or web address]
--- NOTE | 2017-07-20 21:31 | RADIOLOGY REPORT (SQ) ---
EXAM DESCRIPTION: U/S THYROID/SFT TISS HD NECK COMPLETED DATE/TIME: 07/20/2017 9:18 pm REASON FOR STUDY: swollen neck COMPARISON: None. TECHNIQUE: Dynamic and static jade-scale images acquired of the soft tissues of the neck. Selected a dditional color/power Doppler images recorded. All images stored to PACS. LIMITATIONS: Markedly limited study due to patient movement, central line, and bandage. FINDINGS: Right lobe of the thyroid not visualized. Left lobe poorly visualized, appears diffusely heterogenous. No discrete abnormality in the soft tissues on the right side but poor visualization. IMPRESSION: MARKEDLY LIMITED STUDY. NO CLEAR-CUT ABNORMAL FINDINGS ALTHOUGH VERY POOR VISUALIZATION . TECHNICAL DOCUMENTATION: JOB ID: [id number] [employer]- All Rights Reserved Reading location - IP/workstation name: [email or web address]
[2017-07-21] MEDS: FENTANYL CITRATE INJ/PF 100 MCG/2 ML AMPUL IV PRN (01:31)
[2017-07-21] MEDS: PIPERACILLIN SODIUM/TAZOBACTAM 3.375 GM in NORMAL SALINE 100 ML IV SCH ×4 (03:33→20:30)
[2017-07-21] MEDS: NORMAL SALINE 1000 ML 1,000 ML IV PRN (04:15)
[2017-07-21] MEDS: NORMAL SALINE INJ/PF 0.9% 10 ML SDV IV PRN (05:47)
[2017-07-21 06:11] LABS: ABSOLUTE BASOPHILS # (AUTO) 0.1 10^3/uL (0.0-0.2); ABSOLUTE EOSINOPHILS # (AUTO) 0.2 10^3/uL (0.0-0.6); ABSOLUTE LYMPHOCYTES (AUTO) 1.3 10^3/uL (0.5-4.7); ABSOLUTE MONOCYTES (AUTO) 0.4 10^3/uL (0.1-1.4); ABSOLUTE NEUT (AUTO) 6.8 10^3/uL (1.7-8.2); BASOPHILS % (AUTO) 0.7 % (0-2); EOSINOPHILS % (AUTO) 2.3 % (0-6); HEMATOCRIT 26.4 % (36.0-47.0); HEMOGLOBIN 8.7 g/dL (12.0-15.5); LYMPHOCYTES % (AUTO) 14.5 % (13-45); MEAN CORPUSCULAR HEMOGLOBIN 29.4 pg (27.0-33.4); MEAN CORPUSCULAR VOLUME 89 fl (80-97); MONOCYTES % (AUTO) 4.7 % (3-13); PLATELET COUNT 510 10^3/uL (150-450); RED BLOOD COUNT 2.96 10^6/uL (3.72-5.28); RED CELL DISTRIBUTION WIDTH 17.8 % (11.5-14.0); SEGMENTED NEUTROPHILS % (AUTO) 77.8 % (42-78); TOTAL CELLS COUNTED % (AUTO) 100 %; WHITE BLOOD COUNT 8.7 10^3/uL (4.0-10.5)
[2017-07-21 06:26] LABS: ANION GAP 7 (5-19); BLOOD UREA NITROGEN 10 mg/dL (7-20); CALCIUM 7.9 mg/dL (8.4-10.2); CARBON DIOXIDE 27 mmol/L (22-30); CHLORIDE 111 mmol/L (98-107); GLUCOSE 106 mg/dL (75-110); POTASSIUM 3.2 mmol/L (3.6-5.0); SODIUM 144.8 mmol/L (137-145)
[2017-07-21] MEDS ORDERED: FUROSEMIDE INJ/PF 20 MG/2 ML SDV IV ONE (09:00)
[2017-07-21] MEDS: LEVETIRACETAM 500 MG/NACL-ISO 500 MG/100 ML RTUPB IV SCH ×2 (10:30→22:11)
--- NOTE | 2017-07-21 18:07 | XCELERA REPORT ---
[address] [address] Transthoracic Echocardiogram Report Name: GLENN GARCIA Age: 51 yrs Gender: Female : 1965 Patient Status: Inpatient Patient Location: [address] [place] [address] Study Date: 07/21/2017 02:28 PM Height: 59 in Weight: 113 lb BSA: 1.4 m2 Procedure: A complete two-dimensional transthoracic echocardiogram was performed (2D, M-mode, spectral and color flow Doppler). The study was technically difficult with many images being suboptimal in quality. Reason For Study: chf Ordering Physician: DAPHNIE GUO Performed By: Iliana Salas Interpretation Summary Left ventricular systolic function is mildly reduced. The Ejection Fraction estimate is 45-50% Doppler measurements suggest pseudonormalized left ventricular relaxation, which is associated with grade II/IV or mild to moderate diastolic dysfunction There is borderline concentric left ventricular hypertrophy. The left ventricle is grossly normal size. Regional wall motion abnormalities cannot be excluded due to limited visualization. The right ventricle is grossly normal size. The right ventricular systolic function is normal. There is a moderate amount of mitral regurgitation There is no mitral valve stenosis. H/O MV cleft leaflet. Unknown whether repaired. There is no aortic valve stenosis There is a mild amount of aortic regurgitation There is a mild amount of tricuspid regurgitation Right ventricular systolic pressure is at the upper limits of normal The aortic root is not well visualized but is probably normal size. The inferior vena cava was not visualized There is no pericardial effusion. MMode/2D Measurements & Calculations RVDd: 1.6 cm LVIDd: 4.5 cm FS: 20.4 % Ao root diam: 2.4 cm IVSd: 0.92 cm LVIDs: 3.5 cm EDV(Teich): 90.5 ml LVPWd: 0.80 cm ESV(Teich): 52.6 ml Ao root area: 4.6 cm2 EF(Teich): 41.9 % LA dimension: 2.5 cm Doppler Measurements & Calculations MV E max ciarra: MV P1/2t max ciarra: Ao V2 max: AI max ciarra: 99.2 cm/sec 99.2 cm/sec 156.1 cm/sec 248.9 cm/sec MV A max ciarra: MV P1/2t: 70.1 msec Ao max PG: AI max P.0 cm/sec 9.7 mmHg 24.8 mmHg MV E/A: 0.87 MVA(P1/2t): 3.1 cm2 AI dec slope: MV dec slope: 414.3 cm/sec2 61.2 cm/sec2 AI P1/2t: 1191 msec LV V1 max PG: PA V2 max: TR max ciarra: 5.7 mmHg 103.7 cm/sec 211.4 cm/sec LV V1 max: PA max P.3 mmHg TR max P.0 cm/sec 17.9 mmHg Left Ventricle The left ventricle is grossly normal size. There is borderline concentric left ventricular hypertrophy. Left ventricular systolic function is mildly reduced. The Ejection Fraction estimate is 45-50%. Doppler measurements suggest pseudonormalized left ventricular relaxation, which is associated with grade II/IV or mild to moderate diastolic dysfunction. Regional wall motion abnormalities cannot be excluded due to limited visualization. Right Ventricle The right ventricle is grossly normal size. There is normal right ventricular wall thickness. The right ventricular systolic function is normal. Atria The right atrium is normal in size. The left atrial size is normal. Interarterial septum not well visualized and not well dopplered. Cannot comment on ASD/PFO presence. Mitral Valve The mitral valve is not well visualized. H/O MV cleft leaflet. Unknown whether repaired. There is no mitral valve stenosis. There is a moderate amount of mitral regurgitation. Aortic Valve The aortic valve is not well visualized secondary to technical limitations. There is no aortic valve stenosis. There is a mild amount of aortic regurgitation. Tricuspid Valve The tricuspid valve is not well visualized secondary to technical limitations. There is no tricuspid stenosis. There is a mild amount of tricuspid regurgitation. Right ventricular systolic pressure is at the upper limits of normal. Pulmonic Valve The pulmonic valve is not well visualized. Great Vessels The aortic root is not well visualized but is probably normal size. The inferior vena cava was not visualized. Effusions There is no pericardial effusion. : DAPHNIE GUO > Lonyn Aguilar
--- NOTE | 2017-07-21 19:01 | PDOC PROGRESS REPORT ---
Subjective Progress Note for:: 07/21/17 Subjective:: Unable to obtain due to mental status. Nurse reported that patient had not been able to move her bowels for close to 1 week according to the mother. Interestingly mother had never complained about this issue. Also nurse reports high G-tube residuals. Mother is always to bedside Review of systems Unable to obtain due to mental status All laboratories and significant laboratories and had been reviewed Reason For Visit: SEVERE SEPSIS, MULTIFOCAL PNEUMONIA Physical Exam Vital Signs: Temp Pulse Resp BP Pulse Ox 98.8 F 113 H 25 H 106/57 L 100 07/20/17 23:22 07/21/17 02:00 07/20/17 23:22 07/20/17 23:22 07/20/17 23:22 Intake & Output 07/19/17 07/20/17 07/21/17 06:59 06:59 06:59 Intake Total 80 Output Total 663 766 4887 Balance -095 -216 -8190 Weight 50.1 kg 51.5 kg 51.2 kg General appearance: PRESENT: cooperative, well-developed, well-nourished Head exam: PRESENT: atraumatic, normocephalic Eye exam: PRESENT: conjunctiva pink, EOMI, PERRLA Ear exam: PRESENT: normal external ear exam Mouth exam: PRESENT: moist Neck exam: PRESENT: full ROM. ABSENT: JVD, lymphadenopathy, tenderness Respiratory exam: PRESENT: clear to auscultation amarjit Cardiovascular exam: PRESENT: RRR. ABSENT: diastolic murmur, systolic murmur Vascular exam: PRESENT: pallor GI/Abdominal exam: PRESENT: normal bowel sounds, soft. ABSENT: tenderness Extremities exam: PRESENT: full ROM. ABSENT: pedal edema Musculoskeletal exam: ABSENT: ambulatory Neurological exam: PRESENT: alert Results Laboratory Results: 07/21/17 06:00 07/20/17 07/20/17 07/20/17 05:45 05:45 13:45 WBC 8.9 8.3 RBC 2.94 L 2.94 L Hgb 8.6 L 8.6 L Hct 26.9 L 26.6 L MCV 92 90 MCH 29.2 29.1 MCHC 31.9 L 32.2 RDW 17.7 H 17.9 H Plt Count 424 456 H Seg Neutrophils % 76.7 79.1 H Lymphocytes % 15.2 12.3 L Monocytes % 3.8 3.9 Eosinophils % 3.6 4.1 Basophils % 0.7 0.6 Absolute Neutrophils 6.9 6.6 Absolute Lymphocytes 1.4 1.0 Absolute Monocytes 0.3 0.3 Absolute Eosinophils 0.3 0.3 Absolute Basophils 0.1 0.1 Sodium 143.6 Potassium 4.1 Chloride 111 H Carbon Dioxide 25 Anion Gap 8 BUN 12 Creatinine 0.59 Est GFR ( Amer) > 60 Est GFR (Non-Af Amer) > 60 Glucose 74 L Calcium 7.9 L Magnesium 2.2 07/21/17 06:00 WBC 8.7 RBC 2.96 L Hgb 8.7 L Hct 26.4 L MCV 89 MCH 29.4 MCHC 33.0 RDW 17.8 H Plt Count 510 H Seg Neutrophils % 77.8 Lymphocytes % 14.5 Monocytes % 4.7 Eosinophils % 2.3 Basophils % 0.7 Absolute Neutrophils 6.8 Absolute Lymphocytes 1.3 Absolute Monocytes 0.4 Absolute Eosinophils 0.2 Absolute Basophils 0.1 Sodium Potassium Chloride Carbon Dioxide Anion Gap BUN Creatinine Est GFR ( Amer) Est GFR (Non-Af Amer) Glucose Calcium Magnesium 07/18/17 07/18/17 07/18/17 00:15 06:00 06:00 Troponin I 0.065 0.039 NT-Pro-B Natriuret Pep 841 07/18/17 07/20/17 12:35 05:45 Troponin I 0.028 NT-Pro-B Natriuret Pep 1680 H Impressions: Abdomen/Pelvis CT 07/17/17 00:00 IMPRESSION: 1. Free air in the abdomen. The patient has a recently placed gastrostomy tube (6 days ago per history). If this was a surgically placed tube , the gas could be persistent postoperative pneumoperitoneum. At nearly 1 week after placement, such pneumoperitoneum is usually resolved. A subtle leak at the gastrostomy tube site is possible, however I see no extravasating contrast or drainable collections currently. Close follow-up is advised. Other viscera look intact without perforation elsewhere in the GI tract evident. Chest X-Ray 07/19/17 00:00 IMPRESSION: No pneumothorax post right jugular triple lumen catheter placement with the tip in the right atrium. Findings worrisome for fluid overload or congestive failure Postoperative persistent right subdiaphragmatic free air similar compared to CT abdomen pelvis 07/17/2017 KUB X-Ray 07/19/17 00:00 IMPRESSION: NO RADIOGRAPHIC EVIDENCE FOR ACUTE ABDOMINAL DISEASE. Chest/Abdomen CTA 07/20/17 00:00 IMPRESSION: No evidence for pulmonary embolic disease. Tiny left pleural effusion with some minimal associated airspace consolidation most consistent with atelectatic changes. Minimal linear density in the right lung base most consistent with atelectatic changes. There is a small amount residual free air in the right upper quadrant as noted above. Other findings as noted above Soft Tissue Neck X-Ray 07/20/17 00:00 IMPRESSION: I cannot exclude some anterior soft tissue swelling in the neck. No other significant findings Thyroid Ultrasound 07/20/17 00:00 IMPRESSION: MARKEDLY LIMITED STUDY. NO CLEAR-CUT ABNORMAL FINDINGS ALTHOUGH VERY POOR VISUALIZATION. Assessment & Plan - Diagnosis (1) Bilateral pneumonia Qualifiers: Pneumonia type: due to unspecified organism Lung location: unspecified part of lung Qualified Code(s): J18.9 - Pneumonia, unspecified organism Is this a current diagnosis for this admission?: Yes Plan: Continue present treatment (2) Down syndrome Is this a current diagnosis for this admission?: Yes Plan: Supportive. Tube feedings have been started and will hold off and restarted at a lower rate patient to be placed on Reglan IV (3) Seizure disorder Is this a current diagnosis for this admission?: Yes Plan: Continue antiseizure medication (4) Severe sepsis Is this a current diagnosis for this admission?: Yes Plan: Resolved (5) Acute renal failure Qualifiers: Acute renal failure type: with acute renal cortical necrosis Qualified Code (s): N17.1 - Acute kidney failure with acute cortical necrosis Is this a current diagnosis for this admission?: Yes Plan: Resolved (6) Acute respiratory failure Qualifiers: Respiratory failure complication: unspecified whether with hypoxia or hypercapnia Qualified Code(s): J96.00 - Acute respiratory failure, unspecified whether with hypoxia or hypercapnia Is this a current diagnosis for this admission?: Yes Plan: Improving. Likely there was a component due to congestive heart failure (7) Anemia Qualifiers: Anemia type: unspecified type Qualified Code(s): D64.9 - Anemia, unspecified Is this a current diagnosis for this admission?: Yes Plan: So far stable (8) CHF (congestive heart failure) Qualifiers: Heart failure type: systolic Heart failure chronicity: acute on chronic Qualified Code(s): I50.23 - Acute on chronic systolic (congestive) heart failure Is this a current diagnosis for this admission?: Yes Plan: To try low-dose lisinopril, Toprol-XL and Lasix (9) Constipation Qualifiers: Constipation type: unspecified constipation type Qualified Code(s): K59.00 - Constipation, unspecified Is this a current diagnosis for this admission?: Yes Plan: Here to place patient on lactulose and Reglan IV - Time Time Spent with patient: 15-24 minutes Anticipated discharge: Home with Homehealth Within: within 72 hours - Inpatient Certification Based on my medical assessment, after consideration of the patient's comorbidities, presenting symptoms, or acuity I expect that the services needed warrant INPATIENT care.: Yes I certify that my determination is in accordance with my understanding of Medicare's requirements for reasonable and necessary INPATIENT services [42 CFR 412.3e].: Yes Medical Necessity: Need Close Monitoring Due to Risk of Patient Decompensation, Need For Continuous Telemetry Monitoring
[2017-07-21] MEDS ORDERED: LACTULOSE SYRUP 20 GM/30 ML UDCUP PEG ONE (20:00)
[2017-07-21] MEDS: METOCLOPRAMIDE HCL INJ/PF 10 MG/2 ML SDV IV SCH (20:29)
[2017-07-22] MEDS: FENTANYL CITRATE INJ/PF 100 MCG/2 ML AMPUL IV PRN (01:36)
[2017-07-22] MEDS: METOCLOPRAMIDE HCL INJ/PF 10 MG/2 ML SDV IV SCH ×4 (03:02→20:26)
[2017-07-22] MEDS: PIPERACILLIN SODIUM/TAZOBACTAM 3.375 GM in NORMAL SALINE 100 ML IV SCH ×2 (03:05→08:37)
[2017-07-22] MEDS ORDERED: (PENDING PHARMACY ID) (Levothyroxine Sodium [Synthroid] 125 MCG) PEG SCH (06:00)
[2017-07-22] MEDS ORDERED: LEVOTHYROXINE SODIUM 0.1 MG TABLET PEG SCH (06:00)
[2017-07-22] MEDS ORDERED: LEVOTHYROXINE SODIUM 0.025 MG TABLET PEG SCH ×2 (06:00→08:47)
[2017-07-22 06:07] LABS: ABSOLUTE BASOPHILS # (AUTO) 0.1 10^3/uL (0.0-0.2); ABSOLUTE EOSINOPHILS # (AUTO) 0.3 10^3/uL (0.0-0.6); ABSOLUTE LYMPHOCYTES (AUTO) 1.4 10^3/uL (0.5-4.7); ABSOLUTE MONOCYTES (AUTO) 0.5 10^3/uL (0.1-1.4); ABSOLUTE NEUT (AUTO) 8.2 10^3/uL (1.7-8.2); BASOPHILS % (AUTO) 0.8 % (0-2); EOSINOPHILS % (AUTO) 3.2 % (0-6); HEMATOCRIT 27.5 % (36.0-47.0); HEMOGLOBIN 8.8 g/dL (12.0-15.5); LYMPHOCYTES % (AUTO) 13.1 % (13-45); MEAN CORPUSCULAR HEMOGLOBIN 28.9 pg (27.0-33.4); MEAN CORPUSCULAR VOLUME 91 fl (80-97); MONOCYTES % (AUTO) 4.8 % (3-13); PLATELET COUNT 500 10^3/uL (150-450); RED BLOOD COUNT 3.04 10^6/uL (3.72-5.28); RED CELL DISTRIBUTION WIDTH 18.2 % (11.5-14.0); SEGMENTED NEUTROPHILS % (AUTO) 78.1 % (42-78); TOTAL CELLS COUNTED % (AUTO) 100 %; WHITE BLOOD COUNT 10.5 10^3/uL (4.0-10.5)
[2017-07-22 06:21] LABS: ANION GAP 8 (5-19); BLOOD UREA NITROGEN 9 mg/dL (7-20); CARBON DIOXIDE 31 mmol/L (22-30); CHLORIDE 106 mmol/L (98-107); GLUCOSE 119 mg/dL (75-110); SODIUM 145.2 mmol/L (137-145)
[2017-07-22 06:22] LABS: POTASSIUM 2.9 mmol/L (3.6-5.0)
[2017-07-22] MEDS ORDERED: POTASSIUM CHLORIDE 20 MEQ/15 ML UDCUP PEG ONE (07:00)
[2017-07-22] MEDS ORDERED: POTASSIUM CHLORIDE 20 MEQ/50 ML RTU IV SCH (07:00)
[2017-07-22] MEDS ORDERED: GUAIFENESIN/D-METHORPHAN (200-20 MG) SYRUP 10 ML PO PRN (08:47)
[2017-07-22] MEDS: LISINOPRIL 5 MG TABLET PO SCH (09:19)
[2017-07-22] MEDS: METOPROLOL SUCCINATE 25 MG TAB.SR.24H PO SCH (09:19)
[2017-07-22] MEDS: ACETAMINOPHEN 325 MG TABLET PO PRN (10:21)
[2017-07-22] MEDS: FUROSEMIDE 20 MG TABLET PO SCH (10:21)
[2017-07-22] MEDS: POTASSIUM CHLORIDE 20 MEQ/15 ML UDCUP PO SCH ×3 (10:22→17:45)
[2017-07-22] MEDS: LEVETIRACETAM 500 MG/NACL-ISO 500 MG/100 ML RTUPB IV SCH ×2 (10:24→21:28)
[2017-07-22] MEDS: LACTULOSE SYRUP 20 GM/30 ML UDCUP PEG SCH ×2 (10:25→17:44)
[2017-07-22] MEDS: AMOXICILLIN TR/POT CLAVULANATE 250-62.5 MG/5 ML 75 ML PO SCH ×2 (14:16→21:28)
--- NOTE | 2017-07-22 19:29 | PDOC PROGRESS REPORT ---
Subjective Progress Note for:: 07/22/17 Subjective:: Mother states that patient was able to pass stool yesterday. Mother was involved informed about increase of levothyroxine as well as findings of echocardiogram. She appeared to understand what was explained to her Review of systems Unable to obtain due to patient's mental status All laboratories and significant diagnostics have been reviewed Reason For Visit: SEVERE SEPSIS, MULTIFOCAL PNEUMONIA Physical Exam Vital Signs: Temp Pulse Resp BP Pulse Ox 97.6 F 60 24 H 102/58 L 97 07/22/17 08:00 07/22/17 08:00 07/22/17 08:00 07/22/17 08:00 07/22/17 08:00 Intake & Output 07/21/17 07/22/17 07/23/17 06:59 06:59 06:59 Intake Total 120 1312 Output Total 3800 400 Balance -3680 912 Weight 51.2 kg 52.3 kg General appearance: PRESENT: cooperative, well-developed, well-nourished Head exam: PRESENT: atraumatic, normocephalic Eye exam: PRESENT: EOMI, PERRLA Ear exam: PRESENT: normal external ear exam Neck exam: PRESENT: full ROM. ABSENT: JVD, lymphadenopathy, tenderness Respiratory exam: PRESENT: decreased breath sounds - Soft basilar crackles Cardiovascular exam: PRESENT: RRR. ABSENT: diastolic murmur, systolic murmur GI/Abdominal exam: PRESENT: normal bowel sounds, soft. ABSENT: tenderness Extremities exam: PRESENT: full ROM. ABSENT: tenderness Musculoskeletal exam: ABSENT: ambulatory Neurological exam: PRESENT: alert. ABSENT: awake, oriented to person, oriented to place, oriented to time, oriented to situation Psychiatric exam: PRESENT: agitated Results Laboratory Results: 07/22/17 05:45 07/22/17 05:45 07/22/17 07/22/17 07/22/17 05:45 05:45 05:45 WBC 10.5 RBC 3.04 L Hgb 8.8 L Hct 27.5 L MCV 91 MCH 28.9 MCHC 32.0 RDW 18.2 H Plt Count 500 H Seg Neutrophils % 78.1 H Lymphocytes % 13.1 Monocytes % 4.8 Eosinophils % 3.2 Basophils % 0.8 Absolute Neutrophils 8.2 Absolute Lymphocytes 1.4 Absolute Monocytes 0.5 Absolute Eosinophils 0.3 Absolute Basophils 0.1 Sodium 145.2 H Potassium 2.9 L* Chloride 106 Carbon Dioxide 31 H Anion Gap 8 BUN 9 Creatinine 0.57 Est GFR ( Amer) > 60 Est GFR (Non-Af Amer) > 60 Glucose 119 H Calcium 8.0 L TSH 12.50 H 07/18/17 07/18/17 07/18/17 00:15 06:00 06:00 Troponin I 0.065 0.039 NT-Pro-B Natriuret Pep 841 07/18/17 07/20/17 12:35 05:45 Troponin I 0.028 NT-Pro-B Natriuret Pep 1680 H Impressions: Abdomen/Pelvis CT 07/17/17 00:00 IMPRESSION: 1. Free air in the abdomen. The patient has a recently placed gastrostomy tube (6 days ago per history). If this was a surgically placed tube , the gas could be persistent postoperative pneumoperitoneum. At nearly 1 week after placement, such pneumoperitoneum is usually resolved. A subtle leak at the gastrostomy tube site is possible, however I see no extravasating contrast or drainable collections currently. Close follow-up is advised. Other viscera look intact without perforation elsewhere in the GI tract evident. Chest X-Ray 07/19/17 00:00 IMPRESSION: No pneumothorax post right jugular triple lumen catheter placement with the tip in the right atrium. Findings worrisome for fluid overload or congestive failure Postoperative persistent right subdiaphragmatic free air similar compared to CT abdomen pelvis 07/17/2017 K[facility] X-Ray 07/19/17 00:00 IMPRESSION: NO RADIOGRAPHIC EVIDENCE FOR ACUTE ABDOMINAL DISEASE. Chest/Abdomen CTA 07/20/17 00:00 IMPRESSION: No evidence for pulmonary embolic disease. Tiny left pleural effusion with some minimal associated airspace consolidation most consistent with atelectatic changes. Minimal linear density in the right lung base most consistent with atelectatic changes. There is a small amount residual free air in the right upper quadrant as noted above. Other findings as noted above Soft Tissue Neck X-Ray 07/20/17 00:00 IMPRESSION: I cannot exclude some anterior soft tissue swelling in the neck. No other significant findings Thyroid Ultrasound 07/20/17 00:00 IMPRESSION: MARKEDLY LIMITED STUDY. NO CLEAR-CUT ABNORMAL FINDINGS ALTHOUGH VERY POOR VISUALIZATION. Assessment & Plan - Diagnosis (1) Bilateral pneumonia Qualifiers: Pneumonia type: due to unspecified organism Lung location: unspecified part of lung Qualified Code(s): J18.9 - Pneumonia, unspecified organism Is this a current diagnosis for this admission?: Yes Plan: To transition to Augmentin (2) Down syndrome Is this a current diagnosis for this admission?: Yes Plan: Supportive. To advance tube feedings (3) Seizure disorder Is this a current diagnosis for this admission?: Yes Plan: Continue antiseizure medication (4) Severe sepsis Is this a current diagnosis for this admission?: Yes Plan: Resolved (5) Acute renal failure Qualifiers: Acute renal failure type: with acute renal cortical necrosis Qualified Code (s): N17.1 - Acute kidney failure with acute cortical necrosis Is this a current diagnosis for this admission?: Yes Plan: Resolved (6) Acute respiratory failure Qualifiers: Respiratory failure complication: unspecified whether with hypoxia or hypercapnia Qualified Code(s): J96.00 - Acute respiratory failure, unspecified whether with hypoxia or hypercapnia Is this a current diagnosis for this admission?: Yes Plan: Improving. Likely there was a component due to congestive heart failure (7) Anemia Qualifiers: Anemia type: unspecified type Qualified Code(s): D64.9 - Anemia, unspecified Is this a current diagnosis for this admission?: Yes Plan: So far stable (8) CHF (congestive heart failure) Qualifiers: Heart failure type: systolic Heart failure chronicity: acute on chronic Qualified Code(s): I50.23 - Acute on chronic systolic (congestive) heart failure Is this a current diagnosis for this admission?: Yes Plan: Continue low-dose lisinopril, Toprol-XL and Lasix (9) Constipation Qualifiers: Constipation type: unspecified constipation type Qualified Code(s): K59.00 - Constipation, unspecified Is this a current diagnosis for this admission?: Yes Plan: Resolved (10) Hypothyroidism Qualifiers: Hypothyroidism type: unspecified Qualified Code(s): E03.9 - Hypothyroidism , unspecified Is this a current diagnosis for this admission?: Yes Plan: To increase levothyroxine dose. Mother made aware - Time Time Spent with patient: 15-24 minutes Medications reviewed and adjusted accordingly: Yes Anticipated discharge: Home with Homehealth Within: within 72 hours - Inpatient Certification Based on my medical assessment, after consideration of the patient's comorbidities, presenting symptoms, or acuity I expect that the services needed warrant INPATIENT care.: Yes I certify that my determination is in accordance with my understanding of Medicare's requirements for reasonable and necessary INPATIENT services [42 CFR 412.3e].: Yes Medical Necessity: Need Close Monitoring Due to Risk of Patient Decompensation
[2017-07-23] MEDS: METOCLOPRAMIDE HCL INJ/PF 10 MG/2 ML SDV IV SCH ×4 (04:42→20:15)
[2017-07-23 05:06] LABS: ABSOLUTE BASOPHILS # (AUTO) 0.1 10^3/uL (0.0-0.2); ABSOLUTE EOSINOPHILS # (AUTO) 0.2 10^3/uL (0.0-0.6); ABSOLUTE LYMPHOCYTES (AUTO) 1.6 10^3/uL (0.5-4.7); ABSOLUTE MONOCYTES (AUTO) 0.5 10^3/uL (0.1-1.4); ABSOLUTE NEUT (AUTO) 7.1 10^3/uL (1.7-8.2); BASOPHILS % (AUTO) 0.7 % (0-2); EOSINOPHILS % (AUTO) 2.5 % (0-6); HEMATOCRIT 27.5 % (36.0-47.0); HEMOGLOBIN 9.1 g/dL (12.0-15.5); LYMPHOCYTES % (AUTO) 17.1 % (13-45); MEAN CORPUSCULAR HEMOGLOBIN 29.9 pg (27.0-33.4); MEAN CORPUSCULAR HGB CONC 33.2 g/dL (32.0-36.0); MEAN CORPUSCULAR VOLUME 90 fl (80-97); MONOCYTES % (AUTO) 5.4 % (3-13); PLATELET COUNT 551 10^3/uL (150-450); RED BLOOD COUNT 3.05 10^6/uL (3.72-5.28); RED CELL DISTRIBUTION WIDTH 18.6 % (11.5-14.0); SEGMENTED NEUTROPHILS % (AUTO) 74.3 % (42-78); TOTAL CELLS COUNTED % (AUTO) 100 %; WHITE BLOOD COUNT 9.6 10^3/uL (4.0-10.5)
[2017-07-23 05:20] LABS: ANION GAP 9 (5-19); BLOOD UREA NITROGEN 6 mg/dL (7-20); CARBON DIOXIDE 27 mmol/L (22-30); CHLORIDE 108 mmol/L (98-107); GLUCOSE 106 mg/dL (75-110); SODIUM 143.8 mmol/L (137-145)
[2017-07-23] MEDS: LEVOTHYROXINE SODIUM 0.075 MG TABLET PEG SCH (05:22)
[2017-07-23] MEDS: AMOXICILLIN TR/POT CLAVULANATE 250-62.5 MG/5 ML 75 ML PO SCH ×3 (05:23→23:17)
[2017-07-23 05:33] LABS: POTASSIUM 4.4 mmol/L (3.6-5.0)
[2017-07-23] MEDS: LISINOPRIL 5 MG TABLET PO SCH (10:34)
[2017-07-23] MEDS: LACTULOSE SYRUP 20 GM/30 ML UDCUP PEG SCH ×2 (10:34→17:01)
[2017-07-23] MEDS: METOPROLOL SUCCINATE 25 MG TAB.SR.24H PO SCH (10:34)
[2017-07-23] MEDS: FUROSEMIDE 20 MG TABLET PO SCH (11:32)
[2017-07-23] MEDS: ACETAMINOPHEN 325 MG TABLET PO PRN (11:35)
[2017-07-23] MEDS: LEVETIRACETAM 500 MG/NACL-ISO 500 MG/100 ML RTUPB IV SCH ×2 (11:39→23:17)
[2017-07-23 12:20] LABS: ABSOLUTE EOSINOPHILS # (AUTO) 0.2 10^3/uL (0.0-0.6); ABSOLUTE MONOCYTES (AUTO) 0.5 10^3/uL (0.1-1.4); ABSOLUTE NEUT (AUTO) 7.4 10^3/uL (1.7-8.2); BASOPHILS % (AUTO) 0.4 % (0-2); EOSINOPHILS % (AUTO) 2.2 % (0-6); HEMATOCRIT 26.7 % (36.0-47.0); HEMOGLOBIN 8.7 g/dL (12.0-15.5); LYMPHOCYTES % (AUTO) 19.2 % (13-45); MEAN CORPUSCULAR HEMOGLOBIN 29.4 pg (27.0-33.4); MEAN CORPUSCULAR HGB CONC 32.5 g/dL (32.0-36.0); MEAN CORPUSCULAR VOLUME 90 fl (80-97); MONOCYTES % (AUTO) 5.3 % (3-13); PLATELET COUNT 537 10^3/uL (150-450); RED BLOOD COUNT 2.95 10^6/uL (3.72-5.28); RED CELL DISTRIBUTION WIDTH 18.2 % (11.5-14.0); SEGMENTED NEUTROPHILS % (AUTO) 72.9 % (42-78); TOTAL CELLS COUNTED % (AUTO) 100 %; WHITE BLOOD COUNT 10.2 10^3/uL (4.0-10.5)
--- NOTE | 2017-07-23 15:36 | PDOC PROGRESS REPORT ---
Subjective Progress Note for:: 07/23/17 Subjective:: The patient has been admitted with evidence of sepsis from pneumonia as well as respiratory failure. The respiratory failure secondary to bilateral pneumonia and congestive heart failure. UTI could be due to colonization. Reason For Visit: SEVERE SEPSIS, MULTIFOCAL PNEUMONIA Physical Exam Vital Signs: Temp Pulse Resp BP Pulse Ox 98.3 F 85 18 92/51 L 100 07/23/17 12:00 07/23/17 14:00 07/23/17 12:00 07/23/17 12:00 07/23/17 12:00 Intake & Output 07/22/17 07/23/17 07/24/17 06:59 06:59 06:59 Intake Total 1312 1234 126 Output Total 400 1425 Balance 912 -191 126 Weight 52.3 kg 52 kg Additional comments: The patient does appear improved when compared to Tuesday when I last saw her. On Tuesday, her respiratory status was elevated. Today, she appears very comfortable. She does wake up but she does not follow commands. She has a facial appearance of someone with Down syndrome. Her lungs are fairly clear anteriorly. Her breath sounds are somewhat diminished in the posterior lung [place]. Her cardiac exam is regular without murmurs, gallops or rubs. The abdomen is soft and flat. The lower extremities are unremarkable. The skin is warm dry and intact. No acute lesions or rashes are present. Results Laboratory Results: 07/23/17 11:15 07/23/17 04:50 07/23/17 07/23/17 07/23/17 04:50 04:50 11:15 WBC 9.6 10.2 RBC 3.05 L 2.95 L Hgb 9.1 L 8.7 L Hct 27.5 L 26.7 L MCV 90 90 MCH 29.9 29.4 MCHC 33.2 32.5 RDW 18.6 H 18.2 H Plt Count 551 H 537 H Seg Neutrophils % 74.3 72.9 Lymphocytes % 17.1 19.2 Monocytes % 5.4 5.3 Eosinophils % 2.5 2.2 Basophils % 0.7 0.4 Absolute Neutrophils 7.1 7.4 Absolute Lymphocytes 1.6 2.0 Absolute Monocytes 0.5 0.5 Absolute Eosinophils 0.2 0.2 Absolute Basophils 0.1 0.0 Sodium 143.8 Potassium 4.4 D Chloride 108 H Carbon Dioxide 27 Anion Gap 9 BUN 6 L Creatinine 0.46 L Est GFR ( Amer) > 60 Est GFR (Non-Af Amer) > 60 Glucose 106 Calcium 8.0 L Magnesium 07/23/17 11:15 WBC RBC Hgb Hct MCV MCH MCHC RDW Plt Count Seg Neutrophils % Lymphocytes % Monocytes % Eosinophils % Basophils % Absolute Neutrophils Absolute Lymphocytes Absolute Monocytes Absolute Eosinophils Absolute Basophils Sodium Potassium Chloride Carbon Dioxide Anion Gap BUN Creatinine Est GFR ( Amer) Est GFR (Non-Af Amer) Glucose Calcium Magnesium 2.0 07/18/17 07/18/17 07/18/17 00:15 06:00 06:00 Troponin I 0.065 0.039 NT-Pro-B Natriuret Pep 841 07/18/17 07/20/17 12:35 05:45 Troponin I 0.028 NT-Pro-B Natriuret Pep 1680 H Impressions: Abdomen/Pelvis CT 07/17/17 00:00 IMPRESSION: 1. Free air in the abdomen. The patient has a recently placed gastrostomy tube (6 days ago per history). If this was a surgically placed tube , the gas could be persistent postoperative pneumoperitoneum. At nearly 1 week after placement, such pneumoperitoneum is usually resolved. A subtle leak at the gastrostomy tube site is possible, however I see no extravasating contrast or drainable collections currently. Close follow-up is advised. Other viscera look intact without perforation elsewhere in the GI tract evident. Chest X-Ray 07/19/17 00:00 IMPRESSION: No pneumothorax post right jugular triple lumen catheter placement with the tip in the right atrium. Findings worrisome for fluid overload or congestive failure Postoperative persistent right subdiaphragmatic free air similar compared to CT abdomen pelvis 07/17/2017 [facility] X-Ray 07/19/17 00:00 IMPRESSION: NO RADIOGRAPHIC EVIDENCE FOR ACUTE ABDOMINAL DISEASE. Chest/Abdomen CTA 07/20/17 00:00 IMPRESSION: No evidence for pulmonary embolic disease. Tiny left pleural effusion with some minimal associated airspace consolidation most consistent with atelectatic changes. Minimal linear density in the right lung base most consistent with atelectatic changes. There is a small amount residual free air in the right upper quadrant as noted above. Other findings as noted above Soft Tissue Neck X-Ray 07/20/17 00:00 IMPRESSION: I cannot exclude some anterior soft tissue swelling in the neck. No other significant findings Thyroid Ultrasound 07/20/17 00:00 IMPRESSION: MARKEDLY LIMITED STUDY. NO CLEAR-CUT ABNORMAL FINDINGS ALTHOUGH VERY POOR VISUALIZATION. Assessment & Plan - Diagnosis (1) Severe sepsis Is this a current diagnosis for this admission?: Yes Plan: Clinically resolved (2) Bilateral pneumonia Qualifiers: Pneumonia type: due to unspecified organism Lung location: unspecified part of lung Qualified Code(s): J18.9 - Pneumonia, unspecified organism Is this a current diagnosis for this admission?: Yes Plan: Patient has been changed to p.o. Augmentin (3) Intra-abdominal free air of unknown etiology Is this a current diagnosis for this admission?: Yes Plan: Due to recent PEG tube (4) Seizure disorder Is this a current diagnosis for this admission?: Yes Plan: Patient normally takes Keppra. This has been switched to intravenous dosing. (5) Sacral decubitus ulcer, stage II Is this a current diagnosis for this admission?: Yes Plan: Continue wound care. If needed, will consult general surgery. (6) Acute respiratory failure Qualifiers: Respiratory failure complication: unspecified whether with hypoxia or hypercapnia Qualified Code(s): J96.00 - Acute respiratory failure, unspecified whether with hypoxia or hypercapnia Is this a current diagnosis for this admission?: Yes Plan: Due to components of pneumonia and acute congestive heart failure. Resolving. (7) Anemia Qualifiers: Anemia type: unspecified type Qualified Code(s): D64.9 - Anemia, unspecified Is this a current diagnosis for this admission?: Yes Plan: Stable (8) CHF (congestive heart failure) Qualifiers: Heart failure type: systolic Heart failure chronicity: acute on chronic Qualified Code(s): I50.23 - Acute on chronic systolic (congestive) heart failure Is this a current diagnosis for this admission?: Yes Plan: Continue lisinopril, Lasix, Toprol (9) Constipation Qualifiers: Constipation type: unspecified constipation type Qualified Code(s): K59.00 - Constipation, unspecified Is this a current diagnosis for this admission?: Yes (10) Down syndrome Is this a current diagnosis for this admission?: Yes Plan: Continue supportive care (11) Hypothyroidism Qualifiers: Hypothyroidism type: unspecified Qualified Code(s): E03.9 - Hypothyroidism , unspecified Is this a current diagnosis for this admission?: Yes Plan: Synthroid dose has been increased (12) Acute renal failure Qualifiers: Acute renal failure type: with acute renal cortical necrosis Qualified Code (s): N17.1 - Acute kidney failure with acute cortical necrosis Is this a current diagnosis for this admission?: Yes Plan: Resolved (13) Urinary tract infection Is this a current diagnosis for this admission?: Yes Plan: E. Faecalis group D, possibly colonization - Time Time Spent with patient: 15-24 minutes - Inpatient Certification Medical Necessity: Risk of Complication if Not Cared For in Hospital - Plan Summary Plan Summary: The patient required intravenous antibiotics for her diagnosis of sepsis secondary to pneumonia and urinary tract infection. However, at this time she appears to be clinically improved. We will ensure that she is transition to oral medications over the weekend and plan a disposition for early next week.
[2017-07-24] MEDS: METOCLOPRAMIDE HCL INJ/PF 10 MG/2 ML SDV IV SCH ×4 (04:15→20:12)
[2017-07-24 04:40] LABS: ABSOLUTE BASOPHILS # (AUTO) 0.1 10^3/uL (0.0-0.2); ABSOLUTE EOSINOPHILS # (AUTO) 0.2 10^3/uL (0.0-0.6); ABSOLUTE MONOCYTES (AUTO) 0.6 10^3/uL (0.1-1.4); BASOPHILS % (AUTO) 0.6 % (0-2); HEMATOCRIT 29.1 % (36.0-47.0); HEMOGLOBIN 9.5 g/dL (12.0-15.5); MEAN CORPUSCULAR HEMOGLOBIN 29.2 pg (27.0-33.4); MEAN CORPUSCULAR HGB CONC 32.7 g/dL (32.0-36.0); MEAN CORPUSCULAR VOLUME 89 fl (80-97); MONOCYTES % (AUTO) 6.2 % (3-13); PLATELET COUNT 526 10^3/uL (150-450); RED BLOOD COUNT 3.26 10^6/uL (3.72-5.28); RED CELL DISTRIBUTION WIDTH 18.8 % (11.5-14.0); SEGMENTED NEUTROPHILS % (AUTO) 71.2 % (42-78); TOTAL CELLS COUNTED % (AUTO) 100 %; WHITE BLOOD COUNT 9.8 10^3/uL (4.0-10.5)
[2017-07-24 05:03] LABS: ANION GAP 7 (5-19); BLOOD UREA NITROGEN 7 mg/dL (7-20); CALCIUM 8.4 mg/dL (8.4-10.2); CARBON DIOXIDE 30 mmol/L (22-30); CHLORIDE 101 mmol/L (98-107); GLUCOSE 113 mg/dL (75-110); POTASSIUM 4.1 mmol/L (3.6-5.0); SODIUM 138.1 mmol/L (137-145)
[2017-07-24] MEDS: LEVOTHYROXINE SODIUM 0.075 MG TABLET PEG SCH (06:16)
[2017-07-24] MEDS: AMOXICILLIN TR/POT CLAVULANATE 250-62.5 MG/5 ML 75 ML PO SCH ×3 (06:16→22:18)
[2017-07-24] MEDS: LEVETIRACETAM 500 MG/NACL-ISO 500 MG/100 ML RTUPB IV SCH ×2 (11:48→22:18)
[2017-07-24] MEDS: FUROSEMIDE 20 MG TABLET PO SCH (15:58)
[2017-07-24] MEDS: FENTANYL CITRATE INJ/PF 100 MCG/2 ML AMPUL IV PRN (16:07)
[2017-07-24] MEDS: LACTULOSE SYRUP 20 GM/30 ML UDCUP PEG SCH ×2 (16:15→18:07)
[2017-07-24] MEDS: METOPROLOL SUCCINATE 25 MG TAB.SR.24H PO SCH (16:15)
[2017-07-24] MEDS: LISINOPRIL 5 MG TABLET PO SCH (16:15)
--- NOTE | 2017-07-24 17:23 | PDOC PROGRESS REPORT ---
Subjective Progress Note for:: 07/24/17 Subjective:: The patient has been admitted with evidence of sepsis from pneumonia as well as respiratory failure. The respiratory failure is secondary to bilateral pneumonia (likely due to aspiration) and congestive heart failure. UTI could be due to colonization. Reason For Visit: SEVERE SEPSIS, MULTIFOCAL PNEUMONIA Physical Exam Vital Signs: Temp Pulse Resp BP Pulse Ox 97.5 F 99 16 94/56 L 100 07/24/17 13:05 07/24/17 14:00 07/24/17 13:05 07/24/17 13:05 07/24/17 13:05 Intake & Output 07/23/17 07/24/17 07/25/17 06:59 06:59 06:59 Intake Total 1234 1293 50 Output Total 1425 1050 Balance -191 243 50 Weight 52 kg 52.2 kg Additional comments: The patient has Down syndrome with Down's facies. She does not appear to be in any distress. She is smiling. Her lungs at this time are clear to auscultation bilaterally. Her cardiac exam is regular. She does not have any murmurs, gallops or rubs. The abdomen is soft and flat. Bowel sounds are present. And the patient's lower extremities are without any edema. The skin is warm dry and intact. No lesions are seen in the visible skin areas. Results Laboratory Results: 07/24/17 04:20 07/24/17 04:20 07/24/17 07/24/17 04:20 04:20 WBC 9.8 RBC 3.26 L Hgb 9.5 L Hct 29.1 L MCV 89 MCH 29.2 MCHC 32.7 RDW 18.8 H Plt Count 526 H Seg Neutrophils % 71.2 Lymphocytes % 20.0 Monocytes % 6.2 Eosinophils % 2.0 Basophils % 0.6 Absolute Neutrophils 7.0 Absolute Lymphocytes 2.0 Absolute Monocytes 0.6 Absolute Eosinophils 0.2 Absolute Basophils 0.1 Sodium 138.1 Potassium 4.1 Chloride 101 Carbon Dioxide 30 Anion Gap 7 BUN 7 Creatinine 0.42 L Est GFR ( Amer) > 60 Est GFR (Non-Af Amer) > 60 Glucose 113 H Calcium 8.4 07/18/17 07/18/17 07/18/17 00:15 06:00 06:00 Troponin I 0.065 0.039 NT-Pro-B Natriuret Pep 841 07/18/17 07/20/17 12:35 05:45 Troponin I 0.028 NT-Pro-B Natriuret Pep 1680 H Impressions: Abdomen/Pelvis CT 07/17/17 00:00 IMPRESSION: 1. Free air in the abdomen. The patient has a recently placed gastrostomy tube (6 days ago per history). If this was a surgically placed tube , the gas could be persistent postoperative pneumoperitoneum. At nearly 1 week after placement, such pneumoperitoneum is usually resolved. A subtle leak at the gastrostomy tube site is possible, however I see no extravasating contrast or drainable collections currently. Close follow-up is advised. Other viscera look intact without perforation elsewhere in the GI tract evident. Chest X-Ray 07/19/17 00:00 IMPRESSION: No pneumothorax post right jugular triple lumen catheter placement with the tip in the right atrium. Findings worrisome for fluid overload or congestive failure Postoperative persistent right subdiaphragmatic free air similar compared to CT abdomen pelvis 07/17/2017 [facility] X-Ray 07/19/17 00:00 IMPRESSION: NO RADIOGRAPHIC EVIDENCE FOR ACUTE ABDOMINAL DISEASE. Chest/Abdomen CTA 07/20/17 00:00 IMPRESSION: No evidence for pulmonary embolic disease. Tiny left pleural effusion with some minimal associated airspace consolidation most consistent with atelectatic changes. Minimal linear density in the right lung base most consistent with atelectatic changes. There is a small amount residual free air in the right upper quadrant as noted above. Other findings as noted above Soft Tissue Neck X-Ray 07/20/17 00:00 IMPRESSION: I cannot exclude some anterior soft tissue swelling in the neck. No other significant findings Thyroid Ultrasound 07/20/17 00:00 IMPRESSION: MARKEDLY LIMITED STUDY. NO CLEAR-CUT ABNORMAL FINDINGS ALTHOUGH VERY POOR VISUALIZATION. Assessment & Plan - Diagnosis (1) Severe sepsis Is this a current diagnosis for this admission?: Yes Plan: Clinically resolved (2) Bilateral pneumonia Qualifiers: Pneumonia type: due to unspecified organism Lung location: unspecified part of lung Qualified Code(s): J18.9 - Pneumonia, unspecified organism Is this a current diagnosis for this admission?: Yes Plan: Patient has been changed to p.o. Augmentin (3) Intra-abdominal free air of unknown etiology Is this a current diagnosis for this admission?: Yes Plan: Due to recent PEG tube (4) Seizure disorder Is this a current diagnosis for this admission?: Yes Plan: Continue Keppra. (5) Sacral decubitus ulcer, stage II Is this a current diagnosis for this admission?: Yes Plan: Continue wound care. (6) Acute respiratory failure Qualifiers: Respiratory failure complication: unspecified whether with hypoxia or hypercapnia Qualified Code(s): J96.00 - Acute respiratory failure, unspecified whether with hypoxia or hypercapnia Is this a current diagnosis for this admission?: Yes Plan: Due to components of pneumonia and acute congestive heart failure. Resolving. However, I did explain to the patient's stepmother that she is at increased risk of ongoing and recurrent aspiration due to the placement of the PEG tube and her esophageal dysmotility. (7) Anemia Qualifiers: Anemia type: unspecified type Qualified Code(s): D64.9 - Anemia, unspecified Is this a current diagnosis for this admission?: Yes Plan: Stable (8) CHF (congestive heart failure) Qualifiers: Heart failure type: systolic Heart failure chronicity: acute on chronic Qualified Code(s): I50.23 - Acute on chronic systolic (congestive) heart failure Is this a current diagnosis for this admission?: Yes Plan: Continue lisinopril, Lasix, Toprol (9) Constipation Qualifiers: Constipation type: unspecified constipation type Qualified Code(s): K59.00 - Constipation, unspecified Is this a current diagnosis for this admission?: Yes (10) Down syndrome Is this a current diagnosis for this admission?: Yes Plan: Continue supportive care (11) Hypothyroidism Qualifiers: Hypothyroidism type: unspecified Qualified Code(s): E03.9 - Hypothyroidism , unspecified Is this a current diagnosis for this admission?: Yes Plan: Synthroid dose has been increased (12) Acute renal failure Qualifiers: Acute renal failure type: with acute renal cortical necrosis Qualified Code (s): N17.1 - Acute kidney failure with acute cortical necrosis Is this a current diagnosis for this admission?: Yes Plan: Resolved (13) Urinary tract infection Is this a current diagnosis for this admission?: Yes Plan: E. Faecalis group D, possibly colonization - Time Time Spent with patient: 25-34 minutes - Plan Summary Plan Summary: Patient is clinically improving. I anticipate discharge in 24-48 hours.
[2017-07-25] MEDS: METOCLOPRAMIDE HCL INJ/PF 10 MG/2 ML SDV IV SCH ×4 (04:28→23:13)
[2017-07-25 05:05] LABS: ABSOLUTE BASOPHILS # (AUTO) 0.1 10^3/uL (0.0-0.2); ABSOLUTE EOSINOPHILS # (AUTO) 0.2 10^3/uL (0.0-0.6); ABSOLUTE LYMPHOCYTES (AUTO) 2.2 10^3/uL (0.5-4.7); ABSOLUTE MONOCYTES (AUTO) 0.5 10^3/uL (0.1-1.4); ABSOLUTE NEUT (AUTO) 4.9 10^3/uL (1.7-8.2); BASOPHILS % (AUTO) 0.9 % (0-2); EOSINOPHILS % (AUTO) 2.5 % (0-6); HEMATOCRIT 30.1 % (36.0-47.0); HEMOGLOBIN 9.7 g/dL (12.0-15.5); MEAN CORPUSCULAR HEMOGLOBIN 29.1 pg (27.0-33.4); MEAN CORPUSCULAR HGB CONC 32.4 g/dL (32.0-36.0); MEAN CORPUSCULAR VOLUME 90 fl (80-97); MONOCYTES % (AUTO) 6.3 % (3-13); PLATELET COUNT 532 10^3/uL (150-450); RED BLOOD COUNT 3.34 10^6/uL (3.72-5.28); RED CELL DISTRIBUTION WIDTH 19.1 % (11.5-14.0); SEGMENTED NEUTROPHILS % (AUTO) 62.3 % (42-78); TOTAL CELLS COUNTED % (AUTO) 100 %; WHITE BLOOD COUNT 7.9 10^3/uL (4.0-10.5)
[2017-07-25 05:27] LABS: ALANINE AMINOTRANSFERASE 32 U/L (9-52); ALBUMIN 2.5 g/dL (3.5-5.0); ALKALINE PHOSPHATASE 85 U/L (38-126); ANION GAP 7 (5-19); ASPARTATE AMINO TRANSFERASE 22 U/L (14-36); BILIRUBIN,DIRECT 0.2 mg/dL (0.0-0.4); BILIRUBIN,TOTAL 0.2 mg/dL (0.2-1.3); BLOOD UREA NITROGEN 11 mg/dL (7-20); CALCIUM 8.5 mg/dL (8.4-10.2); CARBON DIOXIDE 30 mmol/L (22-30); CHLORIDE 103 mmol/L (98-107); GLUCOSE 98 mg/dL (75-110); PHOSPHORUS 3.7 mg/dL (2.5-4.5); POTASSIUM 3.9 mmol/L (3.6-5.0); SODIUM 139.7 mmol/L (137-145); TOTAL PROTEIN 5.2 g/dL (6.3-8.2)
[2017-07-25] MEDS: AMOXICILLIN TR/POT CLAVULANATE 250-62.5 MG/5 ML 75 ML PO SCH ×3 (06:49→23:12)
[2017-07-25] MEDS: LEVOTHYROXINE SODIUM 0.075 MG TABLET PEG SCH (06:49)
[2017-07-25] MEDS: FENTANYL CITRATE INJ/PF 100 MCG/2 ML AMPUL IV PRN (11:11)
[2017-07-25] MEDS: LEVETIRACETAM 500 MG/NACL-ISO 500 MG/100 ML RTUPB IV SCH ×2 (11:11→23:14)
[2017-07-25] MEDS: METOPROLOL SUCCINATE 25 MG TAB.SR.24H PO SCH (11:33)
[2017-07-25] MEDS: LISINOPRIL 5 MG TABLET PO SCH (11:33)
[2017-07-25] MEDS: FENTANYL 12 MCG/HR PATCH.TD72 TD SCH (12:55)
[2017-07-25] MEDS: FUROSEMIDE 20 MG TABLET PO SCH (12:55)
[2017-07-25] MEDS: LACTULOSE SYRUP 20 GM/30 ML UDCUP PEG SCH ×2 (13:11→20:00)
--- NOTE | 2017-07-25 15:29 | PDOC PROGRESS REPORT ---
Subjective Progress Note for:: 07/25/17 Subjective:: The patient has been admitted with evidence of sepsis from pneumonia as well as respiratory failure. The respiratory failure is secondary to bilateral pneumonia (likely due to aspiration) and congestive heart failure. UTI could be due to colonization. The patient is getting better. Today, a nutrition consult was placed to determine whether or not bolus feeding is best for the patient or hourly feeding. The mother is concerned that hourly feeding will not work at home. She has to sit up for feeding. She is unable to sleep in an upright position. Therefore, if possible, the mother would like bolus feeds. The mother is also interested when she can restart a soft mechanical diet. After I saw the patient this morning I thought that she may have some issues with her teeth. If her teeth need to be resected she may be able to eat once the dental caries are removed. In any event I will order a speech therapy consult. The patient has had a lot of discharge around her PEG tube yesterday and today. I have asked general surgery to come by today to evaluate the PEG tube site. Reason For Visit: SEVERE SEPSIS, MULTIFOCAL PNEUMONIA Physical Exam Vital Signs: Temp Pulse Resp BP Pulse Ox 97.4 F 90 16 98/54 L 95 07/25/17 07:24 07/25/17 07:24 07/25/17 07:24 07/25/17 07:24 07/25/17 07:24 Intake & Output 07/24/17 07/25/17 07/26/17 06:59 06:59 06:59 Intake Total 1293 1520 Output Total 1050 1000 650 Balance 243 520 -650 Weight 52.2 kg 52.1 kg Additional comments: The patient has features of Down's syndrome. This morning, she appeared to be in good spirits. She was smiling and waving at me. Her lungs are actually clear to auscultation bilaterally. Her cardiac exam is regular without murmurs , gallops or rubs. She does have a well healed cardiac scar. The abdomen is soft and flat. Bowel sounds are present in the lower quadrants. She does not have any guarding or rebound noted and there are no hernias or masses. The PEG tube shows a lot of drainage around the site. The drainage is thick and yellow. The lower extremities are unremarkable. Skin is unremarkable. The mother was concerned about a sacral ulcer but this has been healed according to nursing staff. Results Laboratory Results: 07/25/17 04:41 07/25/17 04:41 07/25/17 07/25/17 04:41 04:41 WBC 7.9 RBC 3.34 L Hgb 9.7 L Hct 30.1 L MCV 90 MCH 29.1 MCHC 32.4 RDW 19.1 H Plt Count 532 H Seg Neutrophils % 62.3 Lymphocytes % 28.0 Monocytes % 6.3 Eosinophils % 2.5 Basophils % 0.9 Absolute Neutrophils 4.9 Absolute Lymphocytes 2.2 Absolute Monocytes 0.5 Absolute Eosinophils 0.2 Absolute Basophils 0.1 Sodium 139.7 Potassium 3.9 Chloride 103 Carbon Dioxide 30 Anion Gap 7 BUN 11 Creatinine 0.48 L Est GFR ( Amer) > 60 Est GFR (Non-Af Amer) > 60 Glucose 98 Calcium 8.5 Phosphorus 3.7 Magnesium 2.1 Total Bilirubin 0.2 AST 22 ALT 32 Alkaline Phosphatase 85 Total Protein 5.2 L Albumin 2.5 L 07/18/17 07/18/17 07/18/17 00:15 06:00 06:00 Troponin I 0.065 0.039 NT-Pro-B Natriuret Pep 841 07/18/17 07/20/17 12:35 05:45 Troponin I 0.028 NT-Pro-B Natriuret Pep 1680 H Impressions: Abdomen/Pelvis CT 07/17/17 00:00 IMPRESSION: 1. Free air in the abdomen. The patient has a recently placed gastrostomy tube (6 days ago per history). If this was a surgically placed tube , the gas could be persistent postoperative pneumoperitoneum. At nearly 1 week after placement, such pneumoperitoneum is usually resolved. A subtle leak at the gastrostomy tube site is possible, however I see no extravasating contrast or drainable collections currently. Close follow-up is advised. Other viscera look intact without perforation elsewhere in the GI tract evident. Chest X-Ray 07/19/17 00:00 IMPRESSION: No pneumothorax post right jugular triple lumen catheter placement with the tip in the right atrium. Findings worrisome for fluid overload or congestive failure Postoperative persistent right subdiaphragmatic free air similar compared to CT abdomen pelvis 07/17/2017 KUB X-Ray 07/19/17 00:00 IMPRESSION: NO RADIOGRAPHIC EVIDENCE FOR ACUTE ABDOMINAL DISEASE. Chest/Abdomen CTA 07/20/17 00:00 IMPRESSION: No evidence for pulmonary embolic disease. Tiny left pleural effusion with some minimal associated airspace consolidation most consistent with atelectatic changes. Minimal linear density in the right lung base most consistent with atelectatic changes. There is a small amount residual free air in the right upper quadrant as noted above. Other findings as noted above Soft Tissue Neck X-Ray 07/20/17 00:00 IMPRESSION: I cannot exclude some anterior soft tissue swelling in the neck. No other significant findings Thyroid Ultrasound 07/20/17 00:00 IMPRESSION: MARKEDLY LIMITED STUDY. NO CLEAR-CUT ABNORMAL FINDINGS ALTHOUGH VERY POOR VISUALIZATION. Assessment & Plan - Diagnosis (1) Severe sepsis Is this a current diagnosis for this admission?: Yes Plan: Clinically resolved (2) Bilateral pneumonia Qualifiers: Pneumonia type: due to unspecified organism Lung location: unspecified part of lung Qualified Code(s): J18.9 - Pneumonia, unspecified organism Is this a current diagnosis for this admission?: Yes Plan: Patient has been changed to p.o. Augmentin. I recommend a total of 10 days of therapy. (3) Intra-abdominal free air of unknown etiology Is this a current diagnosis for this admission?: Yes Plan: Due to recent PEG tube (4) Seizure disorder Is this a current diagnosis for this admission?: Yes Plan: Continue Keppra. (5) Sacral decubitus ulcer, stage II Is this a current diagnosis for this admission?: Yes Plan: Resolved -mother was informed that this is likely secondary to poor nutritional state. (6) Acute respiratory failure Qualifiers: Respiratory failure complication: unspecified whether with hypoxia or hypercapnia Qualified Code(s): J96.00 - Acute respiratory failure, unspecified whether with hypoxia or hypercapnia Is this a current diagnosis for this admission?: Yes Plan: Due to components of pneumonia and acute congestive heart failure. Resolving. However, I did explain to the patient's stepmother that she is at increased risk of ongoing and recurrent aspiration due to the placement of the PEG tube and her esophageal dysmotility. (7) Anemia Qualifiers: Anemia type: unspecified type Qualified Code(s): D64.9 - Anemia, unspecified Is this a current diagnosis for this admission?: Yes Plan: Stable (8) CHF (congestive heart failure) Qualifiers: Heart failure type: systolic Heart failure chronicity: acute on chronic Qualified Code(s): I50.23 - Acute on chronic systolic (congestive) heart failure Is this a current diagnosis for this admission?: Yes Plan: Continue lisinopril, Lasix, Toprol (9) Constipation Qualifiers: Constipation type: unspecified constipation type Qualified Code(s): K59.00 - Constipation, unspecified Is this a current diagnosis for this admission?: Yes Plan: Continue current bowel regimen (10) Down syndrome Is this a current diagnosis for this admission?: Yes Plan: Continue supportive care (11) Hypothyroidism Qualifiers: Hypothyroidism type: unspecified Qualified Code(s): E03.9 - Hypothyroidism , unspecified Is this a current diagnosis for this admission?: Yes Plan: Synthroid dose has been increased due to elevated TSH (12) Acute renal failure Qualifiers: Acute renal failure type: with acute renal cortical necrosis Qualified Code (s): N17.1 - Acute kidney failure with acute cortical necrosis Is this a current diagnosis for this admission?: Yes Plan: Resolved (13) Urinary tract infection Is this a current diagnosis for this admission?: Yes Plan: E. Faecalis group D, likely colonization (14) Arthritis Is this a current diagnosis for this admission?: Yes Plan: I was informed today by patient's stepmother that she has severe arthritis, bone -on-bone. She has been requiring some narcotic therapy. I have started a low- dose fentanyl patch today at 12 mcg. - Time Time Spent with patient: 25-34 minutes - Inpatient Certification Medical Necessity: Risk of Complication if Not Cared For in Hospital, Risk of Diagnosis Which Will Require Inpatient Eval/Care/Monitoring
[2017-07-25] MEDS: NORMAL SALINE INJ/PF 0.9% 10 ML SDV IV PRN ×2 (16:03→16:05)
[2017-07-26] MEDS: AMOXICILLIN TR/POT CLAVULANATE 250-62.5 MG/5 ML 75 ML PO SCH ×3 (05:36→23:22)
[2017-07-26] MEDS: METOCLOPRAMIDE HCL INJ/PF 10 MG/2 ML SDV IV SCH ×4 (05:36→23:21)
[2017-07-26] MEDS: LEVOTHYROXINE SODIUM 0.075 MG TABLET PEG SCH (05:36)
[2017-07-26] MEDS: METOPROLOL SUCCINATE 25 MG TAB.SR.24H PO SCH (09:45)
[2017-07-26] MEDS: LISINOPRIL 5 MG TABLET PO SCH (09:47)
[2017-07-26] MEDS: LACTULOSE SYRUP 20 GM/30 ML UDCUP PEG SCH ×2 (09:47→17:13)
[2017-07-26] MEDS: FUROSEMIDE 20 MG TABLET PO SCH (09:47)
[2017-07-26] MEDS: LEVETIRACETAM 500 MG/NACL-ISO 500 MG/100 ML RTUPB IV SCH ×2 (09:48→23:21)
[2017-07-27] MEDS: METOCLOPRAMIDE HCL INJ/PF 10 MG/2 ML SDV IV SCH ×4 (03:50→21:14)
--- NOTE | 2017-07-27 06:06 | PDOC PROGRESS REPORT ---
Subjective Progress Note for:: 07/26/17 Subjective:: Nursing states that pt his having tube feed residuals. Reason For Visit: SEVERE SEPSIS, MULTIFOCAL PNEUMONIA Physical Exam Vital Signs: Temp Pulse Resp BP Pulse Ox 98.2 F 89 18 93/77 L 100 07/27/17 00:00 07/27/17 02:00 07/27/17 00:00 07/27/17 00:00 07/27/17 00:00 Intake & Output 07/25/17 07/26/17 07/27/17 06:59 06:59 06:59 Intake Total 1520 614 990 Output Total 1000 800 400 Balance 520 -186 590 Weight 52.1 kg 51.7 kg General appearance: PRESENT: no acute distress Head exam: PRESENT: atraumatic, normocephalic Eye exam: PRESENT: conjunctiva pink, EOMI. ABSENT: scleral icterus Ear exam: PRESENT: normal external ear exam Mouth exam: PRESENT: moist, tongue midline Neck exam: ABSENT: carotid bruit, JVD, lymphadenopathy, thyromegaly Respiratory exam: PRESENT: clear to auscultation amarjit. ABSENT: rales, rhonchi, wheezes Cardiovascular exam: PRESENT: RRR. ABSENT: diastolic murmur, rubs, systolic murmur Pulses: PRESENT: normal dorsalis pedis pul Vascular exam: PRESENT: normal capillary refill GI/Abdominal exam: PRESENT: normal bowel sounds, soft. ABSENT: distended, guarding, mass, organolmegaly, rebound, tenderness Rectal exam: PRESENT: deferred Extremities exam: ABSENT: calf tenderness, clubbing, pedal edema Neurological exam: PRESENT: alert, awake, oriented to person. ABSENT: motor sensory deficit Psychiatric exam: PRESENT: appropriate affect, normal mood. ABSENT: homicidal ideation, suicidal ideation Skin exam: PRESENT: dry, intact, warm. ABSENT: cyanosis, rash Results Laboratory Results: 07/25/17 04:41 07/25/17 04:41 07/18/17 07/18/17 07/18/17 00:15 06:00 06:00 Troponin I 0.065 0.039 NT-Pro-B Natriuret Pep 841 07/18/17 07/20/17 12:35 05:45 Troponin I 0.028 NT-Pro-B Natriuret Pep 1680 H Impressions: Abdomen/Pelvis CT 07/17/17 00:00 IMPRESSION: 1. Free air in the abdomen. The patient has a recently placed gastrostomy tube (6 days ago per history). If this was a surgically placed tube , the gas could be persistent postoperative pneumoperitoneum. At nearly 1 week after placement, such pneumoperitoneum is usually resolved. A subtle leak at the gastrostomy tube site is possible, however I see no extravasating contrast or drainable collections currently. Close follow-up is advised. Other viscera look intact without perforation elsewhere in the GI tract evident. Chest X-Ray 07/19/17 00:00 IMPRESSION: No pneumothorax post right jugular triple lumen catheter placement with the tip in the right atrium. Findings worrisome for fluid overload or congestive failure Postoperative persistent right subdiaphragmatic free air similar compared to CT abdomen pelvis 07/17/2017 KUB X-Ray 07/19/17 00:00 IMPRESSION: NO RADIOGRAPHIC EVIDENCE FOR ACUTE ABDOMINAL DISEASE. Chest/Abdomen CTA 07/20/17 00:00 IMPRESSION: No evidence for pulmonary embolic disease. Tiny left pleural effusion with some minimal associated airspace consolidation most consistent with atelectatic changes. Minimal linear density in the right lung base most consistent with atelectatic changes. There is a small amount residual free air in the right upper quadrant as noted above. Other findings as noted above Soft Tissue Neck X-Ray 07/20/17 00:00 IMPRESSION: I cannot exclude some anterior soft tissue swelling in the neck. No other significant findings Thyroid Ultrasound 07/20/17 00:00 IMPRESSION: MARKEDLY LIMITED STUDY. NO CLEAR-CUT ABNORMAL FINDINGS ALTHOUGH VERY POOR VISUALIZATION. Assessment & Plan - Diagnosis (1) Acute respiratory failure Qualifiers: Respiratory failure complication: unspecified whether with hypoxia or hypercapnia Qualified Code(s): J96.00 - Acute respiratory failure, unspecified whether with hypoxia or hypercapnia Is this a current diagnosis for this admission?: Yes Plan: Secondary to Aspiration Pneumonia and Acute Congestive Heart failure: Augmentin. (2) Anemia Qualifiers: Anemia type: unspecified type Qualified Code(s): D64.9 - Anemia, unspecified Is this a current diagnosis for this admission?: Yes Plan: Stable (3) Bilateral pneumonia Qualifiers: Pneumonia type: due to unspecified organism Lung location: unspecified part of lung Qualified Code(s): J18.9 - Pneumonia, unspecified organism Is this a current diagnosis for this admission?: Yes (4) CHF (congestive heart failure) Qualifiers: Heart failure type: systolic Heart failure chronicity: acute on chronic Qualified Code(s): I50.23 - Acute on chronic systolic (congestive) heart failure Is this a current diagnosis for this admission?: Yes Plan: Continue Lisinopril,Lasix, and Toprol (5) Constipation Qualifiers: Constipation type: unspecified constipation type Qualified Code(s): K59.00 - Constipation, unspecified Is this a current diagnosis for this admission?: Yes Plan: Continue bowel regimen. (6) Down syndrome Is this a current diagnosis for this admission?: Yes Plan: Supportive care (7) Hypothyroidism Qualifiers: Hypothyroidism type: unspecified Qualified Code(s): E03.9 - Hypothyroidism , unspecified Is this a current diagnosis for this admission?: Yes Plan: Synthroid. (8) Sacral decubitus ulcer, stage II Is this a current diagnosis for this admission?: Yes Plan: Resolved. (9) Seizure disorder Is this a current diagnosis for this admission?: Yes Plan: Birdie (10) Severe sepsis Is this a current diagnosis for this admission?: Yes Plan: Secondary to Bilateral Pneumonia Aspiration Gram Positive Organism: Augmentin. - Time Time Spent with patient: 15-24 minutes
[2017-07-27 07:21] LABS: ABSOLUTE BASOPHILS # (AUTO) 0.1 10^3/uL (0.0-0.2); ABSOLUTE EOSINOPHILS # (AUTO) 0.1 10^3/uL (0.0-0.6); ABSOLUTE LYMPHOCYTES (AUTO) 2.1 10^3/uL (0.5-4.7); ABSOLUTE MONOCYTES (AUTO) 0.6 10^3/uL (0.1-1.4); ABSOLUTE NEUT (AUTO) 5.1 10^3/uL (1.7-8.2); BASOPHILS % (AUTO) 0.8 % (0-2); EOSINOPHILS % (AUTO) 1.4 % (0-6); HEMATOCRIT 33.1 % (36.0-47.0); HEMOGLOBIN 10.5 g/dL (12.0-15.5); LYMPHOCYTES % (AUTO) 26.6 % (13-45); MEAN CORPUSCULAR HEMOGLOBIN 29.1 pg (27.0-33.4); MEAN CORPUSCULAR HGB CONC 31.9 g/dL (32.0-36.0); MEAN CORPUSCULAR VOLUME 91 fl (80-97); MONOCYTES % (AUTO) 7.2 % (3-13); PLATELET COUNT 530 10^3/uL (150-450); RED BLOOD COUNT 3.62 10^6/uL (3.72-5.28); RED CELL DISTRIBUTION WIDTH 19.3 % (11.5-14.0); TOTAL CELLS COUNTED % (AUTO) 100 %
[2017-07-27] MEDS: LEVOTHYROXINE SODIUM 0.075 MG TABLET PEG SCH (07:43)
[2017-07-27 09:03] LABS: ALANINE AMINOTRANSFERASE 37 U/L (9-52); ALBUMIN 2.7 g/dL (3.5-5.0); ALKALINE PHOSPHATASE 105 U/L (38-126); ANION GAP 9 (5-19); ASPARTATE AMINO TRANSFERASE 25 U/L (14-36); BILIRUBIN,DIRECT 0.3 mg/dL (0.0-0.4); BILIRUBIN,TOTAL 0.3 mg/dL (0.2-1.3); BLOOD UREA NITROGEN 11 mg/dL (7-20); CARBON DIOXIDE 27 mmol/L (22-30); CHLORIDE 105 mmol/L (98-107); GLUCOSE 95 mg/dL (75-110); POTASSIUM 4.2 mmol/L (3.6-5.0); SODIUM 140.5 mmol/L (137-145); TOTAL PROTEIN 5.8 g/dL (6.3-8.2)
[2017-07-27] MEDS: LACTULOSE SYRUP 20 GM/30 ML UDCUP PEG SCH ×2 (09:29→17:47)
[2017-07-27] MEDS: LEVETIRACETAM 500 MG/NACL-ISO 500 MG/100 ML RTUPB IV SCH ×2 (10:33→21:15)
[2017-07-27] MEDS: FUROSEMIDE 20 MG TABLET PO SCH (10:34)
[2017-07-27] MEDS: LISINOPRIL 5 MG TABLET PO SCH (10:35)
[2017-07-27] MEDS: AMOXICILLIN TR/POT CLAVULANATE 250-62.5 MG/5 ML 75 ML PO SCH ×3 (10:38→21:15)
--- NOTE | 2017-07-27 11:21 | ST Inp Modified Barium Swallow ---
Medical Diagnosis - Medical Diagnoses Medical Diagnosis Description & ICD-10 Code(s): acute respiratory failure, bilateral pneumonia ST Inpatient MBS - General Date: 07/27/17 - History History Obtained From: Parent/Caregiver - step mother, Other - EMR -: Medical - Per EMR: patient has PEG tube placed approximately 1 month ago due to decreased appetite. Currently admitted to hospital due to bilateral pneumonia and sepsis. Family reports that the patient was eating soft solids at home and drinking liquids and were wanting the patient to eat by mouth again. Speech therapist saw patient at bedside, and noted high risk of silent aspiration. MBSS was recommended at that time, order placed by therapist under direction of physician, Dr. Garcia. Medications: Medications Reviewed Allergies: No known allergies - Subjective Current Nutritional Means: PEG Current PO Diet: N/A (NPO) Current Symptoms: Poor intake, Hx of asp. pneumonia Pain: unable to communicate, no signs/symptoms of pain - Objective Assessment: Upright, Left Lateral - Food Trials Food Trials Used: Thin liquids, Honey-thickened liquids, Abrams thick liquids, Pureed The Patient: fed by ST, via cup, via spoon, via straw - Assessment Labial Function: Impaired - reduced seal Lingual Function: Within Functional Limits Dentition: Partial - poor dentition Velo-Pharyngeal Function: Unremarkable Laryngeal Function: no volitional swallow, no volitional cough/clear - Pharyngeal Stage Initiation of Pharyngeal Stage: Delayed - for solid trials. Initially delayed by up to 20 seconds, subsequent trials resulted in more timely swallow reflex Reflex Delay Time (seconds): 20 - maximum delay Decreased Laryngeal Elevation: No Reduced Velo-Pharyngeal Closure: no Reduced Pressure Generation: Yes - moderate Reduced Tongue Base Retraction: No Pre-Swallowing Pooling in Valleculae: Moderate Pre-Swallowing Pooling in Pyriforms: None Reduced Thyro-Hyiod Approximation: No Reduced Epiglottic Excursion: No Multiple Swallows With: Cleared w/ Liquid Assist Post Swallow Residuals in Valleculae: Mild Post Swallow Residuals in Pyriforms: Mild Post Swallow Residuals: throughout pharynx Pahryngeal Stage Comments: Patient had difficulty taking liquids from cup, anterior loss seen x1, or very large bolus taken. Required pacing from therapist for appropriate bolus size. First trial was puree, during which the patient demonstrated a very significant delay to initiation of the swallow, and exhibited large amounts of residue afterwards. However, with subsequent trials, swallow became more timely and residue was reduced. - Impression/Summary Tracheal Aspiration: yes, deep, silent - silent aspiration on 2/3 aspiration episodes seen, cough - cough seen on 1/3 aspiration episodes, during swallow Effective Clearing: no Patient Presents With: Oral-Pharyngeal dysph., Severe Risk of Aspiration: Severe Risk of Nutritional Compromise: WNL - patient has PEG Risk Due To: Poor oral and pharyngeal control of bolus, silent aspiration of thin and nectar liquids, pharyngeal residue. - Recommendations Strict Aspitarion Precautions: Yes Dysphagia Therapy with COOLER SUPERVISOR: No Other Recommendations: Speech pathologist educated patient's family member of results of study. Discussed recommendation of pleasure feeds of puree/soft foods and honey thick liquids. Handouts given, family member voiced understanding. Therapist spoke with physician, who would like for patient to remain NPO due to medical status and history. Therapist discussed these recommendations with family member as well, who voiced understanding. - Time Total Time: 30 Total Timed Minutes: 30
--- NOTE | 2017-07-27 13:13 | RADIOLOGY REPORT (SQ) ---
EXAM DESCRIPTION: CONSTANTINO SWALLOW COMPLETED DATE/TIME: 07/27/2017 10:44 am REASON FOR STUDY: risk of silent aspiration COMPARISON: None. TECHNIQUE: Videofluoroscopic swallowing examination was performed in conjunction with speech patholo gy. Videofluoroscopic imaging was obtained and reviewed and these are the findings: RADIATION DOSE: Fluoro time 3.52 minutes 1 images saved to PACS. LIMITATIONS: None FINDINGS: The patient was brought into the fluoro room and placed upright on a modified barium swall ow chair. The patient was then given multiple consistencies mixed with barium to swallow under live fluoroscopic video guidance. According to the Speech Pathologist there was aspiration seen with thin and nectar thick consistencies. Honey thick and pureed consistencies were swallowed without inciden t. Please refer to the speech pathology report for further details. IMPRESSION: ASPIRATION SEEN WITH THIN AND NECTAR THICK CONSISTENCIES. AllPLEASE SEE SPEECH PATHOLOG IST REPORT FOR OTHER FINDINGS AND RECOMMENDATIONS. COMMENT: None Quality ID [id number]: Final reports for procedures using fluoroscopy that document radiation exposure ana jose g, or exposure time and number of fluorographic images (if radiation exposure indices are not avail able) TECHNICAL DOCUMENTATION: JOB ID: [id number] [employer]- All Rights Reserved Reading location - IP/workstation name: [email or web address] [id number]
[2017-07-27] MEDS: METOPROLOL SUCCINATE 25 MG TAB.SR.24H PO SCH (15:01)
--- NOTE | 2017-07-27 17:12 | PDOC PROGRESS REPORT ---
Subjective Progress Note for:: 07/27/17 Subjective:: Spoke to patient's mother who states her plans are to take patient home. Also spoke to patient's mother about risk for aspiration. Received call from speech therapy who states that they educated patient's mother about what substances that would work well for her. Speech therapy states that patient's mother continued to report that she gives Ensure and other substances that are not at the consistency speech therapy was recommending. Requested a speech therapy include this in their documentation to show that mother does not have clear understanding about what patient is safely able to handle when taking substances by mouth. Reason For Visit: SEVERE SEPSIS, MULTIFOCAL PNEUMONIA Physical Exam Vital Signs: Temp Pulse Resp BP Pulse Ox 97.8 F 116 H 24 H 88/72 L 100 07/27/17 15:40 07/27/17 15:40 07/27/17 15:40 07/27/17 15:40 07/27/17 15:40 Intake & Output 07/26/17 07/27/17 07/28/17 06:59 06:59 06:59 Intake Total 614 990 339 Output Total 800 525 Balance -186 465 339 Weight 51.7 kg 49.9 kg General appearance: PRESENT: thin Head exam: PRESENT: other - Microencephaly Eye exam: PRESENT: conjunctiva pink, EOMI Ear exam: PRESENT: normal external ear exam Mouth exam: PRESENT: other - Dry mucosal membranes Neck exam: ABSENT: carotid bruit, JVD, lymphadenopathy, thyromegaly Respiratory exam: PRESENT: clear to auscultation amarjit. ABSENT: rales, rhonchi, wheezes Cardiovascular exam: PRESENT: RRR. ABSENT: diastolic murmur, rubs, systolic murmur Pulses: PRESENT: normal dorsalis pedis pul Vascular exam: PRESENT: normal capillary refill GI/Abdominal exam: PRESENT: normal bowel sounds, soft. ABSENT: distended, guarding, mass, organolmegaly, rebound, tenderness Rectal exam: PRESENT: deferred Extremities exam: ABSENT: calf tenderness, clubbing, pedal edema Neurological exam: PRESENT: alert, oriented to person Psychiatric exam: PRESENT: appropriate affect, normal mood. ABSENT: homicidal ideation, suicidal ideation Skin exam: PRESENT: dry, intact, warm. ABSENT: cyanosis, rash Results Laboratory Results: 07/27/17 07:00 07/27/17 07:00 07/27/17 07/27/17 07:00 07:00 WBC 8.0 RBC 3.62 L Hgb 10.5 L Hct 33.1 L MCV 91 MCH 29.1 MCHC 31.9 L RDW 19.3 H Plt Count 530 H Seg Neutrophils % 64.0 Lymphocytes % 26.6 Monocytes % 7.2 Eosinophils % 1.4 Basophils % 0.8 Absolute Neutrophils 5.1 Absolute Lymphocytes 2.1 Absolute Monocytes 0.6 Absolute Eosinophils 0.1 Absolute Basophils 0.1 Sodium 140.5 Potassium 4.2 Chloride 105 Carbon Dioxide 27 Anion Gap 9 BUN 11 Creatinine 0.56 Est GFR ( Amer) > 60 Est GFR (Non-Af Amer) > 60 Glucose 95 Calcium 9.0 Total Bilirubin 0.3 AST 25 ALT 37 Alkaline Phosphatase 105 Total Protein 5.8 L Albumin 2.7 L 07/18/17 07/18/17 07/18/17 00:15 06:00 06:00 Troponin I 0.065 0.039 NT-Pro-B Natriuret Pep 841 07/18/17 07/20/17 12:35 05:45 Troponin I 0.028 NT-Pro-B Natriuret Pep 1680 H Impressions: Abdomen/Pelvis CT 07/17/17 00:00 IMPRESSION: 1. Free air in the abdomen. The patient has a recently placed gastrostomy tube (6 days ago per history). If this was a surgically placed tube , the gas could be persistent postoperative pneumoperitoneum. At nearly 1 week after placement, such pneumoperitoneum is usually resolved. A subtle leak at the gastrostomy tube site is possible, however I see no extravasating contrast or drainable collections currently. Close follow-up is advised. Other viscera look intact without perforation elsewhere in the GI tract evident. Chest X-Ray 07/19/17 00:00 IMPRESSION: No pneumothorax post right jugular triple lumen catheter placement with the tip in the right atrium. Findings worrisome for fluid overload or congestive failure Postoperative persistent right subdiaphragmatic free air similar compared to CT abdomen pelvis 07/17/2017 KUB X-Ray 07/19/17 00:00 IMPRESSION: NO RADIOGRAPHIC EVIDENCE FOR ACUTE ABDOMINAL DISEASE. Chest/Abdomen CTA 07/20/17 00:00 IMPRESSION: No evidence for pulmonary embolic disease. Tiny left pleural effusion with some minimal associated airspace consolidation most consistent with atelectatic changes. Minimal linear density in the right lung base most consistent with atelectatic changes. There is a small amount residual free air in the right upper quadrant as noted above. Other findings as noted above Soft Tissue Neck X-Ray 07/20/17 00:00 IMPRESSION: I cannot exclude some anterior soft tissue swelling in the neck. No other significant findings Thyroid Ultrasound 07/20/17 00:00 IMPRESSION: MARKEDLY LIMITED STUDY. NO CLEAR-CUT ABNORMAL FINDINGS ALTHOUGH VERY POOR VISUALIZATION. Modified Barium Swallow 07/27/17 00:00 IMPRESSION: ASPIRATION SEEN WITH THIN AND NECTAR THICK CONSISTENCIES. AllPLEASE SEE SPEECH PATHOLOGIST REPORT FOR OTHER FINDINGS AND RECOMMENDATIONS. Assessment & Plan - Diagnosis (1) Dysphasia Is this a current diagnosis for this admission?: Yes Plan: Patient will continue n.p.o. Speech therapy has recommended pleasure feeds however concerned that patient will continue to aspirate. Patient will continue to receive nutrition via G-tube. (2) Acute respiratory failure Qualifiers: Respiratory failure complication: unspecified whether with hypoxia or hypercapnia Qualified Code(s): J96.00 - Acute respiratory failure, unspecified whether with hypoxia or hypercapnia Is this a current diagnosis for this admission?: Yes Plan: Secondary to Aspiration Pneumonia and Acute Congestive Heart failure: Augmentin. (3) Anemia Qualifiers: Anemia type: unspecified type Qualified Code(s): D64.9 - Anemia, unspecified Is this a current diagnosis for this admission?: Yes Plan: Stable (4) Bilateral pneumonia Qualifiers: Pneumonia type: due to unspecified organism Lung location: unspecified part of lung Qualified Code(s): J18.9 - Pneumonia, unspecified organism Is this a current diagnosis for this admission?: Yes Plan: Will continue on Augmentin. (5) CHF (congestive heart failure) Qualifiers: Heart failure type: systolic Heart failure chronicity: acute on chronic Qualified Code(s): I50.23 - Acute on chronic systolic (congestive) heart failure Is this a current diagnosis for this admission?: Yes Plan: Continue Lisinopril,Lasix, and Toprol (6) Constipation Qualifiers: Constipation type: unspecified constipation type Qualified Code(s): K59.00 - Constipation, unspecified Is this a current diagnosis for this admission?: Yes Plan: Continue bowel regimen. (7) Down syndrome Is this a current diagnosis for this admission?: Yes Plan: Supportive care (8) Hypothyroidism Qualifiers: Hypothyroidism type: unspecified Qualified Code(s): E03.9 - Hypothyroidism , unspecified Is this a current diagnosis for this admission?: Yes Plan: Synthroid. (9) Sacral decubitus ulcer, stage II Is this a current diagnosis for this admission?: Yes Plan: Resolved. (10) Seizure disorder Is this a current diagnosis for this admission?: Yes Plan: Birdie (11) Severe sepsis Is this a current diagnosis for this admission?: Yes Plan: Secondary to Bilateral Pneumonia Aspiration Gram Positive Organism: Augmentin. - Time Time Spent with patient: 15-24 minutes
[2017-07-28 00:48] LABS: AMORPHOUS SEDIMENT,URINE TRACE /HPF; APPEARANCE,URINE CLEAR; BILIRUBIN,URINE NEGATIVE (NEGATIVE); COLOR,URINE YELLOW; GLUCOSE, URINE NEGATIVE (NEGATIVE); KETONES,URINE NEGATIVE (NEGATIVE); LEUKOCYTE ESTERASE,URINE NEGATIVE (NEGATIVE); NITRITE,URINE NEGATIVE (NEGATIVE); PROTEIN,URINE NEGATIVE (NEGATIVE); URINE SPECIFIC GRAVITY 1.009; UROBILINOGEN,URINE NEGATIVE mg/dL (<2.0)
[2017-07-28] MEDS: METOCLOPRAMIDE HCL INJ/PF 10 MG/2 ML SDV IV SCH ×3 (03:42→14:33)
[2017-07-28] MEDS: AMOXICILLIN TR/POT CLAVULANATE 250-62.5 MG/5 ML 75 ML PO SCH ×2 (05:41→14:35)
[2017-07-28] MEDS: LEVOTHYROXINE SODIUM 0.075 MG TABLET PEG SCH (05:41)
[2017-07-28] MEDS: METOPROLOL SUCCINATE 25 MG TAB.SR.24H PO SCH (10:49)
[2017-07-28] MEDS: LISINOPRIL 5 MG TABLET PO SCH (10:49)
[2017-07-28] MEDS: LACTULOSE SYRUP 20 GM/30 ML UDCUP PEG SCH ×2 (10:50→17:45)
[2017-07-28] MEDS: FUROSEMIDE 20 MG TABLET PO SCH (10:50)
[2017-07-28] MEDS: LEVETIRACETAM 500 MG/NACL-ISO 500 MG/100 ML RTUPB IV SCH (11:27)
[2017-07-28] MEDS ORDERED: ACETAMINOPHEN SOLN 325 MG/10.15 ML UDCUP PEG PRN (12:15)
[2017-07-28] MEDS ORDERED: GUAIFENESIN/D-METHORPHAN (200-20 MG) SYRUP 10 ML NG PRN (12:30)
[2017-07-28] MEDS ORDERED: DEXTROSE 40% GEL 15 GM TUBE NG PRN ×2 (12:30)
--- NOTE | 2017-07-28 13:25 | PDOC DISCHARGE SUMMARY ---
General - Admit/Disc Date/PCP Admission Date/Primary Care Provider: 07/17/17 23:42 MEDINA GOLDSMITH NP Discharge Date: 07/28/17 - Discharge Diagnosis (1) Dysphasia Is this a current diagnosis for this admission?: Yes Summary: Speech recommended pleasure feeding. (2) Acute respiratory failure Is this a current diagnosis for this admission?: Yes Summary: Secondary to Aspiration Pneumonia and Acute Congestion Heart Failure 45%: She was placed on broad-spectrum antibiotics and diuretics. His respiratory function has improved and patient has been continued on Lasix at time of discharge. Patient will be discharged home on Augmentin for 7 more days. (3) Anemia Is this a current diagnosis for this admission?: Yes Summary: Stable (4) Bilateral pneumonia Is this a current diagnosis for this admission?: Yes Summary: Secondary to Aspiration Pneumonia: Pt will complete treatment with Augmentin. (5) CHF (congestive heart failure) Is this a current diagnosis for this admission?: Yes Summary: Acute on chronic Systolic Congestive Heart Failure 45%: Pt was place on Lasix. Pt has diuresed. (6) Constipation Is this a current diagnosis for this admission?: Yes Summary: Will continue stool softener. (7) Down syndrome Is this a current diagnosis for this admission?: Yes Summary: Supportive Care (8) Hypothyroidism Is this a current diagnosis for this admission?: Yes Summary: Synthroid (9) Sacral decubitus ulcer, stage II Is this a current diagnosis for this admission?: Yes Summary: Resolved. (10) Seizure disorder Is this a current diagnosis for this admission?: Yes Summary: Birdie (11) Severe sepsis Is this a current diagnosis for this admission?: Yes Summary: Secondary to Bilateral Pneumonia Aspiration Gram Positive Organism: Augmentin. - Additional Information Resuscitation Status: Full Code Discharge Diet: Tube Feeding (Comments) Prescriptions: Amox Tr/Potassium Clavulanate [Augmentin 250-62.5 mg/5 ml Susp] 500 mg PO Q8 7 Days #1 bottle Furosemide [Lasix] 10 mg PO DAILY #15 tablet Lactulose [Cephulac Syrup 20 gm/30 ml Udcup] 20 gm PEG BID #60 udc Levothyroxine Sodium [Synthroid 0.075 mg Tablet] 0.075 mg PEG Q6AM #30 tablet Lisinopril [Prinivil 5 mg Tablet] 2.5 mg PEG DAILY #15 tablet Metoprolol Succinate [Toprol Xl 25 mg Tab.sr] 25 mg PO DAILY #30 tab.sr.24h Home Medications: Aspirin [Aspirin EC] 81 mg PEG DAILY 07/18/17 Levetiracetam [Keppra] 750 mg PEG Q12 07/18/17 Levothyroxine Sodium [Synthroid] 125 mcg PEG Q6AM 07/18/17 Tramadol HCl [Ultram 50 mg Tablet] 50 mg PEG BID 07/18/17 Trazodone HCl [Desyrel 50 mg Tablet] 50 mg PEG QHS 07/18/17 Amox Tr/Potassium Clavulanate [Augmentin 250-62.5 mg/5 ml Susp] 500 mg PO Q8 7 Days #1 bottle 07/28/17 Furosemide [Lasix] 10 mg PO DAILY #15 tablet 07/28/17 Lactulose [Cephulac Syrup 20 gm/30 ml Udcup] 20 gm PEG BID #60 udc 07/28/17 Levothyroxine Sodium [Synthroid 0.075 mg Tablet] 0.075 mg PEG Q6AM #30 tablet Lisinopril [Prinivil 5 mg Tablet] 2.5 mg PEG DAILY #15 tablet 07/28/17 Metoprolol Succinate [Toprol Xl 25 mg Tab.sr] 25 mg PO DAILY #30 tab.sr.24h History of Present Illness Patient complains of: Fever and worsening shortness of breath History of Present Illness: GLENN GARCIA is a 51 year old female admitted to the hospital with complaint of fever and shortness of breath. Patient's caregiver was at bedside who reported the patient has been declining for the last several months. Patient's mother reports that patient had PEG tube placed on 07/11/2017. Patient was seen in the emergency department patient was found to have fever of 100.9. Hospital Course Hospital Course: Presents to the hospital with complaint of fever and shortness breath. Patient was found to be septic secondary to aspiration pneumonia and acute cystitis. Patient was placed on appropriate antibiotics and antibiotics was narrowed as patient improved. Patient was also found to have acute on chronic systolic congestive heart failure with EF of 45%. Patient was placed on Lasix and then covered with appropriate medication of metoprolol and lisinopril. Patient was evaluated by speech speech therapy who recommended pleasure feeds however with speech therapy discussed recommendations with patient's caregiver and caregiver continue to give poor options for pleasure feeding. Speech therapy did reiterate the importance of being consistent with her recommendations to prevent patient from aspirating. Patient was noted to have hypothyroidism not well controlled on current dose of Synthroid and therefore Synthroid dose was increased. Patient's TSH will need to be checked within 4-6 weeks of this recent change. Recommended the family be seen by palliative care due to patient continued to decline and patient being a high risk for readmission to hospital. Order was written for resume home health. Patient's caregiver did make patient DNR during this admission. Patient was found to have intra- abdominal free air however this is expected because patient has new PEG tube placed on 07/11/2017. No further evaluation was warranted. Physical Exam Vital Signs: Temp Pulse Resp BP Pulse Ox 98.2 F 83 20 91/52 L 97 07/28/17 08:00 07/28/17 08:00 07/28/17 08:00 07/28/17 08:00 07/28/17 08:00 Intake & Output 07/27/17 07/28/17 07/29/17 06:59 06:59 06:59 Intake Total 990 1072 245 Output Total 525 800 Balance 465 272 245 Weight 49.9 kg 50 kg General appearance: PRESENT: thin Head exam: PRESENT: atraumatic, normocephalic Eye exam: PRESENT: conjunctiva pink, EOMI. ABSENT: scleral icterus Ear exam: PRESENT: normal external ear exam Mouth exam: PRESENT: moist, tongue midline Neck exam: ABSENT: carotid bruit, JVD, lymphadenopathy, thyromegaly Respiratory exam: PRESENT: decreased breath sounds. ABSENT: rales, rhonchi, wheezes Cardiovascular exam: PRESENT: RRR. ABSENT: diastolic murmur, rubs, systolic murmur Pulses: PRESENT: normal dorsalis pedis pul Vascular exam: PRESENT: normal capillary refill GI/Abdominal exam: PRESENT: normal bowel sounds, soft, other - PEG tube placement.. ABSENT: distended, guarding, mass, organolmegaly, rebound, tenderness Rectal exam: PRESENT: deferred Extremities exam: PRESENT: other - + muscle wasting. Neurological exam: PRESENT: alert, awake, oriented to person Results Laboratory Results: 07/27/17 07:00 07/27/17 07:00 07/28/17 00:05 Urine Color YELLOW Urine Appearance CLEAR Urine pH 7.0 Ur Specific [place] 1.009 Urine Protein NEGATIVE Urine Glucose (UA) NEGATIVE Urine Ketones NEGATIVE Urine Blood SMALL H Urine Nitrite NEGATIVE Ur Leukocyte Esterase NEGATIVE Urine WBC (Auto) 0 Urine RBC (Auto) 2 07/18/17 07/18/17 07/18/17 00:15 06:00 06:00 Troponin I 0.065 0.039 NT-Pro-B Natriuret Pep 841 07/18/17 07/20/17 12:35 05:45 Troponin I 0.028 NT-Pro-B Natriuret Pep 1680 H Impressions: Abdomen/Pelvis CT 07/17/17 00:00 IMPRESSION: 1. Free air in the abdomen. The patient has a recently placed gastrostomy tube (6 days ago per history). If this was a surgically placed tube , the gas could be persistent postoperative pneumoperitoneum. At nearly 1 week after placement, such pneumoperitoneum is usually resolved. A subtle leak at the gastrostomy tube site is possible, however I see no extravasating contrast or drainable collections currently. Close follow-up is advised. Other viscera look intact without perforation elsewhere in the GI tract evident. Chest X-Ray 07/19/17 00:00 IMPRESSION: No pneumothorax post right jugular triple lumen catheter placement with the tip in the right atrium. Findings worrisome for fluid overload or congestive failure Postoperative persistent right subdiaphragmatic free air similar compared to CT abdomen pelvis 07/17/2017 [facility] X-Ray 07/19/17 00:00 IMPRESSION: NO RADIOGRAPHIC EVIDENCE FOR ACUTE ABDOMINAL DISEASE. Chest/Abdomen CTA 07/20/17 00:00 IMPRESSION: No evidence for pulmonary embolic disease. Tiny left pleural effusion with some minimal associated airspace consolidation most consistent with atelectatic changes. Minimal linear density in the right lung base most consistent with atelectatic changes. There is a small amount residual free air in the right upper quadrant as noted above. Other findings as noted above Soft Tissue Neck X-Ray 07/20/17 00:00 IMPRESSION: I cannot exclude some anterior soft tissue swelling in the neck. No other significant findings Thyroid Ultrasound 07/20/17 00:00 IMPRESSION: MARKEDLY LIMITED STUDY. NO CLEAR-CUT ABNORMAL FINDINGS ALTHOUGH VERY POOR VISUALIZATION. Modified Barium Swallow 07/27/17 00:00 IMPRESSION: ASPIRATION SEEN WITH THIN AND NECTAR THICK CONSISTENCIES. AllPLEASE SEE SPEECH PATHOLOGIST REPORT FOR OTHER FINDINGS AND RECOMMENDATIONS. Qualifiers - * PATEINT BEING DISCHARGED WITH ANY OF THE FOLLOWING DIAGNOSIS?: No Plan Time Spent: Greater than 30 Minutes
[2017-07-28] MEDS: FENTANYL 12 MCG/HR PATCH.TD72 TD SCH (14:29)
[2017-07-28 16:45] VITALS: BP 91/55
[2017-07-29] MEDS ORDERED: LISINOPRIL 5 MG TABLET PEG SCH (10:00)
[2017-07-29] MEDS ORDERED: FUROSEMIDE ORAL SOLN 40 MG/5 ML UDCUP PEG SCH (10:00)
== END 2017-07-28 18:42 | disposition home health service (06) | DRG 871 ==
LOC: ER 17:49 → EH 23:42 → ICU 07-18 02:25 → 5 07-19 12:35
PROVIDERS: ADMIT Internal Medicine Geriatric Medicine; ATTEND Internal Medicine Geriatric Medicine
PROC: 02HV33Z Insertion of Infusion Device into Superior Vena Cava, Percutaneous Approach (ICD-10-PCS; principal; 2017-07-19)
PROC: B548ZZA Ultrasonography of Superior Vena Cava, Guidance (ICD-10-PCS; 2017-07-19)
DX: A41.9 Sepsis, unspecified organism (principal); J69.0 Pneumonitis due to inhalation of food and vomit; J96.00 Acute respiratory failure, unspecified whether with hypoxia or hypercapnia; I50.23 Acute on chronic systolic (congestive) heart failure; N17.1 Acute kidney failure with acute cortical necrosis; Z66 Do not resuscitate; L89.152 Pressure ulcer of sacral region, stage 2; N39.0 Urinary tract infection, site not specified; J95.812 Postprocedural air leak; R65.20 Severe sepsis without septic shock; Z93.1 Gastrostomy status; Q90.9 Down syndrome, unspecified; E78.00 Pure hypercholesterolemia, unspecified; E03.9 Hypothyroidism, unspecified; K21.9 Gastro-esophageal reflux disease without esophagitis; R62.7 Adult failure to thrive; G40.909 Epilepsy, unspecified, not intractable, without status epilepticus; D64.9 Anemia, unspecified; I11.0 Hypertensive heart disease with heart failure; K59.00 Constipation, unspecified; M19.90 Unspecified osteoarthritis, unspecified site; Y83.3 Surgical operation with formation of external stoma as the cause of abnormal reaction of the patient, or of later complication, without mention of misadventure at the time of the procedure; Y92.009 Unspecified place in unspecified non-institutional (private) residence as the place of occurrence of the external cause
CPT/HCPCS: 36415; 70360; 71045; 71275; 74018; 74177; 74230; 76536; 80048; 80053; 81001; 82803; 82962; 83605; 83690; 83735; 83880; 84100; 84443; 84484; 85025; 85027; 85610; 87040; 87077; 87086; 87088; 87186; 93005; 93010; 93306; 94660; 96361; 96365; 96367; 99291; C1751; G8996-GN; G8997-GN; G8998-GN; J0456; J0696; J1642; J1644; J1940; J1953; J2060; J2543; J2765; J3010; J3370; J3480; J3490; J7030; J7060; J7120; S0164